=== PATIENT | female | born 1955 | race Caucasian/White ===

== ENCOUNTER 2016-11-29 12:29 | Observation (INO) ==
[2016-11-29 13:22] VITALS: BMI 26.2
[2016-11-29 14:12] LABS: BASOPHILS # (AUTO) 0.1 K/uL (0-0.2); BASOPHILS % (AUTO) 0.7 % (0.0-3.0); EOSINOPHILS % (AUTO) 0.5 % (0.0-7.0); HEMATOCRIT 46.4 % (37.0-47.0); HEMOGLOBIN 16.4 g/dl (12.0-16.0); IMMATURE GRANULOCYTE % (AUTO) 0.4 % (0.0-5.0); LYMPHOCYTES # (AUTO) 1.4 K/uL (0.60-3.4); LYMPHOCYTES % (AUTO) 16.6 (10.0-50.0); MEAN CORPUSCULAR HEMOGLOBIN 37.1 pg (27.0-31.0); MEAN CORPUSCULAR HGB CONC 35.3 (31.8-35.4); MONOCYTES # (AUTO) 0.6 K/uL (0.4-2.0); MONOCYTES % (AUTO) 6.7 (0-10); NEUTROPHILS # (AUTO) 6.4 K/ul (2.0-6.9); NEUTROPHILS % (AUTO) 75.1; PLATELET COUNT 273 10^3/uL (140-440); RED BLOOD COUNT 4.42 10^6/ul (4.20-5.40); WHITE BLOOD COUNT 8.53 K/ul (4.6-10.2)
[2016-11-29 14:21] LABS: ANISOCYTOSIS NOT PRESENT (NOT PRESENT)
[2016-11-29] MEDS ORDERED: MYLANTA SUSP PO PRN (14:53)
[2016-11-29] MEDS ORDERED: LIDODERM PATCH 5% TP PRN (14:55)
[2016-11-29] MEDS ORDERED: TYLENOL PO PRN (14:55)
--- NOTE | 2016-11-29 14:57 | DI ---
EXAM: Chest two views HISTORY: Chest pain COMPARISON: CT chest 10/26/2016 TECHNIQUE: Two views of the chest were performed FINDINGS: The lungs are clear. There is no pleural effusion or pneumothorax. The heart is normal i n size. The mediastinal contour is normal, noting atherosclerosis. There are no acute abnormalities of the bones. Mild compression deformity in the lower spine appears grossly unchanged. Old right ri b fracture IMPRESSION: No acute cardiopulmonary process.
[2016-11-29 15:21] LABS: ALANINE AMINOTRANSFERASE 18 U/L (12-78); ALBUMIN 3.6 g/dL (3.4-5.0); ALBUMIN/GLOBULIN RATIO 0.97; ALKALINE PHOSPHATASE 141 U/L (53-141); ANION GAP 14.5; ASPARTATE AMINO TRANSFERASE 49 U/L (15-37); BILIRUBIN,TOTAL 1.06 mg/dL (0.00-1.20); BLOOD UREA NITROGEN 5 mg/dL (7-18); BUN/CREATININE RATIO 8.77; CARBON DIOXIDE 26 mmol/L (23-31); CHLORIDE 98 mmol/L (98-107); CREATINE KINASE 105 U/L; CREATININE 0.57 mg/dL (0.60-1.30); GLUCOSE 98 mg/dL (82-115); POTASSIUM 4.5 mmol/L (3.5-5.10); SODIUM 134 mmol/L (136-145); TOTAL PROTEIN 7.3 g/dL (5.8-8.1)
[2016-11-29] MEDS ORDERED: GI COCKTAIL PO PRN (16:46)
[2016-11-29] MEDS ORDERED: ZOFRAN 4 MG/2 ML IVP PRN (16:46)
[2016-11-29 17:40] LABS: BILIRUBIN,URINE Negative (NEGATIVE); KETONES,URINE Negative (NEGATIVE); LEUKOCYTE ESTERASE ,URINE Negative (NEGATIVE); NITRITE,URINE Negative (NEGATIVE); PROTEIN,URINE Negative (NEGATIVE); URINE, BLOOD Trace-lysed (NEGATIVE)
[2016-11-29 17:44] LABS: ADD URINE MICROSCOPIC YES
[2016-11-29] MEDS: NORCO 5-325 PO PRN (18:59)
[2016-11-30] MEDS: NORCO 5-325 PO PRN ×2 (04:00→10:12)
[2016-11-30 06:18] LABS: CHOL/HDL RATIO 3.8 (4.5-5.5)
[2016-11-30] MEDS ORDERED: PROTONIX PO SCH (06:30)
[2016-11-30] MEDS ORDERED: ATROPINE SULFATE PFS ONE (07:15)
[2016-11-30] MEDS ORDERED: DOBUTAMINE 250 ML IV ONE (07:15)
--- NOTE | 2016-11-30 13:14 | ECHO2D ---
Date of Exam: 11/30/16 [facility] Room [facility]: [id number] Reason for Echo: CHEST PAIN M-Mode Normal Adult Results LV Dimensions Normal Adult Results AoV Opening excursions >1.6 >1.6 LVEDD-base- 3.5-5.8 5.1 Ao root dimensions 2.0-3.7 3.4 LVESD-base- 3.1-4.6 L. Atrium dimensions 1.9-3.8 3.6 Post. Wall thickness 0.8-1.1 1.0 IV septum (thickness) 0.7-1.2 1.1 Post. Wall excursion 0.72-1.3 NORMAL Septal motion NORMAL Systolic motion R. Ventricular cavity 1.5-2.0 NORMAL LVEF 60% 52% Paradoxical septal wall motion NORMAL 2-D : 2-D M Mode Echocardiogram was performed using apical four chamber and left parasternal long and short axis views. Mitral, tricuspid and aortic valves appear to be normal. Contractility of the left ventricle seems to be normal, so is the cavity size. Left atrial cavity size and aortic root appear to be normal. There is no pericardial effusion. There is no thrombus noted in the left ventricular or left aortic cavity. No mitral valve prolapse noted. M-MODE: MV: NORMAL AV: NORMAL TV: NORMAL PV: CHAMBER SIZE: NORMAL WALL MOTION: NORMAL PERICARDIUM: NORMAL INTERPRETATION: 1. NORMAL 2 "D" "M" MODE ECHO MTDD
--- NOTE | 2016-11-30 13:30 | DOBSTECHO ---
Ordering Physician: COLT ROBERTS Date of Test: 11/30/16 Reason for Examination: CHEST PAIN Current Medications: NORCO, PANTOPRAZOLE, LIDODERM PATCH Height: 64" Weight: 153 LBS Target Heart Rate: 133/157 ST Segment Stage Time HR BPM BP mmhg Rhythm +/- Up Down Comments/Symptoms Control Sitting 72 142/80 SR X NONE Dobutamine 250mg/D5W 5cmg/KG/mn 10cmg/KG/mn 3" 81 SR X NONE 15cmg/KG/mn 2" 87 SR X NONE 20cmg/KG/mn 2" 104 152/72 SR X NONE 25cmg/KG/mn 2" 129 SR X NONE 30cmg/KG/mn :24 139 SR X NONE 35cmg/KG/mn 40cmg/KG/mn Time: 2" HR B/P Time: 8" HR B/P Time: 12" HR B/P Recovery 133 150/60 Recovery 92 132/60 Recovery 87 Total Time: 9:24 Maximum Heart Rate Reached: 139 Interpretation: 98% OXYGEN SATURATION ON ROOM AIR WITH DOBUTAMINE INFUSION 1. NO EVIDENCE OF ISCHEMIA BY ST-T WAVE CHANGES 2. CHEST PAIN OR DISCOMFORT 3. NORMAL LEFT VENTRICULAR CONTRACTILITY--RESTING AND POST DOBUTAMINE INFUSION MTDD
--- NOTE | 2016-11-30 13:33 | ECHOSTRESS ---
Date of Exam: 11/30/16 [facility] Reason for Echo: CHEST PAIN, DOBUTAMINE STRESS TEST--NO ISCHEMIA M-Mode Normal Adult Results LV Dimensions Normal Adult Results AoV Opening excursions >1.6 LVEDD-base- 3.5-5.8 Ao root dimensions 2.0-3.7 LVESD-base- 3.1-4.6 L. Atrium dimensions 1.9-3.8 Post. Wall thickness 0.8-1.1 IV septum (thickness) 0.7-1.2 Post. Wall excursion 0.72-1.3 Septal motion Systolic motion R. Ventricular cavity 1.5-2.0 LVEF 60% Paradoxical septal wall motion 2-D: NORMAL LEFT VENTRICULAR CONTRACTILITY--RESTING AND WITH DOBUTAMINE INFUSION M-MODE: MV: AV: TV: PV: CHAMBER SIZE: WALL MOTION: NORMAL LEFT VENTRICULAR CONTRACTILITY--RESTING AND WITH DOBUTAMINE INFUSION PERICARDIUM: INTERPRETATION: 1. NORMAL LEFT VENTRICULAR CONTRACTILITY--RESTING AND WITH DOBUTAMINE INFUSION MTDD
[2016-11-30 16:01] VITALS: TEMP 97.4
[2016-11-30 17:48] VITALS: BP 132/85
--- NOTE | 2016-12-01 12:46 | CONS ---
DATE OF CONSULTATION: 11/29/16 REASON FOR CONSULTATION: Chest pain HISTORY OF PRESENT ILLNESS: 60 year old white female was seen in doctors office with epigastric lower sternal chest pain, the center with steady ache with duration of 24 hours. The patient also had reflux type of symptoms. Ache or discomfort is nonexertional, no sweating and no shortness of breath with it. There are no symptoms of coronary insufficiency or CHF. REVIEW OF SYSTEMS: CONSTITUTIONAL: No night sweats. No fatigue, malaise, lethargy. No fever or chills. HEENT: Eyes: No visual changes. No eye pain. No eye discharge. ENT: No sinus drainage. No epistaxis. No sinus pain. No sore throat. No odynophagia. No ear pain. No congestion. RESPIRATORY: No cough, no congestion. No hemoptysis. No shortness of breath. CARDIOVASCULAR: No angina symptoms. No CHF symptoms. No atypical chest pain for CAD. No palpitations. No orthopnea. GASTROINTESTINAL: No abdominal pain. No nausea or vomiting. No diarrhea or constipation. No hematemesis. No hematochezia. GENITOURINARY: No urgency. No frequency. No dysuria. No hematuria. No obstructive symptoms. No discharge. No pain. No significant abnormal bleeding. MUSCULOSKELETAL: No musculoskeletal pain. No joint swelling. NEUROLOGICAL: No headache. No neck pain. No syncope. No seizures. No dizziness. PSYCHIATRIC: Not anxious. No depression. No suicidal thoughts. No homicidal thoughts. SKIN: No rash. No lesions. No wounds. ENDOCRINE: No unexplained weight loss. No weight gain. HEMATOLOGIC/LYMPHATIC: No anemia. No purpura. No petechiae. No prolonged or excessive bleeding. No palpable lymph nodes. MEDICATIONS: hydrocodone Lidocaine patch Pantoprazole PHYSICAL EXAMINATION: GENERAL: The patient is oriented to time, place and person. VITAL SIGNS: Temperature 98.6, pulse 70, respiratory rate 15, blood pressure 130 /70 HEENT: Head normocephalic, atraumatic. Eyes: Extraocular muscles are intact. Pupils are equal, round and reactive to light and accommodation. Ears: No lesions. Nose appeared normal. Throat: No exudate or erythema. NECK: Supple. No JVD, no carotid bruit. No lymphadenopathy or thyromegaly. LUNGS: Clear to auscultation. Percussion note normal. Chest symmetrical. HEART: S1, S2, no S3. No murmurs. No cyanosis or clubbing. No ascites. Pulses: Dorsalis pedis and posterior tibial pulses +1 to +2 both sides. ABDOMEN: Soft. Nontender. Bowel sounds active. No CVA tenderness. No mass felt. EXTREMITIES: No edema. Full range of motion of all extremities, equal. NEUROLOGIC: No focal deficit. Cranial nerves II through XII are grossly intact. No headache, no double vision or headache. SKIN: Not dry. Intact. Turgor - normal. LYMPHATIC: No palpable lymph nodes/no lymphedema. MUSCULOSKELETAL: Normal joints with no swelling. Muscle tone is normal. LABS: EKG sinus rhythm with no acute changes. The patient's A1c was 4.8, total cholesterol 153, triglycerides 126, Non HDL is 113 so the patient's lipid profile is acceptable. ASSESSMENT: 1. Chest pain lower sternal likely could be reflux RECOMMENDATIONS: 1. Echo and stress echo 2. Lipid profile 3. T4 TSH 4. Telemetry 5. Cardiac markers 6. So far no evidence of acute OH, Ischemia. EKG normal. Enzymes are negative. 7. Discussed with the patient Coronary insufficiency symptoms. The patient was seen and examined with Nurse Practitioner. Thanks for referral. Will follow. JONAS
--- NOTE | 2016-12-01 12:47 | CONS ---
The patient was seen on Consultation on 11/29/16: Level 5 Followup 11/30/16: Intermediate MTDD
--- NOTE | 2016-12-14 14:03 | CONS ---
DATE OF CONSULTATION: 11/29/16 DATE OF SERVICE: 11/29/16 HISTORY OF PRESENT ILLNESS: This is a 61-year-old female who was a direct admit from Dr. Bardales's office. She had elevated blood pressure of 196/100 in the office and was complaining of epigastric chest tightness and pain. After talking with her today, she states that she is not actually having chest pain, that this is more in the upper stomach, epigastric region. She is not experiencing any shortness of breath. The patient did recently have a nickel removed that she had accidentally swallowed and had revealed that she had an ulcer. She takes Protonix daily. She is a two pack per day smoker. PAST MEDICAL HISTORY: Includes L2 compression fracture Ulcer GERD Chronic back pain for which she takes Defiance Two pack per day long-term smoker PAST SURGICAL HISTORY: Cataract removal Status post hysterectomy Benign cyst in the pelvic region removed by Dr. Young Right wrist surgery Recent nickel removal last month by Dr. Jones via EGD REVIEW OF SYSTEMS: CONSTITUTIONAL: No night sweats. No fatigue, malaise, lethargy. No fever or chills. HEENT: Eyes: No visual changes. No eye pain. No eye discharge. ENT: No sinus drainage. No epistaxis. No sinus pain. No sore throat. No odynophagia. No ear pain. No congestion. RESPIRATORY: No cough, no congestion. No hemoptysis. No shortness of breath. CARDIOVASCULAR: No angina symptoms. No CHF symptoms. No atypical chest pain for CAD. No tightness. No shortness of breath. No palpitations. No orthopnea. GASTROINTESTINAL: Epigastric pain. No nausea or vomiting. No diarrhea or constipation. No hematemesis. No hematochezia. GENITOURINARY: No urgency. No frequency. No dysuria. No hematuria. No obstructive symptoms. No discharge. No pain. No significant abnormal bleeding. MUSCULOSKELETAL: No musculoskeletal pain. No joint swelling. NEUROLOGICAL: She is alert and oriented. No headache. No neck pain. No syncope. No seizures. No dizziness. PSYCHIATRIC: Not anxious. No depression. No suicidal thoughts. No homicidal thoughts. SKIN: No rash. No lesions. No wounds. ENDOCRINE: No unexplained weight loss. No weight gain. HEMATOLOGIC/LYMPHATIC: No anemia. No purpura. No petechiae. No prolonged or excessive bleeding. No palpable lymph nodes. FAMILY HISTORY: Mother and father positive for dementia, lung cancer. SOCIAL HISTORY: The patient is an every day smoker, two packs per day for the past 30 years or so. She denies any alcohol or ilicit drug use. MEDICATIONS: Lidocaine patch Protonix 40 mg daily Defiance 5/325 one to two q.6hr p.r.n. for chronic back pain ALLERGIES: NKDA PHYSICAL EXAMINATION: V/S: BP 148/90. There is some difference in systolic of about 20 between each arm. Temperature 98.4, heart rate 94, respirations 18, pulse ox 95% on room air. Weight 153 lbs. HEENT: Head normocephalic, atraumatic. Eyes: Extraocular muscles are intact. Pupils are equal, round and reactive to light and accommodation. Ears: No lesions. Nose appeared normal. Throat: No exudate or erythema. NECK: Supple. No JVD, no carotid bruit. No lymphadenopathy or thyromegaly. LUNGS: Diminished breath sounds bilaterally with mild expiratory wheeze consistent with COPD due to a long history of smoking. Percussion note normal. Chest symmetrical. HEART: S1, S2. Regular rate and rhythm. No S3. No murmurs, clicks or rubs. ABDOMEN: Soft. Mild tenderness epigastric region. Bowel sounds active. No CVA tenderness. No mass felt. EXTREMITIES: No edema. No calf tenderness. NEUROLOGIC: No focal deficit. Cranial nerves II through XII are grossly intact. No headache, no double vision or headache. SKIN: Not dry. Intact. Turgor - normal. LYMPHATIC: No palpable lymph nodes/no lymphedema. MUSCULOSKELETAL: Normal joints with no swelling. Muscle tone is normal. LAB VALUES: CK and troponin are within normal limits. Telemetry shows normal sinus rhythm. Sodium 134, BUN 5, creatinine 0.57, AST 49, ALT 18. ASSESSMENT: 1. ATYPICAL CHEST PAIN 2. GERD 3. POLYCYTHEMIA SECONDARY TO CHRONIC SMOKER 4. CHRONIC LUNG DISEASE 5. TWO PACK PER DAY SMOKER 6. OBESITY RECOMMENDATIONS: 1. TSH, T4, lipids and A1C 2. Will do echo, Dobutamine stress echo in the morning 3. Continue routine telemetry 4. Continue with cardiac markers as per protocol. 5. Information provided regarding smoking cessation MTDD
--- NOTE | 2017-02-24 11:34 | SSS ---
CHIEF COMPLAINT: Epigastric discomfort and chest tightness. HISTORY OF PRESENT ILLNESS: The patient was seen at the office on the day of admission and was complaining of some epigastric distress as well as chest tightness. Blood pressure was also moderately elevated. Because of the above the patient was advised admission for workup and possible discharge if all the work up was negative pertaining to the cardiovascular system. The patient was agreeable. PAST HISTORY: Recent L2 compression fracture Right upper lobe pneumonitis on admission 10/22/16 History of peptic ulcer disease GERD Chronic back problems that was operated. 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 Young Foreign body in the stomach extracted recently by Dr. Bass Tendon surgery in the forearm PERSONAL/FAMILY HISTORY/SOCIAL HISTORY: The patient is and retired from [employer]. She smokes two packs of cigarettes a day and had been for some time. She had been advised to stop but the patient persisted. She does not drink any alcoholic beverages. PHYSICAL EXAMINATION: GENERAL/APPEARANCE/VITALS: 61 year old female admitted to the hospital because of chest tightness in the lower anterior chest plus epigastric pain. Temperature 98.4, pulse 94, blood pressure 136/80 left and right 168/96. This blood pressure is lower than it was at the office, respiratory rate 18, oxygen saturation 95 at room air. The patient is 153 pounds and BMI 26.3. HEAD: Unremarkable FACE: Symmetrical and equal with no facial weakness and no significant tenderness in the frontal maxillary sinus area to palpation under pressure. MOUTH: Unremarkably THROAT: No inflammation, no tumors and no exudates NECK: No masses, no tenderness and no bruit. CHEST: Essentially symmetrical and equal with good expansion LUNGS: Breath sounds are somewhat diminished in both sides with no rales or wheezing. HEART: Audible and regular with good tones and no murmurs. ABDOMEN: Flat, soft with some tenderness in the epigastric area. No masses palpable, Bowel sounds are active and no bruit. EXTERNAL GENITALES: No examined PELVIC AND RECTAL: Not performed. LOWER EXTREMITIES: Symmetrical and equal with no significant edema. Pedal pulses are present. UPPER EXTREMITIES: Symmetrical and equal. ALLERGIES: Levaquin REVIEW OF SYSTEMS: CONSTITUTIONAL: The patient had no fever and chills. No significant fatigue. No diaphoresis ROPE CUTTER: Negative VISUAL: Denies any blurred vision, double vision or transient loss of vision. RESPIRATORY: The patient has no significant in spite of the fact that she still smoking. No history of hemoptysis. No shortness of breath CARDIOVASCULAR: The patient does have chest tightness in the lower anterior chest. Denies any nausea or diaphoresis accompanying the tightness. GI: The patient does have some epigastric distress, pain and no nausea or vomiting or diarrhea. This patient is taking Protonix. : Negative. MUSCULOSKELETAL: Pain in the lumbar area, upper from the recent compression fracture, L2. PSYCHIATRIC: Affect is normal. INTEGUMENT: No rash or pleuritis ENDOCRINE: Negative HEMATOLOGY: No history of prolonged bleeding or easy bruising. MEDICATIONS: Raymond 5-325mg one to two tablets Q 6 hour PRN Tylenol 325mg two tablets Q 6 hours PRN for laser pain Protonix 40mg tablet daily Lidoderm 5% patch to the back one Q 12 hours up to 24. BRIEF HOSPITAL COURSE: The patient was seen by Dr. Bliss on consultation, cardiology. The workup during this admission showed a CBC which is essentially the same as previous; hgb 16.4 and hct 46.4. The MVH and MCH is still elevated. I could not account for the drop in the hgb and hct in her last admission to the hospital, a month ago. Plt count is normal. The AST is still elevated but minimal, 49 from normal 37. Troponin normal and normal CK. The lipids were normal, TSH normal as well as Free T4. The patient urinalysis on admission was unremarkably. Echocardiogram showed normal left ventricular contractility resting with Dobutamine infusion. The Dobutamine showed no evidence of ischemia by ST-T wave changes. No chest pain or discomfort during the testing. The left ventricular ejection fraction is 52%. The valves were normal. 2DM -Mode was judged as normal. The results were discussed with the patient and the patient was advised that the tests were negative and that she would be discharged today to resume her previous medications. She is advised strongly to stop smoking. This probably aggravates the gastritis in spite of the PPI medication. PROGRESS NOTES: See written notes. DIAGNOSES: 1. Lower anterior chest tightness, rule out Angina or involving DE 2. Epigastric pain, probably secondary to gastritis versus peptic ulcer disease. This patient had previous history of the peptic ulcer problem 3. Chronic tobacco use and abuse 4. Acute L2 compression fracture 5. Foreign body, stomach extracted 6. Abdominal aortic aneurysm, 2.5cm infrarenal PROGNOSIS: Guarded. MTDD
== END 2016-11-30 18:15 | disposition home or self-care (01) ==
LOC: MEDSURG A 12:29
PROVIDERS: ADMIT General Practice; ATTEND General Practice
DX: R07.89 Other chest pain (principal); R10.13 Epigastric pain; I71.4 Abdominal aortic aneurysm, without rupture; I10 Essential (primary) hypertension; K21.9 Gastro-esophageal reflux disease without esophagitis; D75.1 Secondary polycythemia; E66.9 Obesity, unspecified; M48.56XD Collapsed vertebra, not elsewhere classified, lumbar region, subsequent encounter for fracture with routine healing; F17.200 Nicotine dependence, unspecified, uncomplicated; Z79.891 Long term (current) use of opiate analgesic; Z79.899 Other long term (current) drug therapy
CPT/HCPCS: 36415; 80053; 80061; 81001; 82550; 83036; 84439; 84443; 84484; 85008; 85025; 93005; 93010; 99225; 99245

== ENCOUNTER 2017-02-25 10:16 | Emergency (ER) ==
[2017-02-25 10:21] VITALS: BP 167/82; TEMP 98.2; BMI 25.7
[2017-02-25] MEDS ORDERED: MORPHINE 2 MG/ML SYRINGE IM STA (10:54)
[2017-02-25] MEDS ORDERED: ZOFRAN 4 MG/2 ML IM STA (10:55)
[2017-02-25] MEDS ORDERED: VALIUM SYRINGE IM STA (10:57)
[2017-02-25] MEDS ORDERED: DECADRON 4 MG/ML SDV IM STA (10:58)
--- NOTE | 2017-02-25 11:01 | ED.PDOC ---
General ED Provider: Dr. OLIVERIO BALDWIN Chief Complaint: Back Pain Stated Complaint: back pain Time Seen by Physician: 10:16 Mode of Arrival: Walk-In Information Source: Patient Exam Limitations: No limitations [facility] Documentation Reviewed and Agree: Yes Reviewed sepsis parameters & appropriate labs ordered?: Yes System Inflammatory Response Syndrome: Not Applicable Sepsis Protocol: For patient's 13 years and over: Temp is 96.8 and below OR 101 and greater Pulse >90 BPM Resp >20/minute Acutely Altered Mental Status Are patient's symptoms suggestive of a new infection, such as: -Pneumonia -Skin, Soft Tissue -Endocarditis -UTI -Bone, Joint Infection -Implantable Device -Acute Abdominal Infection -Wound Infection -Meningitis -Blood Stream Catheter Infection -Unknown Musculoskeletal Complaint Exam - Back Pain Complaint/Exam Mechanism of Injury: Reports: No known trauma Onset/Duration: 1 day Symptoms Are: Still present Timing: Intermittent Episodes Lasting: Minutes Initial Severity: Mild Current Severity: Mild Location: Reports: Discrete Character: Reports: Aching, Throbbing, Spasmodic, Stiffness Aggravating: Reports: Movements, Lifting, Bending, Walking Alleviating: Reports: Rest Associated Signs and Symptoms: Denies: Swelling, Redness, Bruising, Fever, Weakness, Numbness, Tingling, Abdominal pain, Flank pain, Bladder incontinence, Bowel incontinence, Weight loss, Pain with weight bearing Cauda Equina Risk Factors: Reports: None Epidural Abcess Risk Factors: Reports: None Related Surgical History: Reports: None Focal Tenderness: No Paraspinal Muscle Tenderness: No Paraspinal Muscle Spasm: No Scoliosis: No Lordosis: No Kyphosis: No SLR Test: Right Negative, Left Negative Hip Motion Testing Pain: Right Negative, Left Negative Focal Weakness: Present: None Focal Sensory Loss: Present: None Gait: Present: Normal Differential Diagnoses: Strain, Sprain Review of Systems - Review Of Systems Constitutional: Reports: No symptoms Eyes: Reports: No symptoms Ears, Nose, Mouth, Throat: Reports: No symptoms Respiratory: Reports: No symptoms Cardiac: Reports: No symptoms GI: Reports: No symptoms : Reports: No symptoms Musculoskeletal: Reports: Back pain Skin: Reports: No symptoms Neurological: Reports: No symptoms Endocrine: Reports: No symptoms Hematologic/Lymphatic: Reports: No symptoms All Other Systems: Reviewed and Negative Past Medical History - Past Medical History Previously Healthy: No Endocrine: Reports: Unknown Cardiovascular: Reports: Unknown Respiratory: Reports: Unknown Hematological: Reports: Unknown Gastrointestinal: Reports: Unknown Genitourinary: Reports: Unknown Neuro/Psych: Reports: Unknown Musculoskeletal: Reports: Unknown Cancer: Reports: Unknown Last Menstrual Period: NONE - Surgical History General Surgical History: Reports: Unknown - Family History Family History: Reports: Unknown - Social History Smoking Status: Current every day smoker Hx Substance Use: No Alcohol Screening: Occasionally Physical Exam - Physical Exam Appearance: Well-appearing, No pain distress, Well-nourished Eyes: CHELLE, EOMI, Conjunctiva clear ENT: Ears normal, Nose normal, Oropharynx normal Respiratory: Airway patent, Breath sounds clear, Breath sounds equal, Respirations nonlabored Cardiovascular: RRR, Pulses normal, No rub, No murmur GI/: Soft, Nontender, No masses, Bowel sounds normal, No Organomegaly Musculoskeletal: Normal strength, ROM intact, No edema, No calf tenderness Skin: Warm, Dry, Normal color Neurological: Sensation intact, Motor intact, Reflexes intact, Cranial nerves intact, Alert, Oriented Psychiatric: Affect appropriate, Mood appropriate Critical Care Note - Critical Care Note Total Time (mins): 0 Course - Course Orders, Labs, Meds: Orders Category Date Time Status Dexamethasone 4 mg/ml Inj [Decadron 4 mg/ml Sdv] MEDS 02/25/17 10:58 Stat 2 mg IM ONCE STA Diazepam Syringe [Valium Syringe] MEDS 02/25/17 10:57 Stat 2 mg IM ONCE STA Morphine Sulfate [Morphine 2 mg/ml Syringe] MEDS 02/25/17 10:54 Discontinued 4 mg IM ONCE STA Ondansetron HCl/Pf [Zofran 4 mg/2 ml] MEDS 02/25/17 10:55 Discontinued 4 mg IM ONCE STA Medications Generic Name Dose Route Start Last Admin Trade Name Freq PRN Reason Stop Dose Admin Dexamethasone Sodium Phosphate 2 mg 02/25/17 10:58 Decadron 4 Mg/Ml Sdv IM 02/25/17 10:59 ONCE STA Discontinued Medications Generic Name Dose Route Start Last Admin Trade Name Freq PRN Reason Stop Dose Admin Diazepam 2 mg 02/25/17 10:57 Valium Syringe IM 02/25/17 10:58 ONCE STA Morphine Sulfate 4 mg 02/25/17 10:54 Morphine 2 Mg/Ml Syringe IM 02/25/17 10:55 ONCE STA Ondansetron HCl 4 mg 02/25/17 10:55 Zofran 4 Mg/2 Ml IM 02/25/17 10:56 ONCE STA Vital Signs: Temp Pulse Resp BP Pulse Ox 02/25/17 10:16 98.2 F 95 H 20 167/82 H 95 Departure - Departure Time of Disposition: 11:01 Disposition: HOME SELF-CARE Discharge Problem: Backache Low back pain Qualifiers: Chronicity: unspecified Sciatica presence: without sciatica Instructions: Acute Low Back Pain (ED) Condition: Good Pt referred to PMD for follow-up: Yes Additional Instructions: Please call your Family Physician as soon as possible to schedule a follow-up appointment. Allergies/Adverse Reactions: Allergies levofloxacin [From Levaquin] Allergy (Mild, Verified 02/25/17 10:21) Rash Home Medications: Ambulatory Orders Acetaminophen [Tylenol] 650 mg PO Q6H PRN 11/29/16 Pantoprazole Sodium 40 mg PO DAILY 11/29/16 Disposition Discussed With: Patient
== END 2017-02-25 11:30 | disposition home or self-care (01) ==
LOC: ED 10:16
DX: M54.40 Lumbago with sciatica, unspecified side (principal); F17.210 Nicotine dependence, cigarettes, uncomplicated
CPT/HCPCS: 96372; 99283

== ENCOUNTER 2017-02-27 12:27 | Inpatient (IN) ==
[2017-02-27] MEDS ORDERED: DILAUDID 2 MG/ML SYRINGE IM STA (12:52)
[2017-02-27] MEDS ORDERED: PHENERGAN 25 MG/ML VIAL IM STA (12:52)
--- NOTE | 2017-02-27 14:06 | CT ---
EXAM: CT of the abdomen pelvis without contrast History: Flank pain. Comparison: CT abdomen pelvis 03/20/2013 Technique: Multiplanar CT images through the abdomen pelvis were obtained without the administration of IV contrast Findings: Lung bases are free of consolidation. Degenerative changes of the lumbar spine. Subacute a ppearing compression fractures involving superior endplate of L2 and T11. Cholelithiasis. No peripancreatic inflammation. No focal liver or splenic lesions. Long right lobe of the liver could indicate hepatomegaly or a Ramirez's variant. Stable benign bilateral adrenal ky nomas. 4 mm left renal calculus. No hydronephrosis. No ureteral calculi. No bladder wall thickenin g. Uterus is not seen. The sigmoid colonic diverticulosis. There is inflammation and fluid seen ad jacent to the sigmoid colon. There is tethering of the sigmoid colon and question small focal perfor ation versus air within the diverticula. No drainable fluid collections. The wall thickening of the sigmoid colon is probably reactive. Impression: 1. Sigmoid diverticulitis with question small localized perforation but no drainable abscess. The wal l thickening of the sigmoid colon is probably reactive. 2. Cholelithiasis. 3. Nonobstructing left nephrolithiasis. 4. Subacute compression fractures of L2 and T11.
--- NOTE | 2017-02-27 14:06 | CT ---
EXAM: CT THORAX HISTORY: Cough. TECHNIQUE: CT thorax without intravenous contrast. Multiplanar images presented. Coronal and sagit jaycee re-formations. COMPARISON: 10/26/2016 FINDINGS: Normal heart size. Minimal atherosclerotic disease. Lungs are mildly hyperinflated. Early paraseptal emphysema and scarring in the apices. No consolida patrica pneumonia, vascular congestion or pleural fluid. No pneumothorax. Bones reveal subtle superior endplate deformity at what is thought to represent T11 which does not ob viously appear acute and there is no significant loss of vertebral body height. There is a healing r ib fracture of a lower left rib. No definite acute bony finding. IMPRESSION: 1. No acute infiltrate or pneumonia. 2. Bones reveal subtle superior endplate deformity at what is thought to represent T11 which does no t obviously appear acute and there is no significant loss of vertebral body height. There is a heali ng rib fracture of a lower left rib. No definite acute bony finding.
--- NOTE | 2017-02-27 14:14 | CT ---
EXAM: CT LUMBAR SPINE HISTORY: Back pain TECHNIQUE: CT lumbar spine without contrast. 3-mm axial sections. Coronal and sagittal reformation s. COMPARISON: 10/22/2016 FINDINGS: Compared to 10/22/2016. Bones appear demineralized. There is diffuse degenerative disc and facet disease. The L2 acute comp ression fracture seen previously has evolved with mild loss of height and currently no acute appearan ce. There is reversal of lordosis at this level. Scoliosis is noted. Sacroiliac joints are intact. The degenerative changes lead to multilevel central and neural foraminal stenosis most apparent at L 3/L4 and L4/L5 both levels with moderate central canal stenosis and bilateral neural foraminal narrow ing. Stable bilateral adrenal adenomas. Calcifications within the kidneys probably represent a comb ination of renal calculi and vascular calcifications. There is diverticulosis of the sigmoid colon w ith mild adjacent stranding around some of the diverticula. Atherosclerotic disease is noted. IMPRESSION: 1. No acute spinal fracture. Degenerative changes and scoliosis of the spine. 2. Probable mild sigmoid diverticulitis incidentally noted. No abscess or bowel obstruction.
--- NOTE | 2017-02-27 14:18 | CT ---
EXAM: CT thoracic spine. HISTORY: Back pain. TECHNIQUE: CT thoracic spine without contrast. Multiplanar images provided. FINDINGS: Comparison is to CT chest dated 10/26/2016. Bones appear demineralized. At T11, there is mild superior endplate deformity. This was seen previo usly and does not appear noticeably worsened. This is probably chronic although superimposed acute c omponent would be difficult to completely exclude. There is no retropulsion. The remainder of the v ertebral bodies of the thoracic spine are grossly unremarkable. There is no central canal stenosis. See also same day CT thorax and lumbar spine reports. IMPRESSION: At T11, there is mild superior endplate deformity. This was seen previously and does not appear noticeably worsened. This is probably chronic although superimposed acute component would be difficult to completely exclude. There is no retropulsion. Bones appear demineralized.
[2017-02-27] MEDS ORDERED: SODIUM CHLORIDE 1,000 ML IV STA (14:50)
--- NOTE | 2017-02-27 16:07 | CT ---
EXAM: CTA of the chest. History: Chest pain and back pain. Comparison: CT thoracic spine 02/27/2017, chest CT 02/27/2017, CT abdomen pelvis 02/27/2017 Technique: Multiplanar CT images through the thorax were obtained following administration of IV con trast. MIP images and 3-D reconstructions were also acquired Findings: Heart size is upper limits of normal. Coronary calcifications. Great vessels are unremar kable. No pericardial effusion. No pathologically enlarged thoracic lymph nodes. No pulmonary arter ial filling defects. No consolidated pneumonia. Scattered areas of subsegmental atelectasis again noted. No pleural flui d and no pneumothorax. No suspicious lung nodules or lung masses. For details in the upper abdomen, please see dedicated CT abdomen pelvis done on the same day. The v isualized osseous structures unchanged. Impression: No pulmonary embolism and no evidence for pneumonia.
--- NOTE | 2017-02-27 16:19 | CT ---
EXAM: CT abdomen pelvis with contrast HISTORY: Back pain most pronounced on the right with prior hysterectomy COMPARISON: CT abdomen pelvis same day and prior 03/20/2013 TECHNIQUE: Serial axial images of the abdomen pelvis were performed after IV contrast was administer ed. These were obtained from the lung bases through the inferior pelvis. FINDINGS: The lung bases are clear. The liver is unremarkable with no focal hepatic lesion. The gallbladder demonstrates a single layeri ng calcified stone. The kidneys are unremarkable with nonobstructing stable left renal stones. The left adrenal nodule measures 2.2 cm, with Hounsfield units on noncontrast study same day consistent w ith an adenoma. Probable right benign adenoma is present. The spleen is normal. Pancreas is unremar kable. The stomach is normal. Small bowel in the abdomen and pelvis is unremarkable. The colon demonstrates diverticulosis and inf lammatory stranding involving the sigmoid colon with questionable fistula of the proximal to distal s igmoid colon seen on axial image 69. No definitive perforation is identified. There is inflammatory phlegmon changes adjacent to the colon in the left pelvis. No focal drainable abscess is identified . There is no free air. The osseous structures are unchanged. IMPRESSION: 1. Sigmoid diverticulitis with no focal abscess or perforation. 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 The there is in flammatory phlegmon adjacent to the sigmoid colon in the pelvis with no definitive abscess or free ai r. The 2. No additional abnormality or change is identified in comparison to prior study.
--- NOTE | 2017-02-27 16:28 | ED.PDOC ---
General ED Provider: Dr. ANGELA DELANEY-ER Chief Complaint: Respiratory Complaint Stated Complaint: i have had a cough, and back pain Time Seen by Physician: 12:30 Mode of Arrival: Walk-In Information Source: Patient Exam Limitations: No limitations Primary Care [facility] Nursing and Triage Documentation Reviewed and Agree: Yes Reviewed sepsis parameters & appropriate labs ordered?: Yes System Inflammatory Response Syndrome: Not Applicable Sepsis Protocol: For patient's 13 years and over: Temp is 96.8 and below OR 101 and greater Pulse >90 BPM Resp >20/minute Acutely Altered Mental Status Are patient's symptoms suggestive of a new infection, such as: -Pneumonia -Skin, Soft Tissue -Endocarditis -UTI -Bone, Joint Infection -Implantable Device -Acute Abdominal Infection -Wound Infection -Meningitis -Blood Stream Catheter Infection -Unknown GI Complaint Exam - Abdominal Pain Complaint/Exam Onset: Gradual Duration: several days Symptoms Are: Still present Timing: Constant Initial Severity: Mild Current Severity: Mild Location of Pain: Diffuse Radiates To: Reports: Back, Flank Character: Reports: Dull, Aching, Cramping Aggravating: Reports: Movement Alleviating: Reports: None Associated Signs and Symptoms: Reports: Cough, Back pain, Nausea. Denies: Diaphoresis, Fever, Chest pain, Dizziness, Constipation, Blood in stool, Dysuria , Urinary frequency, Decreased urine output, Decreased appetite, Vaginal bleeding, Vaginal discharge, Vomiting, Diarrhea, Sore throat, Decreased activity Abdominal Findings: Present: None Quality Indicator For Non-Traumatic Chest Pain/Syncope: EKG Performed Review of Systems - Review Of Systems Constitutional: Reports: Weakness, Loss of appetite Eyes: Reports: No symptoms Ears, Nose, Mouth, Throat: Reports: No symptoms Respiratory: Reports: Cough Cardiac: Reports: No symptoms GI: Reports: Abdominal pain : Reports: No symptoms Musculoskeletal: Reports: Back pain Skin: Reports: No symptoms Neurological: Reports: No symptoms Endocrine: Reports: No symptoms Hematologic/Lymphatic: Reports: No symptoms All Other Systems: Reviewed and Negative Past Medical History - Past Medical History Previously Healthy: No Endocrine: Reports: Unknown Cardiovascular: Reports: Unknown Respiratory: Reports: Unknown Hematological: Reports: Unknown Gastrointestinal: Reports: Unknown Genitourinary: Reports: Unknown Neuro/Psych: Reports: Unknown Musculoskeletal: Reports: Unknown Cancer: Reports: Unknown Last Menstrual Period: unknown - Surgical History General Surgical History: Reports: Unknown - Family History Family History: Reports: Unknown - Social History Smoking Status: Current every day smoker, Heavy tobacco smoker Hx Substance Use: No Alcohol Screening: None Physical Exam - Physical Exam Appearance: Well-appearing Pain Distress: Moderate Eyes: CHELLE ENT: Ears normal, Nose normal, Oropharynx normal Neck: Supple Respiratory: Airway patent, Breath sounds clear, Breath sounds equal, Respirations nonlabored Cardiovascular: RRR, Pulses normal, No rub, No murmur GI/: Soft Musculoskeletal: Normal strength, ROM intact, No edema, No calf tenderness Skin: Warm, Dry, Normal color Neurological: Sensation intact, Motor intact, Reflexes intact, Cranial nerves intact, Alert, Oriented Psychiatric: Affect appropriate, Mood appropriate Interpretation - Radiology Interpretation Radiology Interpretation By: Radiologist Radiology Results: Negative Exam Interpreted: CT Scan Physician Notification - Case Discussed Physician Notified: dr davis Time of Notification: 16:29 Critical Care Note - Critical Care Note Total Time (mins): 0 Course - Course Hematology/Chemistry: 03/01/17 04:50 03/01/17 04:50 Orders, Labs, Meds: Lab Review 02/27/17 02/27/17 02/27/17 13:00 13:10 13:10 WBC 9.76 RBC 4.86 Hgb 17.0 H Hct 50.0 H MCV 102.9 H MCH 35.0 H MCHC 34.0 RDW Coeff of Maxi 15.5 H Plt Count 281 Immature Gran % (Auto) 1.1 Neut % (Auto) 72.3 Lymph % (Auto) 16.0 Mcmullen % (Auto) 8.9 Eos % (Auto) 0.6 Baso % (Auto) 1.1 Immature Gran # (Auto) 0.1 Neut # 7.1 H Lymph # 1.6 Mcmullen # 0.9 Eos # 0.1 Baso # 0.1 ESR 5 D-Dimer (Manual) Sodium 133 L Potassium 4.1 Chloride 94 L Carbon Dioxide 29 Anion Gap 14.1 BUN 5 L Creatinine 0.70 Estimated GFR (MDRD) 85.00 BUN/Creatinine Ratio 7.14 Glucose 94 Calcium 9.7 Total Bilirubin 0.8 AST 34 ALT 21 Alkaline Phosphatase 115 Total Creatine Kinase Troponin I Total Protein 8.5 H Albumin 4.0 Globulin 4.5 Albumin/Globulin Ratio 0.89 Amylase 89 Lipase 63 Urine Color Urine Clarity Urine pH Ur Specific [place] Urine Protein Urine Glucose (UA) Urine Ketones Urine Blood Urine Nitrite Urine Bilirubin Urine Urobilinogen Ur Leukocyte Esterase Urine Microscopic WBC Ur Squamous Epith Cells Urine Bacteria Influenza A (Rapid) Influenza B (Rapid) 02/27/17 02/27/17 02/27/17 13:10 13:10 13:10 WBC RBC Hgb Hct MCV MCH MCHC RDW Coeff of Maxi Plt Count Immature Gran % (Auto) Neut % (Auto) Lymph % (Auto) Mcmullen % (Auto) Eos % (Auto) Baso % (Auto) Immature Gran # (Auto) Neut # Lymph # Mcmullen # Eos # Baso # ESR D-Dimer (Manual) 441.10 Sodium Potassium Chloride Carbon Dioxide Anion Gap BUN Creatinine Estimated GFR (MDRD) BUN/Creatinine Ratio Glucose Calcium Total Bilirubin AST ALT Alkaline Phosphatase Total Creatine Kinase 87 Troponin I 0.0110 Total Protein Albumin Globulin Albumin/Globulin Ratio Amylase Lipase Urine Color Urine Clarity Urine pH Ur Specific [place] Urine Protein Urine Glucose (UA) Urine Ketones Urine Blood Urine Nitrite Urine Bilirubin Urine Urobilinogen Ur Leukocyte Esterase Urine Microscopic WBC Ur Squamous Epith Cells Urine Bacteria Influenza A (Rapid) Influenza B (Rapid) 02/27/17 02/27/17 13:30 13:44 WBC RBC Hgb Hct MCV MCH MCHC RDW Coeff of Maxi Plt Count Immature Gran % (Auto) Neut % (Auto) Lymph % (Auto) Mcmullen % (Auto) Eos % (Auto) Baso % (Auto) Immature Gran # (Auto) Neut # Lymph # Mcmullen # Eos # Baso # ESR D-Dimer (Manual) Sodium Potassium Chloride Carbon Dioxide Anion Gap BUN Creatinine Estimated GFR (MDRD) BUN/Creatinine Ratio Glucose Calcium Total Bilirubin AST ALT Alkaline Phosphatase Total Creatine Kinase Troponin I Total Protein Albumin Globulin Albumin/Globulin Ratio Amylase Lipase Urine Color Yellow Urine Clarity Slightly Urine pH 6.5 Ur Specific [place] 1.015 Urine Protein Negative Urine Glucose (UA) Negative Urine Ketones Negative Urine Blood Negative Urine Nitrite Negative Urine Bilirubin Negative Urine Urobilinogen 0.2 Ur Leukocyte Esterase 1+ Urine Microscopic WBC 5-10 Ur Squamous Epith Cells Tntc Urine Bacteria 1+ Influenza A (Rapid) Negative by naat Influenza B (Rapid) Negative by naat Orders Category Date Time Status ADMIT PATIENT INPATIENT .TO [facility] (MONITORED BED) ADMISSION 02/27/17 16: 32 Completed EKG-(ED ONLY) Stat CARDIO 02/27/17 12:54 Completed OXYGEN Routine CARDIO 02/27/17 16:33 Active ACTIVITY .BR with BRP CARE 02/27/17 16:32 Completed INTAKE & OUTPUT Q8HR CARE 02/27/17 16:32 Completed NPO REMINDER: IMAGING ONCE CARE 02/27/17 14:51 Completed NPO REMINDER: IMAGING ONCE CARE 02/27/17 14:51 Completed TELEMETRY MONITORING TELE CARE 02/27/17 16:32 Active VITAL SIGNS Q4HR CARE 02/27/17 16:32 Completed ED IV/MEDIPORT/POWERPORT .ONCE EMERGENCY 02/27/17 14:50 Completed AMYLASE Stat LAB 02/27/17 13:10 Completed BLOOD CULTURE (ED ONLY) Stat LAB 02/27/17 13:00 Results CBC W/ AUTO DIFF DAILY@0600 LAB 02/28/17 05:57 Completed CBC W/ AUTO DIFF DAILY@0600 LAB 03/01/17 04:50 Completed CBC W/ AUTO DIFF Stat LAB 02/27/17 13:10 Completed CK [CREATINE KINASE] Stat LAB 02/27/17 13:10 Completed COMPREHENSIVE METABOLIC PANEL DAILY@0600 LAB 02/28/17 05:57 Completed COMPREHENSIVE METABOLIC PANEL DAILY@0600 LAB 03/01/17 04:50 Completed COMPREHENSIVE METABOLIC PANEL Stat LAB 02/27/17 13:10 Completed D-DIMER Stat LAB 02/27/17 13:10 Completed LIPASE Stat LAB 02/27/17 13:10 Completed MOLECULAR GROUP A STREP Stat LAB 02/27/17 13:43 Completed RAPID FLU A/B Stat LAB 02/27/17 13:44 Completed STREP SCREEN Stat LAB 02/27/17 13:43 Completed TROPONIN I Stat LAB 02/27/17 13:10 Completed URINALYSIS C & S IF INDICATED Stat LAB 02/27/17 13:30 Completed URINE CULTURE Routine LAB 02/27/17 13:30 Results 0.9 % Sodium Chloride [Saline Flush] MEDS 02/27/17 14:50 Active 1 syr IVF PRN PRN Enoxaparin Sodium [Lovenox] MEDS 02/28/17 09:00 Active 40 mg SUBCUT DAILY Hydromorphone HCl/Pf [Dilaudid 2 mg/ml Syringe] MEDS 02/27/17 12:52 Discontinued 2 mg IM ONCE STA Promethazine HCl [Phenergan 25 mg/ml Vial] MEDS 02/27/17 12:52 Discontinued 25 mg IM ONCE STA RESUSCITATION STATUS Routine OTHERS 02/27/17 16:[address] ABDOMEN/PELVIS W CONTRAST Stat RADS 02/27/17 14:[address] ABDOMEN/PELVIS WO CONTRAST Stat RADS 02/27/17 12:[address] CHEST PE PROTOCOL Stat RADS 02/27/17 14:[address] CHEST W/O CONTRAST Stat RADS 02/27/17 12:[address] LUMBAR SPINE W/O CONTRAST Stat RADS 02/27/17 12:[address] THORACIC SPINE W/O CONTRAST Stat RADS 02/27/17 12:51 Completed Medications Generic Name Dose Route Start Last Admin Trade Name Freq PRN Reason Stop Dose Admin Enoxaparin Sodium 40 mg 02/28/17 09:00 02/28/17 08:22 Lovenox SUBCUT 40 mg DAILY GENTRY Administration Hydromorphone HCl 1 mg 02/27/17 16:35 03/01/17 04:27 Dilaudid 1 Mg/Ml Syringe IVP 1 mg Q3HR PRN Administration MODERATE PAIN Metronidazole 500 mg/ Sodium 100 mls @ 100 mls/hr 02/27/17 21:00 03/01/17 04: 27 Chloride IV 100 mls/hr Q8HR GENTRY Administration Piperacillin Sod/Tazobactam 50 mls @ 50 mls/hr 02/27/17 17:00 03/01/17 06:03 Sod 3.375 gm/ Sodium Chloride IV 50 mls/hr Q6HR GENTRY Administration Potassium Chloride/Dextrose/Sod Cl 1,000 mls @ 125 mls/hr 02/27/17 17:51 04:27 D5%-Ns-Kcl 20 Meq/L Iv Kamini IV Not Given .Q8H GENTRY Ondansetron HCl 4 mg 02/27/17 16:37 Zofran 4 Mg/2 Ml IVP Q4HR PRN Nausea / Vomiting Sodium Chloride 1 syr 02/27/17 14:50 Saline Flush IVF PRN PRN To flush IV Zolpidem Tartrate 5 mg 02/28/17 23:03 Ambien PO BEDTIME PRN Insomnia Discontinued Medications Generic Name Dose Route Start Last Admin Trade Name Freq PRN Reason Stop Dose Admin Hydromorphone HCl 2 mg 02/27/17 12:52 02/27/17 13:55 Dilaudid 2 Mg/Ml Syringe IM 02/27/17 12:53 2 mg ONCE STA Administration Promethazine HCl 25 mg 02/27/17 12:52 02/27/17 13:55 Phenergan 25 Mg/Ml Vial IM 02/27/17 12:53 25 mg ONCE STA Administration i spoke to the patient concerning her ct scan findings--we tried to convince her to be transferred to another facility but she refuses--she understands risk of injury and even but she refuses--dr eastman aware Vital Signs: Temp Pulse Resp BP Pulse Ox 02/27/17 12:27 98.0 F 96 H 20 155/112 H 93 L Departure - Departure Time of Disposition: 16:29 Disposition: ADMITTED INPATIENT Discharge Problem: Diverticulitis Condition: Good Pt referred to PMD for follow-up: Yes Allergies/Adverse Reactions: Allergies levofloxacin [From Levaquin] Allergy (Mild, Verified 02/25/17 10:21) Rash Home Medications: Ambulatory Orders Acetaminophen [Tylenol] 650 mg PO Q6H PRN 11/29/16 Pantoprazole Sodium 40 mg PO DAILY 11/29/16 Hydrocodone/Acetaminophen [[place] 10-325 Tablet] 1 each PO Q8HR #14 tablet Disposition Discussed With: Patient
[2017-02-27] MEDS ORDERED: ZOFRAN 4 MG/2 ML IVP PRN (16:37)
[2017-02-27] MEDS ORDERED: D5%-NS-KCL 20 MEQ/L IV SOL 1,000 ML IV SCH (17:00)
[2017-02-27 18:48] VITALS: BMI 26.3
[2017-02-27] MEDS: DILAUDID 1 MG/ML SYRINGE IVP PRN ×2 (19:58→23:14)
[2017-02-27] MEDS: ZOSYN 3.375 GM 3.375 GM in SODIUM CHLORIDE 50 ML IV SCH (20:09)
[2017-02-27] MEDS: FLAGYL 500 MG/100 ML 500 MG in PREMIX 100 ML NS 1 BAG IV SCH (21:29)
[2017-02-27] MEDS: D5%-NS-KCL 20 MEQ/L IV SOL 1,000 ML IV SCH (22:13)
[2017-02-28] MEDS: ZOSYN 3.375 GM 3.375 GM in SODIUM CHLORIDE 50 ML IV SCH ×4 (00:13→18:36)
[2017-02-28] MEDS: DILAUDID 1 MG/ML SYRINGE IVP PRN ×6 (02:35→22:06)
[2017-02-28] MEDS: FLAGYL 500 MG/100 ML 500 MG in PREMIX 100 ML NS 1 BAG IV SCH ×3 (05:35→20:52)
[2017-02-28] MEDS: LOVENOX SUBCUT SCH (08:22)
[2017-02-28] MEDS: D5%-NS-KCL 20 MEQ/L IV SOL 1,000 ML IV SCH ×2 (11:02→11:09)
--- NOTE | 2017-02-28 15:42 | HP ---
CHIEF COMPLAINT: Pain right lateral chest. SOURCE OF HISTORY: The patient, reliability good. HISTORY OF PRESENT ILLNESS: The patient claimed to be doing well with the fracture of L2. The pain has subsided remarkably that she was feeling good. She woke up last Monday with pain in the right lateral chest wall lower below her breast level. The pain seemed to radiate to the anterior chest. This was not accompanied by any shortness of breath of diaphoresis and the pain was constant and severe rated at 10 on the scale of 0 to 10. She presented to the emergency room and claimed to have been quickly examined by the ER physician and told that she would have injections and was discharged. She applied that the ER physician was rude and abrupt. The patient back 02/27/17 because of the persistent pain. She was examined by Dr. Sahu and in the course of the examination a CAT scan of the chest without contrast of the abdomen was done and the chest was unremarkably. The abdomen showed some diverticular disease and diverticulitis with questionable abscess. The doctor mentioned that there was no drainable abscess. The history that I got from Dr. Sahu that his patient had mid thoracic pain. I indicated to him that we probably need to rule out any vascular problems such as dissection of the aorta if she had the mid thoracic posterior. She underwent CT scan of the chest as well as the abdomen with contrast. The patient had no pulmonary emboli and no vascular dissection. There was a mention of some abnormality of the T11 but the doctor mentioned that it was seen previously. 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 This probably results from a ruptured diverticulum into distal sigmoid. This patient would need a referral to a general surgeon. This may require a resection of this area. The patient however does not have any abdominal pain and no tenderness at all. This is more or less an incidental finding. This patient was then admitted because of the question of abscess collection or fluid collection in the pelvis with a fistula between the proximal and distal sigmoid plus the pain in the right lateral chest. PAST PERSONAL HISTORY: Recent L2 compression fracture Right upper lobe pneumonitis, resolved History of peptic ulcer disease Foreign body in the stomach, hubert that had been there for some time History of GERD History of chronic back problems that was operated Chronic tobacco use, 2 packs per day Laser surgery to both eyes Total abdominal hysterectomy Tumor excised in the genital area, Dr. Young Surgery in the forearm The patient was admitted for epigastric discomfort and chest tightness. She did undergo stress testing and echocardiogram which were unremarkably or normal. FAMILY HISTORY: Mother had Alzheimer's disease Father had prostatic carcinoma and from hernia repair History of breast carcinoma in the family SOCIAL HISTORY: The patient is and resides with her . 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 She smokes 2 packs of cigarettes per day and has been advised to stop some time ago and was advised several times. MEDICATIONS: Protonix 40mg daily prescribed by Dr. Bass from [place], [place] who did the endoscopy and removal of foreign body. Hydrocodone 10-325mg three times a day prescribed from the emergency room. She was given an injection of Morphine at the emergency room and [facility] and discharged. There was no x-rays or labs done. She was also given Decadron 4mg intramuscularly and Diazepam 2mg IM. ALLERGIES: Levofloxacin REVIEW OF SYSTEMS: CONSTITUTIONAL: The patient denies any fever or chills. She does have weakness because of the pain that she is not able to rest very well. The [place] 10-325 did not reduce the pain. In the pain in the right lateral chest wall however is not aggravated by taking a deep breath. CONFIGURATION ANALYST: Negative VISUAL: Denies any blurred vision, double vision or transient loss of vision. AUDITORY: Hearing is adequate and denies any tinnitus, pain or drainage. RESPIRATORY: The patient has pain in the right lateral chest wall but not aggravated by deep breathing. She does not have any excessive cough except from the chronic tobacco use. CARDIOVASCULAR: Denies any anterior chest pain or chest tightness. She does have pain in the right lateral chest wall about the anterior axillary line. This area is markedly tender to touch. GASTROINTESTINAL: The patient has no nausea or anorexia. How appetite however has decreased during this episode. She did have a history of peptic ulcer disease and was treated with Protonix by the GI doctor who removed the foreign body in the stomach, hubert. She also denied any abdominal pain or diarrhea or tenderness in the abdomen. GENITOURINARY: No Dysuria ENDOCRINE: Negative. INTEGUMENT: No rash or pleuritis. HEMATOLOGIC: Negative. The patient however in the last admission, 10/20, did have a drop in the hgb and hct which was drastic and I could not explain from hydration. There was no obvious external source of the drop in the hgb from 16 to 9. PSYCHIATRIC: Affect is normal. PHYSICAL EXAMINATION: GENERAL: We have a 61 year old female admitted to the hospital because of pain in the right lateral chest wall since 02/25/17. She was seen at the emergency room and an extensive workup was done consisting of a CT scan of the abdomen and pelvis plus chest without contrast and followed by CAT scan of the chest and abdomen and pelvis with contrast. CBC showed normal WBC, hgb and hct is in the upper limits of normal. Total protein was elevated 8.5. VITAL SIGNS: Temperature 98.4, pulse 71, blood pressure 133/78, respiratory rate 16, oxygen saturation 93% at room air. HEAD: Unremarkable FACE: Symmetrical and equal with no facial weakness and no significant tenderness in the frontal maxillary sinus areas to palpation under pressure. EYES: Pupils equal/reactive to light. About 3mm in size. Conjunctivae not pale. Sclerae not icteric. THROAT: No inflammation, tumors or exudate. NECK: No masses. No bruit. No tenderness. No rigidity. CHEST: Symmetrical and equal. She does have marked tenderness in the right lateral chest wall more so at the anterior axillary line below the breast area level. It is tender to pressure against the chest wall but the pain and tenderness is also present with compression of the Adipost tissue between two fingers. It is not warm to touch and it is not red. There are no skin eruptions. The area does not seem to be indurated. The patient does not have a midthoracic pain posterior. LUNGS: Breath sounds are diminished in both sides with no rales. HEART: Audible and regular with good tones. No murmurs. ABDOMEN: Protuberant with no remarkable tenderness, no guarding and no masses palpable. Bowel sounds are active. EXTERNAL GENITALIA: No palpable mass by manual palpation. RECTAL: Anal sphincter is competent. The rectal canal is free tumor masses and stool is brown in color. LOWER EXTREMITIES: No significant edema. Anterior tibials are difficult to finds. The posterior tibials are present. UPPER EXTREMITIES: Symmetrical and equal ASSESSMENT: 1. Right lateral chest wall pain probably secondary to funiculitis 2. 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 3. Chronic tobacco use and about persistent 4. History of acute L2 compression fracture 5. Compression at T11, previously. Probably need bone scan to see if that is also an acute processes. 6. History of peptic ulcer disease treated by a GI doctor, Dr. Bass 7. History of foreign body removed recently, hubert 8. Elevated total protein 9. Elevated Hgb and Hct, etiology undetermined 10.History of rapid drop of hgb and hct recent undetermined MTDD
[2017-03-01] MEDS: ZOSYN 3.375 GM 3.375 GM in SODIUM CHLORIDE 50 ML IV SCH ×4 (00:27→18:43)
[2017-03-01] MEDS: D5%-NS-KCL 20 MEQ/L IV SOL 1,000 ML IV SCH ×3 (00:28→13:13)
[2017-03-01] MEDS: DILAUDID 1 MG/ML SYRINGE IVP PRN ×6 (01:19→19:49)
[2017-03-01] MEDS: FLAGYL 500 MG/100 ML 500 MG in PREMIX 100 ML NS 1 BAG IV SCH ×3 (04:27→21:05)
[2017-03-01] MEDS: LOVENOX SUBCUT SCH (08:27)
--- NOTE | 2017-03-01 15:39 | US ---
EXAM: Ultrasound chest wall/upper back. HISTORY: Pain right lateral chest wall. FINDINGS: Alberts-scale ultrasound was performed in the regions of interest pointed out by the patient a nd labeled by the technologist as a right lateral back, area of pain. These imaged regions revealed no sonographic abnormality. No fluid collections or masses were identified. IMPRESSION: No sonographic abnormality identified in the regions of interest.
[2017-03-01] MEDS ORDERED: DILAUDID 1 MG/ML SYRINGE IVP ONE (20:38)
[2017-03-02] MEDS: DILAUDID 1 MG/ML SYRINGE IVP PRN ×6 (00:29→21:09)
[2017-03-02] MEDS: ZOSYN 3.375 GM 3.375 GM in SODIUM CHLORIDE 50 ML IV SCH ×4 (00:34→17:08)
[2017-03-02] MEDS: D5%-NS-KCL 20 MEQ/L IV SOL 1,000 ML IV SCH ×3 (01:48→13:21)
[2017-03-02] MEDS: FLAGYL 500 MG/100 ML 500 MG in PREMIX 100 ML NS 1 BAG IV SCH ×3 (04:06→21:09)
[2017-03-02] MEDS: LOVENOX SUBCUT SCH (10:45)
[2017-03-02] MEDS: AMBIEN PO PRN (21:07)
[2017-03-03] MEDS: ZOSYN 3.375 GM 3.375 GM in SODIUM CHLORIDE 50 ML IV SCH ×5 (00:47→23:29)
[2017-03-03] MEDS: DILAUDID 1 MG/ML SYRINGE IVP PRN ×7 (00:47→22:17)
[2017-03-03] MEDS: FLAGYL 500 MG/100 ML 500 MG in PREMIX 100 ML NS 1 BAG IV SCH ×3 (04:00→20:24)
[2017-03-03] MEDS: LOVENOX SUBCUT SCH (08:15)
--- NOTE | 2017-03-03 09:54 | CT ---
EXAM: CT ABDOMEN AND PELVIS HISTORY: Sigmoid diverticulitis, follow-up TECHNIQUE: CT abdomen and pelvis without intravenous contrast. Images were reconstructed using 5 mm section thickness. Reformations were prepared. COMPARISON: 02/27/2017 FINDINGS: Redemonstration of sigmoid diverticulosis with adjacent stranding consistent with diverticulitis. Th ere is a small amount of extraluminal gas at this level and a few areas of conglomerate opacity in th e paracolic space without well-defined drainable fluid collection. As mentioned previously, it would be difficult to completely exclude a single fistulous tract between loops of the regional sigmoid co renetta. In general the paracolic opacities and the general inflammatory process of the pelvis is not no ticeably improved or definitely worsened. Bowel gas pattern remains nonobstructive. Redemonstration of mobile cecum situated deep to the umbilicus. Cholelithiasis is again noted. The liver and spleen are stable. No pancreatic inflammation. Adrenal nodules are again seen with fatty attenuation suggesting adenoma and largest located on the left at 2.3 cm. No hydronephrosis. Bilate ral nephrolithiasis. Moderate vascular calcifications. At least moderate degenerative disc and face t disease of the spine with focal scoliosis. IMPRESSION: 1. No noticeable worsening or improvement in sigmoid diverticulitis. Scant paracolic pneumatosis an d fat opacity without drainable abscess identified. There may be a small sinus between the regional loops of the sigmoid. 2. Cholelithiasis. 3. Stable adrenal adenomas. 4. Bilateral nephrolithiasis. No hydronephrosis. 5. Moderate vascular calcifications.
[2017-03-03] MEDS: AMBIEN PO PRN (20:23)
[2017-03-04] MEDS: DILAUDID 1 MG/ML SYRINGE IVP PRN ×6 (01:31→22:49)
[2017-03-04] MEDS: FLAGYL 500 MG/100 ML 500 MG in PREMIX 100 ML NS 1 BAG IV SCH ×3 (04:09→20:21)
[2017-03-04] MEDS: ZOSYN 3.375 GM 3.375 GM in SODIUM CHLORIDE 50 ML IV SCH ×3 (05:19→17:14)
[2017-03-04] MEDS: LOVENOX SUBCUT SCH (09:38)
[2017-03-04] MEDS: PROTONIX PO SCH (17:14)
[2017-03-04] MEDS: AMBIEN PO PRN (20:21)
[2017-03-05] MEDS: ZOSYN 3.375 GM 3.375 GM in SODIUM CHLORIDE 50 ML IV SCH ×4 (00:17→17:17)
[2017-03-05] MEDS: DILAUDID 1 MG/ML SYRINGE IVP PRN ×7 (01:56→23:42)
[2017-03-05] MEDS: FLAGYL 500 MG/100 ML 500 MG in PREMIX 100 ML NS 1 BAG IV SCH ×3 (04:29→20:42)
[2017-03-05] MEDS: PROTONIX PO SCH (05:38)
[2017-03-05] MEDS: LOVENOX SUBCUT SCH (08:52)
[2017-03-05] MEDS: AMBIEN PO PRN (20:41)
[2017-03-06] MEDS: ZOSYN 3.375 GM 3.375 GM in SODIUM CHLORIDE 50 ML IV SCH ×5 (01:35→23:55)
[2017-03-06] MEDS: DILAUDID 1 MG/ML SYRINGE IVP PRN ×7 (02:54→23:55)
[2017-03-06] MEDS: FLAGYL 500 MG/100 ML 500 MG in PREMIX 100 ML NS 1 BAG IV SCH ×2 (04:44→14:44)
[2017-03-06] MEDS: PROTONIX PO SCH (05:52)
[2017-03-06] MEDS: LOVENOX SUBCUT SCH (08:40)
[2017-03-06] MEDS: AMBIEN PO PRN (21:59)
[2017-03-07] MEDS: DILAUDID 1 MG/ML SYRINGE IVP PRN ×7 (03:22→23:28)
[2017-03-07] MEDS: ZOSYN 3.375 GM 3.375 GM in SODIUM CHLORIDE 50 ML IV SCH ×4 (05:35→18:32)
[2017-03-07] MEDS: PROTONIX PO SCH (05:36)
[2017-03-07] MEDS: LOVENOX SUBCUT SCH (08:35)
[2017-03-07] MEDS ORDERED: ATIVAN PO STA (14:05)
--- NOTE | 2017-03-07 17:02 | MRI ---
EXAM: MRI lumbar spine without IV contrast. DATE: 07 March 2017. HISTORY: Lumbar back pain, fever. TECHNIQUE: Sagittal and axial T1W and T2W sequences of the lumbar spine along with sagittal IR and c oronal T2W sequences were obtained using 1.2 Tatiana magnet. No IV contrast. COMPARISON: MRI T-spine [address] L-spine 27 February 2017. FINDINGS: There are five [id number] lumbar vertebra. Mild leftward curvature of the lumbar spi ne is present, with the apex of curvature at L3-4. The 3 mm left lateral subluxation of L3 relative to L2 and 3.5 mm left lateral subluxation of L4 relative to L5 are observed. No other subluxation, o sseous malignancy, or jumped facet is apparent. Chronic, mild anterior wedge compression fracture of the L2 vertebral body is noted. Minor superior endplate indentation, adjacent T1W dark signal and a djacent IR hyperintensity and T11 suggest c/w compression fracture. Chronic Schmorl's nodes are iden tified at L1, L3, and L5. Bone marrow signal is overall normal. Small/moderate osteophytes are seen at multiple lumbar vertebra. Moderate L2-3, moderate right sided L3-4, and moderate/marked L4-5 dis c space narrowing is detected. No sacral fracture or stress reaction is apparent. There is no acute sacroiliitis. Conus medullaris terminates T12-L1. Visible spinal cord is normal. No retroperitoneal lymphadenopathy or paraspinal masses evident. Atherosclerotic plaques are present within the aortic wall. Abdominal aorta is 2.1 cm diameter at the renal artery level. Aorta dilate s to 2.5 cm at the L4 level extending to the bifurcation. Psoas muscles are normal. There is modera te bilateral posterior paraspinal muscle atrophy inferiorly. Visible portions of the liver, spleen, and kidneys reveal no definitive malignancy. Right adrenal gland is not visualized. Left adrenal gl and T2W/T1W intermediate signal, 2.5 x 2.7 cm lesion corresponds with low density (HU = 0) lesion on February 2017 CT scan. Visible CBD does not appear to be enlarged. Segmental analysis: T12-L1: Normal. L1-2: Minor posterior cortical buckling at the superior endplate of L2 and small posterior disc bulg e do not cause central stenosis or foraminal stenosis. L2-3: Small concentric disc bulge causes triangulation of the canal, minor right foraminal stenosis, and mild left foraminal stenoses. L3-4: Moderate concentric disc bulge, mild facet arthropathy, mild ligamentum flavum hypertrophy and abundant dorsal epidural fat cause mild central canal stenosis, moderate right foraminal stenosis, a nd mild left foraminal stenosis. Right L3 nerve root may contact disc bulge near the lateral margin of the foramen. L4-5: Moderate concentric disc bulge, broad right posterolateral spondylotic ridge at the L4 inferio r endplate, mild facet arthropathy, and abundant dorsal epidural fat cause moderate central canal veronica nosis, moderate right foraminal stenosis, and mild left foraminal stenosis. Right L4 nerve root cont acts disc bulge/osteophyte near the lateral margin of the foramen. L5-S1: Small posterior to left foraminal disc bulge and mild left facet arthropathy cause moderate l eft foraminal stenosis. Left L5 nerve root contacts disc bulge near the foramen. No central canal s tenosis. IMPRESSIONS: 1. Lumbar spine mild levoscoliosis, moderate spondylosis, mild facet arthropathy, and multilevel DDD . No evidence of diskitis/osteomyelitis or epidural abscess. 2. Subacute/early chronic compression fracture of T11. 3. Chronic, mild compression fracture of L2. 4. Chronic Schmorl's nodes at L1, L3, and L5. 5. Multilevel central canal stenoses (L2-3: Minor. L3-4: Mild. L4-5: Moderate). 6. Multilevel foraminal stenoses as described. Right L3, right L4, and left L5 nerve roots contact disc bulges near the foramen, and may be sources for pain/radiculopathy. 7. Infrarenal aortic ectasia (2.5 cm diameter). 8. Marked abdominal aortic atherosclerosis. 9. Left adrenal lesion (2.58-0.7 cm) - c/w benign adenoma.
--- NOTE | 2017-03-07 17:10 | MRI ---
EXAM: Right thoracic spine without IV contrast. DATE: 07 March 2017. HISTORY: Back pain and fever. TECHNIQUE: Sagittal and axial T2W and T1W sequences of the thoracic spine along with sagittal IR and coronal T2W sequence were obtained using 1.2 Tatiana magnet. No IV contrast. COMPARISON: MRI L-spine [address] T-spine 27 February 2017. FINDINGS: Visible portion of the cervical spine is seen on sagittal images demonstrates broad rail specialist ior disc/osteophyte complex at C5-6 causing moderate central canal stenosis. No cervical cord compre ssion, syrinx, or myelomalacia is evident. No lower neck mass or lymphadenopathy is seen. There are 12 thoracic vertebra with paired ribs. Mild rightward curvature the mid thoracic spine and slight leftward curvature lower thoracic spine is evident. There is no thoracic kyphosis. Mild T11 vertebral body height loss is observed, with T1W dark, IR mildly bright signal near the T11 superior endplate. Remaining thoracic vertebra are normal in height and signal. Intervertebral discs are no rmal in height. No fluid signal intensity is identified within the intervertebral discs. Chronic Sc hmorl's node is seen at L1. Mild, chronic compression fracture of L2 is also noted. Bone marrow sig nal is overall normal. Conus medullaris terminates at T12-L1. No thoracic cord edema, syrinx, myelo malacia, or neoplasm is identified. No epidural abscess or other fluid collection is identified. Visible thyroid gland, trachea, and thoracic esophagus are normal. No thoracic aortic aneurysm or di ssection is seen. No mediastinal lymphadenopathy, hilar lymphadenopathy, pneumonia, lung mass, or agnieszka int effusion is evident. No acute rib fracture, rib malignancy, chest wall malignancy, or paraspinal mass is apparent. Heart size is normal. There is no pericardial effusion. Visible portions of the liver, gallbladder, pancreas, spleen, and kidneys are normal. T2W/T1W intermediate signal, 1.4 x 1. 3 cm lesion in the right adrenal gland corresponds with a low-density (HU = -15) lesion on recent CT scan. A 2.5 x 10.7 cm lesion in the lateral limb left adrenal glands and 2.2 x 11 mm lesion in the m edial limb left adrenal gland both correspond with low density on recent CT scan (HU = 0 lateral limb lesion, HU = -14 medial limb lesion). Segmental analysis: C7-T1: Normal. T1-2: Tiny posterior disc bulge does not cause cord compression, central stenosis or foraminal steno sis. T2-3: Normal. T3-4: Normal. T4-5: Normal. T5-6: Normal. T6-7: Normal. T7-8: Normal. T8-9: Normal. T9-10: Normal, except for minor right and mild left facet arthropathy. T10-11: Minor posterior disc bulge and mild bilateral facet arthropathy cause mild/moderate bilatera l foraminal stenoses. No central canal stenosis. T11-12: Normal. IMPRESSIONS: 1. Thoracic spine mild S-shaped scoliosis, mild facet arthropathy, and minor DDD. 2. Mild/moderate bilateral foraminal stenoses at T10-11. 3. No thoracic spine central canal stenosis. 4. No diskitis/osteomyelitis or epidural abscess. 5. Subacute/early chronic mild compression fracture of T11. 6. Bilateral adrenal lesions consistent with adenomas.
[2017-03-07] MEDS: AMBIEN PO PRN (22:04)
[2017-03-08] MEDS: ZOSYN 3.375 GM 3.375 GM in SODIUM CHLORIDE 50 ML IV SCH ×3 (00:13→12:54)
[2017-03-08] MEDS: DILAUDID 1 MG/ML SYRINGE IVP PRN ×3 (02:30→10:12)
[2017-03-08] MEDS: PROTONIX PO SCH (05:36)
[2017-03-08] MEDS: LOVENOX SUBCUT SCH (09:18)
[2017-03-08 10:06] VITALS: TEMP 98.3
--- NOTE | 2017-03-08 10:20 | PN ---
DATE OF VISIT: 03/02/17 SUBJECTIVE: The patient has just received the Dilaudid and she complained of not feeling good. The patient however noted that the pain is much less. I palpated the area that she had been very tender in the right lateral chest wall along the anterior axillary line. There is some tenderness but it is much less than before. An ultrasound was done in this area and was unremarkable. ABDOMEN: She denies any abdominal pain. The abdomen is protuberant with no remarkable tenderness of the lower abdomen. Bowel sounds are active. LUNGS: Essentially clear. She hasn't smoked since she came into the hospital. She used to smoke two packs of cigarettes per day. OBJECTIVE: I had ordered a CAT scan of the abdomen and pelvis without contrast to see if there any improvement. I also had advised the patient that I would refer her to a general surgeon in [place] and asked if she has any choice and she told me that she does not have any. The patient's SED rate was normal but the CRP was markedly elevated. PLAN: This patient will be referred to a general surgeon tomorrow, Monday. JONAS
[2017-03-08] MEDS ORDERED: ATIVAN PO PRN (12:03)
[2017-03-08] MEDS ORDERED: ATIVAN ONE (12:12)
--- NOTE | 2017-03-08 13:05 | PN ---
DATE OF VISIT: 03/03/17 SUBJECTIVE: The patient today is alert and responsive. Still complaining of pain in the lateral chest, still with some tenderness but not as much as admission. There are no skin eruptions that are visible in the right lateral chest. LUNGS: Clear to auscultation HEART: Audible and regular and not tachycardiac VITAL SIGNS: Temperature 97.3, pulse 76, blood pressure 131/78, respiratory rate 18, oxygen saturation 95% at room air. This had not gone out to smoke. I advised her not to smoke. She used to smoke two pack of cigarettes a day. LABS: Normal WBC 7,040, hgb and hct about the same as the previous two days it is lower than admission. Her MCV and MCH is still high. Chemistry is unremarkable except for a sugar that is 215. I am not sure about that results since her sugar before was always slightly above 100 or below 100. In fact the highest before that was 104. This patient's SED rate was normal and the C reactive protein was elevated at 29.7. ABDOMEN: No particular left lower quadrant. Bowel sounds are active. Protuberant and soft. EXTREMITIES: No tenderness in the legs to palpation. MTDD
--- NOTE | 2017-03-08 13:12 | PN ---
DATE OF VISIT: 03/04/17 SUBJECTIVE: The patient's pain is less according to her. She is receiving Dilaudid about every 3 hours. She had been trying to space it apart. She denies any abdominal pain. The patient had a bowel movement and felt better. She has been eating her snacks. VITAL SIGNS: Temperature 98.5, pulse 82, blood pressure 124/75, respiratory rate 14 and oxygen saturation 94 at room air. She denies any sore throat and coughs occasionally. LUNGS: Still no rales or wheezing HEART: Normal sinus rhythm ABDOMEN: Protuberant, nontender. Bowel sounds are active. EXTREMITIES: Calf muscles revealed no tenderness to palpation. CONDITION: Stable MTDD
--- NOTE | 2017-03-08 13:19 | DS ---
CHIEF COMPLAINT: Chest pain, right lateral wall at the anterior axillary line below the breast. HISTORY OF PRESENT ILLNESS: The emergency room history by the nurse mentioned that the patient had pain at the thoracic spine area. She presented to the emergency room 02/25, because the pain began that day and was given a steroid injection plus Morphine and Zofran. She rated the pain as 10/10 that day. Sanders that was prescribed from the emergency room three times a day did not reduce the intensity of the pain prompting the return visit on 02/27/17. The ER M.D. stated that chief complaint as back pain and cough. The patient, in the emergency room, had the following studies done prior to admission. CT scan of the chest without contrast, CT scan of the thoracic spine , CT scan of the lumbar spine, CT scan of the abdomen and pelvis. The thoracic spine and lumbar showed the compression fracture at T11 and L2. CT scan of the abdomen and pelvis showed sigmoid diverticulitis with small localized perforation but no drainable abscess. Wall thickening of the sigmoid colon probably reactive plus cholelithiasis and nonobstructing left nephrolithiasis. Subacute compression fracture of L2 and T11. Contrasted studies of the chest to rule out dissecting aneurysm because of the mid back pain, according to the ER M.D. A contrasted study also of the abdomen and pelvis showed no dissecting aneurysm and the abdomen and pelvis showed sigmoid diverticulitis with no focal abscess or perforation. There is a fistula tract between the proximal sigmoid colon distal consistent with fistula. There is an inflammatory phlegmon adjacent to the sigmoid colon in the pelvis with no definitive abscess or free air. The patient elected to stay here and did not want to be transferred so the patient was admitted. HOSPITAL COURSE: In the course of my examination, I asked the patient to the location of the pain and she pointed to me on the right lateral chest wall along the anterior axillary line. This was markedly tender to touch directly and also compression of the fat between the two fingers. The patient did not have any mid thoracic back pain at that time. She did have the pain that she had from the compression fracture of L2. There were no skin lesions in the course of time that she was in the hospital. The patient was given Flagyl 500 mg intravenously every 8 hours and Zosyn 3.375 gm every 6 hours intravenously. The patient was kept NPO initially and given liquids and then progressed to a soft diet since she did not have any abdominal pain and there was no tenderness in the abdomen. The pelvic and rectal examination was unremarkable. The pain in the right lateral chest has subsided slowly. The tenderness is less including the compression of the fat tissue in between the two fingers. The patient's sed rate during this admission was normal but the CRP was markedly elevated. The patient remained afebrile until March 06, 2017 when she spiked a temperature of 100.3 to 100.5. Flagyl was discontinued at this point. The temperature has returned to normal and had remained normal. The patient had not been smoking since admission. She use to smoke two packs of cigarettes a day. Because of the rise in temperature with the back pain and MRI of the thoracic and lumbar spine was ordered to rule out any inflammatory processes in the disk or epidural space. The patient had some episode of claustrophobia and the patient came out and was then premedicated with Lorazepam 1 mg. The MRI was completed. The MRI was negative for any epidural abscess or inflammatory changes in the disk. The patient was advised of this and the patient had been advised previously that she would be referred to a general surgeon. She wanted to be at [facility]. She did not have any preference as to who the general surgeon would be. The patient's laboratory showed essentially normal WBC except on the second day of hospitalization WBC yosef to 10,390 barely above the upper normal limits. This patient had persistent elevation of this MCV and MCH as well as RDW. Her chemistries were unremarkable. The estimated GFR 90 on 03/06/2017. Total protein and albumin slightly lower than normal. Urinalysis showed WBC of 30 to 50 but the squamous epithileum is also markedly elevated 20 to 30. Sampling of the urine is questionable. This patient does not have any symptoms referable to the genitourinary system. She denies any burning. PHYSICAL EXAMINATION: The patient, at time of discharge, was alert and responsive. She was a bit distressed on account of the insurance premium has doubled the beginning of this year. Vital signs at 10 a.m. showed temperature 98.3, pulse 96, blood pressure 134/77 , respiratory rate 20, oxygen saturation 94 on room air and previous to that was 96. Lungs clear to auscultation on both sides. Heart is normal sinus rhythm. Abdomen shows no tenderness. The patient also has no tenderness in the calf muscles. The patient is receiving Zosyn 3.325 until the time of discharge from this facility. FINAL DIAGNOSES: 1. PAIN, RIGHT LATERAL CHEST WALL, PROBABLY PANNICULITIS, ETIOLOGY UNDETERMINED , MAY BE RELATED TO THE SIGMOID DIVERTICULITIS. 2. COMPRESSION FRACTURE OF L2 AND T11, SUBACUTE. 3. 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 4. CHRONIC TOBACCO USE AND ABUSE, STOPPED NOW 10 DAYS. 5. CHOLELITHIASIS, ASYMPTOMATIC. 6. HISTORY OF PEPTIC ULCER DISEASE TREATED WITH PROTONIX BY GI. 7. HISTORY OF FOREIGN BODY IN THE STOMACH, NICKEL, EXTRACTED BY GI DOCTOR, DR. PRINCE. 8. ELEVATED MCV AND MCH AND RDW, ETIOLOGY UNDETERMINED. 9. ELEVATED HEMOGLOBIN AND HEMATOCRIT, UPPER NORMAL AND SLIGHTLY BEYOND, CAUSE UNDETERMINED. I had discussed the case with the patient to inform her that I had discussed her case with Dr. Negron and that she had accepted her into her services and she will be transferred to her services at [facility]. The patient was agreeable. JONAS
--- NOTE | 2017-03-08 13:22 | PN ---
DATE OF VISIT: 03/05/17 SUBJECTIVE: The patient today is alert and general appearance about the same. She had her legs elevated and had been elevating her legs. She had been snoring when I walked into the room. VITALS: Temperature 98.8 prior to that was 99.1. Pulse 77, blood pressure 117/71, respiratory rate 17, oxygen saturation 91% at room air. This patient had been encouraged to walk in the [address] way several times a day as well as taking deep breaths three in a row and exhaling it very slowly. I had demonstrated it to her on how to do it. I also told her that I would be talking to a doctor and she prefers to go to [facility] I told her I would try to do that. Most likely early Monday. NECK: No masses and no bruit HEART: normal sinus rhythm LUNG: Clear ABDOMEN: Protuberant and soft. Bowel sounds are active. The patient had been able to have a bowel movement. JONAS
--- NOTE | 2017-03-08 13:42 | PN ---
DATE OF VISIT: 03/06/17 SUBJECTIVE: The patient today is alert and was concerned about his temperature rising to 100.1 and 100.3. She denies any abdominal pain. She did complain of pain in the upper lumbar area. The patient in the right lateral chest wall is less. Her WBC was 7,130, hgb and hct the same as the last several days. MCV and MCH still elevated. Blood sugar now is 86 similar to the previous ones except the one on 03/03/17 where is was recorded at 215. I am not certain as to whether that is the same blood that had been tested. I told her that I would be transferring her tomorrow to another facility to see a general surgeon. She asked yesterday why she could not just go there for the surgery. I told her that that is not possible. This doctor has to evaluate her and see what would be the most appropriate treatment that he would recommend. It would be up to her to ask questions. VITALS: Temperature 99.1, pulse 68, blood pressure 125/76, respiratory rate 20 and oxygen saturation 96 at room air. The temperature prior to that in the afternoon did rise to a 100.3 as well as 100.5 and back down to 99.1. The patient had not drank any hot liquids according to her. I told her that the temperature would be affect on a number of things. One is drinking a hot liquid or a cold liquid within a half hour of taking the temperature. I am not certain as to the source. The patient denied any sore throat. NECK: There is no adenitis in both necks. No bruit. CHEST: Symmetrical and equal LUNGS: Remain clear to auscultation in both sides. HEART: Audible and regular with good tones ABDOMEN: Protuberant some what tympanitic with no tenderness in the lower abdomen especially the left lower quadrant. Bowel sounds are active. No muscular guarding. LOWER EXTREMITIES: No tenderness in the calf muscles The patient does not have any antipruritic medication. Again I will try to transfer her to a general surgeon tomorrow. 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 Collection of fluid around the area nature undetermined. Radiology does not believe that the collection is an abscess. The tenderness in the right lateral chest which was exquisitely tenderness on admission is much less today. The patient claimed to be ticklish. I said I just wanted to know about the tenderness and still the patient indeed has some tenderness squishing the fat in between my fingers. JONAS
--- NOTE | 2017-03-08 13:50 | PN ---
DATE OF VISIT: 03/07/17 SUBJECTIVE: The patient was scheduled for an MRI of the thoracic and lumbar spine because of the pain in the back that is persistent. The pain is mostly about the midback area. This patient had a compression fracture of L2 previous and then T11. The patient did spike a temperature the day before prompting the scheduling for the MRI to rule out any inflammation including abscess in the spine. The patient had some Claustrophobia while she was in the MRI machine and she was then given 1mg of Lorazepam PO and was able to tolerate. There were no readings towards the end of the day. I felt that I needed to rule out any inflammation in the spine prior to referral to general surgeon. The patient's condition has more or less been stabilized and remained stable. She does have a fistula which probably needed correction. There is a collection of fluid outside of the fistula area but does not seem to be a abscess or a drainable area. This patient will be referred to a general surgeon if and when the MRI were negative for any inflammation or inflammatory changes. VITAL SIGNS: Temperature 98.1, pulse 71, blood pressure 122/74, respiratory rate 20, oxygen saturation 95 at room air. The patient had been afebrile throughout the day today. [facility]
[2017-03-08 14:19] VITALS: BP 113/61
== END 2017-03-08 16:40 | disposition short-term general hospital (02) | DRG 313 ==
LOC: ED 12:27 → MEDSURG A 16:33
PROVIDERS: ADMIT General Practice; ATTEND General Practice
DX: R07.89 Other chest pain (principal); K57.32 Diverticulitis of large intestine without perforation or abscess without bleeding; K63.2 Fistula of intestine; S22.080A Wedge compression fracture of T11-T12 vertebra, initial encounter for closed fracture; S32.020A Wedge compression fracture of second lumbar vertebra, initial encounter for closed fracture; M79.3 Panniculitis, unspecified; R79.82 Elevated C-reactive protein (CRP); R50.9 Fever, unspecified; K80.20 Calculus of gallbladder without cholecystitis without obstruction; R71.8 Other abnormality of red blood cells; R05 Cough; F17.210 Nicotine dependence, cigarettes, uncomplicated; Z87.19 Personal history of other diseases of the digestive system; Z79.891 Long term (current) use of opiate analgesic; Z79.899 Other long term (current) drug therapy
CPT/HCPCS: 36415; 80053; 81001; 82150; 82550; 82607; 82652; 83690; 83735; 84484; 85025; 85379; 85651; 86140; 86320; 87040; 87086; 87502; 87651; 87880; 93005; 93010; 96360; 96361; 96372; 99284

== ENCOUNTER 2017-03-12 15:37 | Emergency (ER) ==
[2017-03-12 15:42] VITALS: BP 130/70; TEMP 98.2; BMI 26.4
[2017-03-12] MEDS ORDERED: ZOFRAN 4 MG/2 ML IVP STA (15:55)
[2017-03-12] MEDS ORDERED: PROTONIX IV IVP STA (15:56)
[2017-03-12] MEDS ORDERED: SODIUM CHLORIDE 1,000 ML IV STA (15:57)
[2017-03-12] MEDS ORDERED: ASPIRIN CHEWABLE PO STA (16:00)
[2017-03-12] MEDS ORDERED: NITROSTAT SL STA (16:00)
[2017-03-12] MEDS ORDERED: MORPHINE 4 MG/ML VIAL IVP STA (16:01)
--- NOTE | 2017-03-12 16:10 | ED.PDOC ---
General ED Provider: Dr. CLAUDINE VILLEGAS Chief Complaint: Chest Pain Stated Complaint: Was seen at [facility] for Diverticulitis and discharged yesterday. Comes to the ER with Mid sternal chest pain with radiation to the Left with associated Nausea or vomiting. Started while sleeping and did break out in a sweat. Time Seen by Physician: 15:55 Mode of Arrival: Walk-In Information Source: Patient Exam Limitations: No limitations [facility] Nursing and Triage Documentation Reviewed and Agree: Yes Reviewed sepsis parameters & appropriate labs ordered?: No System Inflammatory Response Syndrome: Not Applicable Sepsis Protocol: For patient's 13 years and over: Temp is 96.8 and below OR 101 and greater Pulse >90 BPM Resp >20/minute Acutely Altered Mental Status Are patient's symptoms suggestive of a new infection, such as: -Pneumonia -Skin, Soft Tissue -Endocarditis -UTI -Bone, Joint Infection -Implantable Device -Acute Abdominal Infection -Wound Infection -Meningitis -Blood Stream Catheter Infection -Unknown System Inflammatory Response Syndrome: Not Applicable Cardiovascular Complaint Exam - Chest Pain Complaint/Exam Onset: Sudden Duration: 3 hour ago Symptoms Are: Still present Timing: Constant Initial Severity: Severe Current Severity: Moderate Location: Reports: Midsternal Pain Radiates: Reports: Left shoulder Character: Reports: Dull, Pressure Aggravating: Reports: None Associated Signs and Symptoms: Reports: Diaphoresis, Nausea, Vomiting, Short of air AMI/ACS Risk Factors: Reports: Myocardial Infarction TAD Risk Factors: Reports: Smoking Prior Care for this Complaint: No Differential Diagnoses: Acute AK Quality Indicators For Acute AK or Cardiac Chest Pain: ASA if indicated Quality Indicator For Non-Traumatic Chest Pain/Syncope: EKG Performed Review of Systems - Review Of Systems Constitutional: Reports: Loss of appetite Eyes: Reports: No symptoms Ears, Nose, Mouth, Throat: Reports: No symptoms Respiratory: Reports: Short of air Cardiac: Reports: Chest pain GI: Reports: Nausea, Vomiting : Reports: No symptoms Musculoskeletal: Reports: No symptoms Skin: Reports: Other (Diaphoresis ) Neurological: Reports: Anxiety Endocrine: Reports: No symptoms Hematologic/Lymphatic: Reports: No symptoms All Other Systems: Reviewed and Negative Past Medical History - Past Medical History Previously Healthy: No Endocrine: Reports: Unknown Cardiovascular: Reports: Unknown Respiratory: Reports: Unknown Hematological: Reports: Unknown Gastrointestinal: Reports: Unknown Genitourinary: Reports: Unknown Neuro/Psych: Reports: Unknown Musculoskeletal: Reports: Unknown Cancer: Reports: Unknown Last Menstrual Period: n/a - Surgical History General Surgical History: Reports: Unknown - Family History Family History: Reports: Unknown - Social History Smoking Status: Current every day smoker, Heavy tobacco smoker Hx Substance Use: No Alcohol Screening: None Physical Exam - Physical Exam Appearance: Ill-appearing Ill-appearing: Moderate Pain Distress: Moderate Eyes: CHELLE, EOMI Neck: Supple Respiratory: Airway patent, Breath sounds clear, Breath sounds equal, Respirations nonlabored Cardiovascular: RRR, Pulses normal, No rub, No murmur Skin: Warm, Dry Neurological: Alert, Oriented Psychiatric: Anxious Interpretation - Radiology Interpretation Radiology Interpretation By: ED Physician Radiology Results: Negative Exam Interpreted: CT Scan - EKG Interpretation Time of EKG #1: 15:53 Rate: Normal [place]: NL ST Segment: Other (AVL, v3-v5 elevation) Interpretation: Anterior wall AK Re-Evaluation - Re-Evaluation Time of Re-Evaluation: 16:12 Status: Improved Pain Level: 0 from 7 after one nitro. Physician Notification - Case Discussed Physician Notified: Dr. Watts Time of Notification: 16:05 (accepted to go to [facility] ) Critical Care Note - Critical Care Note Total Time (mins): 35 Course - Course Orders, Labs, Meds: Orders Category Date Time Status EKG-(ED ONLY) Stat CARDIO 03/12/17 15:57 Ordered ED EQUIPMENT SERVICES ASSOCIATE APPLIED .ONCE EMERGENCY 03/12/17 15:57 Ordered ED IV/MEDIPORT/POWERPORT .ONCE EMERGENCY 03/12/17 15:57 Ordered B-TYPE NATRIURETIC PEPTIDE Stat LAB 03/12/17 15:57 Ordered CBC W/ AUTO DIFF Stat LAB 03/12/17 15:57 Ordered COMPREHENSIVE METABOLIC PANEL Stat LAB 03/12/17 15:57 Ordered CREATINE KINASE Stat LAB 03/12/17 15:57 Ordered TROPONIN I Stat LAB 03/12/17 15:57 Ordered 0.9 % Sodium Chloride [Saline Flush] MEDS 03/12/17 15:57 Ordered 1 syr IVF PRN PRN Aspirin [Aspirin Chewable] MEDS 03/12/17 16:00 Stat 324 mg PO ONCE STA Morphine Sulfate [Morphine 4 mg/ml Vial] MEDS 03/12/17 16:01 Stat 4 mg IVP ONCE STA Nitroglycerin [Nitrostat] MEDS 03/12/17 16:00 Stat 0.4 mg SL ONCE STA Ondansetron HCl/Pf [Zofran 4 mg/2 ml] MEDS 03/12/17 15:55 Stat 4 mg IVP ONCE STA Pantoprazole Sodium [Protonix IV] MEDS 03/12/17 15:56 Stat 40 mg IVP ONCE STA SODIUM CHLORIDE 0.9% @ 125 MLS/HR(1,000ml) MEDS 03/12/17 15:57 Ordered Sodium Chloride 0.9% [Sodium Chloride] 1,000 ml IV 125 mls/hr CHEST, 1V AP ONLY Stat RADS 03/12/17 15:57 Ordered Medications Generic Name Dose Route Start Last Admin Trade Name Freq PRN Reason Stop Dose Admin Sodium Chloride 1,000 mls @ 125 mls/hr 03/12/17 15:57 Sodium Chloride IV 03/12/17 23:56 .Q8H STA Sodium Chloride 1 syr 03/12/17 15:57 Saline Flush IVF PRN PRN To flush IV Discontinued Medications Generic Name Dose Route Start Last Admin Trade Name Freq PRN Reason Stop Dose Admin Aspirin 324 mg 03/12/17 16:00 Aspirin Chewable PO 03/12/17 16:01 ONCE STA Morphine Sulfate 4 mg 03/12/17 16:01 Morphine 4 Mg/Ml Vial IVP 03/12/17 16:02 ONCE STA Nitroglycerin 0.4 mg 03/12/17 16:00 Nitrostat SL 03/12/17 16:01 ONCE STA Ondansetron HCl 4 mg 03/12/17 15:55 Zofran 4 Mg/2 Ml IVP 03/12/17 15:56 ONCE STA Pantoprazole Sodium 40 mg 03/12/17 15:56 Protonix Iv IVP 03/12/17 15:57 ONCE STA Vital Signs: Temp Pulse Resp BP Pulse Ox 03/12/17 15:38 98.2 F 77 20 130/70 99 KILO Risk Score KILO Risk Score: Risk Score Odds of by 30D 0 0.1 (0.1-0.2) 1 0.3 (0.2-0.3) 2 0.4 (0.3-0.5) 3 0.7 (0.6-0.9) 4 1.2 (1.0-1.5) 5 2.2 (1.9-2.6) 6 3.0 (2.5-3.6) 7 4.8 (3.8-6.1) Departure - Departure Time of Disposition: 16:18 Disposition: TSF SHORT-TRM HOSP Discharge Problem: Acute AK, anterior wall, initial episode of care Condition: Stable Pt referred to PMD for follow-up: No (Transfered to [facility] ) Allergies/Adverse Reactions: Allergies levofloxacin [From Levaquin] Allergy (Mild, Verified 02/25/17 10:21) Rash Home Medications: Ambulatory Orders Acetaminophen [Tylenol] 650 mg PO Q6H PRN 11/29/16 Pantoprazole Sodium 40 mg PO DAILY 11/29/16 Hydrocodone/Acetaminophen [Hydrocodon-Acetaminophen 5-325] 1 each PO Q4H PRN 09/20 Sulfamethoxazole/Trimethoprim [Bactrim Ds 800/160 mg] 1 tab PO Q12HR 03/12/17 Pt. Stabilized Within Hospital's Capabilities/Transferred To: [facility] Transfer Form Completed: Yes Disposition Discussed With: Patient, Family
--- NOTE | 2017-03-12 18:49 | DI ---
EXAM: Chest one view HISTORY: Chest pain COMPARISON: 11/29/2016 TECHNIQUE: Single view of the chest was performed FINDINGS: The lungs are clear. There is no pleural effusion or pneumothorax. The heart is normal i n size. The mediastinal contour is normal, noting atherosclerosis. There are no acute abnormalities of the bones. IMPRESSION: No acute cardiopulmonary process.
== END 2017-03-12 16:20 | disposition short-term general hospital (02) ==
LOC: ED 15:37
DX: I21.09 ST elevation (STEMI) myocardial infarction involving other coronary artery of anterior wall (principal); R06.02 Shortness of breath; F17.210 Nicotine dependence, cigarettes, uncomplicated; E11.9 Type 2 diabetes mellitus without complications
CPT/HCPCS: 36415; 80053; 82550; 82553; 83880; 84484; 85025; 93005; 93010; 96374; 96375; 99285

== ENCOUNTER 2017-04-14 11:31 | Outpatient (CLI) ==
--- NOTE | 2017-04-14 11:54 | DI ---
Exam: Two x-rays of the chest. Comparison: 03/12/2017. Reason for exam: Chest pain. FINDINGS: No pneumothorax, pleural effusion, or focal consolidation. The cardiac silhouette is not enlarged. The imaged osseous structures appear grossly unremarkable without acute fracture. Chronic- appearing compression deformities are seen in the lower thoracic/upper lumbar spine. Impression: 1. No acute cardiopulmonary process. 2. Chronic-appearing compression deformities in the lower thoracic/upper lumbar spine. If clinical concern exists, further evaluation may be performed.
--- NOTE | 2017-04-14 11:56 | DI ---
EXAM: Four views of the right ribs HISTORY: Right-sided chest pain. COMPARISON: Chest x-ray same day and multiple priors including CT chest 02/27/2017 FINDINGS: The right ribs redemonstrate an old healed right eighth rib fracture. No acute displaced f racture is identified. There is no lytic or blastic lesion. The soft tissues are unremarkable. IMPRESSION: 1. No acute abnormality or displaced rib fracture. 2. Old healed right rib fracture.
== END 2017-04-14 11:32 | disposition home or self-care (01) ==
LOC: RAD 11:31
PROVIDERS: ATTEND General Practice
DX: R07.89 Other chest pain (principal)

== ENCOUNTER 2017-05-22 16:08 | Outpatient (CLI) | END 2017-05-22 16:09 | disposition home or self-care (01) | LOC: FCC-LAB 16:08 | PROVIDERS: ATTEND General Practice | DX: E78.5 Hyperlipidemia, unspecified (principal); K57.32 Diverticulitis of large intestine without perforation or abscess without bleeding; S32.020D Wedge compression fracture of second lumbar vertebra, subsequent encounter for fracture with routine healing; D64.9 Anemia, unspecified; I73.9 Peripheral vascular disease, unspecified; Z72.0 Tobacco use; Z79.899 Other long term (current) drug therapy | CPT/HCPCS: 36415; 80053; 80061; 81001; 85025; 87086 ==

== ENCOUNTER 2017-06-04 16:56 | Inpatient (IN) ==
--- NOTE | 2017-06-04 17:42 | ED.PDOC ---
General ED Provider: Dr. ANGELA DELANEY-ER Chief Complaint: Abdominal Pain Stated Complaint: im hurting--this is like my diverticulitis Time Seen by Physician: 16:55 Mode of Arrival: Walk-In Information Source: Patient Exam Limitations: No limitations Primary Care Provider: COLT MANN[facility] Nursing and Triage Documentation Reviewed and Agree: Yes Reviewed sepsis parameters & appropriate labs ordered?: Yes System Inflammatory Response Syndrome: Not Applicable Sepsis Protocol: For patient's 13 years and over: Temp is 96.8 and below OR 101 and greater Pulse >90 BPM Resp >20/minute Acutely Altered Mental Status Are patient's symptoms suggestive of a new infection, such as: -Pneumonia -Skin, Soft Tissue -Endocarditis -UTI -Bone, Joint Infection -Implantable Device -Acute Abdominal Infection -Wound Infection -Meningitis -Blood Stream Catheter Infection -Unknown GI Complaint Exam - Abdominal Pain Complaint/Exam Onset: Gradual Duration: several hours Symptoms Are: Still present Timing: Intermittent Initial Severity: Mild Current Severity: Moderate Location of Pain: Discrete Character: Reports: Dull Alleviating: Reports: None Associated Signs and Symptoms: Reports: Decreased appetite, Nausea, Diarrhea. Denies: Diaphoresis, Fever, Cough, Chest pain, Dizziness, Back pain, Constipation, Blood in stool, Dysuria, Urinary frequency, Decreased urine output , Vaginal bleeding, Vaginal discharge Related History: Reports: Similar episode Differential Diagnoses: Bowel Obstruction, Constipation, Pancreatitis, UTI Review of Systems - Review Of Systems Constitutional: Reports: No symptoms Eyes: Reports: No symptoms Ears, Nose, Mouth, Throat: Reports: No symptoms Respiratory: Reports: No symptoms Cardiac: Reports: No symptoms GI: Reports: Abdominal pain, Diarrhea, Nausea : Reports: No symptoms Musculoskeletal: Reports: No symptoms Skin: Reports: No symptoms Neurological: Reports: No symptoms Endocrine: Reports: No symptoms Hematologic/Lymphatic: Reports: No symptoms All Other Systems: Reviewed and Negative Past Medical History - Past Medical History Previously Healthy: No Endocrine: Reports: Unknown Cardiovascular: Reports: Unknown Respiratory: Reports: Unknown Hematological: Reports: Unknown Gastrointestinal: Reports: Unknown Genitourinary: Reports: Unknown Neuro/Psych: Reports: Unknown Musculoskeletal: Reports: Unknown Cancer: Reports: Unknown Last Menstrual Period: unknown - Surgical History General Surgical History: Reports: Unknown - Family History Family History: Reports: Unknown - Social History Smoking Status: Current every day smoker, Heavy tobacco smoker Hx Substance Use: No Alcohol Screening: None Physical Exam - Physical Exam Appearance: Well-appearing, No pain distress, Well-nourished Eyes: CHELLE, EOMI, Conjunctiva clear ENT: Ears normal, Nose normal, Oropharynx normal Neck: Supple Respiratory: Airway patent Cardiovascular: RRR, Pulses normal, No rub, No murmur GI/: Soft, Nontender, No masses, Bowel sounds normal, No Organomegaly Musculoskeletal: Normal strength Skin: Warm, Dry, Normal color Neurological: Sensation intact, Motor intact, Reflexes intact, Cranial nerves intact, Alert, Oriented Psychiatric: Affect appropriate, Mood appropriate Interpretation - Radiology Interpretation Radiology Interpretation By: Radiologist Radiology Results: Positive Exam Interpreted: CT Scan - EKG Interpretation Time of EKG #1: 17:58 Rate: Normal Rhythm: Sinus Ectopy: None Wendell: NL ST Segment: Normal Physician Notification - Case Discussed Physician Notified: dr eastman--made him aware of ct findings--fistula Time of Notification: 17:58 Critical Care Note - Critical Care Note Total Time (mins): 0 Course - Course Hematology/Chemistry: 06/04/17 17:15 06/04/17 17:15 Orders, Labs, Meds: Lab Review 06/04/17 06/04/17 17:15 17:15 WBC 11.96 H RBC 3.79 L Hgb 13.4 Hct 36.6 L MCV 96.6 MCH 35.4 H MCHC 36.6 H RDW Coeff of Maxi 14.8 Plt Count 263 Immature Gran % (Auto) 0.9 Neut % (Auto) 84.2 Lymph % (Auto) 8.8 L [place] % (Auto) 5.4 Eos % (Auto) 0.3 Baso % (Auto) 0.4 Immature Gran # (Auto) 0.1 Neut # (Auto) 10.1 H Lymph # (Auto) 1.1 [place] # (Auto) 0.7 Eos # (Auto) 0.0 Baso # (Auto) 0.1 ESR Pending Sodium 123 L Potassium 5.0 Chloride 85 L Carbon Dioxide 21 L Anion Gap 22.0 BUN 7 Creatinine 0.72 Estimated GFR (MDRD) 82.00 BUN/Creatinine Ratio 9.72 Glucose 69 L Calcium 9.7 Total Bilirubin 1.0 AST 48 H ALT 26 Alkaline Phosphatase 101 Total Creatine Kinase 70 Troponin I 0.0280 Total Protein 7.9 Albumin 4.2 Globulin 3.7 Albumin/Globulin Ratio 1.14 Amylase 71 Lipase 73 Orders Category Date Time Status EKG-(ED ONLY) Stat CARDIO 06/04/17 17:05 Completed AMYLASE Stat LAB 06/04/17 17:15 Completed CBC W/ AUTO DIFF Stat LAB 06/04/17 17:15 Results COMPREHENSIVE METABOLIC PANEL Stat LAB 06/04/17 17:15 Completed CREATINE KINASE Stat LAB 06/04/17 17:15 Completed ESR Stat LAB 06/04/17 17:15 Results LIPASE Stat LAB 06/04/17 17:15 Completed TROPONIN I Stat LAB 06/04/17 17:15 Completed URINALYSIS C & S IF INDICATED Stat LAB 06/04/17 17:[address] ABDOMEN/PELVIS WO CONTRAST Stat RADS 06/04/17 17:06 Completed Vital Signs: Temp Pulse Resp BP Pulse Ox 06/04/17 16:58 97.6 F 80 20 141/82 H 96 Departure - Departure Time of Disposition: 17:59 Disposition: ADMITTED INPATIENT Discharge Problem: Diverticulitis Instructions: Diverticulitis (ED) Condition: Good Pt referred to PMD for follow-up: Yes IPMP verified?: No Allergies/Adverse Reactions: Allergies levofloxacin [From Levaquin] Allergy (Mild, Verified 06/04/17 17:10) Rash sulfamethoxazole Adverse Reaction (Intermediate, Verified 06/04/17 17:10) Rash Home Medications: Ambulatory Orders Acetaminophen [Tylenol] 650 mg PO Q6H PRN 11/29/16 Aspirin [Aspir 81] 81 mg PO DAILY 03/29/17 Atorvastatin Calcium 80 mg PO DAILY 03/29/17 Lisinopril 2.5 mg PO DAILY 03/29/17 Metoprolol Tartrate 25 mg PO BID 03/29/17 Nitroglycerin 0.4 mg SL PRN 03/29/17 Ticagrelor [Brilinta] 90 mg PO BID 03/29/17 Transfer Form Completed: No Disposition Discussed With: Patient, Family
--- NOTE | 2017-06-04 17:53 | CT ---
EXAM: CT abdomen pelvis without intravenous contrast 06/04/2017. Sagittal and coronal reformatted i mages obtained HISTORY: Abdominal pain. Diverticulitis COMPARISON: 03/03/2017 FINDINGS: The liver gallbladder show no acute abnormality. Multiple gallstones. The adrenal glands show no acute abnormality. Bilateral adrenal adenoma appears stable. Nonobstruct earline nephrolithiasis. The kidneys show no acute abnormality. The spleen pancreas show no acute proce ss. No bowel obstruction. The previously described sigmoid diverticulitis persists. There appears to be a fistulous communicat ion from the sigmoid colon posteriorly to a region of presacral inflammation. There is extensive inf lammatory change with multiple foci of free air. The area of fistulous communication can be seen at the posterior aspect the sigmoid colon on axial series image 99. This tract extends posteriorly from coronal series image 59 through 64. No drainable abscess at this time. Multilevel chronic degenerative disc disease. There has been severe interval worsening of degenerati ve disc disease at T10-T11. There has been partial collapse of the T10 and T11 of vertebral bodies. Diskitis is not excluded. MRI is recommended for further evaluation. IMPRESSION: 1. Acute diverticulitis of the sigmoid colon. This area of diverticulitis has been described on gabrielle or studies. There appears to be fistulous communication between the sigmoid colon and a region of in flammatory change in the presacral space. The fistula appears to be visualized on the current study. Reference images above. Surgical consultation is recommended. 2. Severe worsening of degenerative disc disease at T10-T11. Partial collapse of T10 and T11. Disk itis not excluded. MRI of the thoracic spine with contrast is recommended for further evaluation. Additional details as above.
[2017-06-04] MEDS ORDERED: ZOSYN 3.375 GM 3.375 GM in SODIUM CHLORIDE 50 ML IV STA (18:00)
[2017-06-04] MEDS ORDERED: MORPHINE 2 MG/ML SYRINGE IVP STA (18:00)
[2017-06-04] MEDS ORDERED: SODIUM CHLORIDE 1,000 ML IV STA (18:00)
[2017-06-04] MEDS ORDERED: ZOFRAN 4 MG/2 ML IVP STA (18:01)
[2017-06-04] MEDS ORDERED: ZOFRAN 4 MG/2 ML IVP PRN (18:04)
[2017-06-04] MEDS ORDERED: NITROSTAT SL PRN (18:30)
[2017-06-04 19:42] VITALS: BMI 23.8
[2017-06-04] MEDS ORDERED: FLAGYL 500 MG/100 ML 100 ML IV ONE (21:25)
[2017-06-04] MEDS: BRILINTA PO SCH (21:29)
[2017-06-04] MEDS: LOPRESSOR PO SCH (21:29)
[2017-06-04] MEDS: FLAGYL 500 MG/100 ML 500 MG in PREMIX 100 ML NS 1 BAG IV SCH (21:30)
[2017-06-04] MEDS: PROTONIX IV IVP SCH (21:30)
[2017-06-04] MEDS: MORPHINE 2 MG/ML SYRINGE IVP PRN (23:11)
[2017-06-04] MEDS: ZOSYN 3.375 GM 3.375 GM in SODIUM CHLORIDE 50 ML IV SCH (23:13)
[2017-06-04] MEDS: DEXTROSE 5%-NS IV SOLUTION 1,000 ML IV SCH (23:27)
[2017-06-05] MEDS: MORPHINE 2 MG/ML SYRINGE IVP PRN ×5 (03:19→23:02)
[2017-06-05] MEDS ORDERED: FLAGYL 500 MG/100 ML 100 ML IV ONE (04:52)
[2017-06-05] MEDS: FLAGYL 500 MG/100 ML 500 MG in PREMIX 100 ML NS 1 BAG IV SCH ×3 (05:03→21:03)
[2017-06-05] MEDS: ZOSYN 3.375 GM 3.375 GM in SODIUM CHLORIDE 50 ML IV SCH ×4 (05:53→23:07)
[2017-06-05] MEDS: ASPIRIN EC PO SCH (08:31)
[2017-06-05] MEDS: LOPRESSOR PO SCH ×2 (08:32→20:57)
[2017-06-05] MEDS: ZESTRIL PO SCH (08:32)
[2017-06-05] MEDS: BRILINTA PO SCH ×2 (08:33→20:57)
[2017-06-05] MEDS: PROTONIX IV IVP SCH (08:35)
[2017-06-05] MEDS ORDERED: LOVENOX SUBCUT SCH (09:00)
[2017-06-05] MEDS ORDERED: NON-FORMULARY MEDICATION (Lisinopril [Lisinopril] 2.5 MG) PO SCH (09:00)
[2017-06-05] MEDS ORDERED: NON-FORMULARY MEDICATION (Atorvastatin Calcium [Atorvastatin Calcium] 80 MG) PO SCH (09:00)
[2017-06-05] MEDS: DEXTROSE 5%-NS IV SOLUTION 1,000 ML IV SCH (15:51)
[2017-06-05] MEDS: LIPITOR PO SCH (20:57)
[2017-06-06] MEDS: MORPHINE 2 MG/ML SYRINGE IVP PRN ×5 (03:20→22:18)
[2017-06-06] MEDS: FLAGYL 500 MG/100 ML 500 MG in PREMIX 100 ML NS 1 BAG IV SCH ×3 (04:41→22:06)
[2017-06-06] MEDS: DEXTROSE 5%-NS IV SOLUTION 1,000 ML IV SCH ×2 (04:42→09:00)
[2017-06-06] MEDS: ZOSYN 3.375 GM 3.375 GM in SODIUM CHLORIDE 50 ML IV SCH ×4 (06:02→23:47)
[2017-06-06] MEDS: LOPRESSOR PO SCH ×2 (08:04→22:06)
[2017-06-06] MEDS: ZESTRIL PO SCH (08:04)
[2017-06-06] MEDS: ASPIRIN EC PO SCH (08:04)
[2017-06-06] MEDS: BRILINTA PO SCH ×2 (08:05→22:06)
[2017-06-06] MEDS: PROTONIX IV IVP SCH (08:05)
--- NOTE | 2017-06-06 11:05 | HP ---
CHIEF COMPLAINT: Epigastric pain. SOURCE OF HISTORY: Patient. HISTORY OF PRESENT ILLNESS: The patient claimed that she began experiencing epigastric pain some two to three days ago. She did take B complex vitamins and she felt like it did not go down to her stomach. She subscribes her pain to that episode. The patient also had vomiting and diarrhea the day before presentation to the emergency room and subsequent admission. The pain has increased in intensity rated at 10 with a scale of 0-10. The pain at presentation has decreased to about 5. The patient's work-up in the emergency room consisted of CBC showing slightly elevated WBC 11,960, slightly lowered RBC at 3.79. Hemoglobin 13.4, hematocrit 36.6, MCV 96.6, MCH 35.4. Platelet count normal. Electrolytes with low sodium and chlorides 123 and 85 respectively. Normal potassium at 5.0 and iron gap 22, elevated. Sugar 69, AST 48, Troponin 0.0280, lipase and amylase normal. Procalcitonin less than 0.05. Urine 1+ protein and 1+ ketones. Microscopic RBC's 0-2, normal range. WBC 0-2 normal range. Squamous epithelial cells 20-30. CT scan of the abdomen and pelvis without contrast showed acute diverticulitis of the sigmoid colon. Fistulous communication is also noted. Severe worsening. Disc disease at T10-T11. Recommended MRI of the thoracic spine with contrast. The patient has cholelithiasis. The ER MD felt that she needed admission and the patient was then admitted after discussion with me. PAST PERSONAL HISTORY: The patient had a similar episode of acute diverticulitis with fistulous track and was transferred from this facility and admitted to [facility] under the services of Dr. Helena Negron. She was admitted 03/08/2017 and discharged 03/10/2017. It mentioned on discharge summary that she will follow up in two weeks, but it contradicted further documentations down the line showing follow up appointments at no future appointments made. Also mentioned test results pending at the time of discharge. It mentioned a CT of the abdomen and pelvis with contrast. She also had an acute myocardial infarction 03/12/2017. Compression fracture by history, right upper lobe pneumonitis by history resolved. History of peptic ulcer disease, history of foreign body in the stomach extracted recently, nickel. History of GERD. History of chronic back problems. History of chronic tobacco use, heavy, two packs a day. The patient is still smoking and claimed to be using less. History of laser surgery to both eyes. 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 This patient before had epigastric discomfort and chest tightness. Echo was negative for any ischemia. FAMILY HISTORY: Mother had Alzheimer's. Father had prostatic carcinoma and as a consequence from a hernia repair. History of breast carcinoma in the family. SOCIAL HISTORY: The patient is and resides with her . She had retired from [employer] from the [employer] department. She still smokes cigarettes, probably a pack a day now. It used to be two packs or more. She had been advised previously and recently that she should stop smoking, more so since she had a myocardial infarction, but the patient has not stopped smoking. HOME MEDICATIONS: Tylenol 650 mg every 6 hours prn for pain Nitroglycerin 0.4 mg SL prn Brilinta 90 mg twice a day Lipitor 80 mg daily Lisinopril 2.5 mg tablet daily Metoprolol Tartrate 25 mg twice a day Hydrocodone/APAP 5/325 mg one tablet twice a day as needed ALLERGIES: Levofloxacin and sulfamethoxazole. REVIEW OF SYSTEMS: CONSTITUTIONAL: The patient denies any fever or chills, but is fatigued from the epigastric pain, as well as the diarrhea and vomiting. 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 No history of syncope or seizure.d VISUAL: Vision is adequate. Denies double vision, blurred vision or transient loss of vision. AUDITORY: Hearing is adequate. Denies any tinnitus, pain or drainage. RESPIRATORY: Denies any significant cough and no shortness of breath. CARDIOVASCULAR: The patient denies any chest pain or chest tightness. GASTROINTESTINAL: The patient is complaining of epigastric pain, which was quite severe, but much better now. She was given Protonix in the emergency room. She also had vomiting and diarrhea and sensation of pills hanging at the bottom part of the sternum. The epigastric pain is described as severe. The pain had no radiation to the shoulder or left upper or right upper extremity. GENITOURINARY: Denies any burning on urination. MUSCULOSKELETAL: The patient has chronic back pain. History of compression fracture of L2. ENDOCRINE: Negative. INTEGUMENT: Denies any rash or pruritus. HEMATOLOGIC: No history of prolonged bleeding. Denies any external bleeding noted. PSYCHIATRIC: Affect is normal. PHYSICAL EXAMINATION: GENERAL: We have a 62 year old female admitted to the hospital via the emergency room because of epigastric pain rated as high as 10 on a scale of 0-10. She has sigmoid fistula and abscess. VITAL SIGNS: ON admission to the floor showed a temperature of 98.2, pulse 77, blood pressure 137/76, respiratory rate 16, oxygen saturation 99 at room air. She is 5'4", weighing 139 pounds, BMI 23.9. HEAD: Unremarkable. Scalp with no active dermatitis. FACE: Symmetrical and equal with no facial weakness. No remarkable tenderness to palpation in the frontal or maxillary sinus areas. EYES: Pupils equal/reactive to light about 3 mm in size. Conjunctivae not pale. Sclerae not icteric. MOUTH: Unremarkable. THROAT: No inflammation, tumors or exudate. NECK: No masses. No bruit. No tenderness. No rigidity. CHEST: Essentially symmetrical and equal with good expansion. LUNGS: Breath sounds are heard in both sides, diminished, but no rales or wheezing. HEART: Audible and regular with good tones. No murmurs. ABDOMEN: Slightly protuberant, soft with no significant tenderness now in the epigastric area and no masses palpable. Bowel sounds are active. Palpation of the lower abdomen showed no remarkable tenderness and no muscular guarding. PELVIC: No palpable masses in the adnexa. RECTAL: Anal sphincter is competent. It feels like there is a firmness on the anterior rectal wall. No rectoanal canal tumor or masses and no blood. LOWER EXTREMITIES: Essentially symmetrical and equal. Exterior tibials are palpable. The anterior tibials are difficult to find. UPPER EXTREMITIES: Symmetrical and equal. ASSESSMENT: 1. EPIGASTRIC PAIN, PROBABLY SECONDARY TO PEPTIC ULCER DISEASE 2. 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 ABSCESS IN THE PELVIC AREA, PROBABLY RELATED TO THE FISTULA 5. CORONARY ARTERY DISEASE, RECENT MYOCARDIAL INFARCTION 03/12/2017, CATHETERIZED WITH 2 STENTS 6. HISTORY OF CHRONIC TOBACCO USE AND ABUSE, PERSISTENT PROGNOSIS: Guarded. This patient was referred previously to a general surgeon and was under her care from March 08 to March 10, 2017. The patient had a CT scan of the abdomen and pelvis with contrast and we do not have that report that was done a [facility], probably March 09, 2017. JONAS
--- NOTE | 2017-06-06 11:43 | PN ---
DATE OF VISIT: 06/05/17 SUBJECTIVE: The patient is alert, oriented times four and not dyspneic or tachypneic. I did see about 4:30 this afternoon and her vital signs at 2:00pm showed a temperature of 97.5, pulse 59, blood pressure 111/70 and respiratory 16 with oxygen saturation 97% at room air. The daughter was present in the room. The epigastric pain has more or less resolved now and she is getting Protonix intervenously. She is hungry and she will be given coffee, tea and jello. I had reviewed the CAT scan of the abdomen and pelvis with the radiologist today and compared it from the previous. He told me that the abscess in the pelvis is bigger than before. This abscess has not ruptured. Fistula is still presented. Tried to obtain the CAT scan of the abdomen and pelvis with contrast done at [facility]. LUNGS: Diminished breath sounds but no rales or wheezing HEART: Audible and regular with good tones. ABDOMEN: Protuberant, soft with no remarkably tenderness in the epigastric area or in the abdomen. RECTAL EXAMINATION: Reveals some firm area at the touch of the examining finger anteriorly and superiorly. The sacrum is palpated posteriorly. CBC today now shows a normal WBC 7,200, hgb is down 11.7 from 13.4, hct down to 34.2 from 36.6 on admission and RBC down to 3.43 from 3.79. The sodium and chloride is slightly higher now from 128 from 123, 93 from 85. The Potassium is down to 3.8. 20mcg of Potassium will be added to the IV. The AST is now normal 36 from 48. Troponin remained normal and today is 0.0360. The rest of the Chemistry is normal. I did advise the patient that I will talk to Dr. Negron again tomorrow and see what she has to tell me. I felt that this patient probably should have further workup to document with fistula as well as the abscess. The patient may require surgery. She did have an acute myocardial infarction on 03/12/17. Patient's condition is stable. [facility]
[2017-06-06] MEDS: LIPITOR PO SCH (22:06)
[2017-06-06] MEDS: VITAMIN D PO SCH (23:32)
[2017-06-07] MEDS: DEXTROSE 5%-NS IV SOLUTION 1,000 ML IV SCH (01:01)
[2017-06-07] MEDS: MORPHINE 2 MG/ML SYRINGE IVP PRN ×2 (04:09→09:58)
[2017-06-07] MEDS: FLAGYL 500 MG/100 ML 500 MG in PREMIX 100 ML NS 1 BAG IV SCH ×2 (05:10→13:28)
[2017-06-07] MEDS: ZOSYN 3.375 GM 3.375 GM in SODIUM CHLORIDE 50 ML IV SCH ×2 (06:16→12:19)
[2017-06-07] MEDS: ZESTRIL PO SCH (08:39)
[2017-06-07] MEDS: VITAMIN D PO SCH (08:39)
[2017-06-07] MEDS: BRILINTA PO SCH (08:39)
[2017-06-07] MEDS: LOPRESSOR PO SCH (08:39)
[2017-06-07] MEDS: ASPIRIN EC PO SCH (08:39)
--- NOTE | 2017-06-07 09:02 | PN ---
DATE OF VISIT: 06/06/17 SUBJECTIVE: The patient is alert and no significant abdominal distress. She had a little bit of nausea after eating. She denies any abdominal pain. LUNGS: Breaths sounds are diminished with no rales HEART: Audible and regular ABDOMEN: Slightly protuberant, soft with no tenderness in the lower abdomen at all on deep palpation. No remarkably tenderness in the epigastric area. I do believe that the epigastric pain that this patient may have had may have been due to peptic ulcer disease or even Helicobacter gastritis that has more or less had resolved. I could not confirm the Helicobacter gastritis once we do not have a breath test machine in this hospital. We will need an endoscopy plus biopsy of the gastric mucosa for testing. I did inform the patient that I had obtained a CAT scan of the abdomen and pelvic done at [facility] when I transferred her to the services to Dr. Negron. That CAT scan of the abdomen and pelvis did not indicate any fistula tract. Radiologist before this CAT scan at [facility] had already indicated that there is a fistula tract in the sigmoid colon. I did obtain the CD from [facility] and I would present that tomorrow to the Radiologist at [place]. We will see if the reading would be different. I did tell the patient of this and that I would let her know what the findings of the readings by the radiologist at this facility. At any rate I do believe that she needed to have a surgeon and she also needed to have probably a GI consult possibly for a colonoscopy to confirm that presents of the fistula tract. She probably should have a pelvic ultrasound to see if there is any abscess in the pelvic or a collection of tissue that is inflamed. The area of the pelvic previously was smaller and it is now bigger according to the radiologist when I reviewed that with him yesterday. JONAS
[2017-06-07] MEDS: PROTONIX IV IVP SCH (09:50)
[2017-06-07] MEDS ORDERED: VITAMIN B-12 IM SCH (12:30)
[2017-06-07 15:01] VITALS: BP 128/75; TEMP 97.5
--- NOTE | 2017-06-07 15:11 | DS ---
PATIENT IDENTIFICATION: 62 year old female was admitted to the hospital by the emergency room. The patient did complain of epigastric pain some 2-3 days prior to presentation to [place] [facility]. The patient described the beginning with the pain to swallowing B complex vitamin that seemed to get stuck at the distal end of the esophagus. The patient had an episode of diarrhea plus vomiting the day before presentation to the emergency room. The patient denied any generalized abdominal pain. While in the emergency room that patient had a CAT scan of the abdomen and pelvis ordered by Dr. Sahu. The patient was noted to have what appeared to be an abscess in the pelvis with fistula between probably sigmoid to sigmoid. The radiologist had mentioned that this had worsened since the last CT scan 02/27/17. The patient at that time had a CAT scan of the abdomen and pelvis one with and without. Another CT scan was done on 03/03/17 with the same findings. The area in the pelvis had not improved. This patient was then referred to Dr. Negron and was admitted at [facility] on 03/08/17 and had a CAT scan of the abdomen and pelvis with contrast. She was discharged 03/10. The patient's examination is alert with no respiratory distress. This patient is a chronic smoker and a recent myocardial infarction March 12, 2017 and was admitted at [facility]. The patient had continued to smoke in spite of the advise to stop the habit. HOSPITAL COURSE: The patient on admission was alert and the lungs were clear to auscultation but markedly diminished breath sounds. Heart was audible and regular with good tones. The abdomen is somewhat protuberant with no tenderness in the lower abdomen. There is some tenderness in the epigastric area with no muscular guarding or voluntary guarding. Rectal examination revealed some firm area on the anterior rectal wall. No rectal canula tumor masses and no blood in the rectum. The patient while in the hospital was given Flagyl 500mg intervenously every 8 hours from the emergency room and Zosyn 2.375 gram every 8hours. She was also given Pantoprazole intervenously daily. The patient epigastric pain has resolved. She still has pain in the back since she had compression fractures as well as some thoracic spine degenerative disease. The patient has diarrhea yesterday and did not feel very well today but that seemed to have resolved. The patient is alert and in no distress. LUNGS: clear to auscultation in both sides with better air exchange without smoking HEART: normal sinus rhythm VITAL SIGNS: Temperature 98.5, pulse 61, blood pressure 125/63, respiratory rate 14, oxygen saturation 98 at room air. CBC normal WBC 7,060, hgb 10.6, hct 30.4. Electrolyte slight lower but acceptable. Total protein and albumin slightly below normal. Renal panel normal. Homocysteine level 31.3 and vitamin D 25, Hydroxy is 9. This patient is initiated on Vitamin D 50,000 international units and Vitamin B 12 injection 1, 000mcg daily. FINAL DIAGNOSIS: 1. Epigastric pain, probably peptic ulcer disease maybe Helicobacter gastritis, improved to resolved 2. Fistula probably sigmoid to sigmoid with abscess in the pelvis 3. Myocardial infarction recent, 03/12/17 admitted at [facility] 4. Mild Anemia 5. B complex deficiency 6. Chronic tobacco use and abuse persistent PLAN: 1. I had discussed with case with Dr. Helena Negron and accepted the patient into her services and this patient will be transferred to [facility]. All the scans including the reports to accompany the patient as well as the history and physicals and also the final summary. PROGNOSIS: Guarded MTDD
--- NOTE | 2017-06-07 15:41 | PN ---
DATE OF VISIT: 06/07/17 SUBJECTIVE: The patient did not feel very well today and had some nausea but that had resolved. The patient at the time of my examination is alert and oriented, responsive and not in any acute distress. She did develop some diarrhea. Diarrhea maybe due to the antibiotic and we may have to reduce the antibiotic. She is receiving Flagyl as well as Tazobactam. The patient is allergic to Levofloxacin as well as Bactrim. ABDOMEN: Protuberant with active bowel sounds but no remarkably tenderness including lower abdominal area, suprapubic in particular. I did bring the CT from [place] to review with Dr. Mendez. 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 I did tell him that this was done with contrast after her hospitalization in late February 2017. He again refuses to review because he is confident about the findings and it is more pronounced now then it was in February2016. I did talk to the patient with regards to a referral and I asked her if she is still willing to go back to Dr. Negron and she was and I told her that I will try to talk to Dr. Negron today and inform her of the findings. I proceeded to call Dr. Negron's office but she was in surgery and the assistant secretary asked me to leave my phone number which I did. I told Ms. Hill that I would let her know as soon as I know of the decision. The epigastric pain that she had on admission now has more or less resolved. This is most likely due to gastritis or peptic ulcer disease maybe Helicobacter pylori but unable to test whether this is an active problem. JONAS
== END 2017-06-07 16:02 | disposition short-term general hospital (02) | DRG 392 ==
LOC: ED 16:56 → MEDSURG A 18:00
PROVIDERS: ADMIT General Practice; ATTEND General Practice
DX: R10.13 Epigastric pain (principal); K27.9 Peptic ulcer, site unspecified, unspecified as acute or chronic, without hemorrhage or perforation; K29.60 Other gastritis without bleeding; K57.32 Diverticulitis of large intestine without perforation or abscess without bleeding; K63.2 Fistula of intestine; M54.5 Low back pain; G89.29 Other chronic pain; N74 Female pelvic inflammatory disorders in diseases classified elsewhere; D64.9 Anemia, unspecified; E53.9 Vitamin B deficiency, unspecified; F17.210 Nicotine dependence, cigarettes, uncomplicated; I25.2 Old myocardial infarction; Z79.899 Other long term (current) drug therapy
CPT/HCPCS: 36415; 80053; 81001; 82150; 82306; 82550; 82607; 83090; 83690; 84145; 84484; 85007; 85025; 85651; 93005; 93010; 96365; 96375; 99284

== ENCOUNTER 2017-06-17 06:08 | Emergency (ER) ==
[2017-06-17 06:20] VITALS: BP 133/73; TEMP 98.1; BMI 24.2
[2017-06-17] MEDS ORDERED: ZOFRAN 4 MG/2 ML IVP STA (06:40)
[2017-06-17] MEDS ORDERED: DILAUDID 1 MG/ML SYRINGE IVP STA (06:40)
--- NOTE | 2017-06-17 06:43 | ED.PDOC ---
General <CLAUDINE PANDYA - Last Filed: 06/17/17 08:40> Stated Complaint: im hurting--im sure its my gb Time Seen by Physician: 06:15 Mode of Arrival: Wheelchair Information Source: Patient Exam Limitations: No limitations Nursing and Triage Documentation Reviewed and Agree: Yes Reviewed sepsis parameters & appropriate labs ordered?: Yes System Inflammatory Response Syndrome: Not Applicable <ELAINA-ERANGELA - Last Filed: 06/26/17 05:56> ED Provider: Dr. ANGELA DELANEYEVAN Chief Complaint: Abdominal Pain [facility] Sepsis Protocol: For patient's 13 years and over: Temp is 96.8 and below OR 101 and greater Pulse >90 BPM Resp >20/minute Acutely Altered Mental Status Are patient's symptoms suggestive of a new infection, such as: -Pneumonia -Skin, Soft Tissue -Endocarditis -UTI -Bone, Joint Infection -Implantable Device -Acute Abdominal Infection -Wound Infection -Meningitis -Blood Stream Catheter Infection -Unknown GI Complaint Exam - Abdominal Pain Complaint/Exam Onset: Gradual Duration: several hours Symptoms Are: Still present Timing: Constant Initial Severity: Mild Current Severity: Moderate Location of Pain: Epigastric Character: Reports: Dull, Aching, Throbbing, Cramping Alleviating: Reports: None Associated Signs and Symptoms: Reports: Nausea Differential Diagnoses: Pancreatitis Quality Indicator For Non-Traumatic Chest Pain/Syncope: EKG Performed <ELAINAPhilipANGELA GORDON - Last Filed: 06/26/17 05:56> Review of Systems - Review Of Systems Constitutional: Reports: Loss of appetite GI: Reports: Vomiting (Yesterday not tonight. ) <CLAUDINE PANDYA - Last Filed: 06/17/17 08:40> - Review Of Systems Constitutional: Reports: No symptoms Eyes: Reports: No symptoms Ears, Nose, Mouth, Throat: Reports: No symptoms Respiratory: Reports: No symptoms Cardiac: Reports: No symptoms GI: Reports: Abdominal pain, Nausea : Reports: No symptoms Musculoskeletal: Reports: No symptoms Skin: Reports: No symptoms Neurological: Reports: No symptoms Endocrine: Reports: No symptoms Hematologic/Lymphatic: Reports: No symptoms All Other Systems: Reviewed and Negative <ELAINAJEFFREYANGELA - Last Filed: 06/26/17 05:56> Past Medical History - Past Medical History Endocrine: Reports: None. Denies: Unknown Cardiovascular: Reports: HI (with stents 4 months ago ). Denies: Unknown Respiratory: Reports: None. Denies: Unknown Hematological: Reports: None. Denies: Unknown Gastrointestinal: Reports: Diverticulitis, Gallstones. Denies: Unknown Genitourinary: Reports: None Neuro/Psych: Reports: None. Denies: Unknown Musculoskeletal: Reports: Back Pain. Denies: Unknown Cancer: Reports: None. Denies: Unknown - Surgical History General Surgical History: Reports: Hysterectomy, Stent Placement (2 placed in mar 2017), Other (laser eye surgery, tendonitis surgery on arm, 2 tumor surgeries on genital area, ulcer). Denies: Unknown (laser eye surgery, hysterectomy, tendonitis surgery on arm, 2 tumor surgeries on genital area, ulcer) - Social History Lives: With family <CLAUDINE PANDYA - Last Filed: 06/17/17 08:40> - Past Medical History Previously Healthy: No Endocrine: Reports: Unknown Cardiovascular: Reports: Unknown Respiratory: Reports: Unknown Hematological: Reports: Unknown Gastrointestinal: Reports: Unknown Genitourinary: Reports: Unknown Neuro/Psych: Reports: Unknown Musculoskeletal: Reports: Unknown Cancer: Reports: Unknown Last Menstrual Period: na - Surgical History General Surgical History: Reports: Unknown - Family History Family History: Reports: Unknown - Social History Smoking Status: Current every day smoker, Heavy tobacco smoker Hx Substance Use: No Alcohol Screening: None - Immunizations Tetanus Shot up to Date: No (unknown) <ANGELA KERNS - Last Filed: 06/26/17 05:56> Physical Exam - Physical Exam Appearance: Well-appearing, No pain distress, Well-nourished Pain Distress: Moderate Eyes: CHELLE ENT: Ears normal, Nose normal, Oropharynx normal Respiratory: Airway patent, Breath sounds clear, Breath sounds equal, Respirations nonlabored Cardiovascular: RRR, Pulses normal, No rub, No murmur GI/: Soft, No masses, Bowel sounds normal, No Organomegaly, Tender Musculoskeletal: Normal strength, ROM intact, No edema, No calf tenderness Skin: Warm, Dry, Normal color Neurological: Sensation intact, Motor intact, Reflexes intact, Cranial nerves intact, Alert, Oriented Psychiatric: Affect appropriate, Mood appropriate <ANGELA KERNS - Last Filed: 06/26/17 05:56> Physician Notification - Case Discussed Physician Notified: Bajuyo Time of Notification: 08:20 (Transfer to [facility]. ) Consult With: Dr Craig who has accepted pateint for transfer <CLAUDINE PANDYA - Last Filed: 06/17/17 08:40> - Case Discussed Physician Notified: dr pandya Time of Notification: 07:00 <ANGELA KERNS - Last Filed: 06/26/17 05:56> Critical Care Note - Critical Care Note Total Time (mins): 0 <CLAUDINE PANDYA - Last Filed: 06/17/17 08:40> Course - Course Hematology/Chemistry: 06/17/17 06:35 06/17/17 06:35 <CLAUDINE PANDYA - Last Filed: 06/17/17 08:40> - Course Hematology/Chemistry: 06/17/17 06:35 06/17/17 06:35 <ANGELA KERNS - Last Filed: 06/26/17 05:56> - Course Orders, Labs, Meds: Lab Review 06/17/17 06/17/17 06/17/17 06:35 06:35 07:42 WBC 11.04 H RBC 3.46 L Hgb 12.3 Hct 35.1 L MCV 101.4 H MCH 35.5 H MCHC 35.0 RDW Coeff of Maxi 15.6 H Plt Count 365 Immature Gran % (Auto) 1.2 Neut % (Auto) 74.9 Lymph % (Auto) 14.9 Crosby % (Auto) 6.9 Eos % (Auto) 1.0 Baso % (Auto) 1.1 Immature Gran # (Auto) 0.1 Neut # (Auto) 8.3 H Lymph # (Auto) 1.7 Crosby # (Auto) 0.8 Eos # (Auto) 0.1 Baso # (Auto) 0.1 Sodium 130 L Potassium 4.2 Chloride 95 L Carbon Dioxide 26 Anion Gap 13.2 BUN 5 L Creatinine 0.50 L Estimated GFR (MDRD) 124.00 BUN/Creatinine Ratio 10.00 Glucose 100 Calcium 8.5 Total Bilirubin 0.3 AST 21 ALT 15 Alkaline Phosphatase 103 Total Creatine Kinase 44 Troponin I 0.0330 Total Protein 6.7 Albumin 3.8 Globulin 2.9 Albumin/Globulin Ratio 1.31 Amylase 136 H Lipase 109 H Urine Color Yellow Urine Clarity Clear Urine pH 7.0 Ur Specific [place] 1.015 Urine Protein Negative Urine Glucose (UA) Negative Urine Ketones Negative Urine Blood Trace-intact Urine Nitrite Negative Urine Bilirubin Negative Urine Urobilinogen 0.2 Ur Leukocyte Esterase Negative Urine Microscopic RBC 2-5 Urine Microscopic WBC 0-2 Ur Squamous Epith Cells 2-5 Amorphous Sediment Trace Urine Bacteria Trace Urine Mucus Trace Orders Category Date Time Status EKG-(ED ONLY) Stat CARDIO 06/17/17 06:24 Completed IV [ED IV/MEDIPORT/POWERPORT] .ONCE EMERGENCY 06/17/17 06:24 Active AMYLASE Stat LAB 06/17/17 06:35 Completed CBC W/ AUTO DIFF Stat LAB 06/17/17 06:35 Completed COMPREHENSIVE METABOLIC PANEL Stat LAB 06/17/17 06:35 Completed CREATINE KINASE Stat LAB 06/17/17 06:35 Completed LIPASE Stat LAB 06/17/17 06:35 Completed TROPONIN I Stat LAB 06/17/17 06:35 Completed URINALYSIS C & S IF INDICATED Stat LAB 06/17/17 07:42 Completed 0.9 % Sodium Chloride [Saline Flush] MEDS 06/17/17 06:24 Discontinued 1 syr IVF PRN PRN Hydromorphone HCl [Dilaudid 1 mg/ml Syringe] MEDS 06/17/17 06:40 Discontinued 1 mg IVP ONCE STA Ondansetron HCl/Pf [Zofran 4 mg/2 ml] MEDS 06/17/17 06:40 Discontinued 4 mg IVP ONCE STA CT ABDOMEN/PELVIS WO CONTRAST Stat RADS 06/17/17 06:40 Completed Medications Discontinued Medications Generic Name Dose Route Start Last Admin Trade Name Freq PRN Reason Stop Dose Admin Hydromorphone HCl 1 mg 06/17/17 06:40 06/17/17 06:45 Dilaudid 1 Mg/Ml Syringe IVP 06/17/17 06:41 1 mg ONCE STA Administration Ondansetron HCl 4 mg 06/17/17 06:40 06/17/17 06:43 Zofran 4 Mg/2 Ml IVP 06/17/17 06:41 4 mg ONCE STA Administration Sodium Chloride 1 syr 06/17/17 06:24 06/17/17 06:50 Saline Flush IVF 1 syr PRN PRN Administration To flush IV Vital Signs: Temp Pulse Resp BP Pulse Ox 06/17/17 06:12 98.1 F 84 20 133/73 100 Departure - Departure Time of Disposition: :34 <BAKARICLAUDINE - Last Filed: 06/17/17 08:40> - Departure Pt referred to PMD for follow-up: Yes IPMP verified?: No <ANGELA KERNS - Last Filed: 06/26/17 05:56> - Departure Disposition: [facility]M [facility] Discharge Problem: Abdominal pain, Diverticulitis, Cholecystitis Condition: Stable Allergies/Adverse Reactions: Allergies levofloxacin [From Levaquin] Allergy (Mild, Verified 06/17/17 06:24) Rash sulfamethoxazole Adverse Reaction (Intermediate, Verified 06/17/17 06:24) Rash Home Medications: Ambulatory Orders Aspirin [Aspir 81] 81 mg PO DAILY 03/29/17 Atorvastatin Calcium 80 mg PO DAILY 03/29/17 Lisinopril 2.5 mg PO DAILY 03/29/17 Metoprolol Tartrate 25 mg PO BID 03/29/17 Nitroglycerin 0.4 mg SL PRN 03/29/17 Ticagrelor [Brilinta] 90 mg PO BID 03/29/17
--- NOTE | 2017-06-17 07:22 | CT ---
Exam: CT scan of the abdomen pelvis without contrast. Date: 06/17/2017. Comparison: 06/04/2017. HISTORY: Abdominal pain. TECHNIQUE: Helical scan of the abdomen pelvis was performed without contrast. FINDINGS: The lung bases are clear. Multilevel degenerative changes are again seen including severe degenerative change including remodeling of the intervertebral disc space at T10-11 and diffusely th roughout the lumbar spine. The bony pelvis is within normal limits. The spleen and liver have a uniform attenuation. Gallstones are present. The stomach, pancreas and right adrenal gland are normal. There is a 2.4 x 1.0 cm left adrenal nodule that measures -8 Hounsfi eld units. The kidneys have a normal morphology. No calculi or hydronephrosis is seen. No retroper itoneal adenopathy is present. Aorta has peripheral calcification and does not exceed 3 cm. The sma ll bowel is normal. There are colonic diverticula with redemonstration of increased attenuation in t he presacral fat. There is no free fluid. Hysterectomy has been performed. The rectum and inguinal regions are normal. Impression: Compared with 06/04/2017. There is redemonstration of increased attenuation in the pres acral space with diverticulosis of the sigmoid colon, suggestive of persistent diverticulitis. There is redemonstration of possible fistulous communication between the sigmoid colon and inflammatory ch jonathan in the presacral space. 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 Gallstones. ASVD. There is redemonstration of severe degenerative changes at T10-11 and the possibility of diskitis is not excluded as previously suggested. MRI of the thoracic spine may be of value for further evaluati on. Lipid rich left adrenal adenoma. Hysterectomy.
== END 2017-06-17 08:55 | disposition short-term general hospital (02) ==
LOC: ED 06:08
DX: K57.92 Diverticulitis of intestine, part unspecified, without perforation or abscess without bleeding (principal); K81.9 Cholecystitis, unspecified; I25.2 Old myocardial infarction; Z95.5 Presence of coronary angioplasty implant and graft; F17.210 Nicotine dependence, cigarettes, uncomplicated; R11.2 Nausea with vomiting, unspecified
CPT/HCPCS: 36415; 80053; 81001; 82150; 82550; 83690; 84484; 85025; 93005; 93010; 96374; 96375; 99285

== ENCOUNTER 2017-07-03 16:39 | Outpatient (CLI) | END 2017-07-03 16:40 | disposition home or self-care (01) | LOC: FCC-LAB 16:39 | PROVIDERS: ATTEND General Practice | DX: R10.13 Epigastric pain (principal) | CPT/HCPCS: 36415; 80076; 82150; 83690 ==

== ENCOUNTER 2017-07-07 08:25 | Outpatient (CLI) ==
--- NOTE | 2017-07-07 09:16 | US ---
Exam: Alberts-scale and color ultrasonographic evaluation of the abdomen. Limited abdominal ultrasound Reason for exam: Epigastric pain. Comparison: CT abdomen pelvis performed 06/17/2017. FINDINGS: The liver measures approximately 10.16 cm in length with a heterogeneous appearing echotex ture. There is normal antegrade portal venous flow without ductal dilatation or perihepatic free flu id. The gallbladder wall measures 0.32 cm which is mildly thickened. There are stones and polyps/cholest christophe seen within the gallbladder lumen. The common bile duct measures 0.32 cm The partially imaged pancreas appears grossly unremarkable although evaluation is limited by overlyin g bowel gas. The right kidney measures 9.67 x 4.08 x 4.44 cm with a normal appearing echotexture, no hydronephrosi s, and no nephrolithiasis. Impression: 1. Mildly prominent gallbladder wall with cholelithiasis. Imaging findings can be seen with cholecyst itis but may also be seen with chronic etiologies. If clinical concern exists for gallbladder pathol ogy, a HIDA scan may be performed for further characterization. 2. Heterogeneous appearing hepatic echotexture.
== END 2017-07-07 08:26 | disposition home or self-care (01) ==
LOC: RAD 08:25
PROVIDERS: ATTEND General Practice
DX: R10.13 Epigastric pain (principal)

== ENCOUNTER 2017-07-14 07:36 | Outpatient (CLI) ==
--- NOTE | 2017-07-14 10:33 | NM ---
EXAM: Hepatobiliary imaging HISTORY: Epigastric pain COMPARISON: Abdominal ultrasound on 07/07/2017 showed mildly prominent gallbladder wall with cholelit hiasis. TECHNIQUE: Patient was injected 5.3 mCi of technetium 99m Choletec intravenously. Multiple anterior scintigraphic images of the right upper quadrant region of the abdomen were obtained up to 1 hour int erval. Patient was infused 1.2 mcg of cholecystokinin intravenously and gallbladder ejection fractio n was calculated. FINDINGS: There is normal visualization of liver, gallbladder, bile duct and small bowel loops. Jeff trae reflux is noted. Gallbladder ejection fraction is 89%. IMPRESSION: 1. There is no evidence of acute or chronic cholecystitis. 2. Mild gastric reflux is seen
== END 2017-07-14 07:37 | disposition home or self-care (01) ==
LOC: RAD 07:36
PROVIDERS: ATTEND General Practice
DX: K80.20 Calculus of gallbladder without cholecystitis without obstruction (principal); R10.13 Epigastric pain

== ENCOUNTER 2017-08-14 06:25 | Observation (INO) ==
[2017-08-14] MEDS ORDERED: SODIUM CHLORIDE 1,000 ML IV STA (06:43)
[2017-08-14] MEDS ORDERED: DILAUDID 0.5 MG/0.5 ML SYRINGE IVP STA (06:44)
[2017-08-14] MEDS ORDERED: ZOFRAN 4 MG/2 ML IVP STA (06:44)
--- NOTE | 2017-08-14 06:48 | ED.PDOC ---
General Stated Complaint: earline been hurting for 3 days Time Seen by Physician: 06:40 Mode of Arrival: Walk-In Information Source: Patient Exam Limitations: No limitations Nursing and Triage Documentation Reviewed and Agree: Yes Reviewed sepsis parameters & appropriate labs ordered?: Yes System Inflammatory Response Syndrome: Not Applicable <ANGELA KERNS - Last Filed: 08/14/17 06:46> <NICOLASAOLIVERIO - Last Filed: 08/14/17 08:20> ED Provider: Dr. OLIVERIO JACOBO Chief Complaint: Abdominal Pain Primary Care Provider: [facility] Sepsis Protocol: For patient's 13 years and over: Temp is 96.8 and below OR 101 and greater Pulse >90 BPM Resp >20/minute Acutely Altered Mental Status Are patient's symptoms suggestive of a new infection, such as: -Pneumonia -Skin, Soft Tissue -Endocarditis -UTI -Bone, Joint Infection -Implantable Device -Acute Abdominal Infection -Wound Infection -Meningitis -Blood Stream Catheter Infection -Unknown GI Complaint Exam - Abdominal Pain Complaint/Exam Onset: Gradual Duration: 3 days Symptoms Are: Still present Timing: Constant Initial Severity: Mild Current Severity: Moderate Location of Pain: Epigastric Radiates To: Reports: Back Character: Reports: Dull, Aching, Cramping Aggravating: Reports: None Alleviating: Reports: Vomiting Associated Signs and Symptoms: Reports: Nausea. Denies: Diaphoresis, Fever, Cough, Chest pain, Dizziness, Back pain, Constipation, Blood in stool, Dysuria, Urinary frequency Surgical Obstruction Risk Factors: Reports: None Patient Rh Status: Unknown Differential Diagnoses: Bowel Obstruction, Constipation Quality Indicator For Non-Traumatic Chest Pain/Syncope: EKG Performed <ANGELA KERNS - Last Filed: 08/14/17 06:46> - Abdominal Pain Complaint/Exam Onset: Gradual Symptoms Are: Still present Timing: Constant Initial Severity: Mild Current Severity: Moderate Location of Pain: Epigastric Radiates To: Reports: Back Character: Reports: Dull, Aching, Cramping Surgical Obstruction Risk Factors: Reports: None Related Surgical History: Reports: None Differential Diagnoses: Appendicitis, Diverticulitis Quality Indicators for AMI: EKG in 10min. Quality Indicators for Cardiac Chest Pain: EKG in 10min. <OLIVERIO JACOBO - Last Filed: 08/14/17 08:20> Review of Systems - Review Of Systems Constitutional: Reports: No symptoms Eyes: Reports: No symptoms Ears, Nose, Mouth, Throat: Reports: No symptoms Respiratory: Reports: No symptoms Cardiac: Reports: No symptoms GI: Reports: Abdominal pain, Nausea : Reports: No symptoms Musculoskeletal: Reports: No symptoms Skin: Reports: No symptoms Neurological: Reports: No symptoms Endocrine: Reports: No symptoms Hematologic/Lymphatic: Reports: No symptoms All Other Systems: Reviewed and Negative <ANGELA KERNS Last Filed: 08/14/17 06:46> - Review Of Systems Constitutional: Reports: No symptoms Eyes: Reports: No symptoms Ears, Nose, Mouth, Throat: Reports: No symptoms Respiratory: Reports: No symptoms Cardiac: Reports: No symptoms GI: Reports: Abdominal pain : Reports: No symptoms Musculoskeletal: Reports: No symptoms Skin: Reports: No symptoms Neurological: Reports: No symptoms Endocrine: Reports: No symptoms Hematologic/Lymphatic: Reports: No symptoms All Other Systems: Reviewed and Negative <NICOLASAOLIVERIO Philip Filed: 08/14/17 08:20> Past Medical History - Past Medical History Previously Healthy: No Endocrine: Reports: Unknown Cardiovascular: Reports: Unknown Respiratory: Reports: Unknown Hematological: Reports: Unknown Gastrointestinal: Reports: Unknown Genitourinary: Reports: Unknown Neuro/Psych: Reports: Unknown Musculoskeletal: Reports: Unknown Cancer: Reports: Unknown Last Menstrual Period: hysterectomy - Surgical History General Surgical History: Reports: Unknown - Family History Family History: Reports: Unknown - Social History Smoking Status: Current every day smoker Hx Substance Use: No Alcohol Screening: Occasionally - Immunizations Tetanus Shot up to Date: No <ANGELA KERNS Last Filed: 08/14/17 06:46> - Past Medical History Previously Healthy: Yes Endocrine: Reports: None Cardiovascular: Reports: None Respiratory: Reports: None Hematological: Reports: None Gastrointestinal: Reports: None Genitourinary: Reports: None Neuro/Psych: Reports: None Musculoskeletal: Reports: None Cancer: Reports: None - Surgical History General Surgical History: Reports: None - Family History Family History: Reports: None <NICOLASAOLIVERIO Philip Filed: 08/14/17 08:20> Physical Exam - Physical Exam Appearance: Well-appearing, No pain distress, Well-nourished Eyes: CHELLE ENT: Ears normal, Nose normal, Oropharynx normal Neck: Supple Respiratory: Airway patent, Breath sounds clear, Breath sounds equal, Respirations nonlabored Cardiovascular: RRR, Pulses normal, No rub, No murmur GI/: Soft, No masses, Tender Musculoskeletal: Normal strength Skin: Warm, Dry, Normal color Neurological: Sensation intact, Motor intact, Reflexes intact, Cranial nerves intact, Alert, Oriented Psychiatric: Affect appropriate, Mood appropriate <ANGELA KERNS - Last Filed: 08/14/17 06:46> - Physical Exam Appearance: Well-appearing, No pain distress, Well-nourished Eyes: CHELLE, EOMI, Conjunctiva clear ENT: Ears normal, Nose normal, Oropharynx normal Respiratory: Airway patent, Breath sounds clear, Breath sounds equal, Respirations nonlabored Cardiovascular: RRR, Pulses normal, No rub, No murmur GI/: Soft, Nontender, No masses, Bowel sounds normal, No Organomegaly Musculoskeletal: Normal strength, ROM intact, No edema, No calf tenderness Skin: Warm, Dry, Normal color Neurological: Sensation intact, Motor intact, Reflexes intact, Cranial nerves intact, Alert, Oriented Psychiatric: Affect appropriate, Mood appropriate <OLIVERIO JACOBO - Last Filed: 08/14/17 08:20> Physician Notification - Case Discussed Physician Notified: dr [email or web address] Time of Notification: 07:00 <ANGELA KERNS - Last Filed: 08/14/17 06:46> Critical Care Note - Critical Care Note Total Time (mins): 0 <OLIVERIO JACOBO Last Filed: 08/14/17 08:20> Course - Course Hematology/Chemistry: 08/14/17 06:52 08/14/17 06:52 <OLIVERIO JACOBO Last Filed: 08/14/17 08:20> - Course Orders, Labs, Meds: Lab Review 08/14/17 08/14/17 08/14/17 06:52 06:52 07:44 WBC 10.24 H RBC 3.96 L Hgb 14.1 Hct 39.9 MCV 100.8 H MCH 35.6 H MCHC 35.3 RDW Coeff of Maxi 14.6 Plt Count 266 Immature Gran % (Auto) 0.5 Neut % (Auto) 68.1 Lymph % (Auto) 21.7 [place] % (Auto) 6.4 Eos % (Auto) 2.1 Baso % (Auto) 1.2 Immature Gran # (Auto) 0.1 Neut # (Auto) 7.0 H Lymph # (Auto) 2.2 [place] # (Auto) 0.7 Eos # (Auto) 0.2 Baso # (Auto) 0.1 Sodium 133 L Potassium 3.5 Chloride 97 L Carbon Dioxide 22 L Anion Gap 17.5 BUN 5 L Creatinine 0.67 Estimated GFR (MDRD) 89.00 BUN/Creatinine Ratio 7.46 Glucose 85 Calcium 9.1 Total Bilirubin 0.7 AST 24 ALT 11 L Alkaline Phosphatase 82 Total Creatine Kinase 56 Troponin I 0.0110 Total Protein 7.1 Albumin 3.5 Globulin 3.6 Albumin/Globulin Ratio 0.97 Amylase 69 Lipase 59 Urine Color Yellow Urine Clarity Clear Urine pH 6.0 Ur Specific [place] <=1.005 Urine Protein Negative Urine Glucose (UA) Negative Urine Ketones Negative Urine Blood Negative Urine Nitrite Negative Urine Bilirubin Negative Urine Urobilinogen 0.2 Ur Leukocyte Esterase Negative Orders Category Date Time Status EKG-(ED ONLY) Stat CARDIO 08/14/17 06:40 Completed IV [ED IV/MEDIPORT/POWERPORT] .ONCE EMERGENCY 08/14/17 06:43 Active AMYLASE Stat LAB 08/14/17 06:52 Completed CBC W/ AUTO DIFF Stat LAB 08/14/17 06:52 Completed COMPREHENSIVE METABOLIC PANEL Stat LAB 08/14/17 06:52 Completed CREATINE KINASE Stat LAB 08/14/17 06:52 Completed LIPASE Stat LAB 08/14/17 06:52 Completed TROPONIN I Stat LAB 08/14/17 06:52 Completed UA [URINALYSIS C & S IF INDICATED] Stat LAB 08/14/17 07:44 Completed 0.9 % Sodium Chloride [Saline Flush] MEDS 08/14/17 06:43 Active 1 syr IVF PRN PRN Hydromorphone HCl [Dilaudid] MEDS 08/14/17 06:44 Discontinued 1 mg IVP ONCE STA Ondansetron HCl/Pf [Zofran 4 mg/2 ml] MEDS 08/14/17 06:44 Discontinued 4 mg IVP ONCE STA Sodium Chloride 0.9% [Sodium Chloride] 1,000 ml MEDS 08/14/17 06:[address] ABDOMEN/PELVIS WO CONTRAST Stat RADS 08/14/17 06:44 Completed Medications Generic Name Dose Route Start Last Admin Trade Name Freq PRN Reason Stop Dose Admin Sodium Chloride 1 syr 08/14/17 06:43 Saline Flush IVF PRN PRN To flush IV Discontinued Medications Generic Name Dose Route Start Last Admin Trade Name Anu PRN Reason Stop Dose Admin Hydromorphone HCl 1 mg 08/14/17 06:44 08/14/17 06:57 Dilaudid IVP 08/14/17 06:45 1 mg ONCE STA Administration Sodium Chloride 1,000 mls @ 1,000 mls/hr 08/14/17 06:43 08/14/17 06:58 Sodium Chloride IV 08/14/17 07:42 1,000 mls/hr BOLUS STA Administration Ondansetron HCl 4 mg 08/14/17 06:44 08/14/17 06:58 Zofran 4 Mg/2 Ml IVP 08/14/17 06:45 4 mg ONCE STA Administration Vital Signs: Temp Pulse Resp BP Pulse Ox 08/14/17 06:26 98.6 F 93 H 22 127/80 95 Departure <ANGELA KERNS - Last Filed: 08/14/17 06:46> - Departure Time of Disposition: 08:19 Pt referred to PMD for follow-up: Yes IPMP verified?: No Disposition Discussed With: Patient <NICOLASAOLIVERIO - Last Filed: 08/14/17 08:20> - Departure Disposition: PLACED OBSERVATION Discharge Problem: Abdominal pain, Diverticulitis, Compression fracture of L2 lumbar vertebra Instructions: Abdominal Pain (ED) Condition: Good Additional Instructions: Please call your Family Physician as soon as possible to schedule a follow-up appointment. Allergies/Adverse Reactions: Allergies levofloxacin [From Levaquin] Allergy (Mild, Verified 08/14/17 06:36) Rash sulfamethoxazole Adverse Reaction (Intermediate, Verified 08/14/17 06:36) Rash Home Medications: Ambulatory Orders Aspirin [Aspir 81] 81 mg PO DAILY 03/29/17 Atorvastatin Calcium 80 mg PO BEDTIME 03/29/17 Lisinopril 2.5 mg PO DAILY 03/29/17 Metoprolol Tartrate 25 mg PO BID 03/29/17 Nitroglycerin 0.4 mg SL PRN 03/29/17 Ticagrelor [Brilinta] 90 mg PO BID 03/29/17 Atorvastatin Calcium 80 mg PO BEDTIME 08/14/17
--- NOTE | 2017-08-14 07:58 | CT ---
EXAM: CT abdomen pelvis without contrast HISTORY: Abdominal pain COMPARISON: 06/17/2017 TECHNIQUE: CT abdomen pelvis performed without intravenous contrast. Coronal and sagittal reformatt ed images obtained. FINDINGS: Lung bases clear. No free air. No acute abnormalities of the bones. Degenerative change in the spine. Mild compression deformities T10, T11, L2, with similar loss of height. Extensive de generative change and scoliosis T10-T11. Heart normal in size. Evaluation for organ parenchyma limi patrica without contrast. Long right lobe of the liver could indicate hepatomegaly or a Ramirez's variant . There are gallstones. Pancreas unremarkable. Spleen unremarkable. Redemonstration of bilateral ad renal adenomas. Left nephrolithiasis. Additional bilateral vascular calcifications suggested in both kidneys. No hydronephrosis. Aorta normal in caliber. Ectasia infrarenal abdominal aorta measures u p to 2.5 cm. No lymphadenopathy. Bladder unremarkable. Small fat-containing periumbilical hernia. Stomach appears normal. No dilated loops small bowel. Appendix not visualized. Colonic diverticul osis.. Redemonstration of inflammatory stranding surrounding the sigmoid colon and in the presacral region. 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 Small fat-containing periumbilical hernia. Status post hysterectomy. IMPRESSION: 1. 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 Findings grossly similar to prior examination. Surgic al consultation would again be recommended. 2. Redemonstration of severe degenerative changes T10-T11 with associated compression deformities, g rossly similar. Changes at this level most likely degenerative, though the possibility of diskitis o steomyelitis not excluded as previously suggested. MRI thoracic spine with contrast can be performed for further evaluation. Additional compression deformity L2, unchanged 3. Cholelithiasis. 4. Extensive atherosclerosis. Ectasia infrarenal abdominal aorta measuring 2.5 cm. 5. Bilateral adrenal adenomas. 6. Left nephrolithiasis. 7. Long right lobe of the liver could indicate hepatomegaly or a Ramirez's variant.
[2017-08-14] MEDS ORDERED: SODIUM CHLORIDE 1,000 ML IV SCH (08:30)
[2017-08-14] MEDS ORDERED: NITROSTAT SL PRN (08:30)
[2017-08-14] MEDS ORDERED: NON-FORMULARY MEDICATION (Lisinopril [Lisinopril] 2.5 MG) PO SCH (09:00)
[2017-08-14 10:28] VITALS: BMI 20.7
[2017-08-14] MEDS: ASPIRIN EC PO SCH (11:20)
[2017-08-14] MEDS: BRILINTA PO SCH ×2 (11:21→20:23)
[2017-08-14] MEDS: LOPRESSOR PO SCH ×2 (11:21→20:23)
[2017-08-14] MEDS: ZESTRIL PO SCH (11:22)
[2017-08-14] MEDS: PROTONIX PO SCH (11:22)
[2017-08-14] MEDS ORDERED: POTASSIUM CHLORIDE 20 MEQ VIAL-ADDITIVE ONLY IV ONE (17:36)
[2017-08-14] MEDS: [UNRECOGNIZED DRUG - MIXTURE] IV SCH (17:46)
[2017-08-14] MEDS: DILAUDID 2 MG/ML SYRINGE IVP PRN (17:50)
[2017-08-14] MEDS: LIPITOR PO SCH (20:23)
[2017-08-14] MEDS ORDERED: NON-FORMULARY MEDICATION (Atorvastatin Calcium [Atorvastatin Calcium] 80 MG) PO SCH (21:00)
[2017-08-15] MEDS: DILAUDID 2 MG/ML SYRINGE IVP PRN ×3 (01:01→21:19)
[2017-08-15] MEDS ORDERED: POTASSIUM CHLORIDE 20 MEQ VIAL-ADDITIVE ONLY IV ONE (04:10)
[2017-08-15] MEDS: [UNRECOGNIZED DRUG - MIXTURE] IV SCH (04:13)
[2017-08-15] MEDS: PROTONIX PO SCH (05:32)
[2017-08-15] MEDS: ASPIRIN EC PO SCH (08:34)
[2017-08-15] MEDS: ZESTRIL PO SCH (08:34)
[2017-08-15] MEDS: BRILINTA PO SCH ×2 (08:34→21:19)
[2017-08-15] MEDS: LOPRESSOR PO SCH ×2 (08:34→21:19)
[2017-08-15] MEDS: [UNRECOGNIZED DRUG - MIXTURE] IV SCH (16:42)
[2017-08-15] MEDS: LIPITOR PO SCH (21:19)
[2017-08-15] MEDS: PROTONIX IV IVP SCH (21:20)
[2017-08-16] MEDS ORDERED: POTASSIUM CHLORIDE 20 MEQ VIAL-ADDITIVE ONLY IV ONE (03:46)
[2017-08-16] MEDS: [UNRECOGNIZED DRUG - MIXTURE] IV SCH ×3 (03:57→18:03)
[2017-08-16] MEDS: DILAUDID 2 MG/ML SYRINGE IVP PRN ×3 (03:58→17:04)
[2017-08-16] MEDS: ASPIRIN EC PO SCH (08:47)
[2017-08-16] MEDS: ZESTRIL PO SCH (08:48)
[2017-08-16] MEDS: PROTONIX IV IVP SCH (08:48)
[2017-08-16] MEDS: BRILINTA PO SCH (08:48)
[2017-08-16] MEDS: LOPRESSOR PO SCH (08:48)
[2017-08-16 17:42] VITALS: BP 141/81; TEMP 97.9
--- NOTE | 2017-08-24 14:16 | PN ---
DATE OF VISIT: 08/16/17 AT 12:50 P.M. Ms. Hill told me that she had slight pain in the epigastric area this morning, but that has resolved. Her medication Pantoprazole was increased to twice a day IV, instead of oral once a day. The pain now has resolved. She denies any chest pain or chest oppression. I had a long discussion again with her smoking. I felt that it would be very beneficial for her to stop smoking since she had a recent myocardial infarction some four months ago and also a diagnosed ulcer. Ulcers sometimes are difficult to heal with smoking. She had a foreign body in her stomach that was retrieved by a qa intern, Dr. Bass. She may need to see him again. VITAL SIGNS: At 9:29 a.m.this morning showed a temperature of 97.7, pulse 50 blood pressure 147/86, respiratory rate wrong entry with numbers of 230, oxygen saturation 97. The nurses station will be notified of this entry, which is not correct. The patient doesn't seem to listen to discussion with regards to smoking. She told me she doesn't want a lecture about smoking. I did inform her that stopping smoking is probable a good part of the treatment of her problems. I do believe that she can stop smoking if she decides that it is harmful to her health. She already has problems, which could be benefited by stopping smoking. We will obtain another Troponin, as well as serum amylase and lipase and EKG. I looked into the medication Brilinta with Pantoprazole and there is seemingly no interactions between the two medications. Brilinta instead of a metabolite. Again, I advised the patient that it would be good if she could stop smoking. MARYD
--- NOTE | 2017-08-25 08:47 | HP ---
DATE OF SERVICE: 08/14/17 CHIEF COMPLAINT: Epigastric pain. SOURCE OF HISTORY: Patient, reliability moderately good. HISTORY OF PRESENT ILLNESS: The patient claimed that she had eaten beans, as well as cornbread for supper that evening. She experienced epigastric pain about 10:30 in the evening and continued through the night and she presented to the emergency room because of the continued pain, plus nausea and vomiting. The pain was severe and she was then admitted to the hospital. The problem began Monday evening, three days prior to presentation to the emergency room. The patient while in the emergency room receiving Dilaudid 1 mg IV and Zofran 4 mg IV. She also was given a bolus of normal saline. She did undergo a CT scan of the abdomen and pelvis without contrast showing the findings in the pelvis showing diverticulitis with probable fistulous communication. Also cholelithiasis, otherwise the gallbladder is unremarkable. The patient was admitted 06/04/17 because of epigastric pain. CT scan also was done during that admission or prior to that admission and the findings are essentially the same. This patient had been referred to a general surgeon because of the chronic diverticular disease with fistulous tract between the colon and sigmoid , as well as cholelithiasis. The surgeon, however, was hesitant about doing any procedure because of the recent myocardial infarction, less than 6 months ago. This patient already had several CT scans of the abdomen on account of the abdominal pain, even if it is epigastric in nature. PAST PERSONAL HISTORY: The patient had a compression fracture of the spine, as well as severe disc disease with T10 to T11. She had a history of peptic ulcer disease, as well as foreign body in the stomach, nickel that was extracted. She had chronic back problems, lumbar, listed as pain. 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 Young. FAMILY HISTORY: Mother had Alzheimer's disease, father had prostatic carcinoma and as a consequence from hernia repair. History of breast carcinoma in the family. SOCIAL HISTORY: The patient is and resides with her . She had retired from [employer] from the [employer] department. She still smokes cigarettes and in spite of repeated advice to stop. She smokes about a pack of cigarettes a day. She used to smoke more, sometimes two packs or more a day. MEDICATIONS: Prior to this admission Aspirin 81 mg daily Brilinta 90 mg twice a day Nitroglycerin 0.4 mg SL prn, may repeat in 5 minutes and after using 3 with persistent pain that she should go to the emergency room via ambulance. Lipitor 80 mg daily Lisinopril 2.5 mg daily Metoprolol 25 mg twice a day Hydrocodone/APAP 5/325 mg one tablet twice a day prn Pantoprazole 40 mg daily Vitamin D3 50,000 units weekly for 12 weeks and the patient will be placed on a monthly 50,000 units. ALLERGIES: Levaquin and Sulfa. REVIEW OF SYSTEMS: CONSTITUTIONAL: The patient has no fever or chills, but has fatigue because of the pain, nausea and vomiting. BLUE SPLIT TRIMMER: No headaches, no syncopal episodes, no seizure disorders. VISUAL: Denies any double vision, blurred vision or loss of vision. AUDITORY: Hearing is adequate. No pain and no drainage in both ears. RESPIRATORY: The patient has cough, nonproductive and no shortness of breath with usual exertion. CARDIOVASCULAR: Denies any chest pain. There is no chest oppression. GASTROINTESTINAL: The patient has an epigastric pain described as severe for the last two to three days. The patient also had some nausea and vomiting, plus diarrhea. GENITOURINARY: The patient denies any pain on urination. ENDOCRINE: Negative. INTEGUMENT: No rash or pruritus. HEMATOLOGIC: No history of prolonged bleeding. PSYCHIATRIC: Affect is normal. PHYSICAL EXAMINATION: GENERAL: The patient is alert and oriented times four, not dyspneic, nor tachypneic at the time of my examination in the room. The pain is less since the emergency room visit. VITAL SIGNS: Temperature 98.6, pulse rate 93, blood pressure 127/80, respiratory rate 22, oxygen saturation 95 at room air. She is 5'4", 131 pounds and 3.2 ounces. HEAD: Unremarkable. Scalp with no active dermatitis. FACE: Symmetrical and equal with no facial weakness and redness or cyanosis. No tenderness in the frontal or maxillary sinus areas to palpation under pressure. EYES: Pupils equal/reactive to light about 3 mm in size and round. Conjunctivae not pale. Sclerae not icteric. MOUTH: Unremarkable. THROAT: No inflammation, tumors or exudate. EARS: Unremarkable. NECK: No masses. No bruit. No tenderness. No rigidity. CHEST: Essentially symmetrical and equal with good expansion and no remarkable tenderness. LUNGS: Breath sounds are heard in both sides, diminished, but no rales or wheezing. HEART: Audible and regular with good tones. No murmurs. ABDOMEN: Flat with marked tenderness in the epigastric area. No palpable masses. Bowel sounds are active. EXTERNAL GENITALIA: Not examined. PELVIC AND RECTAL: Not done. It was done on her last admission, about two months ago. LOWER EXTREMITIES: Essentially symmetrical and equal. Anterior tibials are absent or difficult to find. Posterior tibials are present. UPPER EXTREMITIES: Symmetrical and equal. ASSESSMENT: 1. EPIGASTRIC PAIN, PROBABLY PENETRATING ULCER DISEASE 2. 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 CORONARY ARTERY DISEASE, STATUS POST MYOCARDIAL INFARCTION WITH TWO STENTS 4. CHRONIC TOBACCO USE AND ABUSE, PERSISTENT 5. CHOLELITHIASIS WITHOUT ANY ACUTE CHOLECYSTITIS PLAN: 1. Increase the Pantoprazole to twice a day intravenously. 2. Monitor the abdominal pain as to intensity, as well as the physical findings on examination. JONAS
--- NOTE | 2017-09-08 14:13 | DS ---
DATE OF SERVICE: 08/16/17 PATIENT IDENTIFICATION: 62 year old female admitted to the hospital by the emergency room because of epigastric pain, severe within the last three days. The patient was given Dilaudid 1mg intervenously in the emergency room as well Zofran to control the vomiting and also had diarrhea. HOSPITAL COURSE: The patient at the time of my examination on the floor was feeling better. Still has a marked tenderness in the epigastric area to palpation. There are no masses palpable, no muscular guarding, bowel sounds were active. The patient's CBC x3 showed slightly elevated WBC on admission probably secondary to vomiting. Subsequent CBC showed normal WBC on 08/15 and 08/16. Hgb and Hct were higher on admission and drop by about 2% points. The patient still has a markedly elevated MCV and MCH. This maybe due to the lack of B12 absorption. secondary to PPI. Her CMP showed no significant abnormalities and GFR ranged from 89 to 103. The Troponin was normal as well as the total CK. Amylase and Lipase were normal. Urine analysis is normal. The patient remained afebrile throughout her hospital. Pulse was mostly in the mid 50's throughout the hospital stay it was higher on admission at 93. Blood pressure has remained normal with some fluctuations. The oxygen saturation ranged from 96-99 at room air. The patient's medications were continued but the Pantoprazole oral was discontinued and the patient was given intervenous Pantoprazole every 12 hours. She was also given Dextrose 5% Lactated Ringers plus 20meq of Potassium. The patient did eat her snack. She did have 75% on 08/14/17 and refused to eat on and had 75% on 08/16. The patient at the time of discharge was alert, ambulatory with movement of all extremities. She was steady on ambulation. Vital signs on discharge 05:41pm showed a temperature of 97.9, pulse 59, blood pressure 141/81, respiratory rate 18 and oxygen saturation 97% at room air. Her color was good and no signs of any external bleeding. The lungs were clear to auscultation although diminished. Heart is normal sinus rhythm. The abdomen has minimal tenderness in the epigastric area. Lower extremities has no edema and no tenderness in the calf muscles. This patient is then discharged and had been advised consistently and repeatedly while in the hospital to stop smoking because of the coronary artery disease that she just had suffered in March of 2017 and the peptic ulcer disease which is sometimes difficult to heal with continued tobacco use. The patient however by estimation is intent on continuing to smoke. Prognosis: Guarded. This patient needs to have an endoscopy and will again refer to Dr. Bass who did the removal of the foreign body. This will be discussed when she comes back to office for followup. FINAL DIAGNOSIS: 1. Peptic ulcer disease PLAN: 1. She is to resume all her previous medications. 2. She will see me in one week at the office and before if there is any concern. 3. Resume all activities gradually. 4. Take Pantoprazole 40mg before breakfast and before supper until seen at the office. 5. The patient was advised to return to the emergency room if there is any exacerbation. JONAS
== END 2017-08-16 20:00 | disposition home or self-care (01) ==
LOC: ED 06:25 → INTOOBSV 08:23 → MEDSURG B 08:23 → OBSVTOIN 08:23
PROVIDERS: ADMIT General Practice; ATTEND General Practice
DX: K27.9 Peptic ulcer, site unspecified, unspecified as acute or chronic, without hemorrhage or perforation (principal); R10.13 Epigastric pain; K57.92 Diverticulitis of intestine, part unspecified, without perforation or abscess without bleeding; Z72.0 Tobacco use; R11.2 Nausea with vomiting, unspecified; I25.10 Atherosclerotic heart disease of native coronary artery without angina pectoris; I25.2 Old myocardial infarction
CPT/HCPCS: 36415; 80053; 81001; 82150; 82550; 83690; 84484; 85025; 93005; 93010; 96360; 96361; 96365; 96366; 96374; 96375; 96376; 97802; 99217; 99220; 99224; 99283

== ENCOUNTER 2017-08-22 06:49 | Emergency (ER) ==
[2017-08-22 07:03] VITALS: BP 97/61; TEMP 97.9; BMI 22.3
[2017-08-22] MEDS ORDERED: SODIUM CHLORIDE 1,000 ML IV STA (07:27)
[2017-08-22] MEDS ORDERED: ZOFRAN 4 MG/2 ML IVP STA (07:27)
[2017-08-22] MEDS ORDERED: PEPCID IVP STA (07:30)
--- NOTE | 2017-08-22 07:31 | ED.PDOC ---
General ED Provider: Dr. ANGELA JIMÉNEZ Chief Complaint: Abdominal Pain Stated Complaint: Nausea, vomiting and abdominal pain. Time Seen by Physician: 15:00 Mode of Arrival: Walk-In Information Source: Patient Exam Limitations: No limitations Primary Care Provider: COLT MARTINEZNely Seen Within Last 72 Hours for Same Complaint By: In-Patient Facility Nursing and Triage Documentation Reviewed and Agree: Yes Reviewed sepsis parameters & appropriate labs ordered?: Yes System Inflammatory Response Syndrome: Not Applicable Sepsis Protocol: For patient's 13 years and over: Temp is 96.8 and below OR 101 and greater Pulse >90 BPM Resp >20/minute Acutely Altered Mental Status Are patient's symptoms suggestive of a new infection, such as: -Pneumonia -Skin, Soft Tissue -Endocarditis -UTI -Bone, Joint Infection -Implantable Device -Acute Abdominal Infection -Wound Infection -Meningitis -Blood Stream Catheter Infection -Unknown GI Complaint Exam - Abdominal Pain Complaint/Exam Onset: Sudden Duration: 4 hours Symptoms Are: Still present Timing: Intermittent Initial Severity: Severe Current Severity: Moderate Location of Pain: Epigastric Character: Reports: Dull, Aching, Burning Aggravating: Reports: None Alleviating: Reports: Vomiting Associated Signs and Symptoms: Reports: Nausea, Vomiting. Denies: Diaphoresis, Fever, Cough, Chest pain, Dizziness, Back pain, Constipation, Blood in stool, Dysuria, Urinary frequency, Decreased urine output, Decreased appetite, Vaginal bleeding, Vaginal discharge, Diarrhea, Sore throat, Decreased activity Related History: Reports: Similar episode AAA Risk Factors: Reports: None Cardiac Risk Factors: Reports: None Ectopic Risk Factors: Reports: None Ovarian Torsion Risk Factors: Reports: None Surgical Obstruction Risk Factors: Reports: None Related Surgical History: Reports: None Abdominal Findings: Present: None Differential Diagnoses: Diverticulitis, Gastroenteritis Review of Systems - Review Of Systems Constitutional: Reports: No symptoms Eyes: Reports: No symptoms Ears, Nose, Mouth, Throat: Reports: No symptoms Respiratory: Reports: No symptoms Cardiac: Reports: No symptoms GI: Reports: No symptoms, Abdominal pain, Nausea, Vomiting : Reports: No symptoms Musculoskeletal: Reports: No symptoms Skin: Reports: No symptoms Neurological: Reports: No symptoms Endocrine: Reports: No symptoms Hematologic/Lymphatic: Reports: No symptoms All Other Systems: Reviewed and Negative Past Medical History - Past Medical History Previously Healthy: Yes Endocrine: Reports: Unknown Cardiovascular: Reports: Unknown Respiratory: Reports: Unknown Hematological: Reports: Unknown Gastrointestinal: Reports: Diverticulitis, Unknown, Other (gall stones,hiatal hernia) Genitourinary: Reports: Unknown Neuro/Psych: Reports: Unknown Musculoskeletal: Reports: Unknown Cancer: Reports: Unknown Last Menstrual Period: hyst at 27 y/o - Surgical History General Surgical History: Reports: Unknown - Family History Family History: Reports: Unknown - Social History Smoking Status: Current every day smoker, Heavy tobacco smoker Hx Substance Use: No Alcohol Screening: Occasionally - Immunizations Tetanus Shot up to Date: No (unknown) Physical Exam - Physical Exam Appearance: Well-appearing, Thin Ill-appearing: Mild Pain Distress: None Eyes: CHELLE, EOMI, Conjunctiva clear ENT: Ears normal, Nose normal, Oropharynx normal Neck: Supple Respiratory: Airway patent, Breath sounds clear, Breath sounds equal, Respirations nonlabored Cardiovascular: RRR, Pulses normal, No rub, No murmur GI/: Tender, Bowel sounds hypoactive Musculoskeletal: Normal strength, ROM intact, No edema, No calf tenderness Skin: Warm, Dry, Normal color Neurological: Sensation intact, Motor intact, Reflexes intact, Cranial nerves intact, Alert, Oriented Psychiatric: Affect appropriate, Mood appropriate Re-Evaluation - Re-Evaluation Time of Re-Evaluation: 11:30 Status: Improved Vital Signs Stable: Yes Appearance: NAD Lungs: Clear Skin: Warm and Dry Neuro: Alert and Oriented X3 CV: RRR Additional Comments: Spoke with Dr Bardales/aware of CT findings;prior surg consult; no treatment Critical Care Note - Critical Care Note Total Time (mins): 0 Course - Course Hematology/Chemistry: 08/22/17 07:55 08/22/17 07:55 Orders, Labs, Meds: Lab Review 08/22/17 08/22/17 08/22/17 07:55 07:55 07:55 WBC 9.46 RBC 4.06 L Hgb 14.1 Hct 41.1 MCV 101.2 H MCH 34.7 H MCHC 34.3 RDW Coeff of Maxi 14.5 Plt Count 315 Immature Gran % (Auto) 0.6 Neut % (Auto) 59.7 Lymph % (Auto) 26.1 [place] % (Auto) 9.3 Eos % (Auto) 2.9 Baso % (Auto) 1.4 Immature Gran # (Auto) 0.1 Neut # (Auto) 5.7 Lymph # (Auto) 2.5 [place] # (Auto) 0.9 Eos # (Auto) 0.3 Baso # (Auto) 0.1 ESR 5 Sodium 136 Potassium 3.7 Chloride 100 Carbon Dioxide 27 Anion Gap 12.7 BUN 4 L Creatinine 0.73 Estimated GFR (MDRD) 80.00 BUN/Creatinine Ratio 5.47 Glucose 79 L Calcium 9.1 Total Bilirubin 0.4 AST 30 ALT 15 Alkaline Phosphatase 88 Total Protein 6.9 Albumin 3.3 L Globulin 3.6 Albumin/Globulin Ratio 0.92 Amylase 87 Lipase 76 Vitamin B12 Folate Urine Color Urine Clarity Urine pH Ur Specific [place] Urine Protein Urine Glucose (UA) Urine Ketones Urine Blood Urine Nitrite Urine Bilirubin Urine Urobilinogen Ur Leukocyte Esterase 08/22/17 08/22/17 08/22/17 07:55 07:55 07:55 WBC RBC Hgb Hct MCV MCH MCHC RDW Coeff of Maxi Plt Count Immature Gran % (Auto) Neut % (Auto) Lymph % (Auto) [place] % (Auto) Eos % (Auto) Baso % (Auto) Immature Gran # (Auto) Neut # (Auto) Lymph # (Auto) [place] # (Auto) Eos # (Auto) Baso # (Auto) ESR Sodium Potassium Chloride Carbon Dioxide Anion Gap BUN Creatinine Estimated GFR (MDRD) BUN/Creatinine Ratio Glucose Calcium Total Bilirubin AST ALT Alkaline Phosphatase Total Protein Albumin Globulin Albumin/Globulin Ratio Amylase Lipase Vitamin B12 499 Folate 2.8 L Urine Color Yellow Urine Clarity Clear Urine pH 7.0 Ur Specific [place] 1.010 Urine Protein Negative Urine Glucose (UA) Negative Urine Ketones Negative Urine Blood Negative Urine Nitrite Negative Urine Bilirubin Negative Urine Urobilinogen 0.2 Ur Leukocyte Esterase Negative Orders Category Date Time Status NPO REMINDER: IMAGING ONCE CARE 08/22/17 08:39 Completed IV [ED IV/MEDIPORT/POWERPORT] .ONCE EMERGENCY 08/22/17 07:27 Active AMYLASE Stat LAB 08/22/17 07:55 Completed CBC W/ AUTO DIFF Stat LAB 08/22/17 07:55 Completed CMP [COMPREHENSIVE METABOLIC PANEL] Stat LAB 08/22/17 07:55 Completed ESR Stat LAB 08/22/17 07:55 Completed FOLATE Stat LAB 08/22/17 07:55 Completed LIPASE Stat LAB 08/22/17 07:55 Completed UA [URINALYSIS C & S IF INDICATED] Stat LAB 08/22/17 07:55 Completed URINE DRUG SCREEN (RAPID FOR ED) [DRUG SCREEN, URINE, LAB 08/22/17 10:56 Ordered RAPID] Stat VITAMIN B12 Stat LAB 08/22/17 07:55 Completed 0.9 % Sodium Chloride [Saline Flush] MEDS 08/22/17 07:27 Active 1 syr IVF PRN PRN Famotidine Inj [Pepcid] MEDS 08/22/17 07:30 Discontinued 20 mg IVP ONCE STA Ondansetron HCl/Pf [Zofran 4 mg/2 ml] MEDS 08/22/17 07:27 Discontinued 4 mg IVP ONCE STA Sodium Chloride 0.9% [Sodium Chloride] 1,000 ml MEDS 08/22/17 07:[address] ABDOMEN/PELVIS W/WO CONTRAS Stat RADS 08/22/17 08:37 Completed Medications Generic Name Dose Route Start Last Admin Trade Name Freq PRN Reason Stop Dose Admin Sodium Chloride 1 syr 08/22/17 07:27 Saline Flush IVF PRN PRN To flush IV Discontinued Medications Generic Name Dose Route Start Last Admin Trade Name Freq PRN Reason Stop Dose Admin Famotidine 20 mg 08/22/17 07:30 08/22/17 08:12 Pepcid IVP 08/22/17 07:31 20 mg ONCE STA Administration Sodium Chloride 1,000 mls @ 500 mls/hr 08/22/17 07:27 08/22/17 08:05 Sodium Chloride IV 08/22/17 09:26 500 mls/hr BOLUS STA Administration Ondansetron HCl 4 mg 08/22/17 07:27 08/22/17 08:09 Zofran 4 Mg/2 Ml IVP 08/22/17 07:28 4 mg ONCE STA Administration Vital Signs: Temp Pulse Resp BP Pulse Ox 08/22/17 06:52 97.9 F 82 20 97/61 97 Departure - Departure Time of Disposition: 11:35 Disposition: HOME SELF-CARE Discharge Problem: GERD (gastroesophageal reflux disease), Sigmoid diverticulosis, Diverticulitis , Fistula Instructions: Gastroesophageal Reflux Disease (ED), Diverticulitis Diet (ED), Diverticulosis (ED) Condition: Good Pt referred to PMD for follow-up: Yes (Dr Bardales this week ) IPMP verified?: No Additional Instructions: Remain on existing therapy Increase Protonix to twice daily Diet as recommended/ See Dr Bardales this week Allergies/Adverse Reactions: Allergies levofloxacin [From Levaquin] Allergy (Mild, Verified 08/22/17 07:01) Rash sulfamethoxazole Adverse Reaction (Intermediate, Verified 08/22/17 07:01) Rash Home Medications: Ambulatory Orders Aspirin [Aspir 81] 81 mg PO DAILY 03/29/17 Atorvastatin Calcium 80 mg PO BEDTIME 03/29/17 Lisinopril 2.5 mg PO DAILY 03/29/17 Metoprolol Tartrate 25 mg PO BID 03/29/17 Nitroglycerin 0.4 mg SL PRN 03/29/17 Ticagrelor [Brilinta] 90 mg PO BID 03/29/17 Atorvastatin Calcium 80 mg PO BEDTIME 08/14/17 Pantoprazole Sodium [Protonix] 40 mg PO BIDAC #30 tab-cap 08/16/17 Disposition Discussed With: Patient
--- NOTE | 2017-08-22 10:46 | CT ---
EXAM: CT Abdomen with and without contrast. CT Pelvis with and without contrast. HISTORY: Epigastric pain, nausea and vomiting. Colonic fistula. COMPARISON: 08/14/2017, 06/17/2017. TECHNIQUE: Multiple axial images of the abdomen and pelvis were obtained prior to and following intr avenous administration of 75 mL of Omnipaque 350. Images were reformatted in the sagittal and jackson l plane. FINDINGS: Please note that evaluation of the abdominal and pelvic structures is limited due to lack of intravenous contrast. The lung bases are clear. Degenerative changes present in the spine. Compression deformities of L2, T11 and T10 noted. Calcified stones in the gallbladder. Right lobe of the liver is elongated. Otherwise, the liver earline er, pancreas, and spleen are unremarkable. A 2.4 cm left adrenal nodule, and 1.3 cm right adrenal no dule both measure fluid density on noncontrast imaging. Renal calcifications with or without nonobst ructing calculi noted. There is no hydronephrosis. Moderate rectosigmoid wall thickening noted with redemonstration of tubular soft tissue density with internal air extending between the rectum in the sigmoid at this level, similar to prior examination. This occurs in the setting of diverticulosis. Findings similar to the previous examination. There is no evidence for bowel obstruction. No connie free air or free fluid or lymphadenopathy identified . Urinary bladder is not well distended. Uterus is absent. Atherosclerotic calcifications noted wi th fusiform dilatation of the infrarenal abdominal aorta to a 2.5 cm diameter. Small fat-containing umbilical hernia is present. IMPRESSION: 1. Grossly stable findings of sigmoid diverticulitis with suspected fistulous communication between the adjacent rectum and sigmoid to examination. 2. No new intra-abdominal findings.
== END 2017-08-22 11:54 | disposition home or self-care (01) ==
LOC: ED 06:49
DX: K21.9 Gastro-esophageal reflux disease without esophagitis (principal); K57.32 Diverticulitis of large intestine without perforation or abscess without bleeding; F17.210 Nicotine dependence, cigarettes, uncomplicated
CPT/HCPCS: 36415; 80053; 80306; 81001; 82150; 82607; 82746; 83690; 85025; 85651; 96361; 96374; 96375; 99283

== ENCOUNTER 2017-08-31 14:18 | Emergency (ER) ==
[2017-08-31 14:24] VITALS: BP 151/92; TEMP 98.2; BMI 21.9
[2017-08-31] MEDS ORDERED: PHENERGAN 25 MG/ML VIAL IM STA (16:35)
--- NOTE | 2017-08-31 16:37 | ED.PDOC ---
General ED Provider: Dr. ANGELA JIMÉNEZ Chief Complaint: Abdominal Pain Stated Complaint: Upper adomial pain; Developed last evening with associated nausea and vomiting. Out of [place]. Came here for evaluation. Hx GERD, Sigmoid diverticular disease. Denies lower abdominal discomfort. Time Seen by Physician: 14:45 Mode of Arrival: Walk-In Information Source: Patient Exam Limitations: No limitations Primary Care Provider: [facility] Nursing and Triage Documentation Reviewed and Agree: Yes Does patient meet sepsis criteria?: No System Inflammatory Response Syndrome: Not Applicable Sepsis Protocol: For patient's 13 years and over: Temp is 96.8 and below OR 101 and greater Pulse >90 BPM Resp >20/minute Acutely Altered Mental Status Are patient's symptoms suggestive of a new infection, such as: -Pneumonia -Skin, Soft Tissue -Endocarditis -UTI -Bone, Joint Infection -Implantable Device -Acute Abdominal Infection -Wound Infection -Meningitis -Blood Stream Catheter Infection -Unknown Review of Systems - Review Of Systems Constitutional: Reports: No symptoms Eyes: Reports: No symptoms Ears, Nose, Mouth, Throat: Reports: No symptoms Respiratory: Reports: No symptoms Cardiac: Reports: No symptoms GI: Reports: Abdominal pain, Vomiting : Reports: No symptoms Musculoskeletal: Reports: No symptoms Skin: Reports: No symptoms Neurological: Reports: No symptoms Endocrine: Reports: No symptoms Hematologic/Lymphatic: Reports: No symptoms All Other Systems: Reviewed and Negative Past Medical History - Past Medical History Previously Healthy: Yes Endocrine: Reports: Unknown Cardiovascular: Reports: Unknown Respiratory: Reports: Unknown Hematological: Reports: Unknown Gastrointestinal: Reports: Diverticulitis, Unknown, Other (gall stones,hiatal hernia) Genitourinary: Reports: Unknown Neuro/Psych: Reports: Unknown Musculoskeletal: Reports: Unknown Cancer: Reports: Unknown Last Menstrual Period: unknown - Surgical History General Surgical History: Reports: Unknown - Family History Family History: Reports: Unknown - Social History Smoking Status: Current every day smoker, Heavy tobacco smoker Hx Substance Use: No Alcohol Screening: Occasionally Physical Exam - Physical Exam Appearance: Well-appearing, No pain distress, Well-nourished, Thin Ill-appearing: Mild Pain Distress: Mild Eyes: CHELLE, EOMI, Conjunctiva clear ENT: Ears normal, Nose normal, Oropharynx normal Respiratory: Airway patent, Breath sounds clear, Breath sounds equal, Respirations nonlabored Cardiovascular: RRR, Pulses normal, No rub, No murmur GI/: Soft, No masses, Bowel sounds normal, No Organomegaly, Tender (mid epigastrium to light palpation ,no guarding or rebound) Musculoskeletal: Normal strength, ROM intact, No edema, No calf tenderness Skin: Warm, Dry, Normal color Neurological: Sensation intact, Motor intact, Reflexes intact, Cranial nerves intact, Alert, Oriented Psychiatric: Affect appropriate, Mood appropriate Critical Care Note - Critical Care Note Total Time (mins): 0 Course - Course Hematology/Chemistry: 08/31/17 16:47 08/31/17 16:47 Orders, Labs, Meds: Lab Review 08/31/17 08/31/17 08/31/17 16:47 16:47 17:15 WBC 9.39 RBC 4.12 L Hgb 14.5 Hct 41.2 MCV 100.0 H MCH 35.2 H MCHC 35.2 RDW Coeff of Maxi 14.8 Plt Count 291 Immature Gran % (Auto) 0.4 Neut % (Auto) 85.5 Lymph % (Auto) 10.0 [place] % (Auto) 3.6 Eos % (Auto) 0.0 Baso % (Auto) 0.5 Immature Gran # (Auto) 0.0 Neut # (Auto) 8.0 H Lymph # (Auto) 0.9 [place] # (Auto) 0.3 L Eos # (Auto) 0.0 Baso # (Auto) 0.1 Sodium 132 L Potassium 4.3 Chloride 98 Carbon Dioxide 25 Anion Gap 13.3 BUN 6 L Creatinine 0.65 Estimated GFR (MDRD) 92.00 BUN/Creatinine Ratio 9.23 Glucose 108 Calcium 9.5 Magnesium 1.9 Total Bilirubin 0.7 AST 54 H ALT 23 Alkaline Phosphatase 102 Total Protein 7.6 Albumin 3.8 Globulin 3.8 Albumin/Globulin Ratio 1.00 Lipase 63 Urine Color Urine Clarity Urine pH Ur Specific [place] Urine Protein Urine Glucose (UA) Urine Ketones Urine Blood Urine Nitrite Urine Bilirubin Urine Urobilinogen Ur Leukocyte Esterase Urine Microscopic RBC Ur Squamous Epith Cells Urine Opiates Screen Negative Ur Oxycodone Screen Negative Urine Methadone Screen Negative Ur Propoxyphene Screen Negative Ur Barbiturates Screen Negative U Tricyclic Antidepress Negative Ur Phencyclidine Scrn Negative Ur Amphetamine Screen Negative U Methamphetamines Scrn Negative U Benzodiazepines Scrn Negative Urine Cocaine Screen Negative U Cannabinoids Screen Negative Plasma/Serum Alcohol < 10.0 08/31/17 17:15 WBC RBC Hgb Hct MCV MCH MCHC RDW Coeff of Maxi Plt Count Immature Gran % (Auto) Neut % (Auto) Lymph % (Auto) [place] % (Auto) Eos % (Auto) Baso % (Auto) Immature Gran # (Auto) Neut # (Auto) Lymph # (Auto) [place] # (Auto) Eos # (Auto) Baso # (Auto) Sodium Potassium Chloride Carbon Dioxide Anion Gap BUN Creatinine Estimated GFR (MDRD) BUN/Creatinine Ratio Glucose Calcium Magnesium Total Bilirubin AST ALT Alkaline Phosphatase Total Protein Albumin Globulin Albumin/Globulin Ratio Lipase Urine Color Yellow Urine Clarity Clear Urine pH 7.0 Ur Specific [place] 1.020 Urine Protein Negative Urine Glucose (UA) Negative Urine Ketones Negative Urine Blood Trace-intact Urine Nitrite Negative Urine Bilirubin Negative Urine Urobilinogen 0.2 Ur Leukocyte Esterase Negative Urine Microscopic RBC 0-2 Ur Squamous Epith Cells Not present Urine Opiates Screen Ur Oxycodone Screen Urine Methadone Screen Ur Propoxyphene Screen Ur Barbiturates Screen U Tricyclic Antidepress Ur Phencyclidine Scrn Ur Amphetamine Screen U Methamphetamines Scrn U Benzodiazepines Scrn Urine Cocaine Screen U Cannabinoids Screen Plasma/Serum Alcohol Orders Category Date Time Status CBC W/ AUTO DIFF Stat LAB 08/31/17 16:47 Completed CMP [COMPREHENSIVE METABOLIC PANEL] Stat LAB 08/31/17 16:47 Completed ETOH LEVEL [BLOOD ALCOHOL] Stat LAB 08/31/17 16:47 Completed LIPASE Stat LAB 08/31/17 16:47 Completed MAGNESIUM Stat LAB 08/31/17 16:47 Completed UA [URINALYSIS C & S IF INDICATED] Stat LAB 08/31/17 17:15 Completed URINE DRUG SCREEN (RAPID FOR ED) [DRUG SCREEN, URINE, LAB 08/31/17 17:15 Completed RAPID] Stat Promethazine HCl [Phenergan 25 mg/ml Vial] MEDS 08/31/17 16:35 Discontinued 25 mg IM ONCE STA Medications Discontinued Medications Generic Name Dose Route Start Last Admin Trade Name Freq PRN Reason Stop Dose Admin Promethazine HCl 25 mg 08/31/17 16:35 08/31/17 16:56 Phenergan 25 Mg/Ml Vial IM 08/31/17 16:36 25 mg ONCE STA Administration Vital Signs: Temp Pulse Resp BP Pulse Ox 08/31/17 14:19 98.2 F 84 20 151/92 H 98 Departure - Departure Time of Disposition: 17:50 Disposition: HOME SELF-CARE Discharge Problem: Gastritis, GERD (gastroesophageal reflux disease) Instructions: Gastritis (ED), Gastroesophageal Reflux Disease (ED) Condition: Good Pt referred to PMD for follow-up: Yes (1 week) IPMP verified?: No Additional Instructions: Remain on diet as tolerated Take meds as directed See PCP in 1-2 weeks Prescriptions: Promethazine HCl [Phenergan Tab] 25 mg PO Q8H PRN #20 tablet PRN Reason: Nausea / Vomiting Allergies/Adverse Reactions: Allergies levofloxacin [From Levaquin] Allergy (Mild, Verified 08/22/17 07:01) Rash sulfamethoxazole Adverse Reaction (Intermediate, Verified 08/22/17 07:01) Rash Home Medications: Ambulatory Orders Aspirin [Aspir 81] 81 mg PO DAILY 03/29/17 Lisinopril 2.5 mg PO DAILY 03/29/17 Metoprolol Tartrate 25 mg PO BID 03/29/17 Nitroglycerin 0.4 mg SL PRN 03/29/17 Ticagrelor [Brilinta] 90 mg PO BID 03/29/17 Atorvastatin Calcium 80 mg PO BEDTIME 08/14/17 Promethazine HCl [Phenergan Tab] 25 mg PO Q8H PRN #20 tablet 08/31/17 Disposition Discussed With: Patient
== END 2017-08-31 18:08 | disposition home or self-care (01) ==
LOC: ED 14:18
DX: K29.70 Gastritis, unspecified, without bleeding (principal); K21.9 Gastro-esophageal reflux disease without esophagitis; F17.210 Nicotine dependence, cigarettes, uncomplicated
CPT/HCPCS: 36415; 80053; 80306; 80307; 81001; 83690; 83735; 85025; 96372; 99283

== ENCOUNTER 2017-10-29 02:52 | Emergency (ER) ==
[2017-10-29 03:01] VITALS: BP 151/90; TEMP 97.6; BMI 22.8
[2017-10-29] MEDS ORDERED: GI COCKTAIL PO STA (03:24)
[2017-10-29] MEDS ORDERED: DEMEROL 25 MG/ML VIAL IM STA ×2 (03:24→05:19)
[2017-10-29] MEDS ORDERED: ZOFRAN 4 MG/2 ML IM STA ×2 (03:24→04:28)
--- NOTE | 2017-10-29 03:27 | ED.PDOC ---
General ED Provider: Dr. MANDI KING Chief Complaint: Nausea/Vomiting Stated Complaint: Came for the abdominal pain, says she is having flare up of her stomach ulcer. no vomiting, only pain. Time Seen by Physician: 03:25 Mode of Arrival: Walk-In Information Source: Patient [facility] Documentation Reviewed and Agree: Yes Does patient meet sepsis criteria?: No If yes, has appropriate treatment been initiated?: No System Inflammatory Response Syndrome: Not Applicable Sepsis Protocol: For patient's 13 years and over: Temp is 96.8 and below OR 101 and greater Pulse >90 BPM Resp >20/minute Acutely Altered Mental Status Are patient's symptoms suggestive of a new infection, such as: -Pneumonia -Skin, Soft Tissue -Endocarditis -UTI -Bone, Joint Infection -Implantable Device -Acute Abdominal Infection -Wound Infection -Meningitis -Blood Stream Catheter Infection -Unknown GI Complaint Exam - Abdominal Pain Complaint/Exam Onset: Gradual Symptoms Are: Still present Timing: Constant Initial Severity: Moderate Current Severity: Moderate Location of Pain: Epigastric Radiates To: Reports: Back Character: Reports: Aching, Throbbing Aggravating: Reports: Food Alleviating: Reports: None Associated Signs and Symptoms: Denies: Diaphoresis, Fever, Cough, Chest pain, Dizziness, Back pain, Constipation, Blood in stool, Dysuria, Urinary frequency, Decreased urine output, Decreased appetite, Vaginal bleeding, Vaginal discharge , Nausea, Vomiting, Diarrhea, Sore throat, Decreased activity Related History: Reports: Similar episode AAA Risk Factors: Reports: None Cardiac Risk Factors: Reports: None Ectopic Risk Factors: Reports: None Ovarian Torsion Risk Factors: Reports: None Surgical Obstruction Risk Factors: Reports: None Related Surgical History: Reports: None Patient Rh Status: Unknown Abdominal Findings: Absent: Pulsatile mass, Abdominal distention, Unequal femoral pulses, Rebound tenderness, Peritoneal signs Differential Diagnoses: GB, PUD Review of Systems - Review Of Systems Constitutional: Reports: No symptoms Eyes: Reports: No symptoms Ears, Nose, Mouth, Throat: Reports: No symptoms Respiratory: Reports: No symptoms Cardiac: Reports: No symptoms GI: Reports: Abdominal pain : Reports: No symptoms Musculoskeletal: Reports: No symptoms Skin: Reports: No symptoms Neurological: Reports: No symptoms Endocrine: Reports: No symptoms Hematologic/Lymphatic: Reports: No symptoms All Other Systems: Reviewed and Negative Past Medical History - Past Medical History Previously Healthy: Yes Endocrine: Reports: Unknown Cardiovascular: Reports: Unknown Respiratory: Reports: Unknown Hematological: Reports: Unknown Gastrointestinal: Reports: Diverticulitis, Unknown, Other (gall stones,hiatal hernia) Genitourinary: Reports: Unknown Neuro/Psych: Reports: Unknown Musculoskeletal: Reports: Unknown Cancer: Reports: Unknown Last Menstrual Period: PT HAS HAD A HYSTERECTOMY - Surgical History General Surgical History: Reports: Hysterectomy, Other (cataract) - Family History Family History: Reports: Unknown - Social History Smoking Status: Current every day smoker, Heavy tobacco smoker Smoking Cessation Counseling Time: > 10 min Hx Substance Use: No Alcohol Screening: None - Immunizations Tetanus Shot up to Date: (UNKNOWN) Physical Exam - Physical Exam Appearance: Ill-appearing Pain Distress: Moderate Eyes: EOMI, Conjunctiva clear ENT: Ears normal, Nose normal, Oropharynx normal Respiratory: Airway patent, Breath sounds clear, Breath sounds equal, Respirations nonlabored Cardiovascular: RRR, Pulses normal, No rub, No murmur GI/: Soft, No masses, Bowel sounds normal, No Organomegaly, Tender ( epigastric area) Musculoskeletal: Normal strength, ROM intact, No edema, No calf tenderness Skin: Warm, Dry, Normal color Neurological: Sensation intact, Motor intact, Reflexes intact, Cranial nerves intact, Alert, Oriented Psychiatric: Affect appropriate, Mood appropriate Critical Care Note - Critical Care Note Total Time (mins): 30 Course - Course Orders, Labs, Meds: Orders Category Date Time Status AMYLASE Stat LAB 10/29/17 03:24 Ordered CBC W/ AUTO DIFF Stat LAB 10/29/17 03:24 Ordered COMPREHENSIVE METABOLIC PANEL Stat LAB 10/29/17 03:24 Ordered LIPASE Stat LAB 10/29/17 03:24 Ordered Mag-Al Plus//Lidocaine [Gi Cocktail] MEDS 10/29/17 03:24 Stat 30 ml PO ONCE STA Meperidine HCl/Pf [Demerol 25 mg/ml Vial] MEDS 10/29/17 03:24 Stat 25 mg IM ONCE STA Ondansetron HCl/Pf [Zofran 4 mg/2 ml] MEDS 10/29/17 03:24 Stat 4 mg IM ONCE STA CT ABDOMEN/PELVIS WO CONTRAST Stat RADS 10/29/17 03:24 Ordered Vital Signs: Temp Pulse Resp BP Pulse Ox 10/29/17 02:52 97.6 F 75 28 H 151/90 H 96 Departure - Departure Time of Disposition: 03:35 Disposition: HOME SELF-CARE Discharge Problem: Abdominal pain Instructions: Peptic Ulcer (ED) Condition: Stable Pt referred to PMD for follow-up: Yes IPMP verified?: No Additional Instructions: No spicy food, no fried food Needs EGD f/u with PMD Prescriptions: Ranitidine HCl [Zantac] 150 mg PO BIDAC #20 tablet Sucralfate Susp [Carafate] 1 gm PO ACHS #1 bottle Allergies/Adverse Reactions: Allergies levofloxacin [From Levaquin] Allergy (Mild, Verified 10/29/17 03:01) Rash sulfamethoxazole Adverse Reaction (Intermediate, Verified 10/29/17 03:01) Rash Home Medications: Ambulatory Orders Aspirin [Aspir 81] 81 mg PO DAILY 03/29/17 Lisinopril 2.5 mg PO DAILY 03/29/17 Metoprolol Tartrate 25 mg PO BID 03/29/17 Nitroglycerin 0.4 mg SL PRN PRN 03/29/17 Ticagrelor [Brilinta] 90 mg PO BID 03/29/17 Atorvastatin Calcium 80 mg PO BEDTIME 08/14/17 Hydrocodone/Acetaminophen [Hydrocodon-Acetaminophn 10-325] 1 each PO Q8H PRN Ranitidine HCl [Zantac] 150 mg PO BIDAC #20 tablet 10/29/17 Sucralfate Susp [Carafate] 1 gm PO ACHS #1 bottle 10/29/17 Disposition Discussed With: Patient
[2017-10-29] MEDS ORDERED: CARAFATE PO STA (03:33)
--- NOTE | 2017-10-29 04:16 | CT ---
Exam: CT of the abdomen and pelvis without contrast History: Epigastric pain Technique: [address] of the abdomen and pelvis without intravascular contrast FINDINGS: Atelectasis of the medial anterior right lung base. The lung bases are clear otherwise. N o significant liver abnormality. The pancreas and spleen are unremarkable. The stomach and hiatus are unremarkable.Cholelithiasis without pericholecystic inflammation. There is a 1.5 cm right adrenal a denoma. There is a 1.8 cm left adrenal adenoma. Nonobstructing 4 mm calculus in the left kidney vers us vascular calcification. Vascular calcifications noted bilaterally in the kidneys. There is no hy dronephrosis or hydroureter or inflammation. The appendix is not seen. Bowel loops demonstrate nahomi l caliber. No inflamatory change seen in the mesentery or retroperitoneum. Atherosclerotic calcificat ion of the aorta with maximum infrarenal dilation measuring 2.5 cm. Colonic diverticulosis of the sigmoid. Possible sigmoid colonic thickening from chronic diverticulit is. 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 There is a sin us tract extending into the presacral fat also seen on prior. No accumulating fluid is seen. Prior hysterectomy. Normal urinary bladder. Impression: 1. No bowel or urinary obstruction is seen. 2. Nonobstructing left sided nephrolithiasis versus vascular calcifications. 3. Stable bilateral adrenal nodules 4. 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 There is also a ab[employer] [place] sinus tract extending into the presacral fat. No abscess cavity is seen. Chronic coarse strandin g in the pelvic fat without interval change from multiple prior studies. 5. Cholelithiasis without CT evidence of cholecystitis.
[2017-10-29] MEDS ORDERED: PHENERGAN 25 MG/ML VIAL IM STA (05:19)
== END 2017-10-29 07:59 | disposition home or self-care (01) ==
LOC: ED 02:52
DX: R10.9 Unspecified abdominal pain (principal); K27.9 Peptic ulcer, site unspecified, unspecified as acute or chronic, without hemorrhage or perforation; R11.2 Nausea with vomiting, unspecified; F17.210 Nicotine dependence, cigarettes, uncomplicated
CPT/HCPCS: 36415; 80053; 82150; 83690; 85025; 96372; 99283

== ENCOUNTER 2017-11-21 16:01 | Outpatient (CLI) | END 2017-11-21 16:02 | disposition home or self-care (01) | LOC: FCC-LAB 16:01 | PROVIDERS: ATTEND General Practice | DX: I21.02 ST elevation (STEMI) myocardial infarction involving left anterior descending coronary artery (principal); D64.9 Anemia, unspecified; R10.13 Epigastric pain; K25.9 Gastric ulcer, unspecified as acute or chronic, without hemorrhage or perforation; J44.9 Chronic obstructive pulmonary disease, unspecified; Z79.899 Other long term (current) drug therapy | CPT/HCPCS: 36415; 80053; 80061; 81001; 85008; 85025 ==

== ENCOUNTER 2018-04-07 03:22 | Emergency (ER) | payer OTHER ==
[2018-04-07 03:32] VITALS: BP 119/70; TEMP 97.4; BMI 24.0
[2018-04-07] MEDS ORDERED: XOPENEX 1.25 MG NEB STA (03:57)
[2018-04-07] MEDS ORDERED: DUONEB NEB STA (03:57)
[2018-04-07] MEDS ORDERED: SOLU-MEDROL 125 MG IVP STA (03:57)
--- NOTE | 2018-04-07 04:34 | CT ---
EXAM: CT chest without intravenous contrast 04/07/2018. Sagittal and coronal reformatted images obt ained HISTORY: Dyspnea COMPARISON: 11/09/2017, 02/27/2017 FINDINGS: The heart size appears within normal limits. The aorta is normal in caliber. There is no pericardial effusion. Tiny hiatal hernia Atherosclerotic vascular disease. Coronary artery calcifications. There is no pulmonary consolidation. No pleural effusion. Atelectasis and/or scarring within the anterior aspect of the right upper lobe. This appears stable a s compared to the 2017 CT. Limited views of the upper abdomen show no acute abnormality. Stable benign left adrenal adenoma. Multiple bilateral rib fractures. Left anterolateral rib fractures appear chronic. Fracture adjacen t to the thoracic spine at the medial aspect of the right eleventh and twelfth ribs may be subacute o r chronic. Correlate for any recent history of trauma. Partial compression fracture at the inferior aspect of T10 and the superior aspect of T11. Partial c ompression fracture at T10 is new since the prior CT. Partial compression fracture T11 has worsened since the prior study. IMPRESSION: 1. Chronic findings as above. No acute cardiopulmonary process identified within the limitation of a noncontrast enhanced examination. 2. There are multiple fractures within bilateral ribs as well as the T10 and T11 vertebral bodies. These findings appear subacute and/or chronic. No acute appearing fracture. Additional details as a charanjit.
[2018-04-07] MEDS ORDERED: NORCO 7.5-325 PO STA (05:21)
--- NOTE | 2018-04-07 05:24 | ED.PDOC ---
General ED Provider: Dr. ANGELA DELANEY-ER Chief Complaint: Non-specific Complaint Stated Complaint: my copd is acting up---im sob and wheezing--my lower back hurts to move Time Seen by Physician: 03:30 Mode of Arrival: Walk-In Information Source: Patient Exam Limitations: No limitations [facility] Documentation Reviewed and Agree: Yes Does patient meet sepsis criteria?: No System Inflammatory Response Syndrome: Not Applicable Sepsis Protocol: For patient's 13 years and over: Temp is 96.8 and below OR 101 and greater Pulse >90 BPM Resp >20/minute Acutely Altered Mental Status Are patient's symptoms suggestive of a new infection, such as: -Pneumonia -Skin, Soft Tissue -Endocarditis -UTI -Bone, Joint Infection -Implantable Device -Acute Abdominal Infection -Wound Infection -Meningitis -Blood Stream Catheter Infection -Unknown Respiratory Complaint Exam - Respiratory Complaint/Exam Onset/Duration: less than 24hrs Symptoms Are: Still present Timing: Intermittent Initial Severity: Mild Current Severity: Moderate Location: Chest Character: Reports: Non-productive cough Alleviating: Reports: Bronchodilators Associated Signs and Symptoms: Reports: Rapid breathing, Dyspnea, Wheezing History of Healthcare-Acquired Pneumonia: No Home Oxygen Use: No Recent Stress Test: No Recent Echo/LV Function: No Current Antibiotic Use: No Current Asthma Medication Use: No Respiratory Distress: Mild Inadequate Respiratory Effort: No Dysphagia Present: No Stridor Present: No JVD Present: No Accessory Muscle Use: No Retractions: Not Present Diminished Breath Sounds: Yes Prolonged Respiration: Expiratory phase Sinus Tenderness: None Grunting Respirations: No Kussmaul Respirations: No Differential Diagnoses: COPD Exacerbation Review of Systems - Review Of Systems Constitutional: Reports: No symptoms Eyes: Reports: No symptoms Ears, Nose, Mouth, Throat: Reports: No symptoms Respiratory: Reports: Cough, Short of air, Wheezing Cardiac: Reports: No symptoms GI: Reports: No symptoms : Reports: No symptoms Musculoskeletal: Reports: Back pain Skin: Reports: No symptoms Neurological: Reports: No symptoms Endocrine: Reports: No symptoms Hematologic/Lymphatic: Reports: No symptoms All Other Systems: Reviewed and Negative Past Medical History - Past Medical History Previously Healthy: Yes Endocrine: Reports: Unknown Cardiovascular: Reports: Unknown Respiratory: Reports: Unknown Hematological: Reports: Unknown Gastrointestinal: Reports: Diverticulitis, Unknown, Other (gall stones,hiatal hernia) Genitourinary: Reports: Unknown Neuro/Psych: Reports: Unknown Musculoskeletal: Reports: Unknown Cancer: Reports: Unknown Last Menstrual Period: PT HAS HAD A HYSTERECTOMY - Surgical History General Surgical History: Reports: Hysterectomy, Other (cataract) - Family History Family History: Reports: Unknown - Social History Smoking Status: Current every day smoker, Heavy tobacco smoker Hx Substance Use: No Alcohol Screening: None - Immunizations Tetanus Shot up to Date: (UNKNOWN) Physical Exam - Physical Exam Appearance: Well-appearing, No pain distress, Well-nourished Eyes: CHELLE ENT: Ears normal, Nose normal, Oropharynx normal Neck: Supple Respiratory: Wheezes Cardiovascular: RRR GI/: Soft Musculoskeletal: Normal strength, ROM intact, No edema, No calf tenderness Skin: Warm, Dry, Normal color Neurological: Sensation intact, Motor intact, Reflexes intact, Cranial nerves intact, Alert, Oriented Psychiatric: Affect appropriate, Mood appropriate Interpretation - Radiology Interpretation Radiology Interpretation By: Radiologist Radiology Results: Positive Exam Interpreted: CT Scan - EKG Interpretation Time of EKG #1: 05:24 Rate: Normal Rhythm: Sinus Ectopy: None [place]: NL ST Segment: Normal Interpretation: nsr Re-Evaluation - Re-Evaluation Time of Re-Evaluation: 05:25 Status: Improved Vital Signs Stable: Yes Pain Level: 3(lower back pain) Appearance: NAD Lungs: Clear Skin: Warm and Dry Neuro: Alert and Oriented X3 CV: RRR Additional Comments: resp status much better--walking in the ed Critical Care Note - Critical Care Note Total Time (mins): 30 Course - Course Hematology/Chemistry: 04/07/18 04:30 04/07/18 04:30 Orders, Labs, Meds: Lab Review 04/07/18 04/07/18 04/07/18 03:54 04:00 04:30 WBC 17.95 H RBC 3.30 L Hgb 11.7 L Hct 35.3 L MCV 107.0 H MCH 35.5 H MCHC 33.1 RDW Coeff of Maxi 13.6 Plt Count 427 Immature Gran % (Auto) 0.7 Neut % (Auto) 77.2 Lymph % (Auto) 11.4 [place] % (Auto) 8.8 Eos % (Auto) 1.5 Baso % (Auto) 0.4 Immature Gran # (Auto) 0.1 Neut # (Auto) 13.9 H Lymph # (Auto) 2.1 [place] # (Auto) 1.6 Eos # (Auto) 0.3 Baso # (Auto) 0.1 Puncture Site Lbrach O2 Saturation 97.0 ABG pH 7.417 ABG pCO2 32.7 L ABG pO2 89.0 ABG HCO3 21.1 L ABG Total CO2 22 ABG Base Excess -3 L Jacob Test + FiO2 % 21.0 Sodium Potassium Chloride Carbon Dioxide Anion Gap BUN Creatinine Estimated GFR (MDRD) BUN/Creatinine Ratio Glucose Calcium Total Bilirubin AST ALT Alkaline Phosphatase NT-Pro-B Natriuret Pep Total Protein Albumin Globulin Albumin/Globulin Ratio Influ A Molecular Assay Negative by naat Influ B Molecular Assay Negative by naat 04/07/18 04/07/18 04:30 04:30 WBC RBC Hgb Hct MCV MCH MCHC RDW Coeff of Maxi Plt Count Immature Gran % (Auto) Neut % (Auto) Lymph % (Auto) [place] % (Auto) Eos % (Auto) Baso % (Auto) Immature Gran # (Auto) Neut # (Auto) Lymph # (Auto) [place] # (Auto) Eos # (Auto) Baso # (Auto) Puncture Site O2 Saturation ABG pH ABG pCO2 ABG pO2 ABG HCO3 ABG Total CO2 ABG Base Excess Jacob Test FiO2 % Sodium 139.2 Potassium 3.10 L Chloride 100.7 Carbon Dioxide 26.9 Anion Gap 14.70 BUN 8.0 Creatinine 0.54 L Estimated GFR (MDRD) 114.00 BUN/Creatinine Ratio 14.81 Glucose 88.6 Calcium 8.71 Total Bilirubin 0.38 AST 24.4 ALT 11.0 Alkaline Phosphatase 156.9 H NT-Pro-B Natriuret Pep 1160.000 H Total Protein 6.88 Albumin 3.56 Globulin 3.32 Albumin/Globulin Ratio 1.07 Influ A Molecular Assay Influ B Molecular Assay Orders Category Date Time Status ABG DRAW REQUEST Stat CARDIO 04/07/18 03:55 Completed EKG-(ED ONLY) Stat CARDIO 04/07/18 03:54 Completed NEBULIZER TREATMENT Stat CARDIO 04/07/18 03:57 Ordered ED MATERNAL FETAL PHYSICIAN APPLIED .ONCE EMERGENCY 04/07/18 03:55 Active IV [ED IV/MEDIPORT/POWERPORT] .ONCE EMERGENCY 04/07/18 03:56 Active ABG Stat LAB 04/07/18 03:54 Completed CBC W/ AUTO DIFF Stat LAB 04/07/18 04:30 Completed COMPREHENSIVE METABOLIC PANEL Stat LAB 04/07/18 04:30 Completed FLU A/B MOLECULAR Stat LAB 04/07/18 04:00 Completed PRO-BNP [NT-PROBNP] Stat LAB 04/07/18 04:30 Completed 0.9 % Sodium Chloride [Saline Flush] MEDS 04/07/18 03:56 Ordered 1 syr IVF PRN PRN Hydrocodone Bit/Acetaminophen [Oracle 7.5-325] MEDS 04/07/18 05:21 Stat 1 tab PO ONCE STA Ipratropium/Albuterol Neb [Duoneb] MEDS 04/07/18 03:57 Discontinued 1 vial NEB ONCE STA Levalbuterol HCl [Xopenex 1.25 mg] MEDS 04/07/18 03:57 Discontinued 1 vial NEB ONCE STA Methylprednisolone Sod Succ/Pf [Solu-Medrol 125 mg] MEDS 04/07/18 03:57 Discontinued [address] CHEST W/O CONTRAST Stat RADS 04/07/18 03:56 Completed Medications Generic Name Dose Route Start Last Admin Trade Name Freq PRN Reason Stop Dose Admin Hydrocodone Bitart/Acetaminophen 1 tab 04/07/18 05:21 Oracle 7.5-325 PO 04/07/18 05:22 ONCE STA Sodium Chloride 1 syr 04/07/18 03:56 04/07/18 04:21 Saline Flush IVF 1 syr PRN PRN Administration To flush IV Discontinued Medications Generic Name Dose Route Start Last Admin Trade Name Freq PRN Reason Stop Dose Admin Albuterol/Ipratropium 1 vial 04/07/18 03:57 04/07/18 04:45 Duoneb NEB 04/07/18 03:58 1 vial ONCE STA Administration Levalbuterol HCl 1 vial 04/07/18 03:57 04/07/18 05:05 Xopenex 1.25 Mg NEB 04/07/18 03:58 1 vial ONCE STA Administration Methylprednisolone Sodium Succinate 125 mg 04/07/18 03:57 04/07/18 04:20 Solu-Medrol 125 Mg IVP 04/07/18 03:58 125 mg ONCE STA Administration Vital Signs: Temp Pulse Resp BP Pulse Ox 04/07/18 03:23 97.4 F L 105 H 32 H 119/70 97 Departure - Departure Time of Disposition: 05:26 Disposition: STILL A PATIENT Discharge Problem: COPD exacerbation, Compression fracture of body of thoracic vertebra Instructions: COPD (Chronic Obstructive Pulmonary Disease) (ED) Condition: Good Pt referred to PMD for follow-up: Yes IPMP verified?: No Additional Instructions: spiriva q daily...medrol dose pack----norco 5mg q 6hrs prn pain #12---stop smoking---f/u with dr eastman about comp fx Allergies/Adverse Reactions: Allergies levofloxacin [From Levaquin] Allergy (Mild, Verified 04/07/18 03:32) Rash sulfamethoxazole Adverse Reaction (Intermediate, Verified 04/07/18 03:32) Rash Home Medications: Ambulatory Orders Aspirin [Aspir 81] 81 mg PO DAILY 03/29/17 Metoprolol Tartrate 25 mg PO BID 03/29/17 Nitroglycerin 0.4 mg SL PRN PRN 03/29/17 Ticagrelor [Brilinta] 90 mg PO BID 03/29/17 Disposition Discussed With: Patient
[2018-04-07] MEDS ORDERED: K-DUR PO STA (06:07)
== END 2018-04-07 06:24 | disposition home or self-care (01) ==
LOC: ED 03:22
DX: J44.1 Chronic obstructive pulmonary disease with (acute) exacerbation (principal); S22.070A Wedge compression fracture of T9-T10 vertebra, initial encounter for closed fracture; S22.080A Wedge compression fracture of T11-T12 vertebra, initial encounter for closed fracture; M54.5 Low back pain; R06.02 Shortness of breath; R06.2 Wheezing; R05 Cough; F17.210 Nicotine dependence, cigarettes, uncomplicated
CPT/HCPCS: 36415; 80053; 82550; 82803; 83880; 84484; 85025; 87502; 93005; 93010; 94640; 96374; 99283

== ENCOUNTER 2018-05-02 06:50 | Emergency (ER) ==
[2018-05-02 06:54] VITALS: BP 140/80; TEMP 98.4; BMI 22.8
[2018-05-02] MEDS: ZOFRAN 4 MG/2 ML IVP STA ×2 (07:57→09:52)
[2018-05-02] MEDS: SODIUM CHLORIDE 1,000 ML IV STA (07:57)
--- NOTE | 2018-05-02 08:15 | CT ---
Exam: CT chest without intravenous contrast. Comparison: 04/07/2018. Reason for exam: Cough. FINDINGS: Image interpretation is limited by the lack of intravenous contrast administration. No pneumothorax, pleural effusion, or focal consolidation. The aorta is normal in course and caliber . The aorta measures 2.9 cm at the level of the arch. Atherosclerotic disease is seen within the aorta. Similar appearing hypodense left adrenal gland likely adenoma. Healing left-sided rib fractures. Si milar appearing compression deformity in the T11 vertebral body. Impression: 1. No acute imaging findings are seen within the thorax. 2. Left adrenal adenoma not significantly changed from previous exam. 3. Healing left-sided rib fractures and old compression deformity in the T11 vertebral body
--- NOTE | 2018-05-02 08:27 | CT ---
Exam: CT abdomen pelvis without intravenous contrast. Comparison: CT abdomen pelvis performed 10/29/2017. Reason for exam: Pain. FINDINGS: No pleural effusion, or focal consolidation in the partially imaged lung bases. The prominent appearing liver, spleen, and pancreas appear grossly unremarkable. Hypodensities are seen in the left and right adrenal glands measuring up to 1.8 cm on the left and 1. 1 cm in the right. Vascular calcifications are seen in both kidneys. No hydronephrosis or ureterolithiasis. There are small stones in the dependent portion of the gallbladder without wall thickening. No intra-abdominal free air or pelvic free fluid. There is extensive diverticular disease seen throughout the rectosigmoid. Inflammatory changes are seen within the pelvis with pelvic free fluid and colonic wall thickening. The bladder is not well evaluated secondary to non distension. Degenerative findings are seen throughout the lumbosacral spine. Impression: 1. Diffuse inflammatory changes and wall thickening in the region of the rectosigmoid and rectum wit h pelvic free fluid and loss of the perirectal fat planes. Imaging findings can be seen with infecti on, diverticulitis, and neoplasia. Further evaluation is recommended. 2. Bilateral adrenal adenomas. 3. Cholelithiasis without evidence of cholecystitis. 4. Hepatomegaly
--- NOTE | 2018-05-02 09:01 | ED.PDOC ---
General ED Provider: Dr. OLIVERIO BALDWIN Chief Complaint: Abdominal Pain Stated Complaint: RUQ, EPIGASTRIC ABDOMINAL PAIN X 20 HOURS , PAIN IS CONSTANT CRAMPING IN NATURE WITH 3 EPISODED OF EMESIS . LAST MEAN WAS 20 HOURS AGO LAST B.M. THIS MORNING . Time Seen by Physician: 07:00 Mode of Arrival: Walk-In Information Source: Patient Exam Limitations: No limitations [facility] Nursing and Triage Documentation Reviewed and Agree: Yes Does patient meet sepsis criteria?: No (BUT HAS HIGH WBC ) If yes, has appropriate treatment been initiated?: No System Inflammatory Response Syndrome: Not Applicable Sepsis Protocol: For patient's 13 years and over: Temp is 96.8 and below OR 101 and greater Pulse >90 BPM Resp >20/minute Acutely Altered Mental Status Are patient's symptoms suggestive of a new infection, such as: -Pneumonia -Skin, Soft Tissue -Endocarditis -UTI -Bone, Joint Infection -Implantable Device -Acute Abdominal Infection -Wound Infection -Meningitis -Blood Stream Catheter Infection -Unknown GI Complaint Exam - Abdominal Pain Complaint/Exam Onset: Gradual Duration: 20 HRS Symptoms Are: Still present Timing: Constant Initial Severity: Moderate Current Severity: Moderate Location of Pain: RUQ, Epigastric Radiates To: Denies: Chest, Back, Flank, LLQ, RLQ, Inguinal Character: Reports: Cramping Aggravating: Reports: None Alleviating: Reports: None Associated Signs and Symptoms: Reports: Cough, Decreased appetite, Nausea, Vomiting. Denies: Diaphoresis, Fever, Chest pain, Dizziness, Back pain, Constipation, Blood in stool, Dysuria, Urinary frequency, Decreased urine output , Vaginal bleeding, Vaginal discharge, Diarrhea, Sore throat, Decreased activity Related History: Reports: Similar episode (PT STATED 3 YEARS SHE SWOLLED A NICKEL WITH HER PILLS WHICH DID REMAIN X 1 YEAR B4 IT WAS REMOVED WAS THE ONSET OF HER ABDOMINAL PAIN ISSUE AND SHE HAS EVER SINCE HAS HAD PAIN THE REGION HAD DEVELOPED AN ULCER PER PT'S OWN REPORT.) AAA Risk Factors: Reports: None Cardiac Risk Factors: Denies: DM, Hypertension, Elevated lipids, CAD (HAS PAD DENIED OTHER CARDIAC RISK FACTORS ) Ectopic Risk Factors: Reports: None Ovarian Torsion Risk Factors: Reports: None Surgical Obstruction Risk Factors: Reports: Colicky abdominal pain Related Surgical History: Reports: FRANK Patient Rh Status: Unknown Abdominal Findings: Present: Other (GAURDING OVER RUQ/ EPIGASTRIC REGION) Differential Diagnoses: Bowel Obstruction, Diverticulitis, Pancreatitis, GB, PUD Quality Indicators for AMI: EKG in 10min. Quality Indicators for Cardiac Chest Pain: EKG in 10min. Quality Indicator For Non-Traumatic Chest Pain/Syncope: EKG Performed Review of Systems - Review Of Systems Constitutional: Reports: No symptoms Eyes: Reports: No symptoms Ears, Nose, Mouth, Throat: Reports: No symptoms Respiratory: Reports: No symptoms Cardiac: Reports: No symptoms GI: Reports: Abdominal pain, Nausea, Poor appetite, Vomiting : Reports: No symptoms Musculoskeletal: Reports: No symptoms Skin: Reports: No symptoms Neurological: Reports: No symptoms Endocrine: Reports: No symptoms Hematologic/Lymphatic: Reports: No symptoms All Other Systems: Reviewed and Negative Past Medical History - Past Medical History Previously Healthy: Yes Endocrine: Reports: Unknown Cardiovascular: Reports: Unknown Respiratory: Reports: Unknown Hematological: Reports: Unknown Gastrointestinal: Reports: Diverticulitis, Unknown, Other (gall stones,hiatal hernia) Genitourinary: Reports: Unknown Neuro/Psych: Reports: Unknown Musculoskeletal: Reports: Unknown Cancer: Reports: Unknown Last Menstrual Period: none - Surgical History General Surgical History: Reports: Hysterectomy, Other (cataract) - Family History Family History: Reports: Unknown - Social History Smoking Status: Current every day smoker, Heavy tobacco smoker Hx Substance Use: No Alcohol Screening: Occasionally - Immunizations Tetanus Shot up to Date: Yes Physical Exam - Physical Exam Appearance: Ill-appearing Ill-appearing: Moderate Pain Distress: Moderate (RUQ/ EPIGASTRIC REGION) Eyes: CHELLE, EOMI, Conjunctiva clear ENT: Ears normal, Nose normal, Oropharynx normal Respiratory: Airway patent, Breath sounds clear, Breath sounds equal, Respirations nonlabored Cardiovascular: RRR, Pulses normal, No rub, No murmur GI/: Soft, Nontender, No masses, Bowel sounds normal, No Organomegaly Musculoskeletal: Normal strength, ROM intact, No edema, No calf tenderness Skin: Warm, Dry, Normal color Neurological: Sensation intact, Motor intact, Reflexes intact, Cranial nerves intact, Alert, Oriented Psychiatric: Affect appropriate, Mood appropriate Interpretation - Radiology Interpretation Radiology Interpretation By: Radiologist Radiology Results: Positive (DIFFUSE INFLAMMATORY CHANGES AND WALL THICKENING IN THE REGION OF THE RECTOSIGMOID , FREE PELVIC FLUID , LOSS OF PERIRECTAL FAT PLANES . CHOLETHIASIS W/O EVIDENCE OF CHOLECYSTITIS) - Furnace Erector Rate: Normal Rhythm: Sinus Ectopy: None - EKG Interpretation Rate: Normal Rhythm: Sinus Ectopy: PVCs (UNIFOCAL) Banks: NL ST Segment: Normal Re-Evaluation - Re-Evaluation Time of Re-Evaluation: 09:16 Status: Unchanged Vital Signs Stable: Yes Pain Level: 5 Appearance: NAD Lungs: Clear Skin: Warm and Dry Neuro: Alert and Oriented X3 CV: RRR Physician Notification - Case Discussed Physician Notified: ELIEZER Time of Notification: 09:17 Admit To: Inpatient Critical Care Note - Critical Care Note Total Time (mins): 0 Course - Course Hematology/Chemistry: 05/02/18 07:20 05/02/18 07:20 Orders, Labs, Meds: Lab Review 05/02/18 05/02/18 05/02/18 07:20 07:20 07:20 WBC 18.76 H RBC 3.29 L Hgb 11.2 L Hct 33.0 L MCV 100.3 H MCH 34.0 H MCHC 33.9 RDW Coeff of Maxi 13.7 Plt Count 586 H Immature Gran % (Auto) 0.6 Neut % (Auto) 84.5 Lymph % (Auto) 7.7 L [place] % (Auto) 6.7 Eos % (Auto) 0.3 Baso % (Auto) 0.2 Immature Gran # (Auto) 0.1 Neut # (Auto) 15.9 H Lymph # (Auto) 1.5 [place] # (Auto) 1.3 Eos # (Auto) 0.1 Baso # (Auto) 0.0 Sodium 133.6 L Potassium 3.48 L Chloride 94.0 L Carbon Dioxide 30.6 H Anion Gap 12.48 BUN 5.2 L Creatinine 0.44 L Estimated GFR (MDRD) 144.00 BUN/Creatinine Ratio 11.81 Glucose 80.4 Calcium 8.76 Total Bilirubin 0.57 AST 29.8 ALT 19.3 Alkaline Phosphatase 196.3 H Total Protein 7.37 Albumin 3.67 Globulin 3.70 Albumin/Globulin Ratio 0.99 Amylase 63.9 Lipase 52.3 Urine Color Urine Clarity Urine pH Ur Specific [place] Urine Protein Urine Glucose (UA) Urine Ketones Urine Blood Urine Nitrite Urine Bilirubin Urine Urobilinogen Ur Leukocyte Esterase Urine Microscopic RBC Ur Squamous Epith Cells Urine Mucus Plasma/Serum Alcohol Influ A Molecular Assay Influ B Molecular Assay 05/02/18 05/02/18 05/02/18 07:20 07:35 08:35 WBC RBC Hgb Hct MCV MCH MCHC RDW Coeff of Maxi Plt Count Immature Gran % (Auto) Neut % (Auto) Lymph % (Auto) [place] % (Auto) Eos % (Auto) Baso % (Auto) Immature Gran # (Auto) Neut # (Auto) Lymph # (Auto) [place] # (Auto) Eos # (Auto) Baso # (Auto) Sodium Potassium Chloride Carbon Dioxide Anion Gap BUN Creatinine Estimated GFR (MDRD) BUN/Creatinine Ratio Glucose Calcium Total Bilirubin AST ALT Alkaline Phosphatase Total Protein Albumin Globulin Albumin/Globulin Ratio Amylase Lipase Urine Color Yellow Urine Clarity Clear Urine pH 6.5 Ur Specific [place] 1.025 Urine Protein 1+ Urine Glucose (UA) Negative Urine Ketones 1+ Urine Blood Trace-intact Urine Nitrite Negative Urine Bilirubin 1+ Urine Urobilinogen 1.0 Ur Leukocyte Esterase Negative Urine Microscopic RBC 5-10 Ur Squamous Epith Cells 10-20 Urine Mucus 3+ Plasma/Serum Alcohol 37.0 Influ A Molecular Assay Negative by naat Influ B Molecular Assay Negative by naat Orders Category Date Time Status EKG-(ED ONLY) Stat CARDIO 05/02/18 07:14 Completed NPO REMINDER: IMAGING ONCE CARE 05/02/18 08:57 Ordered ED IV/MEDIPORT/POWERPORT .ONCE EMERGENCY 05/02/18 07:14 Active AMYLASE Stat LAB 05/02/18 07:40 Ordered BLOOD CULTURE Stat LAB 05/02/18 08:48 Ordered CBC W/ AUTO DIFF Stat LAB 05/02/18 07:20 Completed COMPREHENSIVE METABOLIC PANEL Stat LAB 05/02/18 07:20 Received ETOH LEVEL [BLOOD ALCOHOL] Stat LAB 05/02/18 07:41 Ordered FLU A/B MOLECULAR Stat LAB 05/02/18 07:31 Ordered LACTIC ACID Stat LAB 05/02/18 08:48 Ordered LIPASE Stat LAB 05/02/18 07:40 Ordered PROCALCITONIN Stat LAB 05/02/18 08:48 Ordered UA [URINALYSIS C & S IF INDICATED] Stat LAB 05/02/18 07:39 Uncollected 0.9 % Sodium Chloride [Saline Flush] MEDS 05/02/18 07:14 Active 1 syr IVF PRN PRN Ondansetron HCl/Pf [Zofran 4 mg/2 ml] MEDS 05/02/18 07:43 Stat 4 mg IVP ONCE STA Piperacillin Sodium/Tazobactam [Zosyn 4.5 gm] 4.5 gm MEDS 05/02/18 08:49 Ordered 0.9 % Sodium Chloride [Sodium Chloride] 100 ml IV ONCE SODIUM CHLORIDE 0.9% @ 125 MLS/HR(1,000ml) MEDS 05/02/18 07:42 Ordered Sodium Chloride 0.9% [Sodium Chloride] 1,000 ml IV 125 mls/hr CT ABDOMEN/PELVIS WO CONTRAST Stat RADS 05/02/18 07:[address] CHEST W/O CONTRAST Stat RADS 05/02/18 07:38 Ordered ULTRASOUND ABDOMEN, RT. UPPER QUAD [U/S ABDOMEN RT RADS 05/02/18 08:57 Ordered UPPER QUAD] Stat Medications Generic Name Dose Route Start Last Admin Trade Name Freq PRN Reason Stop Dose Admin Sodium Chloride 1,000 mls @ 125 mls/hr 05/02/18 07:42 05/02/18 07:57 Sodium Chloride IV 05/02/18 15:41 125 mls/hr .Q8H STA Administration Piperacillin Sod/Tazobactam 100 mls @ 100 mls/hr 05/02/18 08:49 Sod 4.5 gm/ Sodium Chloride IV 05/02/18 09:48 ONCE STA Sodium Chloride 1 syr 05/02/18 07:14 05/02/18 07:56 Saline Flush IVF 1 syr PRN PRN Administration To flush IV Discontinued Medications Generic Name Dose Route Start Last Admin Trade Name Freq PRN Reason Stop Dose Admin Ondansetron HCl 4 mg 05/02/18 07:43 05/02/18 07:57 Zofran 4 Mg/2 Ml IVP 05/02/18 07:44 4 mg ONCE STA Administration Vital Signs: Temp Pulse Resp BP Pulse Ox 05/02/18 06:50 98.4 F 105 H 18 140/80 96 Departure - Departure Time of Disposition: 09:17 Disposition: TSF SHORT-TRM HOSP Discharge Problem: Abdominal pain Qualifiers: Abdominal location: unspecified location Qualified Code(s): R10.9 - Unspecified abdominal pain Instructions: Abdominal Pain (ED) Condition: Good Pt referred to PMD for follow-up: Yes IPMP verified?: No Allergies/Adverse Reactions: Allergies levofloxacin [From Levaquin] Allergy (Mild, Verified 05/02/18 06:54) Rash sulfamethoxazole Adverse Reaction (Intermediate, Verified 05/02/18 06:54) Rash Home Medications: Ambulatory Orders Aspirin [Aspir 81] 81 mg PO DAILY 03/29/17 Nitroglycerin 0.4 mg SL PRN PRN 03/29/17 Disposition Discussed With: Patient
[2018-05-02] MEDS: ZOSYN 4.5 GM 4.5 GM in SODIUM CHLORIDE 100 ML IV STA (09:19)
--- NOTE | 2018-05-02 09:44 | US ---
EXAM: Right upper quadrant abdominal ultrasound. History: Right upper quadrant abdominal pain. Comparison: CT abdomen pelvis 05/02/2018 Technique: Multiple sonographic images through the abdomen were obtained. Color duplex Doppler was used to interrogate vascular flow. Findings: The liver is not enlarged. No focal liver lesions. There is antegrade flow within the main portal v ein. Pancreas is unremarkable. Limited visualization of the right kidney demonstrates no evidence f or hydronephrosis. Cholelithiasis and gallbladder sludge. Gallbladder wall is upper limits of nahomi l in thickness. Common bile duct measures 0.6 cm in caliber. Impression: Cholelithiasis, gallbladder sludge and upper limits of normal gallbladder wall thickness . Findings are indeterminate for acute cholecystitis. Consider correlation with HIDA scan
== END 2018-05-02 10:10 | disposition short-term general hospital (02) ==
LOC: ED 06:50
DX: R10.11 Right upper quadrant pain (principal); R10.13 Epigastric pain; R11.2 Nausea with vomiting, unspecified; F17.210 Nicotine dependence, cigarettes, uncomplicated
CPT/HCPCS: 36415; 80053; 80307; 81001; 82150; 83605; 83690; 84145; 85025; 85610; 85730; 87040; 87502; 93005; 93010; 96361; 96365; 96375; 96376; 99285

== ENCOUNTER 2018-09-21 22:01 | Emergency (ER) ==
[2018-09-21 22:09] VITALS: BP 114/68; TEMP 99.2; BMI 22.4
[2018-09-21] MEDS ORDERED: SODIUM CHLORIDE 1,000 ML IV STA (22:28)
[2018-09-21] MEDS ORDERED: PHENERGAN 25 MG/ML VIAL 25 MG in SODIUM CHLORIDE 50 ML IV STA (22:29)
[2018-09-21] MEDS ORDERED: PEPCID IVP STA (22:29)
[2018-09-21] MEDS ORDERED: PHENERGAN 25 MG/ML VIAL ONE (22:42)
[2018-09-21] MEDS ORDERED: DILAUDID 1 MG/ML SYRINGE ONE (22:57)
[2018-09-21] MEDS: DILAUDID 1 MG/ML SYRINGE IVP PRN (22:58)
[2018-09-22] MEDS ORDERED: ZOFRAN 4 MG/2 ML IVP STA (00:44)
[2018-09-22] MEDS ORDERED: DILAUDID 1 MG/ML SYRINGE ONE (00:47)
[2018-09-22] MEDS: DILAUDID 1 MG/ML SYRINGE IVP PRN (00:54)
--- NOTE | 2018-09-22 03:01 | CT ---
EXAM: CT scan abdomen pelvis with and without intravenous contrast and oral, contrast HISTORY: Again pain with nausea vomiting COMPARISON: CT scan abdomen pelvis 09/18/2018 FINDINGS: Contiguous axial image obtained of the abdomen pelvis both before after uneventful adminis tration of intravenous contrast and oral contrast utilizing 3-mm collimation. Sagittal and coronal r econstructions were imaged and reviewed.. The visualized lung bases are clear. There has been prior cholecystectomy.. There is thickening in the region of the gastric antrum. Antral gastritis is not e xcluded. The liver, pancreas and spleen have normal enhanced CT appearance. There are stable bilate ral adrenal adenomas. The kidneys excrete contrast normal fashion bilaterally. Atherosclerotic spears ges are seen involving the aorta without aneurysm. There are several prominent small bowel loops in the left abdomen. Chronic compression deformities are seen involving T11 and L2. IMPRESSION: Thickening involving the gastric antrum which may be related to gastritis versus underdistension. Prominent small bowel loops of left abdomen which may related to gastroenteritis versus ileus. Postoperative changes rectosigmoid colon. Stable bilateral entry embolus. Prior cough cystectomy hysterectomy
--- NOTE | 2018-09-22 03:18 | ED.PDOC ---
General ED Provider: Dr. ANGELA DELANEY-ER Chief Complaint: Nausea/Vomiting Stated Complaint: im nauseated and im hurting Time Seen by Physician: 22:10 Mode of Arrival: Walk-In Information Source: Patient Exam Limitations: No limitations [facility] Nursing and Triage Documentation Reviewed and Agree: Yes Does patient meet sepsis criteria?: No System Inflammatory Response Syndrome: Not Applicable Sepsis Protocol: For patient's 13 years and over: Temp is 96.8 and below OR 101 and greater Pulse >90 BPM Resp >20/minute Acutely Altered Mental Status Are patient's symptoms suggestive of a new infection, such as: -Pneumonia -Skin, Soft Tissue -Endocarditis -UTI -Bone, Joint Infection -Implantable Device -Acute Abdominal Infection -Wound Infection -Meningitis -Blood Stream Catheter Infection -Unknown GI Complaint Exam - Abdominal Pain Complaint/Exam Onset: Gradual Duration: 24 hgr Symptoms Are: Still present Timing: Constant Initial Severity: Mild Current Severity: Moderate Location of Pain: Discrete Radiates To: Reports: Back, Flank Character: Reports: Dull, Aching Alleviating: Reports: None Associated Signs and Symptoms: Reports: Decreased appetite, Nausea, Vomiting. Denies: Diaphoresis, Fever, Cough, Chest pain, Dizziness, Back pain, Constipation, Blood in stool, Dysuria, Urinary frequency, Decreased urine output , Vaginal bleeding, Vaginal discharge, Diarrhea, Sore throat, Decreased activity Patient Rh Status: Unknown Abdominal Findings: Present: None Differential Diagnoses: Constipation, Pancreatitis Quality Indicator For Non-Traumatic Chest Pain/Syncope: EKG Performed Review of Systems - Review Of Systems Constitutional: Reports: No symptoms Eyes: Reports: No symptoms Ears, Nose, Mouth, Throat: Reports: No symptoms Respiratory: Reports: No symptoms Cardiac: Reports: No symptoms GI: Reports: Abdominal pain, Nausea, Vomiting : Reports: No symptoms Musculoskeletal: Reports: No symptoms Skin: Reports: No symptoms Neurological: Reports: No symptoms Endocrine: Reports: No symptoms Hematologic/Lymphatic: Reports: No symptoms All Other Systems: Reviewed and Negative Past Medical History - Past Medical History Previously Healthy: Yes Endocrine: Reports: Unknown Cardiovascular: Reports: Unknown Respiratory: Reports: Unknown Hematological: Reports: Unknown Gastrointestinal: Reports: Diverticulitis, Unknown, Other (gall stones,hiatal hernia) Genitourinary: Reports: Unknown Neuro/Psych: Reports: Unknown Musculoskeletal: Reports: Unknown Cancer: Reports: Unknown Last Menstrual Period: PT HAS HAD A HYSTERECTOMY - Surgical History General Surgical History: Reports: Hysterectomy, Other (cataract) - Family History Family History: Reports: Unknown - Social History Smoking Status: Current every day smoker, Heavy tobacco smoker Hx Substance Use: No Alcohol Screening: Occasionally - Immunizations Tetanus Shot up to Date: No Physical Exam - Physical Exam Appearance: Well-appearing, No pain distress, Well-nourished Eyes: CHELLE, EOMI, Conjunctiva clear ENT: Ears normal, Nose normal, Oropharynx normal Neck: Supple Respiratory: Airway patent, Breath sounds clear, Breath sounds equal, Respirations nonlabored Cardiovascular: RRR, Pulses normal, No rub, No murmur GI/: Soft, Nontender, No masses, Bowel sounds normal, No Organomegaly Musculoskeletal: Normal strength Skin: Warm Neurological: Sensation intact Psychiatric: Affect appropriate, Mood appropriate Interpretation - Radiology Interpretation Radiology Interpretation By: Radiologist Radiology Results: Negative Exam Interpreted: CT Scan - EKG Interpretation Time of EKG #1: 03:18 Rate: Normal Rhythm: Sinus Ectopy: None [place]: NL ST Segment: Normal Interpretation: nsr Critical Care Note - Critical Care Note Total Time (mins): 0 Course - Course Hematology/Chemistry: 09/21/18 22:42 09/21/18 22:42 Orders, Labs, Meds: Lab Review 09/21/18 09/21/18 09/21/18 22:28 22:42 22:42 WBC 15.32 H RBC 4.53 Hgb 12.8 Hct 39.7 MCV 87.6 MCH 28.3 MCHC 32.2 RDW Coeff of Maxi 18.6 H Plt Count 403 Immature Gran % (Auto) 0.5 Neut % (Auto) 76.3 Lymph % (Auto) 14.6 [place] % (Auto) 6.0 Eos % (Auto) 1.9 Baso % (Auto) 0.7 Immature Gran # (Auto) 0.1 Neut # (Auto) 11.7 H Lymph # (Auto) 2.2 [place] # (Auto) 0.9 Eos # (Auto) 0.3 Baso # (Auto) 0.1 ESR 6 Sodium 134.3 L Potassium 3.62 Chloride 94.1 L Carbon Dioxide 25.8 Anion Gap 18.02 BUN 11.0 Creatinine 0.68 Estimated GFR (MDRD) 87.00 BUN/Creatinine Ratio 16.17 Glucose 90.0 Calcium 9.24 Total Bilirubin 0.51 AST 24.5 ALT 12.7 Alkaline Phosphatase 86.3 Total Creatine Kinase Troponin I Total Protein 8.44 H Albumin 5.00 Globulin 3.44 Albumin/Globulin Ratio 1.45 Amylase 173.4 H Lipase 354.4 H Urine Color Urine Clarity Urine pH Ur Specific [place] Urine Protein Urine Glucose (UA) Urine Ketones Urine Blood Urine Nitrite Urine Bilirubin Urine Urobilinogen Ur Leukocyte Esterase 09/21/18 09/21/18 22:42 23:00 WBC RBC Hgb Hct MCV MCH MCHC RDW Coeff of Maxi Plt Count Immature Gran % (Auto) Neut % (Auto) Lymph % (Auto) [place] % (Auto) Eos % (Auto) Baso % (Auto) Immature Gran # (Auto) Neut # (Auto) Lymph # (Auto) [place] # (Auto) Eos # (Auto) Baso # (Auto) ESR Sodium Potassium Chloride Carbon Dioxide Anion Gap BUN Creatinine Estimated GFR (MDRD) BUN/Creatinine Ratio Glucose Calcium Total Bilirubin AST ALT Alkaline Phosphatase Total Creatine Kinase 42.4 Troponin I 0.012 Total Protein Albumin Globulin Albumin/Globulin Ratio Amylase Lipase Urine Color Yellow Urine Clarity Clear Urine pH 6.0 Ur Specific [place] <=1.005 Urine Protein Negative Urine Glucose (UA) Negative Urine Ketones Negative Urine Blood Negative Urine Nitrite Negative Urine Bilirubin Negative Urine Urobilinogen 0.2 Ur Leukocyte Esterase Negative Orders Category Date Time Status EKG-(ED ONLY) Stat CARDIO 09/21/18 22:28 Completed NPO REMINDER: IMAGING ONCE CARE 09/21/18 22:30 Completed ED IV/MEDIPORT/POWERPORT .ONCE EMERGENCY 09/21/18 22:28 Active AMYLASE Stat LAB 09/21/18 22:42 Completed CBC W/ AUTO DIFF Stat LAB 09/21/18 22:42 Completed COMPREHENSIVE METABOLIC PANEL Stat LAB 09/21/18 22:42 Completed CREATINE KINASE Stat LAB 09/21/18 22:42 Completed ESR Stat LAB 09/21/18 22:28 Completed LIPASE Stat LAB 09/21/18 22:42 Completed TROPONIN I Stat LAB 09/21/18 22:42 Completed URINALYSIS C & S IF INDICATED Stat LAB 09/21/18 23:00 Completed 0.9 % Sodium Chloride [Saline Flush] MEDS 09/21/18 22:27 Active 1 syr IVF PRN PRN Famotidine Inj [Pepcid] MEDS 09/21/18 22:29 Discontinued 40 mg IVP ONCE STA Hydromorphone HCl [Dilaudid 1 mg/ml Syringe] MEDS 09/21/18 22:28 Ordered 1 mg IVP Q2HR PRN Ondansetron HCl/Pf [Zofran 4 mg/2 ml] MEDS 09/22/18 00:44 Discontinued 4 mg IVP ONCE STA Promethazine HCl [Phenergan 25 mg/ml Vial] MEDS 09/21/18 22:42 Discontinued 25 mg .ROUTE .STK-MED ONE Promethazine HCl [Phenergan 25 mg/ml Vial] 25 mg MEDS 09/21/18 22:29 Discontinued 0.9 % Sodium Chloride [Sodium Chloride] 50 ml IV ONCE Sodium Chloride 0.9% [Sodium Chloride] 1,000 ml MEDS 09/21/18 22:[address] ABDOMEN/PELVIS W/WO CONTRAS Stat RADS 09/21/18 22:30 Completed Medications Generic Name Dose Route Start Last Admin Trade Name Freq PRN Reason Stop Dose Admin Hydromorphone HCl 1 mg 09/21/18 22:28 09/22/18 00:54 Dilaudid 1 Mg/Ml Syringe IVP 1 mg Q2HR PRN Administration Abdominal Pain Sodium Chloride 1 syr 09/21/18 22:27 09/21/18 23:00 Saline Flush IVF 1 syr PRN PRN Administration To flush IV Discontinued Medications Generic Name Dose Route Start Last Admin Trade Name Freq PRN Reason Stop Dose Admin Famotidine 40 mg 09/21/18 22:29 09/21/18 22:47 Pepcid IVP 09/21/18 22:30 40 mg ONCE STA Administration Promethazine HCl 25 mg/ Sodium 51 mls @ 75 mls/hr 09/21/18 22:29 09/21/18 22: 53 Chloride IV 09/21/18 23:09 75 mls/hr ONCE STA Administration Sodium Chloride 1,000 mls @ 250 mls/hr 09/21/18 22:28 09/21/18 22:44 Sodium Chloride IV 09/22/18 02:27 250 mls/hr BOLUS STA Administration Ondansetron HCl 4 mg 09/22/18 00:44 09/22/18 00:53 Zofran 4 Mg/2 Ml IVP 09/22/18 00:45 4 mg ONCE STA Administration Vital Signs: Temp Pulse Resp BP Pulse Ox 09/21/18 22:02 99.2 F 98 H 20 114/68 97 Departure - Departure Time of Disposition: 03:18 Disposition: HOME SELF-CARE Discharge Problem: Abdominal pain Qualifiers: Abdominal location: generalized Qualified Code(s): R10.84 - Generalized abdominal pain Gastritis Qualifiers: Gastritis type: unspecified gastritis Chronicity: acute Gastritis bleeding: without bleeding Qualified Code(s): K29.00 - Acute gastritis without bleeding Instructions: Chronic Abdominal Pain (ED) Condition: Good Pt referred to PMD for follow-up: Yes IPMP verified?: No Additional Instructions: talk to pcp aBout seeing gastroenterlogist Allergies/Adverse Reactions: Allergies levofloxacin [From Levaquin] Allergy (Mild, Verified 09/21/18 22:09) Rash sulfamethoxazole Adverse Reaction (Intermediate, Verified 09/21/18 22:09) Rash Home Medications: Ambulatory Orders Aspirin [Aspir 81] 81 mg PO DAILY 03/29/17 Nitroglycerin 0.4 mg SL PRN PRN 03/29/17 Amitriptyline/Chlordiazepoxide [Chlordiazepo-Amitriptyl 5-12.5] 1 cap PO Q6H PRN 09/21/18 Sucralfate 1 tab PO TID 09/21/18 Disposition Discussed With: Patient, Family
== END 2018-09-22 06:10 | disposition home or self-care (01) ==
LOC: ED 22:01
DX: K29.00 Acute gastritis without bleeding (principal); R10.84 Generalized abdominal pain; F17.210 Nicotine dependence, cigarettes, uncomplicated
CPT/HCPCS: 36415; 80053; 81001; 82150; 82550; 83690; 84484; 85025; 85651; 93005; 93010; 96361; 96365; 96375; 96376; 99283

== ENCOUNTER 2018-10-09 06:41 | Inpatient (IN) ==
[2018-10-09] MEDS ORDERED: SODIUM CHLORIDE 500 ML IV STA (07:19)
[2018-10-09] MEDS ORDERED: MORPHINE 2 MG/ML SYRINGE IVP STA ×2 (07:29→08:53)
[2018-10-09] MEDS ORDERED: ZOFRAN 4 MG/2 ML IVP STA (07:29)
--- NOTE | 2018-10-09 09:27 | CT ---
EXAM: CTA abdomen and pelvis HISTORY: Chronic pain, concern for vasculitis. TECHNIQUE: CTA abdomen and pelvis with and without intravenous contrast. Multiplanar images were pr ovided. 3-D reconstruction images were acquired on an independent workstation and submitted. FINDINGS: Comparison is to 09/22/2018. There is diffuse atheromatous disease. There is mild stenosis at the origin of the celiac trunk. Mi ld indicates less than 50% vessel diameter. No hemodynamically significant stenosis is suggested at the origin of the superior mesenteric artery. The major branches of these arteries appear grossly pa tent. There is fusiform dilatation of the infrarenal aorta although sub aneurysmal caliber measuring up to about 2.4 cm. Significant atheromatous disease of the iliac arteries with multilevel stenosis of the common iliac arteries, greater on the left approaching upper limit mild at some levels. Ther e is upper limit mild stenosis at the common femoral artery levels bilaterally. The upper superficia l and deep femoral arteries are patent. Elongated right hepatic lobe. Spleen is grossly unremarkable for arterial phase imaging. Gallbladde r and pancreas appear normal. Probable tiny adenoma in the right adrenal gland measuring 13 mm. The re are two nodules of the left adrenal gland largest at 2.4 cm. These nodules have relatively low at tenuation and probably represent adenomas and are stable since the comparison study and an older CT e xam of the chest dated 02/27/2017. Kidneys have normal enhancement. Stomach is within normal limits . Apparent postop changes of the distal colon. There is diverticulosis of the distal colon. Nonobs tructive bowel gas pattern. No uterus is seen and the urinary bladder is unremarkable. No abdominal wall hernia. Bones reveal relatively severe degenerative disc and facet disease of the spine. Lung bases are free of infiltrate. There is no pneumoperitoneum identified. IMPRESSION: 1. Significant atherosclerotic disease with areas of upper limit mild stenosis (mild indicates less than 50% vessel diameter). Levels most affected included the proximal common iliac arteries and the common femoral arteries. 2. Fusiform dilatation of the infrarenal aorta although sub aneurysmal at 2.4 cm. 3. No distinct evidence of vasculitis. 4. Stable adrenal nodules likely representing adenomas. 5. Postop changes of the distal colon with regional diverticulosis. 6. Significant degenerative changes of the spine.
--- NOTE | 2018-10-09 09:37 | ED.PDOC ---
General ED Provider: Dr. OLIVERIO BALDWIN Chief Complaint: Abdominal Pain Stated Complaint: epigastric abdominal pain chronic in nature most recent flare this AM. denied chest pain no black or bloody stools Time Seen by Physician: 07:00 Mode of Arrival: Walk-In Information Source: Patient Exam Limitations: No limitations Primary Care Provider: [facility] Nursing and Triage Documentation Reviewed and Agree: Yes Does patient meet sepsis criteria?: No System Inflammatory Response Syndrome: Not Applicable Sepsis Protocol: For patient's 13 years and over: Temp is 96.8 and below OR 101 and greater Pulse >90 BPM Resp >20/minute Acutely Altered Mental Status Are patient's symptoms suggestive of a new infection, such as: -Pneumonia -Skin, Soft Tissue -Endocarditis -UTI -Bone, Joint Infection -Implantable Device -Acute Abdominal Infection -Wound Infection -Meningitis -Blood Stream Catheter Infection -Unknown GI Complaint Exam - Abdominal Pain Complaint/Exam Onset: Gradual Duration: just P.T.A Symptoms Are: Still present Timing: Intermittent Initial Severity: Moderate Current Severity: Moderate Location of Pain: Epigastric Radiates To: Denies: Chest, Back, Flank, LLQ, RLQ, Inguinal Character: Reports: Cramping Aggravating: Reports: None Alleviating: Reports: None Associated Signs and Symptoms: Denies: Diaphoresis, Fever, Cough, Chest pain, Dizziness, Back pain, Constipation, Blood in stool, Dysuria, Urinary frequency, Decreased urine output, Decreased appetite, Vaginal bleeding, Vaginal discharge , Nausea, Vomiting, Diarrhea, Sore throat, Decreased activity Related History: Reports: Similar episode AAA Risk Factors: Reports: Atherosclerosis Cardiac Risk Factors: Reports: None Ovarian Torsion Risk Factors: Reports: None Surgical Obstruction Risk Factors: Reports: None Related Surgical History: Reports: None Patient Rh Status: Unknown Abdominal Findings: Present: Other (TENDER TO PALPATION EPIGASTRIC) Differential Diagnoses: Bowel Obstruction, Gastroenteritis, Pancreatitis Quality Indicators for AMI: EKG in 10min. Quality Indicators for Cardiac Chest Pain: EKG in 10min. Review of Systems - Review Of Systems Constitutional: Reports: No symptoms Eyes: Reports: No symptoms Ears, Nose, Mouth, Throat: Reports: No symptoms Respiratory: Reports: No symptoms Cardiac: Reports: No symptoms GI: Reports: Abdominal pain (epigastric episodic ) : Reports: No symptoms Musculoskeletal: Reports: No symptoms Skin: Reports: No symptoms Neurological: Reports: No symptoms Endocrine: Reports: No symptoms Hematologic/Lymphatic: Reports: No symptoms All Other Systems: Reviewed and Negative Past Medical History - Past Medical History Previously Healthy: Yes Endocrine: Reports: Unknown Cardiovascular: Reports: Unknown Respiratory: Reports: Unknown Hematological: Reports: Unknown Gastrointestinal: Reports: Diverticulitis, Unknown, Other (gall stones,hiatal hernia) Genitourinary: Reports: Unknown Neuro/Psych: Reports: Unknown Musculoskeletal: Reports: Unknown Cancer: Reports: Unknown Last Menstrual Period: PT HAS HAD A HYSTERECTOMY - Surgical History General Surgical History: Reports: Hysterectomy, Other (cataract) - Family History Family History: Reports: Unknown - Social History Smoking Status: Current every day smoker, Heavy tobacco smoker Hx Substance Use: No Alcohol Screening: Occasionally - Immunizations Tetanus Shot up to Date: No Physical Exam - Physical Exam Appearance: Ill-appearing Ill-appearing: Mild Pain Distress: Moderate Eyes: CHELLE, EOMI, Conjunctiva clear ENT: Ears normal, Nose normal, Oropharynx normal Respiratory: Airway patent, Breath sounds clear, Breath sounds equal, Respirations nonlabored Cardiovascular: RRR, Pulses normal, No rub, No murmur GI/: Tender (epigastric negative rebound) Musculoskeletal: Normal strength, ROM intact, No edema, No calf tenderness Skin: Warm, Dry, Normal color Neurological: Sensation intact, Motor intact, Reflexes intact, Cranial nerves intact, Alert, Oriented Psychiatric: Affect appropriate, Mood appropriate Interpretation - Radiology Interpretation Radiology Interpretation By: Radiologist Radiology Results: No acute changes (ultra sound negative for common bile duct enlargment) - [employer] Rate: Normal Rhythm: Sinus Ectopy: None - EKG Interpretation Rate: Normal Rhythm: Sinus Ectopy: None [place]: NL ST Segment: Normal (2 ekg were negative for any acute problems) Rate: Normal Rhythm: Sinus Ectopy: None [place]: NL Re-Evaluation - Re-Evaluation Time of Re-Evaluation: 09:00 Status: Improved Vital Signs Stable: Yes Pain Level: occasional break through pain since arrival Appearance: NAD Skin: Warm and Dry - Re-Evaluation Time of Re-Evaluation: 10:15 Status: Improved Vital Signs Stable: Yes Pain Level: 0 Appearance: NAD Skin: Warm and Dry Neuro: Alert and Oriented X3 CV: RRR Physician Notification - Case Discussed Physician Notified: pmd Time of Notification: 10:14 (admitt) Admit/Transition Orders Entered by ED Provider: Yes Admit To: Inpatient Critical Care Note - Critical Care Note Total Time (mins): 0 Course - Course Hematology/Chemistry: 10/09/18 07:20 10/09/18 07:20 Orders, Labs, Meds: Lab Review 10/09/18 10/09/18 10/09/18 07:00 07:20 07:20 WBC 6.10 RBC 4.27 Hgb 11.8 L Hct 36.7 L MCV 85.9 MCH 27.6 MCHC 32.2 RDW Coeff of Maxi 19.6 H Plt Count 311 Immature Gran % (Auto) 0.5 Neut % (Auto) 51.6 Lymph % (Auto) 35.7 [place] % (Auto) 6.6 Eos % (Auto) 3.8 Baso % (Auto) 1.8 Immature Gran # (Auto) 0.0 Neut # (Auto) 3.2 Lymph # (Auto) 2.2 [place] # (Auto) 0.4 Eos # (Auto) 0.2 Baso # (Auto) 0.1 Sodium 134.6 Potassium 4.26 Chloride 95.8 L Carbon Dioxide 27.5 Anion Gap 15.56 BUN 5.8 L Creatinine 0.76 Estimated GFR (MDRD) 76.00 BUN/Creatinine Ratio 7.63 Glucose 87.8 Calcium 8.65 Iron TIBC % Saturation Ferritin Total Bilirubin 0.27 AST 24.1 ALT 11.9 Alkaline Phosphatase 92.6 Total Creatine Kinase 50.7 Troponin I < 0.012 Total Protein 7.26 Albumin 4.26 Globulin 3.00 Albumin/Globulin Ratio 1.42 Amylase 150.4 H Lipase 348.2 H 25-OH Vitamin D Total Urine Color Yellow Urine Clarity Clear Urine pH 7.0 Ur Specific [place] <=1.005 Urine Protein Negative Urine Glucose (UA) Negative Urine Ketones Negative Urine Blood Negative Urine Nitrite Negative Urine Bilirubin Negative Urine Urobilinogen 0.2 Ur Leukocyte Esterase Negative Plasma/Serum Alcohol 10/09/18 10/09/18 10/09/18 07:20 07:20 07:20 WBC RBC Hgb Hct MCV MCH MCHC RDW Coeff of Maxi Plt Count Immature Gran % (Auto) Neut % (Auto) Lymph % (Auto) [place] % (Auto) Eos % (Auto) Baso % (Auto) Immature Gran # (Auto) Neut # (Auto) Lymph # (Auto) [place] # (Auto) Eos # (Auto) Baso # (Auto) Sodium Potassium Chloride Carbon Dioxide Anion Gap BUN Creatinine Estimated GFR (MDRD) BUN/Creatinine Ratio Glucose Calcium Iron 136.6 TIBC 459 % Saturation 30 Ferritin 38.40 Total Bilirubin AST ALT Alkaline Phosphatase Total Creatine Kinase Troponin I Total Protein Albumin Globulin Albumin/Globulin Ratio Amylase Lipase 25-OH Vitamin D Total 34.1 Urine Color Urine Clarity Urine pH Ur Specific [place] Urine Protein Urine Glucose (UA) Urine Ketones Urine Blood Urine Nitrite Urine Bilirubin Urine Urobilinogen Ur Leukocyte Esterase Plasma/Serum Alcohol 163.2 H Orders Category Date Time Status EKG-(ED ONLY) Stat CARDIO 10/09/18 07:19 Completed EKG-(ED ONLY) Stat CARDIO 10/09/18 08:53 Completed NPO REMINDER: IMAGING ONCE CARE 10/09/18 07:22 Active NPO REMINDER: IMAGING ONCE CARE 10/09/18 09:43 Active ED IV/MEDIPORT/POWERPORT .ONCE EMERGENCY 10/09/18 07:19 Active AMYLASE Stat LAB 10/09/18 07:20 Completed CBC W/ AUTO DIFF Stat LAB 10/09/18 07:20 Completed CCP ANTIBODIES IGG/IGA Stat LAB 10/09/18 07:20 Received COMPREHENSIVE METABOLIC PANEL Stat LAB 10/09/18 07:20 Completed CREATINE KINASE Stat LAB 10/09/18 07:20 Completed ETOH LEVEL [BLOOD ALCOHOL] Stat LAB 10/09/18 07:20 Completed FERRITIN Routine LAB 10/09/18 07:20 Completed IMMUNOGLOBULIN A, QUANTITATIVE Stat LAB 10/09/18 07:20 Received IRON AND TIBC Urgent LAB 10/09/18 07:20 Completed LIPASE Stat LAB 10/09/18 07:20 Completed LUPUS ANTICOAGULANT PANEL Stat LAB 10/09/18 08:59 Received RHEUMATOID ARTHRITIS FACTOR Stat LAB 10/09/18 07:20 Received T-TRANSGLUTAMINASE (tTG) IGA Stat LAB 10/09/18 07:20 Received TROPONIN I Stat LAB 10/09/18 07:20 Completed URINALYSIS C & S IF INDICATED Stat LAB 10/09/18 07:00 Completed VITAMIN D25 Urgent LAB 10/09/18 07:20 Completed 0.9 % Sodium Chloride [Saline Flush] MEDS 10/09/18 07:18 Active 1 syr IVF PRN PRN Morphine Sulfate [Morphine 2 mg/ml Syringe] MEDS 10/09/18 07:29 Discontinued 2 mg IVP ONCE STA Morphine Sulfate [Morphine 2 mg/ml Syringe] MEDS 10/09/18 08:53 Discontinued 2 mg IVP ONCE STA Ondansetron HCl/Pf [Zofran 4 mg/2 ml] MEDS 10/09/18 07:29 Discontinued 4 mg IVP ONCE STA Sodium Chloride 0.9% [Sodium Chloride] 500 ml MEDS 10/09/18 07:19 Active IV 125 mls/hr CTA ANGIO ABD/PELVIS Stat RADS 10/09/18 07:19 Completed ULTRASOUND ABDOMEN, RT. UPPER QUAD [U/S ABDOMEN RT RADS 10/09/18 09:40 Ordered UPPER QUAD] Stat Medications Generic Name Dose Route Start Last Admin Trade Name Freq PRN Reason Stop Dose Admin Sodium Chloride 500 mls @ 125 mls/hr 10/09/18 07:19 10/09/18 07:37 Sodium Chloride IV 10/09/18 11:18 125 mls/hr .Q4H STA Administration Sodium Chloride 1 syr 10/09/18 07:18 10/09/18 09:03 Saline Flush IVF 1 syr PRN PRN Administration To flush IV Discontinued Medications Generic Name Dose Route Start Last Admin Trade Name Freq PRN Reason Stop Dose Admin Morphine Sulfate 2 mg 10/09/18 07:29 10/09/18 07:39 Morphine 2 Mg/Ml Syringe IVP 10/09/18 07:30 2 mg ONCE STA Administration Morphine Sulfate 2 mg 10/09/18 08:53 10/09/18 09:01 Morphine 2 Mg/Ml Syringe IVP 10/09/18 08:54 2 mg ONCE STA Administration Ondansetron HCl 4 mg 10/09/18 07:29 10/09/18 07:37 Zofran 4 Mg/2 Ml IVP 10/09/18 07:30 4 mg ONCE STA Administration Vital Signs: Temp Pulse Resp BP Pulse Ox 10/09/18 06:42 97.9 F 95 H 20 125/79 97 Departure - Departure Time of Disposition: 10:16 Disposition: ADMITTED INPATIENT Discharge Problem: Abdominal pain Instructions: Abdominal Pain (ED) Condition: Good Pt referred to PMD for follow-up: Yes IPMP verified?: No Additional Instructions: Please call your Family Physician as soon as possible to schedule a follow-up appointment. Allergies/Adverse Reactions: Allergies levofloxacin [From Levaquin] Allergy (Mild, Verified 10/09/18 07:01) Rash sulfamethoxazole Adverse Reaction (Intermediate, Verified 10/09/18 07:01) Rash Home Medications: Ambulatory Orders Aspirin [Aspir 81] 81 mg PO DAILY 03/29/17 Nitroglycerin 0.4 mg SL PRN PRN 03/29/17 Disposition Discussed With: Patient
[2018-10-09] MEDS ORDERED: NITROSTAT SL PRN (10:17)
[2018-10-09] MEDS ORDERED: ATIVAN IVP PRN (10:18)
--- NOTE | 2018-10-09 10:29 | US ---
EXAM: Right upper quadrant abdominal ultrasound. History: Right upper quadrant abdominal pain. Comparison: CT abdomen pelvis 10/09/2018 Technique: Multiple sonographic images through the abdomen were obtained. Color duplex Doppler was used to interrogate vascular flow. Findings: The visualized pancreas demonstrates no gross abnormality. Status post cholecystectomy. Common bile duct measures 0.5 cm in caliber. No focal liver lesions identified sonographically. The periportal echoes within the liver are maintained. There is antegrade flow within the main portal vein. Limit ed visualization of the right kidney demonstrates no abnormality. Impression: No acute sonographic findings. Status post cholecystectomy
[2018-10-09 11:46] VITALS: BMI 22.3
[2018-10-09] MEDS: FOLIC ACID 1 MG, INFUVITE ADULT 10 ML, THIAMINE 100 MG in SODIUM CHLORIDE 1,000 ML IV SCH ×2 (12:52→23:05)
[2018-10-09] MEDS ORDERED: PROTONIX IV IVP SCH (15:00)
[2018-10-09] MEDS ORDERED: DILAUDID 1 MG/ML SYRINGE IVP STA (21:51)
[2018-10-10] MEDS ORDERED: THIAMINE ONE ×2 (00:01→11:14)
[2018-10-10] MEDS ORDERED: FOLIC ACID ONE ×2 (00:02→11:16)
[2018-10-10] MEDS ORDERED: INFUVITE ADULT IV ONE ×3 (00:03→11:16)
[2018-10-10] MEDS: FOLIC ACID 1 MG, INFUVITE ADULT 10 ML, THIAMINE 100 MG in SODIUM CHLORIDE 1,000 ML IV SCH ×2 (00:17→11:26)
[2018-10-10] MEDS ORDERED: PROTONIX PO SCH (06:30)
[2018-10-10] MEDS ORDERED: ASPIRIN EC PO SCH (08:00)
--- NOTE | 2018-10-10 13:54 | PN ---
DATE OF SERVICE: 10/09/18 SUBJECTIVE: The patient presented to the emergency room about 6:42 this morning. The patient did complain of abdominal pain. She did drink alcohol and she used wine. The last wine intake was about 10:00. The blood alcohol level, BUN 6, was still up 103. This patient may have drank more wine. The serum amylase and lipase were elevated. I did tell her that she could not drink alcohol at all or else she would have another episode of the same. Repeated serum amylase and lipase plus the blood alcohol level. The patient's abdomen is soft with some tenderness in the epigastric area. Bowel sounds active. This patient was complaining of pain and the patient is given Dilaudid 1 mg intravenously. The patient wanted to go home tonight and I told her no that he can consider probably going home tomorrow after we have examined her. The patient was examined after 9 p.m. tonight. JONAS
[2018-10-10 15:01] VITALS: BP 118/75; TEMP 99
--- NOTE | 2018-10-18 14:53 | HP ---
DATE OF SERVICE: 10/09/18 CHIEF COMPLAINT: Epigastric abdominal pain. HISTORY OF PRESENT ILLNESS: Ms. Hill is a pleasant 63-year-old patient of Dr. Bardales who presented to the emergency department on 10/09/18 with complaints of epigastric abdominal pain. She reports this is chronic in nature and her most recent flare just prior to her ER visit. She denied any chest pain. She denied any black or bloody stools. She did report drinking wine approximately 10 p.m. prior to admission. Labs were drawn on admission. Her amylase was found to be 135.9 and her lipase found to be 454.9, both of which were elevated. She did have a recent cholecystectomy. She tells me that she has had problems with epigastric pain since her cholecystectomy. The right upper quadrant ultrasound was completed on admission. It showed no acute findings. A CT of the abdomen and pelvis was completed on admission. The results of the CT scan of the abdomen and pelvis showed significant atherosclerotic disease with areas of upper limit mild stenosis. Levels most affected including the proximal common iliac arteries and the common femoral arteries. Fusiform dilation of the infrarenal aorta although subaneurysmal at 2.4 cm no distinct evidence of vasculitis, stable adrenal nodules likely representing adenomas and postop changes of the distal colon with regional diverticulosis. An addendum was made to the CT scan of the abdomen and pelvis. It states that the gallbladder has been removed and the pancreas appears to be normal in appearance. Because of the patient's ongoing abdominal pain and need for medications to treat the abdominal pain, decision was made to admit the patient as observation patient. The patient was placed on NPO status, given IV Protonix and IV nausea medicines, started on IV fluids with folic acid and MVI, given IV pain control. Labs were ordered. PAST PERSONAL HISTORY: OR Cardiac stents Hypertension COPD History of pneumonia History of stomach ulcer and diverticulitis Gastroesophageal reflux disease Early osteoporosis PAST SURGICAL HISTORY: Cataract surgery Tonsillectomy Heart catheterizations Cholecystectomy Colon resection Bowel resection Hysterectomy for benign cyst Right wrist tendonitis surgery L1, L2 compression fracture History of endoscopy for foreign body removal FAMILY HISTORY: Includes diabetes mellitus and family history of prostate cancer. SOCIAL HISTORY: She smokes approximately one pack of cigarettes a day for the past 56 years. She does report social drinking and she tells me that she drinks a few glasses of wine per week. Denies any illicit drug use. MEDICATIONS: (CURRENT HOME) Aspirin 81 mg daily Nitroglycerin 0.4 mg as needed ALLERGIES: LEVOFLOXACIN AND SULFA MEDICINES REVIEW OF SYSTEMS: CONSTITUTIONAL: She denies fever, chills, nightsweats. She does report approximately a 30 lb weight loss, unsure how long this has been over. HEENT: No reports of headache, nasal drainage or sore throat. CARDIOVASCULAR: No reports of chest pain. Denies any irregular rhythm. Denies any orthopnea. Denies any peripheral edema. LUNGS: Does report a history of COPD. No reports of any cough or congestion. GI: Does complain of epigastric abdominal pain that is chronic in nature but has been worsening since the night prior to admission. Does complain of nausea. She did complain of vomiting bile on occasion. Denies any diarrhea. Denies any constipation or blood in the stool. Denies any tarry stools. : No reports of dysuria, hematuria, nocturia or urinary incontinence. MUSCULOSKELETAL: No reports of any muscle pain, joint redness or swelling. NEUROLOGIC: No reports of any dizziness, fatigue or neurological deficit. PSYCHIATRIC: No complaints of any anxiety, depression or mood changes. ENDOCRINE: No reports of any diabetes mellitus or thyroid disease. No reports of increased thirst, urination, heat or cold intolerance. INTEGUMENTARY: No reports of any unusual rash or lesions or skin changes. PHYSICAL EXAMINATION: GENERAL: She is alert, oriented. She does report that she is tired and weak. VITAL SIGNS: On admission: Temperature 97.9, pulse rate 95, blood pressure 125/ 79, respiratory rate 20, 02 sat 97% on room air. She is 5'4 and weighs 134 lbs recorded. HEENT: Head is normocephalic, atraumatic. NECK: Supple. No lymphadenopathy, no thromegaly, no carotid bruits. No neck tenderness. CARDIOVASCULAR: S1, S2 regular rate and rhythm. No peripheral edema appreciated. LUNGS: She did have some wheezing posteriorly. She was in no acute distress. Respirations stable. ABDOMEN: Soft. She does have some upper abdominal tenderness in the epigastric region. Bowel sounds are positive in all four quads. There was no guarding. NEUROLOGIC: Cranial nerves 2-12 are grossly intact. No neurological deficits. No lateral weakness. SKIN: Warm and dry. No overt rashes, lesions or wounds. LABS AND DIAGNOSTIC TESTING: Have been reviewed. On admission white count normal. Hemoglobin 11.8, hematocrit 36.7, platelet count 311. Chem panel on admission sodium 134.6, potassium 4.26, BUN 5.8, creatinine 0.76, GFR 76. LFTs were normal. Pancreatic enzymes elevated at 150.4 for amylase and lipase 348.2. CRP was less than 1. Iron 136.6. Ferritin 38.4. Urinalysis was negative. Diagnostic testing has already been discussed in the HPI. ASSESSMENT: 1. Acute alcoholic pancreatitis. 2. Nausea, vomiting and epigastric abdominal pain. 3. History of coronary artery disease with cardiac stents. 4. COPD. 5. History of recent cholecystectomy in July 2018. 6. History of stomach ulcers. PLAN: 1. Admit the patient inpatient as an observation. 2. Continue IV fluids. 3. Pain control. 4. IV Protonix. 5. Continue NPO status. 6. Lab monitoring. 7. Discussed the importance of ETOH cessation. Her serum alcohol level on admission was 163.2 which was above the normal limits and this has been discussed with the patient. 8. Further orders and recommendations per Dr. Bardales. TIME SPENT: GREATER THAN 65 MINUTES MTDD
--- NOTE | 2018-10-19 09:49 | DS ---
DATE OF SERVICE: 10/10/18 DISCHARGE DIAGNOSES: 1. Alcoholic pancreatitis. 2. Nausea, vomiting and epigastric abdominal pain. 3. History of coronary artery diease and cardiac stents. 4. History of COPD. 5. History of recent cholecystectomy in July of 2018. 6. Chronic tobacco use. 7. History of stomach ulcers and diverticulitis. 8. History of recent weight loss of approximately 30 lbs, unsure of how long this has been over, a period of what time. 9. History of colon resection reported in July 2018. BRIEF HISTORY OF PRESENT ILLNESS AND HOSPITAL COURSE: Ms. Hill is a pleasant 63-year-old patient of Dr. Bardales who presented to the Emergency Department with epigastric pain and she also reported episodes of vomiting of bile as well. She tells me that she has had issues with episodes of these since her gallbladder has taken out in July of 2018. She tells me that Dr. Negron has released her from her care. She tells me that she drinks approximately one to two glasses of wine per week and she does smoke approximately one pack of cigarettes per day. Her ETOH content on admission showed a plasma serum alcohol level of 163.2, normal is less than 10. Dr. Bardales suspects that this is possibly an alcoholic pancreatitis. Her amylase was 150.4 and her lipase was 348.2. After remaining NPO with IV fluids and Protonix IV and IV pain control her symptoms did improve over th course of a day. Her lipase did drop down to 248.2 and her amylase dropped down to 112.4. She was anxious to go home. Her abdomen was less tender. She has been instructed to stop drinking and also stop smoking. We did discuss about adding cholesterol medicine as she has had a history of [place] and coronary artery disease. She is going to discuss that with Dr. Michelle. On examination her lungs were diminished. Abdomen soft, notender, bowel sounds positive. Heart regular rate and rhythm. On discharge her vital signs were temperature 99, pulse 72, blood pressure 118/89, 02 sat 98% on room air. On telemetry she is running normal sinus rhythm with PVCs, 83 beats per minute. PERTINENT LABS AND DIAGNOSTIC TESTING HAS BEEN DISCUSSED: Her CT scan of the abdomen and pelvis was discussed and the history and physical and right upper quadrant ultrasound neither of which showed any kind of pancreatic abnormality. DISCHARGE MEDICATION: She has been instructed to not take any antiinflammatories. Prescription has been called to the pharmacy for Protonix or also called Pantoprazole 40 mg p.o. daily. She has been instructed to take this with the largest meal of the day. She is to call if any concerns or problems prior to her appointment. She has been scheduled to see Dr. Bardales next week on 10/18/18 at 10:30 a.m. No alcohol and no smoking. Further labs and diagnostic testing will be discussed at that appointment. DISCHARGE DIET: Recommend bland diet. DISCHARGE ACTIVITY LEVEL: Activity as tolerated. Recommend increased activity level. TIME SPENT: GREATER THAN 30 MINUTES MTDD
== END 2018-10-10 16:10 | disposition home or self-care (01) | DRG 440 ==
LOC: ED 06:41 → MEDSURG B 10:30
PROVIDERS: ADMIT General Practice; ATTEND General Practice
DX: K85.20 Alcohol induced acute pancreatitis without necrosis or infection (principal); R11.2 Nausea with vomiting, unspecified; R10.13 Epigastric pain; I25.10 Atherosclerotic heart disease of native coronary artery without angina pectoris; J44.9 Chronic obstructive pulmonary disease, unspecified; Z72.0 Tobacco use
CPT/HCPCS: 36415; 80053; 80307; 81001; 82150; 82306; 82550; 82728; 82784; 83516; 83540; 83550; 83690; 84484; 85025; 85597; 85598; 85610; 85613; 85651; 85670; 85730; 85732; 86140; 86146; 86147; 86200; 86430; 93005; 93010; 96361; 96374; 96375; 96376; 97802; 99284

== ENCOUNTER 2019-08-12 13:57 | Observation (INO) ==
[2019-08-12] MEDS ORDERED: PROTONIX PO STA (14:48)
[2019-08-12] MEDS ORDERED: ZOFRAN 4 MG/2 ML IVP STA ×2 (14:48→15:53)
--- NOTE | 2019-08-12 14:54 | ED.PDOC ---
General ED Provider: Dr. PANTERA PRUITT MD Chief Complaint: Nausea/Vomiting Stated Complaint: mild to mod off and on NV today and epigastric cramps, no injury, no fever, hx of recurrent epigastric pain Time Seen by Physician: 14:52 Mode of Arrival: Walk-In Information Source: Patient Primary Care Provider: COLT CRUZ MD Nursing and Triage Documentation Reviewed and Agree: Yes Does patient meet sepsis criteria?: No System Inflammatory Response Syndrome: Not Applicable Sepsis Protocol: For patient's 13 years and over: Temp is 96.8 and below OR 101 and greater Pulse >90 BPM Resp >20/minute Acutely Altered Mental Status Are patient's symptoms suggestive of a new infection, such as: -Pneumonia -Skin, Soft Tissue -Endocarditis -UTI -Bone, Joint Infection -Implantable Device -Acute Abdominal Infection -Wound Infection -Meningitis -Blood Stream Catheter Infection -Unknown GI Complaint Exam Abdominal Pain Complaint/Exam Onset: Gradual Duration: since 5am Symptoms Are: Still present Timing: Intermittent Initial Severity: Mild Current Severity: Mild Location of Pain: Epigastric Character: Reports Cramping Associated Signs and Symptoms: Denies Fever and Chest pain Related History: Reports Similar episode Review of Systems Review Of Systems Constitutional: Denies Fever Eyes: Denies Vision change Ears, Nose, Mouth, Throat: Denies Throat pain Respiratory: Denies Short of air Cardiac: Denies Chest pain GI: Reports Abdominal pain, Nausea and Vomiting : Denies Dysuria Musculoskeletal: Denies Back pain and Neck pain Neurological: Denies Cognitive dysfunction and Headache All Other Systems: Other [facility] Medical History Compression fracture of second lumbar vertebra Myocardial infarction (03/08/17) Pneumonia Family History Mother No problems noted. Grandfather/Grandmother Malignant neoplasm of lung Other Alzheimer disease GI (gastrointestinal bleed) Social History Smoking and tobacco status: Current every day smoker Substance use type: does not use History of recent travel: No Female Reproductive History Menstrual Hx Hysterectomy: Yes Hx Tubal Ligation: No Physical Exam Physical Exam Appearance: Reports Well-appearing Ill-appearing: None Pain Distress: None Eyes: Reports CHELLE, EOMI and Conjunctiva clear ENT: Reports Oropharynx normal Neck: Supple Respiratory: Reports Breath sounds clear and Breath sounds equal Cardiovascular: Reports RRR GI/: Reports Soft and Tender (no rebound) Musculoskeletal: Reports ROM intact and No edema Skin: Reports Warm and Dry Neurological: Reports Cranial nerves intact, Alert and Oriented Psychiatric: Reports Affect appropriate Interpretation Radiology Interpretation Radiology Interpretation By: Radiologist Radiology Results: No acute changes Exam Interpreted: CXR Radiology Interpretation By: Radiologist Radiology Results: No acute changes Exam Interpreted: CT Scan EKG Interpretation Time of EKG #1: 16:25 Rate: Normal Rhythm: Sinus Ectopy: None Interpretation: no stemi Re-Evaluation Re-Evaluation Time of Re-Evaluation: 16:25 Status: Improved Vital Signs Stable: Yes Appearance: NAD Neuro: Alert and Oriented X3 Additional Comments: pt continues vomiting, differential d/w pt as viral syndrome, gerd, observation admit for continued treatment, iv hydration, serial troponins not elevated, care to Dr Sahu at 19:00 Critical Care Note Critical Care Note Total Time (mins): 0 Course Course Hematology/Chemistry: 08/12/19 14:56 08/12/19 14:56 Orders, Labs, Meds: Lab Review 08/12/19 08/12/19 08/12/19 14:56 14:56 14:56 WBC 9.60 RBC 4.38 Hgb 11.8 L Hct 36.9 L MCV 84.2 MCH 26.9 L MCHC 32.0 RDW Coeff of Maxi 21.2 H Plt Count 336 Immature Gran % (Auto) 0.5 Neut % (Auto) 85.9 H Lymph % (Auto) 9.7 L Riley % (Auto) 2.7 Eos % (Auto) 0.2 Baso % (Auto) 1.0 Neut # (Auto) 8.2 H Lymph # (Auto) 0.9 Riley # (Auto) 0.3 L Eos # (Auto) 0.0 Baso # (Auto) 0.1 Immature Gran # (Auto) 0.1 PT 10.1 INR 1.03 Sodium 135.6 Potassium 3.74 Chloride 98.7 Carbon Dioxide 29.4 Anion Gap 11.24 BUN 8.0 Creatinine 0.61 Estimated GFR (MDRD) 98.00 BUN/Creatinine Ratio 13.11 Glucose 129.1 H Calcium 8.70 Total Bilirubin 0.26 AST 23.8 ALT 11.7 Alkaline Phosphatase 103.1 Troponin I < 0.012 Total Protein 6.74 Albumin 3.80 Globulin 2.94 Albumin/Globulin Ratio 1.29 Lipase 114.0 Plasma/Serum Alcohol < 10.0 08/12/19 17:15 WBC RBC Hgb Hct MCV MCH MCHC RDW Coeff of Maxi Plt Count Immature Gran % (Auto) Neut % (Auto) Lymph % (Auto) Riley % (Auto) Eos % (Auto) Baso % (Auto) Neut # (Auto) Lymph # (Auto) Riley # (Auto) Eos # (Auto) Baso # (Auto) Immature Gran # (Auto) PT INR Sodium Potassium Chloride Carbon Dioxide Anion Gap BUN Creatinine Estimated GFR (MDRD) BUN/Creatinine Ratio Glucose Calcium Total Bilirubin AST ALT Alkaline Phosphatase Troponin I < 0.012 Total Protein Albumin Globulin Albumin/Globulin Ratio Lipase Plasma/Serum Alcohol Orders Category Date Time Status ADMIT OBSERVATION [PLACE PATIENT OBSERVATION] .TO ADMISSION 08/12/19 17:05 Active MEDSURG (NON-MONITORED BED) EKG-(ED ONLY) Stat CARDIO 08/12/19 14:48 Completed BLOOD ALCOHOL Stat LAB 08/12/19 14:56 Completed CBC W/ AUTO DIFF Stat LAB 08/12/19 14:56 Completed COMPREHENSIVE METABOLIC PANEL Stat LAB 08/12/19 14:56 Completed LIPASE Stat LAB 08/12/19 14:56 Completed PT WITH INR Stat LAB 08/12/19 14:56 Completed TROPONIN I Stat LAB 08/12/19 14:56 Completed TROPONIN I Stat LAB 08/12/19 17:15 Completed Aspirin [Aspirin EC] MEDS 08/13/19 09:00 Active 81 mg PO DAILY Nitroglycerin [Nitrostat] MEDS 08/12/19 17:07 Active 0.4 mg SL PRN PRN Ondansetron HCl/Pf [Zofran 4 mg/2 ml] MEDS 08/12/19 14:48 Discontinued 4 mg IVP ONCE STA Ondansetron HCl/Pf [Zofran 4 mg/2 ml] MEDS 08/12/19 15:53 Discontinued 4 mg IVP ONCE STA Pantoprazole Sodium [Protonix] MEDS 08/12/19 14:48 Discontinued 40 mg PO ONCE STA Promethazine HCl [Phenergan 25 mg/ml Vial] MEDS 08/12/19 17:11 Discontinued 12.5 mg IM ONCE STA CHEST, 1V AP ONLY Stat RADS 08/12/19 14:[address] ABDOMEN/PELVIS WO CONTRAST Stat RADS 08/12/19 14:48 Completed Medications Generic Name Dose Route Start Last Admin Trade Name Freq PRN Reason Stop Dose Admin Acetaminophen 650 mg 08/12/19 17:50 Tylenol PO Q4H PRN Mild Pain Aspirin 81 mg 08/13/19 09:00 Aspirin Ec PO DAILY GENTRY Sodium Chloride 1,000 mls @ 75 mls/hr 08/12/19 18:00 Sodium Chloride IV .[id number] GENTRY Nitroglycerin 0.4 mg 08/12/19 17:07 Nitrostat SL PRN PRN Chest Pain Ondansetron HCl 4 mg 08/12/19 17:50 Zofran 4 Mg/2 Ml IVP Q6H PRN Nausea / Vomiting Discontinued Medications Generic Name Dose Route Start Last Admin Trade Name Freq PRN Reason Stop Dose Admin Ondansetron HCl 4 mg 08/12/19 14:48 08/12/19 15:15 Zofran 4 Mg/2 Ml IVP 08/12/19 14:49 4 mg ONCE STA Administration Ondansetron HCl 4 mg 08/12/19 15:53 08/12/19 16:01 Zofran 4 Mg/2 Ml IVP 08/12/19 15:54 4 mg ONCE STA Administration Pantoprazole Sodium 40 mg 08/12/19 14:48 08/12/19 15:16 Protonix PO 08/12/19 14:49 40 mg ONCE STA Administration Promethazine HCl 12.5 mg 08/12/19 17:11 08/12/19 17:26 Phenergan 25 Mg/Ml Vial IM 08/12/19 17:12 12.5 mg ONCE STA Administration Vital Signs: Temp Pulse Resp BP Pulse Ox 08/12/19 13:58 97.8 F 81 22 154/82 H 97 Discharge Plan Discharge Patient Disposition: PLACED OBSERVATION Discharge Problem: Abdominal pain, Vomiting Instructions: Abdominal Pain (ED) ED Provider: PANTERA PRUITT Condition: Good Discharge Date/Time: 08/12/19 18:06
[2019-08-12 15:01] LABS: BASOPHILS # (AUTO) 0.1 K/uL (0-0.2); EOSINOPHILS % (AUTO) 0.2 % (0.0-7.0); HEMATOCRIT 36.9 % (37.0-47.0); HEMOGLOBIN 11.8 g/dl (12.0-16.0); IMMATURE GRANULOCYTE # (AUTO) 0.1 (0.0-1.0); IMMATURE GRANULOCYTE % (AUTO) 0.5 % (0.0-5.0); LYMPHOCYTES # (AUTO) 0.9 K/uL (0.60-3.4); LYMPHOCYTES % (AUTO) 9.7 (10.0-50.0); MEAN CORPUSCULAR VOLUME 84.2 fl (81.0-99.0); MONOCYTES # (AUTO) 0.3 K/uL (0.4-2.0); MONOCYTES % (AUTO) 2.7 (0-10); NEUTROPHILS # (AUTO) 8.2 K/ul (2.0-6.9); NEUTROPHILS % (AUTO) 85.9 % (42.2-75.2); PLATELET COUNT 336 10^3/uL (140-440); RDW COEFFICIENT OF VARIATION 21.2 % (11.6-14.8); RED BLOOD COUNT 4.38 10^6/ul (4.20-5.40)
[2019-08-12 15:12] LABS: PROTHROMBIN TIME 10.1 SEC (9.3-11.0)
[2019-08-12 15:14] LABS: ALANINE AMINOTRANSFERASE 11.7 U/L (0-35); ALKALINE PHOSPHATASE 103.1 U/L (53-141); ASPARTATE AMINO TRANSFERASE 23.8 U/L (14-36); BILIRUBIN,TOTAL 0.26 mg/dL (0.2-1.3); CARBON DIOXIDE 29.4 mmol/L (22-30.0); CHLORIDE 98.7 mmol/L (98-107); CREATININE 0.61 mg/dL (0.60-1.30); GLUCOSE 129.1 mg/dL (74-106); SODIUM 135.6 mmol/L (134.5-145); TOTAL PROTEIN 6.74 g/dL (6.3-8.2)
[2019-08-12 15:15] LABS: BLOOD ALCOHOL < 10.0 mg/dL (0.0-50.0)
--- NOTE | 2019-08-12 15:47 | DI ---
EXAM: Chest one view HISTORY: Abdominal pain COMPARISON: 11/09/2017 TECHNIQUE: Single view of the chest was performed FINDINGS: The lungs are clear. There is no pleural effusion or pneumothorax. The heart is normal i n size. The mediastinal contour is normal. There are no acute abnormalities of the bones. Old right rib fracture. IMPRESSION: No acute cardiopulmonary process.
--- NOTE | 2019-08-12 16:01 | CT ---
EXAM: CT Abdomen without contrast. CT Pelvis without contrast. HISTORY: Generalized abdominal pain. COMPARISON: Ultrasound and CT 10/09/2018. TECHNIQUE: Multiple axial images of the abdomen and pelvis were obtained without intravenous contras t. Images were reformatted in the sagittal and coronal plane. FINDINGS: Please note that evaluation of the abdominal and pelvic structures is limited due to lack of intravenous contrast. Lung bases are clear. Degenerative changes in the spine. Stable old L2, T11 and T10 compression fractures. The liver is enlarged. Gallbladder is absent. The pancreas, spleen, and kidneys demonstrate no acut e abnormality. Benign bilateral adrenal adenomas again noted. Small hiatal hernia is present. There is no bowel obstruction. There is a large ventral hernia whic h mostly contains fat although there is protrusion of a portion transverse colon through the defect. No associated inflammation detected. Staple line seen in the rectosigmoid with stable presacral sca rring. Uterus is absent. Bladder is normal. Phleboliths present in the pelvis. Atherosclerotic calcifications noted. Fusiform dilatation of the distal infrarenal aorta to a maximum diameter 2.7 x 2.6 cm noted. IMPRESSION: 1. No acute abnormality in the abdomen or pelvis. 2. Large ventral hernia containing mostly fat as well as a portion transverse colon. 3. Stable postsurgical changes of the rectosigmoid with presacral scarring. 4. Hepatomegaly.
[2019-08-12] MEDS ORDERED: NITROSTAT SL PRN (17:07)
[2019-08-12] MEDS ORDERED: PHENERGAN 25 MG/ML VIAL IM STA (17:11)
[2019-08-12] MEDS ORDERED: ZOFRAN 4 MG/2 ML IVP PRN (17:50)
[2019-08-12] MEDS: SODIUM CHLORIDE 1,000 ML IV SCH (18:20)
[2019-08-12 18:39] VITALS: BMI 27.6
[2019-08-12] MEDS: TYLENOL PO PRN (19:21)
[2019-08-12] MEDS ORDERED: GI COCKTAIL PO STA (21:33)
[2019-08-13] MEDS ORDERED: DILAUDID 1 MG/ML SYRINGE IVP STA (01:00)
[2019-08-13] MEDS ORDERED: PROTONIX IV IVP STA (01:00)
[2019-08-13 01:25] LABS: CREATINE KINASE 77.4 U/L (30-135)
--- NOTE | 2019-08-13 02:01 | DI ---
EXAM: Abdomen one-view HISTORY: Epigastric pain FINDINGS: Normal bowel gas pattern. No pathologic calcifications. No large free intraperitoneal ga s. Cholecystectomy clips in place. No abundance of retained colonic stool. Degenerative change of the spine. IMPRESSION: Normal bowel gas pattern
[2019-08-13 05:30] LABS: BASOPHILS # (AUTO) 0.1 K/uL (0-0.2); BASOPHILS % (AUTO) 0.4 % (0.0-3.0); EOSINOPHILS % (AUTO) 0.1 % (0.0-7.0); HEMOGLOBIN 11.5 g/dl (12.0-16.0); IMMATURE GRANULOCYTE # (AUTO) 0.1 (0.0-1.0); IMMATURE GRANULOCYTE % (AUTO) 0.4 % (0.0-5.0); LYMPHOCYTES # (AUTO) 1.7 K/uL (0.60-3.4); LYMPHOCYTES % (AUTO) 12.4 (10.0-50.0); MEAN CORPUSCULAR HGB CONC 31.9 (31.8-35.4); MEAN CORPUSCULAR VOLUME 84.1 fl (81.0-99.0); MONOCYTES # (AUTO) 0.7 K/uL (0.4-2.0); MONOCYTES % (AUTO) 5.5 (0-10); NEUTROPHILS # (AUTO) 10.9 K/ul (2.0-6.9); NEUTROPHILS % (AUTO) 81.2 % (42.2-75.2); PLATELET COUNT 321 10^3/uL (140-440); RED BLOOD COUNT 4.28 10^6/ul (4.20-5.40); WHITE BLOOD COUNT 13.42 K/ul (4.6-10.2)
[2019-08-13 05:43] LABS: ALANINE AMINOTRANSFERASE 11.6 U/L (0-35); ALBUMIN 3.69 g/dL (3.5-5.0); ALKALINE PHOSPHATASE 88.7 U/L (53-141); ASPARTATE AMINO TRANSFERASE 24.5 U/L (14-36); BILIRUBIN,TOTAL 0.63 mg/dL (0.2-1.3); BLOOD UREA NITROGEN 9.9 mg/dL (7-17); CALCIUM 8.66 mg/dL (8.4-10.2); CARBON DIOXIDE 27.2 mmol/L (22-30.0); CHLORIDE 99.2 mmol/L (98-107); CREATININE 0.61 mg/dL (0.60-1.30); GLUCOSE 103.9 mg/dL (74-106); SODIUM 132.4 mmol/L (134.5-145); TOTAL PROTEIN 6.47 g/dL (6.3-8.2)
[2019-08-13] MEDS: SODIUM CHLORIDE 1,000 ML IV SCH (07:20)
[2019-08-13] MEDS ORDERED: NITROSTAT SL PRN (07:30)
[2019-08-13] MEDS: TYLENOL PO PRN (08:23)
--- NOTE | 2019-08-13 08:25 | PCM ---
Chief Complaint Chief Complaint: Nausea and vomiting with persistend mid epigastic pain, occuring most of the day on Monday. Denied chest pain and states this morning feeling much better. History of Present Illness History of Present Illness: Patient stated suden onset yesterday morning, multiple episodes and eventually came to ER for evaluaton and treatment. Diagnostic evaluation including imaging studies failed to determine surgical pathology. Given IV fluids, IV protonix and admitted for observation and treatment. This morning feels much better. Given regular diet after adission and after eatting douglass pie last evening developed upper abdominal and epigastric pain early this am. Additonal studies ordered and treated with IV opiate analgesic which brought about resloution of her symptoms. Currently up and about in her room and asymptomatic Review of Systems Constitutional: Denies fever, chills, weakness, sweats, fatigue, loss of appetite and other Eyes: Denies blurred vision, double-vision, discharge, itching, pain, redness, photophobia and other Ears: Denies pain, bleeding, drainage, ringing, hearing loss and other Nose: Denies bleeding, congestion, discharge and other Throat: Denies pain, swelling, voice change and other Mouth: Denies bleeding, pain, swelling and other Respiratory: Denies cough, shortness of air, wheeze, hemoptysis, pain with breathing and other Cardiovascular: Denies chest pain, left arm pain, diaphoresis, PND, orthopnea, edema, palpitations, syncope and other Gastrointestinal: Reports nausea and vomiting; Denies abdominal pain, diarrhea, melena, hematemesis, hematochezia, dysphagia, constipation and other Genitourinary: Denies dysuria, hematuria, frequency, incontinence, flank pain, vaginal discharge, abnormal bleeding, pelvic pain and other Neurological: Denies headache, dizziness, seizure, numbness, weakness, speech difficulty, problems with walking, tremor, fainting and other Musculoskeletal: Denies pain, swelling in joints and other Skin: Denies rash, pruritus, lacerations, wounds, bruising and other Immunology: Denies hives, itching, frequent infections, difficulty healing and other Hematology: Denies easy bruising, easy bleeding, swollen glands and other Endocrine: Denies weight changes, cold intolerance, heat intolerance, excessive thirst, excessive hunger, polyuria and other Psychiatric: Denies depression, anxiety, sleeplessness, hopelessness, suicidal, hallucinations and other Allergies Allergies Allergy/AdvReac Type Severity Reaction Status Date / Time levofloxacin [From Levaquin] Allergy Mild Rash Verified 08/12/19 14:42 sulfamethoxazole AdvReac Intermediate Rash Verified 08/12/19 14:42 PFSH Medical History Compression fracture of second lumbar vertebra Myocardial infarction (03/08/17) Pneumonia Surgical History Cataract extraction and insertion of intraocular lens History of partial surgical removal of colon History of surgery History of surgery on integumentary structure Status post hysterectomy Family History Mother No problems noted. Grandfather/Grandmother Malignant neoplasm of lung Other Alzheimer disease GI (gastrointestinal bleed) Social History Smoking and tobacco status: Current every day smoker Substance use type: does not use History of recent travel: No Medications Medications: Medications Generic Name Dose Route Start Last Admin Trade Name Freq PRN Reason Stop Dose Admin Acetaminophen 650 mg 08/12/19 17:50 08/12/19 19:21 Tylenol PO 650 mg Q4H PRN Administration Mild Pain Aspirin 81 mg 08/13/19 08:30 Aspirin Ec PO DAILYWM GENTRY Sodium Chloride 1,000 mls @ 75 mls/hr 08/12/19 18:00 08/13/19 07:20 Sodium Chloride IV 75 mls/hr .[id number] GENTRY Administration Nitroglycerin 0.4 mg 08/13/19 07:30 Nitrostat SL Q5MIN X 3 DOSES PRN Chest Pain Ondansetron HCl 4 mg 08/12/19 17:50 08/12/19 23:01 Zofran 4 Mg/2 Ml IVP 4 mg Q6H PRN Administration Nausea / Vomiting Body Composition Height: 5 ft 4 in Weight: 160 lb 11.472 oz Body Mass Index (BMI): 27.6 Vital Signs Temperature: 98.3 F Pulse Rate: 89 Respiratory Rate: 20 Blood Pressure: 119/70 O2 Sat by Pulse Oximetry: 93 Physical Examination Appearance: Reports Well-appearing, No pain distress, Well-nourished, Obese and Other; Denies Ill-appearing, Thin and Cachectic Ill-appearing: None Pain Distress: None Eyes: Reports CHELLE, EOMI, Conjunctiva clear, Right pupil size, Left pupil size and Other; Denies Conjunctiva inflammed and Conjunctiva pale ENT: Reports Ears normal, Nose normal and Oropharynx normal Neck: Supple (No palpable masses, to nodules, no bruits to ascultation ) Respiratory: Reports Airway patent, Breath sounds clear, Breath sounds equal and Respirations nonlabored; Denies Crackles, Rhonchi, Wheezes and Retractions Cardiovascular: Reports RRR, Pulses normal, No rub and No murmur; Denies Abnormal pulses and Murmur GI/: Reports Soft, Nontender, No masses, Bowel sounds normal and No Organomegaly; Denies Hepatomegaly Musculoskeletal: Reports Normal strength, ROM intact, No edema and No calf tenderness Skin: Reports Warm and Normal color Neurological: Reports Sensation intact, Motor intact, Reflexes intact, Cranial nerves intact, Alert and Oriented Psychiatric: Reports Affect appropriate, Mood appropriate and Anxious; Denies Depressed Lab/Tests/Diagnostic Imaging Lab/Tests/Diagnostic Imaging: Lab Review 08/12/19 08/12/19 08/12/19 14:56 14:56 14:56 WBC 9.60 RBC 4.38 Hgb 11.8 L Hct 36.9 L MCV 84.2 MCH 26.9 L MCHC 32.0 RDW Coeff of Maxi 21.2 H Plt Count 336 Immature Gran % (Auto) 0.5 Neut % (Auto) 85.9 H Lymph % (Auto) 9.7 L Kenton % (Auto) 2.7 Eos % (Auto) 0.2 Baso % (Auto) 1.0 Neut # (Auto) 8.2 H Lymph # (Auto) 0.9 Kenton # (Auto) 0.3 L Eos # (Auto) 0.0 Baso # (Auto) 0.1 Immature Gran # (Auto) 0.1 PT 10.1 INR 1.03 Sodium 135.6 Potassium 3.74 Chloride 98.7 Carbon Dioxide 29.4 Anion Gap 11.24 BUN 8.0 Creatinine 0.61 Estimated GFR (MDRD) 98.00 BUN/Creatinine Ratio 13.11 Glucose 129.1 H Calcium 8.70 Total Bilirubin 0.26 AST 23.8 ALT 11.7 Alkaline Phosphatase 103.1 Total Creatine Kinase Troponin I < 0.012 Total Protein 6.74 Albumin 3.80 Globulin 2.94 Albumin/Globulin Ratio 1.29 Lipase 114.0 Plasma/Serum Alcohol < 10.0 08/12/19 08/13/19 08/13/19 17:15 01:10 05:20 WBC 13.42 H RBC 4.28 Hgb 11.5 L Hct 36.0 L MCV 84.1 MCH 26.9 L MCHC 31.9 RDW Coeff of Maxi 21.0 H Plt Count 321 Immature Gran % (Auto) 0.4 Neut % (Auto) 81.2 H Lymph % (Auto) 12.4 Kenton % (Auto) 5.5 Eos % (Auto) 0.1 Baso % (Auto) 0.4 Neut # (Auto) 10.9 H Lymph # (Auto) 1.7 Kenton # (Auto) 0.7 Eos # (Auto) 0.0 Baso # (Auto) 0.1 Immature Gran # (Auto) 0.1 PT INR Sodium Potassium Chloride Carbon Dioxide Anion Gap BUN Creatinine Estimated GFR (MDRD) BUN/Creatinine Ratio Glucose Calcium Total Bilirubin AST ALT Alkaline Phosphatase Total Creatine Kinase 77.4 Troponin I < 0.012 0.024 Total Protein Albumin Globulin Albumin/Globulin Ratio Lipase Plasma/Serum Alcohol 08/13/19 05:20 WBC RBC Hgb Hct MCV MCH MCHC RDW Coeff of Maxi Plt Count Immature Gran % (Auto) Neut % (Auto) Lymph % (Auto) Kenton % (Auto) Eos % (Auto) Baso % (Auto) Neut # (Auto) Lymph # (Auto) Kenton # (Auto) Eos # (Auto) Baso # (Auto) Immature Gran # (Auto) PT INR Sodium 132.4 L Potassium 3.96 Chloride 99.2 Carbon Dioxide 27.2 Anion Gap 9.96 BUN 9.9 Creatinine 0.61 Estimated GFR (MDRD) 98.00 BUN/Creatinine Ratio 16.22 Glucose 103.9 Calcium 8.66 Total Bilirubin 0.63 AST 24.5 ALT 11.6 Alkaline Phosphatase 88.7 Total Creatine Kinase Troponin I Total Protein 6.47 Albumin 3.69 Globulin 2.78 Albumin/Globulin Ratio 1.32 Lipase Plasma/Serum Alcohol Orders Category Date Time Status ADMIT OBSERVATION [PLACE PATIENT OBSERVATION] .TO ADMISSION 08/12/19 17:05 Active MEDSURG (NON-MONITORED BED) EKG-(ED ONLY) Stat CARDIO 08/12/19 14:48 Completed EKG-(IP & OP ONLY) Stat CARDIO 08/13/19 00:59 Completed ACTIVITY .BR with BRP CARE 08/12/19 17:50 Active GIVE HS SNACK 2100 CARE 08/13/19 01:45 Active INTAKE & OUTPUT Q8HR CARE 08/12/19 17:50 Active Notify RT of Treatment ONCE CARE 08/13/19 00:59 Active Telemetry [TELEMETRY MONITORING] TELE CARE 08/12/19 19:06 Active VITAL SIGNS Q8HR CARE 08/12/19 17:50 Active CLEAR LIQUID DIET DIETARY 08/13/19 Breakfast Ordered HS SNACK DIETARY 08/13/19 Dinner Ordered BLOOD ALCOHOL Stat LAB 08/12/19 14:56 Completed CBC W/ AUTO DIFF DAILY@0600 LAB 08/13/19 05:20 Completed CBC W/ AUTO DIFF DAILY@0600 LAB 08/14/19 06:00 Ordered CBC W/ AUTO DIFF Stat LAB 08/12/19 14:56 Completed CK [CREATINE KINASE] Stat LAB 08/13/19 01:10 Completed COMPREHENSIVE METABOLIC PANEL DAILY@0600 LAB 08/13/19 05:20 Completed COMPREHENSIVE METABOLIC PANEL DAILY@0600 LAB 08/14/19 06:00 Ordered COMPREHENSIVE METABOLIC PANEL Stat LAB 08/12/19 14:56 Completed LIPASE Stat LAB 08/12/19 14:56 Completed PT WITH INR Stat LAB 08/12/19 14:56 Completed TROPONIN I Stat LAB 08/12/19 14:56 Completed TROPONIN I Stat LAB 08/12/19 17:15 Completed TROPONIN I Stat LAB 08/13/19 01:10 Completed Acetaminophen [Tylenol] MEDS 08/12/19 17:50 Active 650 mg PO Q4H PRN Aspirin [Aspirin EC] MEDS 08/13/19 08:30 Active 81 mg PO DAILYWM Hydromorphone HCl [Dilaudid 1 mg/ml Syringe] MEDS 08/13/19 01:00 Discontinued 1 mg IVP ONCE STA Mag-Al Plus//Lidocaine [Gi Cocktail] MEDS 08/12/19 21:33 Discontinued 30 ml PO ONCE STA Nitroglycerin [Nitrostat] MEDS 08/12/19 17:07 Discontinued 0.4 mg SL PRN PRN Nitroglycerin [Nitrostat] MEDS 08/13/19 07:30 Active 0.4 mg SL Q5MIN X 3 DOSES PRN Ondansetron HCl/Pf [Zofran 4 mg/2 ml] MEDS 08/12/19 14:48 Discontinued 4 mg IVP ONCE STA Ondansetron HCl/Pf [Zofran 4 mg/2 ml] MEDS 08/12/19 15:53 Discontinued 4 mg IVP ONCE STA Ondansetron HCl/Pf [Zofran 4 mg/2 ml] MEDS 08/12/19 17:50 Active 4 mg IVP Q6H PRN Pantoprazole Sodium [Protonix IV] MEDS 08/13/19 01:00 Discontinued 40 mg IVP ONCE STA Pantoprazole Sodium [Protonix] MEDS 08/12/19 14:48 Discontinued 40 mg PO ONCE STA Promethazine HCl [Phenergan 25 mg/ml Vial] MEDS 08/12/19 17:11 Discontinued 12.5 mg IM ONCE STA Sodium Chloride 0.9% [Sodium Chloride] 1,000 ml MEDS 08/12/19 18:00 Active IV 75 mls/hr RESUSCITATION STATUS Routine OTHERS 08/12/19 17:50 Ordered CHEST, 1V AP ONLY Stat RADS 08/12/19 14:[address] ABDOMEN/PELVIS WO CONTRAST Stat RADS 08/12/19 14:48 Completed KUB [ABDOMEN 1 VIEW] Stat RADS 08/13/19 00:59 Completed Medications Generic Name Dose Route Start Last Admin Trade Name Freq PRN Reason Stop Dose Admin Acetaminophen 650 mg 08/12/19 17:50 08/12/19 19:21 Tylenol PO 650 mg Q4H PRN Administration Mild Pain Aspirin 81 mg 08/13/19 08:30 Aspirin Ec PO DAILYWM GENTRY Sodium Chloride 1,000 mls @ 75 mls/hr 08/12/19 18:00 08/13/19 07:20 Sodium Chloride IV 75 mls/hr .[id number] GENTRY Administration Nitroglycerin 0.4 mg 08/13/19 07:30 Nitrostat SL Q5MIN X 3 DOSES PRN Chest Pain Ondansetron HCl 4 mg 08/12/19 17:50 08/12/19 23:01 Zofran 4 Mg/2 Ml IVP 4 mg Q6H PRN Administration Nausea / Vomiting Discontinued Medications Generic Name Dose Route Start Last Admin Trade Name Freq PRN Reason Stop Dose Admin Al Hydroxide/Mg Hydroxide 30 ml 08/12/19 21:33 08/12/19 21:53 Gi Cocktail PO 08/12/19 21:34 30 ml ONCE STA Administration Hydromorphone HCl 1 mg 08/13/19 01:00 08/13/19 01:38 Dilaudid 1 Mg/Ml Syringe IVP 08/13/19 01:01 1 mg ONCE STA Administration Nitroglycerin 0.4 mg 08/12/19 17:07 Nitrostat SL PRN PRN Chest Pain Ondansetron HCl 4 mg 08/12/19 14:48 08/12/19 15:15 Zofran 4 Mg/2 Ml IVP 08/12/19 14:49 4 mg ONCE STA Administration Ondansetron HCl 4 mg 08/12/19 15:53 08/12/19 16:01 Zofran 4 Mg/2 Ml IVP 08/12/19 15:54 4 mg ONCE STA Administration Pantoprazole Sodium 40 mg 08/12/19 14:48 08/12/19 15:16 Protonix PO 08/12/19 14:49 40 mg ONCE STA Administration Pantoprazole Sodium 40 mg 08/13/19 01:00 08/13/19 01:38 Protonix Iv IVP 08/13/19 01:01 40 mg ONCE STA Administration Promethazine HCl 12.5 mg 08/12/19 17:11 08/12/19 17:26 Phenergan 25 Mg/Ml Vial IM 08/12/19 17:12 12.5 mg ONCE STA Administration Assessment (1) Vomiting: Status: Acute Code(s): R11.10 - Vomiting, unspecified SNOMED Code(s): 124349389 (2) Abdominal pain: Status: Acute Code(s): R10.9 - Unspecified abdominal pain SNOMED Code(s): 79968439
[2019-08-13] MEDS ORDERED: ASPIRIN EC PO SCH (08:30)
[2019-08-13] MEDS ORDERED: PROTONIX PO SCH ×2 (08:30→17:00)
[2019-08-13 09:12] LABS: CHOLESTEROL 191.7 mg/dL (0-200); CREATINE KINASE 78.1 U/L (30-135); HDL CHOLESTEROL 46.3 mg/dL (35-80); LIPASE 140.7 U/L (23-300); TRIGLYCERIDES 140.9 mg/dL (0-150)
[2019-08-13 14:12] VITALS: BP 123/72; TEMP 98.1
--- NOTE | 2019-08-15 12:20 | ECHO2D ---
Date of Exam: 08/13/2019 Ordering Physician: DR. COLT MANN Room #: 117 Reason for Echo: HX DE M-Mode Normal Adult Results LV Dimensions Normal Adult Results AoV Opening excursions >1.6 1.6 LVEDD-base- 3.5-5.8 5.5 Ao root dimensions 2.0-3.7 3.3 LVESD-base- 3.1-4.6 L. Atrium dimensions 1.9-3.8 4.0 Post. Wall thickness 0.8-1.1 1.1 IV septum (thickness) 0.7-1.2 1.1 Post. Wall excursion 0.72-1.3 NORMAL Septal motion 0.5 Systolic motion R. Ventricular cavity 1.5-2.0 NORMAL LVEF 60% 52% Paradoxical septal wall motion NORMAL 2-D : 2-D M Mode Echocardiogram was performed using apical four chamber and left parasternal long and short axis views. Mitral, tricuspid and aortic valves appear to be normal. Contractility of the left ventricle seems to be normal, so is the cavity size. BORDERLINE LEFT ATRIAL CAVITY. Aortic root appears to be normal. There is no pericardial effusion. There is no thrombus noted in the left ventricle or left atrial cavity. No mitral valve prolapse noted. HYPOKINETIC SEPTUM M-MODE: MV: NORMAL AV: NORMAL TV: NORMAL PV: CHAMBER SIZE: BORDERLINE LEFT ATRIAL CAVITY WALL MOTION: HYPOKINETIC SEPTUM PERICARDIUM: NORMAL INTERPRETATION: 1. HYPOKINETIC SEPTUM WITH EJECTION FRACTION 52% 2. BORDERLINE LEFT ATRIAL CAVITY ENLARGEMENT 3. NORMAL VALVES MTDD
--- NOTE | 2019-08-20 12:40 | CONS ---
DATE OF CONSULTATION: 08/13/19 REASON FOR CONSULTATION: Evaluation of cardiovascular system HISTORY OF PRESENT ILLNESS: 64-year-old white female hospitalized yesterday with complaint of having nausea and vomiting. The patient has history of coronary artery disease with stent placement. She is being followed closely by Dr. Michelle every six months. Duration of symptoms 24 hours. The patient gives history of taking a lot of nonsteroidal antiinflammatory, Ibuprofen and Aleve for the past several days. She is also a smoker. REVIEW OF SYSTEMS: CONSTITUTIONAL: No night sweats. No fatigue, malaise, lethargy. No fever or chills. HEENT: Eyes: No visual changes. No eye pain. No eye discharge. ENT: No sinus drainage. No epistaxis. No sinus pain. No sore throat. No odynophagia. No ear pain. No congestion. RESPIRATORY: No cough, no congestion. No hemoptysis. No shortness of breath. CARDIOVASCULAR: No angina symptoms. No CHF symptoms. No atypical chest pain for CAD. No palpitations. No orthopnea. GASTROINTESTINAL: No abdominal pain. No nausea or vomiting. No diarrhea or constipation. No hematemesis. No hematochezia. GENITOURINARY: No urgency. No frequency. No dysuria. No hematuria. No obstructive symptoms. No discharge. No pain. No significant abnormal bleeding. MUSCULOSKELETAL: No musculoskeletal pain. No joint swelling. NEUROLOGICAL: No headache. No neck pain. No syncope. No seizures. No dizziness. PSYCHIATRIC: Not anxious. No depression. No suicidal thoughts. No homicidal thoughts. SKIN: No rash. No lesions. No wounds. ENDOCRINE: No unexplained weight loss. No weight gain. HEMATOLOGIC/LYMPHATIC: No anemia. No purpura. No petechiae. No prolonged or excessive bleeding. No palpable lymph nodes. MEDICATIONS: Aspirin 81 mg p.o. daily Nitroglycerin 0.4 mg sublingual p.r.n. ALLERGIES: LEVOFLOXACIN, SULFAMETHOXAZOLE PAST MEDICAL HISTORY: Hypertension Dyslipidemia Coronary artery disease with stent placement a couple of years ago PHYSICAL EXAMINATION: GENERAL: The patient is oriented to time, place and person. VITAL SIGNS: Temperature 98, pulse 80, respiratory rate 15, BP 120/80. HEENT: Head normocephalic, atraumatic. Eyes: Extraocular muscles are intact. Pupils are equal, round and reactive to light and accommodation. Ears: No lesions. Nose appeared normal. Throat: No exudate or erythema. NECK: Supple. No JVD, no carotid bruit. No lymphadenopathy or thyromegaly. LUNGS: Clear to auscultation. Percussion note normal. Chest symmetrical. HEART: S1, S2, no S3. No murmurs. No cyanosis or clubbing. No ascites. Pulses: Dorsalis pedis and posterior tibial pulses +1 to +2 bilaterally. ABDOMEN: Soft. Nontender. Bowel sounds active. No CVA tenderness. No mass felt. EXTREMITIES: No edema. Full range of motion of all extremities, equal. NEUROLOGIC: No focal deficit. Cranial nerves II through XII are grossly intact. No headache, no double vision or headache. SKIN: Not dry. Intact. Turgor - normal. LYMPHATIC: No palpable lymph nodes/no lymphedema. MUSCULOSKELETAL: Normal joints with no swelling. Muscle tone is normal. EKG sinus rhythm, poor R wave progression, no acute changes times three. Troponin elevated. CK-MB pending. Telemetry sinus rhythm, no arrhythmias of any significance. No ST wave change. ASSESSMENT: 1. EPIGASTRIC PAIN WITH NAUSEA, VOMITING. THE PATIENT HAS LOCALIZED TENDERNESS ON PHYSICAL EXAM. LIKELY CAUSE OF ABDOMINAL PAIN/EPIGASTRIC PAIN IS PEPTIC ULCER DISEASE WITH HISTORY OF TAKING NONSTEROIDAL ANTIINFLAMMATORIES, SMOKING. THE PATIENT HAS SIMILAR TYPE OF PAIN OFF AND ON PAST HOSPITALIZATION 11/29/16. AT THAT TIME SHE HAD EPIGASTRIC PAIN WITH HISTORY OF REFLUX. 2. CORONARY ARTERY DISEASE WITH STENT PLACEMENT. 3. DYSLIPIDEMIA. 4 HYPERTENSION. 5. SMOKING. 6. NONCOMPLIANCE OF LIFESTYLE. PLAN: 1. Continue on the medications. 2. Start Protonix 40 mg twice a day for a couple of days and then she can take one a day q.a.m. 3. Advise to discontinue nonsteroidal and antiinflammatory. 4. Advised to take all of her medications on a regular basis. 5. Echocardiogram was done which showed normal LV contractility with LV cavity, is borderline approximately 5.4 to 5.6 cm size. LA cavity is normal. Valves are normal. LV cavity is borderline enlarged. 6. Counseling for smoking done. 7. Counseling for all risk factors of coronary artery disease done. 8. Advised to have stress echo with Dobutamine - the patient declines for now. 9. The patient's primary care physician has retired and she desired to be followed by me and I have accepted her as a patient and her is to be seen on Monday. 10. The patient's cardiovascular status is stable for now. The patient discussed with Dr. Stevens. JONAS
--- NOTE | 2019-08-20 12:44 | PN ---
CODING FOR BILLING 08/13/19 LEVEL 5 CONSULTATION MTDD
--- NOTE | 2019-10-04 14:31 | DS ---
DATE OF SERVICE: 08/13/19 CONDITION AT TIME OF DISCHARGE: Stable, improving. ENTERING STATEMENT: This 64-year-old female patient admitted to the hospital for observation for intractable nausea and vomiting, burning epigastric pain with dry heaves noted. At the time of admission, she was not vomiting. She received IV fluids, NS at 75 cc's/hr. She improved appropriately and advanced to clear liquids. She continued to have burning pain in the epigastrium and was given Tylenol for discomfort. She had recurrent discomfort in the mid epigastrium and appropriate labs were obtained by Dr. Sahu. She was given Protonix 40 mg IV push as well as Dilaudid 1 mg and she had resolution of the discomfort. Diagnostic investigation included an echocardiogram per Dr. Bliss with results found on the hospital chart. Throughout the morning on the day after admission she was improved, had no recurrent nausea or vomiting and continued to receive IV fluids. She tolerated advancing her diet well including clear liquids as well as her lunch. She tolerated increasing activity as well as increasing her diet. She was up and active and felt like being discharged to home. She was discharged to home on the evening after admission to hospital. During the hospitalization, the patient was seen by Dr. Bliss for consult. The patient has a known history of coronary artery disease and stent placement. She previously has been followed by Dr. Michelle. The patient previously had recently taken a large number of nonsteroidal antiinflammatory drugs to help alleviate her muscle and joint pain. FINAL ASSESSMENT: 1. PEPTIC ULCER DISEASE SECONDARY TO NONSTEROIDAL ANTIINFLAMMATORY DRUG USE. 2. CHRONIC TOBACCO ABUSE. 3. DYSLIPIDEMIA. 4. CORONARY ARTERY DISEASE, PREVIOUS STENT PLACEMENT 5. HYPERTENSION 6. SMOKER 7. NONCOMPLIANT LIFESTYLE PLAN: 1. At time of discharge the patient will be continued on Protonix 40 mg twice a day after which she can reduce it to one day once her symptoms have improved. 2. She is to discontinue the use of nonsteroidal antiinflammatory drugs. 3. She is advised to take all of her other medications on a regular basis. 4. She was advised on the results of her echocardiogram which showed normal left ventricular activity with borderline cavity size, increase in left ventricle. 5. She was offered counseling for smoking use. 6. The patient was instructed to have a stress echo with Dobutamine done as an outpatient. 7. She was instructed to followup with her primary care physician for followup. If there is any problems before followup care she is to notify us. 8. She was discharged home in stable improving condition. 9. She is to followup with her regular physician in 10 days. JONAS
== END 2019-08-13 18:43 | disposition home or self-care (01) ==
LOC: MEDSURG B 13:57 → ED 13:57 → MEDSURG B 18:06
PROVIDERS: ADMIT Emergency Medicine Emergency Medical Services; ATTEND Emergency Medicine
DX: R11.2 Nausea with vomiting, unspecified; Z91.19 Patient's noncompliance with other medical treatment and regimen; Z95.5 Presence of coronary angioplasty implant and graft; R10.13 Epigastric pain; E78.5 Hyperlipidemia, unspecified; K27.9 Peptic ulcer, site unspecified, unspecified as acute or chronic, without hemorrhage or perforation; F17.210 Nicotine dependence, cigarettes, uncomplicated; I10 Essential (primary) hypertension; I25.10 Atherosclerotic heart disease of native coronary artery without angina pectoris; T39.395A Adverse effect of other nonsteroidal anti-inflammatory drugs [NSAID], initial encounter; I25.2 Old myocardial infarction

== ENCOUNTER 2022-05-30 15:11 | Inpatient (IN) ==
[2022-05-30] MEDS ORDERED: ZOFRAN 4 MG/2 ML IVP STA (15:25)
[2022-05-30] MEDS ORDERED: TORADOL IVP STA (15:25)
[2022-05-30] MEDS ORDERED: SODIUM CHLORIDE 1,000 ML IV STA (15:25)
--- NOTE | 2022-05-30 15:31 | ED.PDOC ---
General ED Provider: Dr. KATHI OREILLY MD Chief Complaint: Chest Wall Injury/Pain Stated Complaint: Patient presents with left lower chest and LUQ abdominal pain that had acute onset one day ago. The pain is constant, severe and does not radiate. She also complains of cough, nausea, emesis and chills. Time Seen by Provider: 05/30/22 15:28 Mode of Arrival: Walk-In Information Source: Patient Primary Care Provider: THU BOWEN MD Nursing and Triage Documentation Reviewed and Agree: Yes Does patient meet sepsis criteria?: No System Inflammatory Response Syndrome: Not Applicable Sepsis Protocol: For patient's 13 years and over: Temp is 96.8 and below OR 101 and greater Pulse >90 BPM Resp >20/minute Acutely Altered Mental Status Are patient's symptoms suggestive of a new infection, such as: -Pneumonia -Skin, Soft Tissue -Endocarditis -UTI -Bone, Joint Infection -Implantable Device -Acute Abdominal Infection -Wound Infection -Meningitis -Blood Stream Catheter Infection -Unknown Review of Systems Review Of Systems Constitutional: Reports Chills Eyes: Reports No symptoms Ears, Nose, Mouth, Throat: Reports No symptoms Respiratory: Reports Cough Cardiac: Reports Chest pain GI: Reports Abdominal pain, Nausea and Vomiting : Reports No symptoms Musculoskeletal: Reports No symptoms Skin: Reports No symptoms Neurological: Reports No symptoms Endocrine: Reports No symptoms Hematologic/Lymphatic: Reports No symptoms All Other Systems: Reviewed and Negative [facility] Medical History (Updated 05/30/22 @ 17:52 by KATHI OREILLY MD) Abdominal pain Compression fracture of second lumbar vertebra Myocardial infarction (03/08/17) Pneumonia Family History Mother No problems noted. Grandfather/Grandmother Lung cancer Other Alzheimer disease GI (gastrointestinal bleed) Social History Smoking and tobacco status: Current every day smoker Substance use type: does not use History of recent travel: No Surgical History Cataract extraction and insertion of intraocular lens History of partial surgical removal of colon History of surgery History of surgery on integumentary structure Status post hysterectomy Female Reproductive History Menstrual Hx Hysterectomy: Yes Hx Tubal Ligation: No Physical Exam Physical Exam Appearance: Reports Ill-appearing and Well-nourished Ill-appearing: Moderate Pain Distress: Moderate Eyes: Reports Not Examined ENT: Reports Nose normal, Oropharynx normal and Dry mucosa Neck: Supple Respiratory: Reports Airway patent, Breath sounds clear and Breath sounds equal Cardiovascular: Reports RRR, No rub and No murmur GI/: Reports Soft, No masses, Bowel sounds normal and Tender (Mild to moderate tenderness LUQ and left costal margin.) Musculoskeletal: Reports Normal strength and No edema Skin: Reports Warm, Dry and Normal color Neurological: Reports Alert and Oriented Psychiatric: Reports Affect appropriate and Mood appropriate Interpretation Radiology Interpretation Radiology Interpretation By: Radiologist Exam Interpreted: Portable CXR (no acute cardiopulmonary findings) and CT Scan (no acute intraabdominal findings) EKG Interpretation Time of EKG #1: 15:43 Rate: Normal Rhythm: Sinus Ectopy: None [place]: NL ST Segment: Normal Interpretation: normal sinus rhythm, probable old septal infarct Re-Evaluation Re-Evaluation Time of Re-Evaluation: 16:39 Status: Improved Vital Signs Stable: Yes Appearance: NAD Physician Notification Case Discussed Physician Notified: Dr Bowen Time of Notification: 17:52 Comments: Patient will be admitted for observation. She has refractory pain, nausea and vomiting. Critical Care Note Critical Care Note Total Critical Care Time (mins): 0 Course Course Hematology/Chemistry: 05/30/22 15:42 05/30/22 15:42 Orders, Labs, Meds: Lab Review 05/30/22 05/30/22 05/30/22 15:42 15:42 16:17 WBC 8.37 RBC 3.51 L Hgb 11.5 L Hct 34.2 L MCV 97.4 MCH 32.8 H MCHC 33.6 RDW Coeff of Maxi 13.2 Plt Count 280 Immature Gran % (Auto) 0.4 Neut % (Auto) 91.4 H Lymph % (Auto) 6.1 L Lucas % (Auto) 1.6 Eos % (Auto) 0.1 Baso % (Auto) 0.4 Neut # (Auto) 7.7 H Lymph # (Auto) 0.5 L Lucas # (Auto) 0.1 L Eos # (Auto) 0.0 Baso # (Auto) 0.0 Immature Gran # (Auto) 0.0 Sodium 129.2 L Potassium 4.49 Chloride 91.9 L Carbon Dioxide 28.2 Anion Gap 13.59 BUN 13.4 Creatinine 1.21 Estimated GFR (MDRD) 44.00 BUN/Creatinine Ratio 11.07 Glucose 113.5 H Calcium 9.10 Total Bilirubin 0.72 AST 26.6 ALT 11.8 Alkaline Phosphatase 84.0 Troponin I < 0.012 Total Protein 8.28 H Albumin 4.85 Globulin 3.43 Albumin/Globulin Ratio 1.41 Lipase 127.6 Urine Color Yellow Urine Clarity Clear Urine pH 8.5 Ur Specific [place] 1.020 Urine Protein 3+ H Urine Glucose (UA) Trace H Urine Ketones Trace H Urine Blood Trace-lysed Urine Nitrite Negative Urine Bilirubin Negative Urine Urobilinogen 0.2 Ur Leukocyte Esterase Negative Urine Microscopic RBC 0-2 Urine Microscopic WBC 0-2 Ur Squamous Epith Cells 2-5 Ur Renal Epithelial Cell 0-2 Urine Bacteria Trace Hyaline Casts 0-2 Influ A Molecular Assay Influ B Molecular Assay SARS CoV-2 RNA Rapid RENAE 05/30/22 05/30/22 16:50 16:52 WBC RBC Hgb Hct MCV MCH MCHC RDW Coeff of Maxi Plt Count Immature Gran % (Auto) Neut % (Auto) Lymph % (Auto) Lucas % (Auto) Eos % (Auto) Baso % (Auto) Neut # (Auto) Lymph # (Auto) Lucas # (Auto) Eos # (Auto) Baso # (Auto) Immature Gran # (Auto) Sodium Potassium Chloride Carbon Dioxide Anion Gap BUN Creatinine Estimated GFR (MDRD) BUN/Creatinine Ratio Glucose Calcium Total Bilirubin AST ALT Alkaline Phosphatase Troponin I Total Protein Albumin Globulin Albumin/Globulin Ratio Lipase Urine Color Urine Clarity Urine pH Ur Specific [place] Urine Protein Urine Glucose (UA) Urine Ketones Urine Blood Urine Nitrite Urine Bilirubin Urine Urobilinogen Ur Leukocyte Esterase Urine Microscopic RBC Urine Microscopic WBC Ur Squamous Epith Cells Ur Renal Epithelial Cell Urine Bacteria Hyaline Casts Influ A Molecular Assay Negative by naat Influ B Molecular Assay Negative by naat SARS CoV-2 RNA Rapid RENAE Negative Orders Category Date Time Status EKG-(ED ONLY) Stat CARDIO 05/30/22 15:25 Completed NPO REMINDER: IMAGING ONCE CARE 05/30/22 16:37 Active Saline Lock [ED IV/MEDIPORT/POWERPORT] .ONCE EMERGENCY 05/30/22 15:25 Active CBC W/ AUTO DIFF Stat LAB 05/30/22 15:42 Completed CMP [COMPREHENSIVE METABOLIC PANEL] Stat LAB 05/30/22 15:42 Completed COVID [SARS COV-2 RNA RAPID RENAE] Stat LAB 05/30/22 16:52 Completed FLU A & B MOLECULAR [FLU A/B MOLECULAR] Stat LAB 05/30/22 16:50 Completed LIPASE Stat LAB 05/30/22 15:42 Completed TROPONIN I Stat LAB 05/30/22 15:42 Completed URINALYSIS C & S IF INDICATED Stat LAB 05/30/22 16:17 Completed 0.9 % Sodium Chloride [Saline Flush] MEDS 05/30/22 15:25 Active 1 syr IVF PRN PRN Ketorolac Tromethamine [Toradol] MEDS 05/30/22 15:25 Discontinued 30 mg IVP ONCE STA Ondansetron HCl/Pf [Zofran 4 mg/2 ml] MEDS 05/30/22 15:25 Discontinued 8 mg IVP ONCE STA Sodium Chloride 0.9% [Sodium Chloride] 1,000 ml MEDS 05/30/22 15:25 Discontin ued IV BOLUS CT ABDOMEN/PELVIS W CONTRAST Stat RADS 05/30/22 16:37 Completed CXR [CHEST, 1V AP ONLY] Stat RADS 05/30/22 15:25 Completed Medications Generic Name Dose Route Start Last Admin Trade Name Freq PRN Reason Stop Dose Admin Sodium Chloride 1 syr 05/30/22 15:25 0.9% Sodium Chloride 10 Ml Disp.Syrin IVF PRN PRN To flush IV Discontinued Medications Generic Name Dose Route Start Last Admin Trade Name Freq PRN Reason Stop Dose Admin Sodium Chloride 1,000 mls @ 1,000 mls/hr 05/30/22 15:25 05/30/22 16:12 Sodium Chloride IV 05/30/22 16:24 1,000 mls/hr BOLUS STA Administration Ketorolac Tromethamine 30 mg 05/30/22 15:25 05/30/22 16:11 Ketorolac Tromethamine 30 Mg/Ml Vial IVP 05/30/22 15:26 30 mg ONCE STA Administration Ondansetron HCl 8 mg 05/30/22 15:25 05/30/22 16:12 Ondansetron Hcl/Pf 4 Mg/2 Ml Sdv IVP 05/30/22 15:26 8 mg ONCE STA Administration Vital Signs: Temp Pulse Resp BP Pulse Ox 05/30/22 15:25 81 18 155/112 H 99 05/30/22 15:13 97.1 F L 82 18 188/95 H 98 Discharge Plan Discharge Patient Disposition: PLACED OBSERVATION Discharge Problem: Abdominal pain, Nausea and vomiting Prescriptions: No Action aspirin [Aspir-81] 81 MG tablet,delayed release (DR/EC) 81 mg PO DAILY Label Comments: [facility] by [facility] nitroglycerin 0.4 MG tablet, sublingual 0.4 mg sublingual PRN PRN (Reason: Chest Pain) losartan 50 mg tablet See Rx Instructions .ROUTE .COMPLEX Qty: 90 1RF Dose Instruction: TAKE ONE TABLET DAILY Rx Instructions: TAKE ONE TABLET DAILY pantoprazole [Protonix] 40 mg Tablet,Delayed Release (Dr/Ec) 40 mg PO DAILY Qty: 30 0RF Did you review [place] CLERK GENERAL OFFICE for ALL controlled substances?: Not Applicable ED Provider: KATHI OREILLY Condition: Fair Physician Progress Note: []
[2022-05-30 15:47] LABS: BASOPHILS % (AUTO) 0.4 % (0.0-3.0); EOSINOPHILS % (AUTO) 0.1 % (0.0-7.0); HEMATOCRIT 34.2 % (37.0-47.0); HEMOGLOBIN 11.5 g/dl (12.0-16.0); IMMATURE GRANULOCYTE % (AUTO) 0.4 % (0.0-5.0); LYMPHOCYTES # (AUTO) 0.5 K/uL (0.60-3.4); LYMPHOCYTES % (AUTO) 6.1 (10.0-50.0); MEAN CORPUSCULAR HEMOGLOBIN 32.8 pg (27.0-31.0); MEAN CORPUSCULAR HGB CONC 33.6 (31.8-35.4); MEAN CORPUSCULAR VOLUME 97.4 fl (81.0-99.0); MONOCYTES # (AUTO) 0.1 K/uL (0.4-2.0); MONOCYTES % (AUTO) 1.6 (0-10); NEUTROPHILS # (AUTO) 7.7 K/ul (2.0-6.9); NEUTROPHILS % (AUTO) 91.4 % (42.2-75.2); PLATELET COUNT 280 10^3/uL (140-440); RDW COEFFICIENT OF VARIATION 13.2 % (11.6-14.8); RED BLOOD COUNT 3.51 10^6/ul (4.20-5.40); WHITE BLOOD COUNT 8.37 K/ul (4.6-10.2)
[2022-05-30 16:04] LABS: ALANINE AMINOTRANSFERASE 11.8 U/L (0-35); ALBUMIN 4.85 g/dL (3.5-5.0); ASPARTATE AMINO TRANSFERASE 26.6 U/L (14-36); BILIRUBIN,TOTAL 0.72 mg/dL (0.2-1.3); BLOOD UREA NITROGEN 13.4 mg/dL (7-17); CARBON DIOXIDE 28.2 mmol/L (22-30.0); CHLORIDE 91.9 mmol/L (98-107); CREATININE 1.21 mg/dL (0.60-1.30); GLUCOSE 113.5 mg/dL (74-106); LIPASE 127.6 U/L (23-300); POTASSIUM 4.49 mmol/L (3.5-5.1); SODIUM 129.2 mmol/L (134.5-145); TOTAL PROTEIN 8.28 g/dL (6.3-8.2)
--- NOTE | 2022-05-30 16:04 | DI ---
EXAM: FRONTAL VIEW OF THE CHEST. HISTORY: Chest pain and cough. COMPARISON: Chest radiograph 08/12/2019. FINDINGS: Atherosclerotic calcifications of the aorta. Coronary stent noted. Normal heart size. No acute consolidation. No visible pleural effusion or pneumothorax. Old right rib fractures redemonstrated. Bones appear demineralized. IMPRESSION: No acute process. Atherosclerosis.
[2022-05-30 16:30] LABS: TROPONIN I < 0.012 ng/ml (0.0000-0.120)
[2022-05-30 16:32] LABS: BILIRUBIN,URINE Negative (NEGATIVE); CLARITY,URINE Clear (CLEAR); COLOR,URINE Yellow (YELLOW); GLUCOSE, URINE (UA) Trace (NEGATIVE); KETONES,URINE Trace (NEGATIVE); LEUKOCYTE ESTERASE ,URINE Negative (NEGATIVE); NITRITE,URINE Negative (NEGATIVE); PH,URINE 8.5 (5-9); PROTEIN,URINE 3+ (NEGATIVE); URINE, BLOOD Trace-lysed (NEGATIVE); UROBILINOGEN,URINE 0.2 (0.2)
[2022-05-30 16:44] LABS: RENAL EPITHELIAL CELLS,URINE 0-2 (NOT PRESENT); URINE RBC, MICROSCOPIC 0-2 (0-2); URINE WBC, MICROSCOPIC 0-2 (0-2)
[2022-05-30 16:45] LABS: BACTERIA,URINE TRACE (NOT PRESENT); HYALINE CASTS, URINE 0-2 (NOT PRESENT)
[2022-05-30 17:03] LABS: MOLECULAR FLU A NEGATIVE BY NAAT (NEGATIVE); MOLECULAR FLU B NEGATIVE BY NAAT (NEGATIVE)
[2022-05-30 17:26] LABS: SARS COV-2 RNA RAPID NAAT NEGATIVE (NEGATIVE)
--- NOTE | 2022-05-30 17:38 | CT ---
EXAM: CT ABDOMEN AND PELVIS WITH CONTRAST HISTORY: Left upper quadrant pain, nausea, emesis. Abdominal and pelvic pain. TECHNIQUE: CT acquisition of the abdomen and pelvis from the lower thorax through the pelvis followin g IV contrast administration. 2-D coronal and sagittal reformatted images were obtained from the axi al source images. IV Contrast: Administered. Oral Contrast: None. CT Dose Reduction Techniques Performed: Yes. COMPARISON: Noncontrast CT scan of the abdomen and pelvis dated 08/12/2019. FINDINGS: Lower Thorax: Coronary artery calcification. Normal heart size. Normal lung bases. No pleural effu nilton or pericardial effusion. Liver: No mass. Diffuse decreased attenuation. Normal size. Biliary: The gallbladder is surgically absent with clips noted in the gallbladder bed. The bile duct s are normal. Pancreas: No mass or evidence of pancreatitis. No duct dilation. Spleen: No mass. No splenomegaly. Adrenals: Small benign bilateral adrenal adenomas, unchanged. Kidneys/Ureters: No renal mass. No calculus or hydronephrosis. GI Tract: No bowel dilation. No bowel wall thickening. Diverticulosis of the colon with no evidence of diverticulitis. Postsurgical changes of the rectosigmoid. Ventral hernia containing omental fat and transverse colon with no evidence of obstruction. The hernia is larger than seen previously tereso uring 3.8 x 14.6 cm in AP and transverse dimensions; prior was 3.7 x 10.6 cm. Peritoneal Cavity: No ascites. No free air. Retroperitoneum: No fluid collection. Lymph Nodes: No lymphadenopathy. Vasculature: There are aortic atherosclerotic calcifications. Mildly dilated infrarenal abdominal ao rta measuring 2.7 cm, unchanged. Celiac, superior mesenteric, and inferior mesenteric arteries are g rossly patent. Limited assessment of the portal and hepatic veins and IVC is unremarkable within cabrales itations of the phase of IV contrast. Pelvis: No free fluid. Bladder is normal. Bones/Soft Tissues: There are degenerative changes of the spine. There is lumbar scoliosis convex le ft. Old compression fractures of T11 and L2. The osseous structures are otherwise unremarkable with no acute fracture or lytic lesion. Visualized abdominal wall soft tissues are was unremarkable. IMPRESSION: 1. Coronary artery calcification. 2. Status post cholecystectomy. Fatty metamorphosis of the liver. 3. Benign bilateral adrenal adenomas, unchanged. 4. Diverticulosis of the colon with no evidence of diverticulitis. 5. Ventral hernia containing omental fat and transverse colon with no evidence of obstruction. Lynn ia is larger than seen on 08/12/2019. 6. Atherosclerosis. 7. Mildly dilated infrarenal abdominal aorta measuring 2.7 cm, unchanged. 8. Degenerative changes of the spine, scoliosis convex left, and old compression fractures of T11 an d L2. 9. Postsurgical changes of the rectosigmoid. 10. Otherwise unremarkable contrast enhanced CT scan of the abdomen and pelvis. All CT scans are performed using dose optimization techniques as appropriate to the performed exam an d include at least one of the following: Automated exposure control, adjustment of the mA and/or kV according t o size, and the use of iterative reconstruction technique.
--- NOTE | 2022-05-30 18:02 | PCM ---
Chief Complaint Chief Complaint: abdominal pain, nausea and vomiting History of Present Illness History of Present Illness: Patient presents with one day history of LUQ abd pain, nausea and vomiting. She also complains of cough and chills. Denies fever, malaise, dyspnea, wheezing, chest pain, hematemesis, hematochezia, melena, diarrhea or urinary tract symptoms. CXR and CT abd/pelvis with contrast were negative. Urinalysis, WBC, lipase, EKG, troponin were all negative. Her pain and nausea have persisted. Review of Systems Constitutional: Reports Chills Eyes: Reports No symptoms Ears: Reports No symptoms Nose: Reports No symptoms Throat: Reports No symptoms Respiratory: Reports Cough Cardiovascular: Reports No symptoms Gastrointestinal: Reports Nausea and Vomiting Genitourinary: Reports No symptoms Neurological: Reports No symptoms Musculoskeletal: Reports No symptoms Skin: Reports No symptoms Immunology: Reports No symptoms Hematology: Reports No symptoms Endocrine: Reports No symptoms Psychiatric: Reports No symptoms Habits: Reports Tobacco use and Alcohol use Allergies Allergies Allergy/AdvReac Type Severity Reaction Status Date / Time levofloxacin [From Levaquin] Allergy Mild Rash Verified 05/30/22 15:26 sulfamethoxazole AdvReac Intermediate Rash Verified 05/30/22 15:26 [facility] Medical History (Updated 05/30/22 @ 18:08 by KATHI OREILLY MD) Abdominal pain Compression fracture of second lumbar vertebra Myocardial infarction (03/08/17) Pneumonia Surgical History Cataract extraction and insertion of intraocular lens History of partial surgical removal of colon History of surgery History of surgery on integumentary structure Status post hysterectomy Family History Mother No problems noted. Grandfather/Grandmother Lung cancer Other Alzheimer disease GI (gastrointestinal bleed) Social History Smoking and tobacco status: Current every day smoker Substance use type: does not use History of recent travel: No Medications Medications: Medications Generic Name Dose Route Start Last Admin Trade Name Freq PRN Reason Stop Dose Admin Sodium Chloride 1 syr 05/30/22 15:25 0.9% Sodium Chloride 10 Ml Disp.Syrin IVF PRN PRN To flush IV Body Composition Height: 5 ft 4 in Weight: 80.014 kg Body Mass Index (BMI): 30.2 Vital Signs Temperature: 97.1 F Pulse Rate: 81 Respiratory Rate: 18 Blood Pressure: 155/112 O2 Sat by Pulse Oximetry: 99 Physical Examination Appearance: Reports Ill-appearing and Well-nourished Ill-appearing: Moderate Pain Distress: Moderate Eyes: Reports Not Examined ENT: Reports Nose normal, Oropharynx normal and Dry mucosa Neck: Supple Respiratory: Reports Airway patent, Breath sounds clear and Breath sounds equal Cardiovascular: Reports No rub, No murmur and Tachycardia GI/: Reports Soft, No masses, Bowel sounds normal, No Organomegaly and Tender (Moderate tenderness LUQ and left costal margin.) Musculoskeletal: Reports Normal strength, ROM intact and No edema Skin: Reports Warm, Dry and Normal color Neurological: Reports Alert and Oriented Psychiatric: Reports Affect appropriate and Mood appropriate Lab/Tests/Diagnostic Imaging Lab/Tests/Diagnostic Imaging: Lab Review 05/30/22 05/30/22 05/30/22 15:42 15:42 16:17 WBC 8.37 RBC 3.51 L Hgb 11.5 L Hct 34.2 L MCV 97.4 MCH 32.8 H MCHC 33.6 RDW Coeff of Maxi 13.2 Plt Count 280 Immature Gran % (Auto) 0.4 Neut % (Auto) 91.4 H Lymph % (Auto) 6.1 L [place] % (Auto) 1.6 Eos % (Auto) 0.1 Baso % (Auto) 0.4 Neut # (Auto) 7.7 H Lymph # (Auto) 0.5 L [place] # (Auto) 0.1 L Eos # (Auto) 0.0 Baso # (Auto) 0.0 Immature Gran # (Auto) 0.0 Sodium 129.2 L Potassium 4.49 Chloride 91.9 L Carbon Dioxide 28.2 Anion Gap 13.59 BUN 13.4 Creatinine 1.21 Estimated GFR (MDRD) 44.00 BUN/Creatinine Ratio 11.07 Glucose 113.5 H Calcium 9.10 Total Bilirubin 0.72 AST 26.6 ALT 11.8 Alkaline Phosphatase 84.0 Troponin I < 0.012 Total Protein 8.28 H Albumin 4.85 Globulin 3.43 Albumin/Globulin Ratio 1.41 Lipase 127.6 Urine Color Yellow Urine Clarity Clear Urine pH 8.5 Ur Specific [place] 1.020 Urine Protein 3+ H Urine Glucose (UA) Trace H Urine Ketones Trace H Urine Blood Trace-lysed Urine Nitrite Negative Urine Bilirubin Negative Urine Urobilinogen 0.2 Ur Leukocyte Esterase Negative Urine Microscopic RBC 0-2 Urine Microscopic WBC 0-2 Ur Squamous Epith Cells 2-5 Ur Renal Epithelial Cell 0-2 Urine Bacteria Trace Hyaline Casts 0-2 Influ A Molecular Assay Influ B Molecular Assay SARS CoV-2 RNA Rapid RENAE 05/30/22 05/30/22 16:50 16:52 WBC RBC Hgb Hct MCV MCH MCHC RDW Coeff of Maxi Plt Count Immature Gran % (Auto) Neut % (Auto) Lymph % (Auto) [place] % (Auto) Eos % (Auto) Baso % (Auto) Neut # (Auto) Lymph # (Auto) [place] # (Auto) Eos # (Auto) Baso # (Auto) Immature Gran # (Auto) Sodium Potassium Chloride Carbon Dioxide Anion Gap BUN Creatinine Estimated GFR (MDRD) BUN/Creatinine Ratio Glucose Calcium Total Bilirubin AST ALT Alkaline Phosphatase Troponin I Total Protein Albumin Globulin Albumin/Globulin Ratio Lipase Urine Color Urine Clarity Urine pH Ur Specific [place] Urine Protein Urine Glucose (UA) Urine Ketones Urine Blood Urine Nitrite Urine Bilirubin Urine Urobilinogen Ur Leukocyte Esterase Urine Microscopic RBC Urine Microscopic WBC Ur Squamous Epith Cells Ur Renal Epithelial Cell Urine Bacteria Hyaline Casts Influ A Molecular Assay Negative by naat Influ B Molecular Assay Negative by naat SARS CoV-2 RNA Rapid RENAE Negative Orders Category Date Time Status EKG-(ED ONLY) Stat CARDIO 05/30/22 15:25 Completed NPO REMINDER: IMAGING ONCE CARE 05/30/22 16:37 Active Saline Lock [ED IV/MEDIPORT/POWERPORT] .ONCE EMERGENCY 05/30/22 15:25 Active CBC W/ AUTO DIFF Stat LAB 05/30/22 15:42 Completed CMP [COMPREHENSIVE METABOLIC PANEL] Stat LAB 05/30/22 15:42 Completed COVID [SARS COV-2 RNA RAPID RENAE] Stat LAB 05/30/22 16:52 Completed FLU A & B MOLECULAR [FLU A/B MOLECULAR] Stat LAB 05/30/22 16:50 Completed LIPASE Stat LAB 05/30/22 15:42 Completed TROPONIN I Stat LAB 05/30/22 15:42 Completed URINALYSIS C & S IF INDICATED Stat LAB 05/30/22 16:17 Completed 0.9 % Sodium Chloride [Saline Flush] MEDS 05/30/22 15:25 Active 1 syr IVF PRN PRN Ketorolac Tromethamine [Toradol] MEDS 05/30/22 15:25 Discontinued 30 mg IVP ONCE STA Ondansetron HCl/Pf [Zofran 4 mg/2 ml] MEDS 05/30/22 15:25 Discontinued 8 mg IVP ONCE STA Sodium Chloride 0.9% [Sodium Chloride] 1,000 ml MEDS 05/30/22 15:[address] ABDOMEN/PELVIS W CONTRAST Stat RADS 05/30/22 16:37 Completed CXR [CHEST, 1V AP ONLY] Stat RADS 05/30/22 15:25 Completed Medications Generic Name Dose Route Start Last Admin Trade Name Freq PRN Reason Stop Dose Admin Sodium Chloride 1 syr 05/30/22 15:25 0.9% Sodium Chloride 10 Ml Disp.Syrin IVF PRN PRN To flush IV Discontinued Medications Generic Name Dose Route Start Last Admin Trade Name Freq PRN Reason Stop Dose Admin Sodium Chloride 1,000 mls @ 1,000 mls/hr 05/30/22 15:25 05/30/22 16:12 Sodium Chloride IV 05/30/22 16:24 1,000 mls/hr BOLUS STA Administration Ketorolac Tromethamine 30 mg 05/30/22 15:25 05/30/22 16:11 Ketorolac Tromethamine 30 Mg/Ml Vial IVP 05/30/22 15:26 30 mg ONCE STA Administration Ondansetron HCl 8 mg 05/30/22 15:25 05/30/22 16:12 Ondansetron Hcl/Pf 4 Mg/2 Ml Sdv IVP 05/30/22 15:26 8 mg ONCE STA Administration Assessment (1) LUQ abdominal pain: Status: Acute Code(s): R10.12 - Left upper quadrant pain SNOMED Code(s): 199610309 (2) Nausea and vomiting: Status: Acute Code(s): R11.2 - Nausea with vomiting, unspecified SNOMED Code(s): 23836131 Plan Plan: Patient will be admitted for pain control, IV fluids and antiemetics.
[2022-05-30] MEDS ORDERED: NITROSTAT SL PRN (18:09)
[2022-05-30] MEDS ORDERED: TYLENOL PO PRN (18:10)
[2022-05-30] MEDS: COZAAR PO SCH (19:22)
[2022-05-30] MEDS: CATAPRES PO PRN (19:22)
[2022-05-30] MEDS: SODIUM CHLORIDE 1,000 ML IV SCH (19:24)
[2022-05-30 20:49] VITALS: BMI 30.4
[2022-05-30] MEDS: NORCO 7.5-325 PO PRN (22:03)
[2022-05-31] MEDS: TORADOL IVP PRN ×2 (02:13→16:10)
[2022-05-31] MEDS: NORCO 7.5-325 PO PRN ×3 (05:16→20:07)
[2022-05-31] MEDS: SODIUM CHLORIDE 1,000 ML IV SCH ×3 (05:16→23:35)
[2022-05-31 05:24] LABS: BASOPHILS % (AUTO) 0.5 % (0.0-3.0); EOSINOPHILS % (AUTO) 0.2 % (0.0-7.0); HEMATOCRIT 30.2 % (37.0-47.0); HEMOGLOBIN 9.9 g/dl (12.0-16.0); IMMATURE GRANULOCYTE % (AUTO) 0.4 % (0.0-5.0); LYMPHOCYTES # (AUTO) 1.1 K/uL (0.60-3.4); LYMPHOCYTES % (AUTO) 13.8 (10.0-50.0); MEAN CORPUSCULAR HEMOGLOBIN 32.5 pg (27.0-31.0); MEAN CORPUSCULAR HGB CONC 32.8 (31.8-35.4); MONOCYTES # (AUTO) 0.7 K/uL (0.4-2.0); MONOCYTES % (AUTO) 8.3 (0-10); NEUTROPHILS # (AUTO) 6.2 K/ul (2.0-6.9); NEUTROPHILS % (AUTO) 76.8 % (42.2-75.2); PLATELET COUNT 251 10^3/uL (140-440); RDW COEFFICIENT OF VARIATION 13.5 % (11.6-14.8); RED BLOOD COUNT 3.05 10^6/ul (4.20-5.40); WHITE BLOOD COUNT 8.06 K/ul (4.6-10.2)
[2022-05-31 05:36] LABS: ALANINE AMINOTRANSFERASE 9.6 U/L (0-35); ALBUMIN 3.72 g/dL (3.5-5.0); ASPARTATE AMINO TRANSFERASE 22.9 U/L (14-36); BILIRUBIN,TOTAL 0.62 mg/dL (0.2-1.3); BLOOD UREA NITROGEN 17.5 mg/dL (7-17); CALCIUM 7.98 mg/dL (8.4-10.2); CARBON DIOXIDE 26.2 mmol/L (22-30.0); CHLORIDE 96.4 mmol/L (98-107); CREATININE 1.24 mg/dL (0.60-1.30); POTASSIUM 3.79 mmol/L (3.5-5.1); SODIUM 128.5 mmol/L (134.5-145); TOTAL PROTEIN 6.56 g/dL (6.3-8.2)
[2022-05-31] MEDS: COZAAR PO SCH (08:02)
[2022-05-31] MEDS: TRIGLIDE PO SCH (08:02)
[2022-05-31] MEDS: COREG PO SCH ×2 (08:02→16:46)
[2022-05-31] MEDS ORDERED: ASPIRIN EC PO SCH (09:00)
[2022-05-31] MEDS: PROTONIX IV IVP SCH (09:14)
--- NOTE | 2022-05-31 13:36 | PCM.PROG ---
Date Seen by Provider: 05/31/22 Time Seen by Provider: 13:35 Subjective: dx. abdominal pain differential includes gerd, constipation, viral syndrome, muscle strain Objective: Vitals: T=96.3 F, P=66, R=15, XN=791/98, SPO2=96 HEENT: []conjunctiva clear Neck: []supple Lungs: [] no respiratory distress CVS: []rrr Abdomen: []soft, no rebound Extremities: []loretta Neurological: []alert Skin: []pink Lab/Tests/Diagnostic Imaging: [] (1) LUQ abdominal pain: Status: Acute Code(s): R10.12 - Left upper quadrant pain SNOMED Code(s): 105106383 (2) Nausea and vomiting: Status: Acute Code(s): R11.2 - Nausea with vomiting, unspecified SNOMED Code(s): 92760688 Plan: discharge home in am
[2022-05-31] MEDS: MIRALAX PO PRN (14:18)
[2022-05-31] MEDS: CRESTOR PO SCH (20:07)
[2022-06-01] MEDS: TORADOL IVP PRN ×2 (01:13→14:28)
[2022-06-01 05:02] LABS: BASOPHILS # (AUTO) 0.1 K/uL (0-0.2); BASOPHILS % (AUTO) 0.7 % (0.0-3.0); EOSINOPHILS # (AUTO) 0.1 K/ul (0.0-0.7); EOSINOPHILS % (AUTO) 0.7 % (0.0-7.0); HEMATOCRIT 27.5 % (37.0-47.0); HEMOGLOBIN 8.8 g/dl (12.0-16.0); IMMATURE GRANULOCYTE % (AUTO) 0.3 % (0.0-5.0); LYMPHOCYTES # (AUTO) 1.3 K/uL (0.60-3.4); LYMPHOCYTES % (AUTO) 19.8 (10.0-50.0); MEAN CORPUSCULAR HEMOGLOBIN 32.6 pg (27.0-31.0); MEAN CORPUSCULAR VOLUME 101.9 fl (81.0-99.0); MONOCYTES # (AUTO) 0.5 K/uL (0.4-2.0); MONOCYTES % (AUTO) 7.5 (0-10); NEUTROPHILS # (AUTO) 4.8 K/ul (2.0-6.9); PLATELET COUNT 229 10^3/uL (140-440); RDW COEFFICIENT OF VARIATION 13.9 % (11.6-14.8); WHITE BLOOD COUNT 6.76 K/ul (4.6-10.2)
[2022-06-01 05:14] LABS: ALANINE AMINOTRANSFERASE 10.1 U/L (0-35); ALBUMIN 3.45 g/dL (3.5-5.0); ALKALINE PHOSPHATASE 53.3 U/L (53-141); ASPARTATE AMINO TRANSFERASE 20.1 U/L (14-36); BILIRUBIN,TOTAL 0.35 mg/dL (0.2-1.3); BLOOD UREA NITROGEN 13.9 mg/dL (7-17); CALCIUM 7.77 mg/dL (8.4-10.2); CARBON DIOXIDE 27.3 mmol/L (22-30.0); CHLORIDE 98.5 mmol/L (98-107); CREATININE 1.09 mg/dL (0.60-1.30); GLUCOSE 112.1 mg/dL (74-106); POTASSIUM 3.96 mmol/L (3.5-5.1); SODIUM 129.4 mmol/L (134.5-145); TOTAL PROTEIN 6.03 g/dL (6.3-8.2)
[2022-06-01] MEDS: MIRALAX PO PRN (05:17)
[2022-06-01] MEDS: NORCO 7.5-325 PO PRN ×2 (07:33→19:45)
[2022-06-01] MEDS: TRIGLIDE PO SCH (08:08)
[2022-06-01] MEDS: ASPIRIN EC PO SCH (08:08)
[2022-06-01] MEDS: COZAAR PO SCH (08:08)
[2022-06-01] MEDS: COREG PO SCH ×2 (08:09→16:53)
[2022-06-01] MEDS: PROTONIX IV IVP SCH (08:40)
[2022-06-01] MEDS: SODIUM CHLORIDE 1,000 ML IV SCH ×2 (10:07→21:12)
[2022-06-01] MEDS: ZOFRAN 4 MG/2 ML IVP PRN ×2 (12:12→23:16)
--- NOTE | 2022-06-01 12:31 | CT ---
EXAM: CT ABDOMEN WITHOUT CONTRAST. CT PELVIS WITHOUT CONTRAST. HISTORY: Abdominal pain, constipation. COMPARISON: 05/30/2022, 08/12/2019 and multiple older examinations. TECHNIQUE: Multiple axial images of the abdomen and pelvis were obtained without intravenous contras t. Images were reformatted in the sagittal and coronal plane. FINDINGS: Please note that evaluation of the abdominal and pelvic structures is limited due to lack of intravenous contrast. Small pleural effusions noted. There are degenerative changes in the spine. Old L2, T11 and T10 compression deformities. Gallbladder absent. Right hepatic lobe enlarged. Pancreas and spleen normal. Bilateral adrenal flu id density nodules are stable. Some faint residual renal cortical enhancement from the prior examina tion noted. Renal vascular calcifications present. There is no hydronephrosis. Mild bilateral kandi nephric stranding noted. Redemonstration of complex ventral hernia. The largest central component contains a portion transver se colon, example axial image 76, and the more inferior and right paramedian component contains small bowel, example axial image 103. Other areas contain fat, example axial images 114, 92 and 72. No e lindsey. No bowel obstruction. Question lower rectal wall thickening. Mild presacral stranding exampl e axial image 121. Appendix not seen. Mild diverticulosis. Uterus absent. Bladder normal. Phleboliths in the pelvis. Atherosclerotic calcifications present. Focal fusiform dilatation distal infrarenal aorta up to 2.9 cm transverse diameter by 2.8 cm AP IMPRESSION: 1. Faint residual renal cortical enhancement from the recent CT examination. Correlate for signs of contrast nephropathy. 2. Stable complex ventral hernias containing bowel. No obstruction. 3. Suspect lower rectal wall thickening, possibly chronic as there is some presacral scarring. 4. Mild diverticulosis. 5. Hepatomegaly. 6. Small pleural effusions. 7. Atherosclerosis. Fusiform infrarenal abdominal aortic aneurysm measuring 2.9 x 2.8 cm. 8. Stable bilateral adrenal adenoma. All CT scans are performed using dose optimization techniques as appropriate to the performed exam an d include at least one of the following: Automated exposure control, adjustment of the mA and/or kV according t o size, and the use of iterative reconstruction technique.
[2022-06-01] MEDS ORDERED: GLYCERIN SUPPOSITORY RC ONE (13:17)
[2022-06-01] MEDS: CRESTOR PO SCH (20:10)
[2022-06-02] MEDS: TORADOL IVP PRN ×2 (01:29→09:23)
[2022-06-02] MEDS: SODIUM CHLORIDE 1,000 ML IV SCH (05:38)
[2022-06-02] MEDS: TRIGLIDE PO SCH (07:59)
[2022-06-02] MEDS: NORCO 7.5-325 PO PRN ×2 (08:00→19:28)
[2022-06-02] MEDS: COZAAR PO SCH (08:00)
[2022-06-02] MEDS: COREG PO SCH ×2 (08:00→16:58)
[2022-06-02] MEDS: MIRALAX PO SCH (08:00)
[2022-06-02] MEDS: ASPIRIN EC PO SCH (08:00)
[2022-06-02 09:17] LABS: BASOPHILS # (AUTO) 0.1 K/uL (0-0.2); BASOPHILS % (AUTO) 0.9 % (0.0-3.0); EOSINOPHILS # (AUTO) 0.1 K/ul (0.0-0.7); EOSINOPHILS % (AUTO) 1.4 % (0.0-7.0); HEMATOCRIT 29.8 % (37.0-47.0); HEMOGLOBIN 9.5 g/dl (12.0-16.0); IMMATURE GRANULOCYTE % (AUTO) 0.3 % (0.0-5.0); LYMPHOCYTES # (AUTO) 1.1 K/uL (0.60-3.4); LYMPHOCYTES % (AUTO) 15.3 (10.0-50.0); MEAN CORPUSCULAR HEMOGLOBIN 32.8 pg (27.0-31.0); MEAN CORPUSCULAR HGB CONC 31.9 (31.8-35.4); MEAN CORPUSCULAR VOLUME 102.8 fl (81.0-99.0); MONOCYTES # (AUTO) 0.5 K/uL (0.4-2.0); MONOCYTES % (AUTO) 7.3 (0-10); NEUTROPHILS # (AUTO) 5.2 K/ul (2.0-6.9); NEUTROPHILS % (AUTO) 74.8 % (42.2-75.2); PLATELET COUNT 228 10^3/uL (140-440); RDW COEFFICIENT OF VARIATION 13.7 % (11.6-14.8)
[2022-06-02] MEDS: CLARITIN PO SCH (09:25)
[2022-06-02] MEDS: PROTONIX IV IVP SCH (09:26)
[2022-06-02 09:30] LABS: BLOOD UREA NITROGEN 6.1 mg/dL (7-17); CALCIUM 8.62 mg/dL (8.4-10.2); CARBON DIOXIDE 29.4 mmol/L (22-30.0); CHLORIDE 99.1 mmol/L (98-107); CREATININE 1.08 mg/dL (0.60-1.30); GLUCOSE 127.5 mg/dL (74-106); POTASSIUM 3.79 mmol/L (3.5-5.1); SODIUM 131.5 mmol/L (134.5-145)
--- NOTE | 2022-06-02 15:40 | PCM.PROG ---
Date Seen by Provider: 06/02/22 Time Seen by Provider: 15:38 Subjective: abdominal pain is gone Objective: Vitals: T=97.2 F, P=72, R=18, QI=454/87, SPO2=97 HEENT: []conjunctiva clear Neck: []supple Lungs: [] no respiratory distress CVS: [] Abdomen: [] Extremities: [] Neurological: []alert Skin: []pink Lab/Tests/Diagnostic Imaging: [] elevated ddimer (1) LUQ abdominal pain: Status: Acute Code(s): R10.12 - Left upper quadrant pain SNOMED Code(s): 643023168 (2) Nausea and vomiting: Status: Acute Code(s): R11.2 - Nausea with vomiting, unspecified SNOMED Code(s): 58679894 Plan: assess cta chest to exclude PE discharge home in am
--- NOTE | 2022-06-02 17:11 | CT ---
EXAM: CT ANGIOGRAPHY CHEST (PE PROTOCOL) HISTORY: Shortness of breath, tachypnea TECHNIQUE: CTA chest with intravenous contrast. PE protocol. Multiplanar images were provided with MIP images and 3-D reconstructions. COMPARISON: 05/02/2018 FINDINGS: Motion degrades image quality. There is no convincing evidence of pulmonary arterial thr omboembolism. Thoracic aorta has normal caliber and there is moderate atherosclerotic disease includ ing coronary artery calcifications. Heart size is enlarged. No pericardial effusion. There is a ti ny right pleural effusion. There is mild biapical scarring. There is no consolidated pneumonia. No vascular congestion or interstitial edema. No pneumothorax. No acute osseous abnormality. There a re bilateral adrenal nodules similar in appearance to that seen previously, largest on the left at 2. 6 cm. The attenuation is indeterminate on the current enhanced exam although they appeared to be fat ty on the prior unenhanced imaging suggesting adenomas. These can be correlated with adrenal protoco l CT or MRI if indicated. IMPRESSION: 1. Motion limited exam. There is no convincing evidence of pulmonary arterial thromboembolism. 2. Thoracic aorta has normal caliber and there is moderate atherosclerotic disease including coronar y artery calcifications. 3. Cardiomegaly. 4. There is a tiny right pleural effusion. Lungs are otherwise clear. 5. Stable bilateral adrenal nodules as described. - - - - - All CT scans are performed using dose optimization techniques as appropriate to the performed exam an d include at least one of the following: Automated exposure control, adjustment of the mA and/or kV according t o size, and the use of iterative reconstruction technique.
--- NOTE | 2022-06-02 17:36 | PCM.PROG ---
Date Seen by Provider: 06/01/22 Time Seen by Provider: 12:39 Subjective: No stool passed x 1 week. no acute abdominal pain or GI loss. no acute SOB or chest pain. Objective: Vitals: T=97.2 F, P=72, R=18, YD=662/87, SPO2=97 HEENT: []wnl Neck: []supple Lungs: []chest was clear CVS: []rrr Abdomen: []no acute abdominal abnormality. Extremities: []no acute abnormality. Neurological: []non-focal Skin: [] Lab/Tests/Diagnostic Imaging: [] (1) LUQ abdominal pain: Status: Acute Code(s): R10.12 - Left upper quadrant pain SNOMED Code(s): 424402422 (2) Nausea and vomiting: Status: Acute Code(s): R11.2 - Nausea with vomiting, unspecified SNOMED Code(s): 02498787 Assessment: Constipation Plan: Continue Tx regimen. 2. Rx for constipation.
[2022-06-02] MEDS ORDERED: DUONEB NEB PRN (17:52)
[2022-06-02] MEDS: SOLU-MEDROL 40 MG IVP SCH ×2 (18:19→23:00)
[2022-06-02] MEDS: CRESTOR PO SCH (20:29)
[2022-06-02] MEDS: CATAPRES PO PRN (21:30)
[2022-06-03] MEDS: NORCO 7.5-325 PO PRN ×3 (01:30→11:54)
[2022-06-03] MEDS: SOLU-MEDROL 40 MG IVP SCH ×2 (05:14→11:55)
[2022-06-03] MEDS: CATAPRES PO PRN (05:15)
[2022-06-03] MEDS: COZAAR PO SCH (09:21)
[2022-06-03] MEDS: TRIGLIDE PO SCH (09:21)
[2022-06-03] MEDS: CLARITIN PO SCH (09:21)
[2022-06-03] MEDS: PROTONIX IV IVP SCH (09:21)
[2022-06-03] MEDS: COREG PO SCH (09:22)
[2022-06-03] MEDS: MIRALAX PO SCH (09:23)
[2022-06-03] MEDS: ASPIRIN EC PO SCH (09:26)
[2022-06-03 13:48] VITALS: BP 147/84; TEMP 97.8
--- NOTE | 2022-06-03 14:13 | PCM.DC ---
Final Diagnosis: 1. Abdominal pain. 2. hYPERTension Physical Exam Appearance: Well-appearing, No pain distress and Obese Ill-appearing: None Pain Distress: None Eyes: CHELLE, EOMI and Conjunctiva clear ENT: Ears normal, Nose normal and Oropharynx normal Neck: Supple Respiratory: Airway patent, Breath sounds clear, Breath sounds equal and Respirations nonlabored Cardiovascular: RRR, Pulses normal, No rub and No murmur GI/: Soft, Nontender, No masses, Bowel sounds normal and No Organomegaly Musculoskeletal: Normal strength, ROM intact, No edema and No calf tenderness Skin: Warm, Dry and Normal color Neurological: Sensation intact, Motor intact, Reflexes intact, Cranial nerves intact, Alert and Oriented Psychiatric: Affect appropriate and Mood appropriate (1) LUQ abdominal pain: Status: Acute Code(s): R10.12 - Left upper quadrant pain SNOMED Code(s): 588490716 (2) Nausea and vomiting: Status: Acute Code(s): R11.2 - Nausea with vomiting, unspecified SNOMED Code(s): 73100794 Reason for Hospitalization: Pt had significant GI loss which resolved in the hospital. BP control was achieved, Prognosis/Condition at Discharge: Stable patient. Prognosis good. Medications at Discharge: Please see the Rx and home meds list. Lab/Diagnostics: Per PMD Education Provided to Patient and Family: See the discharge instructions. Follow-ups: PMD in 1-2 days. Discharge Disposition: Home Hospital Course: Pt symptoms and condition improved in the hospital. Plan: See the discharge instructions.
== END 2022-06-03 14:40 | disposition home or self-care (01) | DRG 392 ==
LOC: ED 15:11 → MEDSURG A 15:11
PROVIDERS: ADMIT Surgery; ATTEND Emergency Medicine
DX: K21.9 Gastro-esophageal reflux disease without esophagitis; Z20.822 Contact with and (suspected) exposure to COVID-19; I25.10 Atherosclerotic heart disease of native coronary artery without angina pectoris; K59.00 Constipation, unspecified; Z87.19 Personal history of other diseases of the digestive system; Z79.899 Other long term (current) drug therapy; R00.0 Tachycardia, unspecified; Z68.30 Body mass index [BMI] 30.0-30.9, adult; Z87.311 Personal history of (healed) other pathological fracture; I10 Essential (primary) hypertension; R11.2 Nausea with vomiting, unspecified; R10.12 Left upper quadrant pain; Z51.81 Encounter for therapeutic drug level monitoring; R07.9 Chest pain, unspecified; I25.2 Old myocardial infarction; E66.9 Obesity, unspecified; F17.210 Nicotine dependence, cigarettes, uncomplicated; R10.9 Unspecified abdominal pain

== ENCOUNTER 2024-02-29 09:39 | Inpatient (IN) ==
[2024-02-29] MEDS ORDERED: SOLU-MEDROL 125 MG IVP ONE (09:59)
--- NOTE | 2024-02-29 10:00 | ED.PDOC ---
General ED Provider: Dr. SOHAM ALFORD DO Chief Complaint: Shortness of Air Stated Complaint: 68 YOF with a past medical history of COPD, CAD, STEMI, hypertension, peripheral arterial disease, EtOH abuse, and ongoing tobacco dependency who presents emerged department today with chief complaint of worsening shortness of breath of the last 4 days. Patient admits to associated headache and sore throat. Denies fever, syncope, chest pain, palpitations, new cough, nausea/vomiting/diarrhea, abdominal pain, dysuria, flank pain, or new focal weakness or numbness. Time Seen by Provider: 02/29/24 10:00 Mode of Arrival: Walk-In Primary Care Provider: THU BOWEN MD Nursing and Triage Documentation Reviewed and Agree: Yes What is Opioid Naive?: *Opioid Naive implies the patient is not already taking opioids or not chronically receiving opioids on a daily basis. *PRN dosing is not "usually" associated with tolerance. *Patients are at higher risk of over-sedation and aspiration. What is Opioid Tolerant?: *Opioid Tolerance implies less than the expected response to an opioid. *Acquired tolerance is defined by the patient taking 60mg of oral morphine daily (or equianalgesic dose of another opioid) for 1 week or more. *Often associated with chronic pain. *May take more than usual dose to achieve desired pain control. Review of Systems Review Of Systems Constitutional: Reports No symptoms All Other Systems: Reviewed and Negative [facility] Medical History Acute pain of left shoulder (02/19/18) M25.512 - Pain in left shoulder (ICD-10) LUQ abdominal pain R10.12 - Left upper quadrant pain (ICD-10) Nausea and vomiting R11.2 - Nausea with vomiting, unspecified (ICD-10) Vomiting R11.10 - Vomiting, unspecified (ICD-10) Abdominal pain R10.9 - UNSPECIFIED ABDOMINAL PAIN (ICD-10) Diverticulitis K57.92 - DVTRCLI OF INTEST, PART UNSP, W/O PERF OR ABSCESS W/O BLEED (ICD- 10) Pneumonia J18.9 - PNEUMONIA, UNSPECIFIED ORGANISM (ICD-10) Foreign body in digestive tract T18.9XXA - FOREIGN BODY OF ALIMENTARY TRACT, PART UNSP, INIT ENCNTR (ICD-10) Foreign body in digestive tract T18.9XXA - Foreign body of alimentary tract, part unspecified, initial encounter (ICD-10) Stomach ulcer (03/29/17) K25.9 - Gastric ulcer, unspecified as acute or chronic, without hemorrhage or perforation (ICD-10) Epigastric pain (07/03/17) R10.13 - Epigastric pain (ICD-10) Pneumonia J18.9 - Pneumonia, unspecified organism (ICD-10) Compression fracture of second lumbar vertebra S32.020A - Wedge compression fracture of second lumbar vertebra, initial encounter for closed fracture (ICD-10) Myocardial infarction (03/08/17) [facility] to [facility] [place]. I21.9 - Acute myocardial infarction, unspecified (ICD-10) Family History Mother GI (gastrointestinal bleed) Grandfather/Grandmother Lung cancer FATHER No problems noted. Other Alzheimer disease Social History Smoking and tobacco status: Current every day smoker Tobacco: How many years used: 30 Alcohol intake: former Substance use type: does not use Household members: spouse and children Housing: house Marital status: M Lives independently: Yes Number of children: 2 service: No Current occupational status: retired History of recent travel: No Current gender identity: female Seatbelt use: always Water heater temperature set < 120 degrees: Yes Working smoke detector in home: Yes Fire extinguisher in home: No Carbon monoxide detector in home: No Surgical History History of cholecystectomy Z90.49 - Acquired absence of other specified parts of digestive tract (ICD- 10) History of partial surgical removal of colon Z90.49 - Acquired absence of other specified parts of digestive tract (ICD- 10) History of surgery Right wrist Z98.890 - Other specified postprocedural states (ICD-10) History of surgery on integumentary structure Benign cysts pelvic area, Dr. Young Z98.890 - Other specified postprocedural states (ICD-10) Status post hysterectomy Z90.710 - Acquired absence of both cervix and uterus (ICD-10) Cataract extraction and insertion of intraocular lens Female Reproductive History Menstrual Hx Hysterectomy: Yes Hx Tubal Ligation: No Physical Exam Physical Exam Appearance: Reports Ill-appearing (chronically ill appearing), No pain distress and Obese Ill-appearing: None Pain Distress: None Eyes: Reports CHELLE, EOMI and Conjunctiva clear ENT: Reports Ears normal, Nose normal and Oropharynx normal Neck: Supple Respiratory: Reports Airway patent, Breath sounds equal, Wheezes and Other (tachypneic) Cardiovascular: Reports RRR, Pulses normal, No rub and No murmur GI/: Reports Soft, Nontender and Other (no rigidity, guarding, or rebound) Musculoskeletal: Reports Normal strength, ROM intact, No edema and No calf tenderness Skin: Reports Warm, Dry and Normal color Neurological: Reports Sensation intact, Motor intact, Alert and Oriented Psychiatric: Reports Affect appropriate and Mood appropriate Course Course 02/29/24 10:07 02/29/24 10:07 Orders, Labs, Meds: Lab Review 02/29/24 02/29/24 02/29/24 10:04 10:07 10:10 WBC 10.22 H RBC 3.35 L Hgb 10.2 L Hct 33.5 L MCV 100.0 H MCH 30.4 MCHC 30.4 L RDW Coeff of Maxi 13.8 Plt Count 295 Immature Gran % (Auto) 0.5 Neut % (Auto) 84.2 H Lymph % (Auto) 5.1 L [place] % (Auto) 8.4 Eos % (Auto) 1.2 Baso % (Auto) 0.6 Neut # (Auto) 8.6 H Lymph # (Auto) 0.5 L [place] # (Auto) 0.9 Eos # (Auto) 0.1 Baso # (Auto) 0.1 Immature Gran # (Auto) 0.1 Puncture Site Rt rad Base Excess 8.2 H O2 Saturation 86.0 L ABG pH 7.37 ABG pCO2 58.0 H ABG pO2 53.0 L* ABG HCO3 33.5 H ABG Total CO2 35.3 H Jacob Test Pos Hemoglobin 1.6 H Oxyhemoglobin 85.9 L Carboxyhemoglobin 2.0 H Total Hemoglobin 10.9 L O2 Delivery Device Room air FiO2 % 21.0 Sodium 135.0 Potassium 4.70 Chloride 98.0 Carbon Dioxide 32.0 H Anion Gap 9.70 BUN 19.0 H Creatinine 1.00 Estimated GFR (MDRD) 55.00 BUN/Creatinine Ratio 19.00 Glucose 137.0 H Calcium 8.70 Total Bilirubin 0.40 AST 43.0 H ALT 23.0 Alkaline Phosphatase 74.0 POC Venous Troponin I 0.01 Troponin I Pending NT-Pro-B Natriuret Pep Pending Total Protein 6.80 Albumin 4.10 Globulin 2.70 Albumin/Globulin Ratio 1.51 Influ A Molecular Assay Positive by naat H Influ B Molecular Assay Negative by naat RSV Antigen Negative by naat SARS CoV-2 RNA Rapid RENAE Negative Orders Category Date Time Status ABG DRAW REQUEST Stat CARDIO 02/29/24 10:05 Completed EKG-(ED ONLY) Stat CARDIO 02/29/24 09:59 Completed O2 [ED APPLY O2] .ONCE EMERGENCY 02/29/24 10:20 Active ABG COOX Stat LAB 02/29/24 10:04 Completed CBC W/ AUTO DIFF Stat LAB 02/29/24 10:07 Completed CMP [COMPREHENSIVE METABOLIC PANEL] Stat LAB 02/29/24 10:07 Results COVID [SARS COV-2 RNA RAPID RENAE] Stat LAB 02/29/24 10:10 Completed FLU A & B MOLECULAR [FLU A/B MOLECULAR] Stat LAB 02/29/24 10:10 Completed NT-PROBNP(ED) Stat LAB 02/29/24 10:07 Results RSV Stat LAB 02/29/24 10:10 Completed TROPONIN I Stat LAB 02/29/24 10:07 Results Azithromycin Inj [Zithromax] 500 mg Meds 02/29/24 09:59 Discontinued 0.9 % Sodium Chloride [Sodium Chloride] 250 ml IV ONCE Ipratropium/Albuterol Neb [Duoneb] Meds 02/29/24 09:59 Discontinued 3 ml NEB ONCE ONE Magnesium Sulfate in Water [Magnesium Sulf 2 G/50 ml Meds 02/29/24 09:59 Active Bag] 2 gm in 50 ml IV ONCE Methylprednisolone Sod Succ/Pf [Solu-Medrol 125 mg] Meds 02/29/24 09:59 Discontinued 125 mg IVP ONCE ONE CHEST, 1V AP ONLY Stat RADS 02/29/24 09:59 Completed Medications Generic Name Dose Route Start Last Admin Trade Name Freq PRN Reason Stop Dose Admin MAGNESIUM SULFATE IN WATER 2 gm in 50 mls @ 25 mls/hr 02/29/24 09:59 Magnesium Sulf 2 G/50 Ml Bag IV 02/29/24 11:58 ONCE ONE Discontinued Medications Generic Name Dose Route Start Last Admin Trade Name Freq PRN Reason Stop Dose Admin Albuterol/Ipratropium 3 ml 02/29/24 09:59 02/29/24 10:15 Ipratropium/Albuterol Vial.Neb NEB 02/29/24 10:00 3 ml ONCE ONE Administration Azithromycin 500 mg/ Sodium 250 mls @ 250 mls/hr 02/29/24 09:59 Chloride IV 02/29/24 10:58 ONCE ONE Methylprednisolone Sodium Succinate 125 mg 02/29/24 09:59 Methylprednisolone Sod Succ/Pf 125 Mg/2 Ml Vial IVP 02/29/24 10:00 ONCE ONE Vital Signs: Temp Pulse Resp BP Pulse Ox 02/29/24 09:58 98.0 F 87 20 129/89 81 L Discharge Plan Discharge Patient Disposition: ADMITTED INPATIENT Discharge Problem: Influenza A, Acute respiratory failure with hypoxia and hypercapnia Prescriptions: No Action aspirin [Aspir-81] 81 MG tablet,delayed release (DR/EC) 81 mg PO DAILY [facility] 0.4 MG tablet, sublingual 0.4 mg sublingual PRN PRN (Reason: Chest Pain) rosuvastatin 20 mg tablet See Rx Instructions .ROUTE .COMPLEX Qty: 90 1RF Dose Instruction: TAKE ONE TABLET AT BEDTIME Rx Instructions: TAKE ONE TABLET AT BEDTIME fenofibrate 54 mg tablet See Rx Instructions .ROUTE .COMPLEX Qty: 90 1RF Dose Instruction: TAKE ONE TABLET DAILY Rx Instructions: TAKE ONE TABLET DAILY carvedilol 12.5 mg tablet 12.5 mg PO 2XD Qty: 60 2RF pantoprazole 40 mg tablet,delayed release (DR/EC) 40 mg PO DAILY Qty: 30 3RF losartan 50 mg tablet 50 mg PO DAILY Qty: 90 1RF tramadol 50 mg tablet 50 mg PO BID PRN (Reason: pain) Qty: 60 1RF tizanidine 4 mg tablet 4 mg PO BEDTIME PRN (Reason: for muscle spasm) Qty: 30 2RF Did you review [place] [employer] for ALL controlled substances?: Not Applicable ED Provider: SOHAM ALFORD Condition: Stable
[2024-02-29 10:11] LABS: ABG O2 HGB 85.9 % (95-100); ABG PH 7.37 (7.35-7.45); BEecf 8.2 (-2.0-3.0); HCO3 33.5 (21-28); MetHb 1.6 (0-1.5); TCO2 35.3 (19-24); tHb 10.9 g/dl (11.7-17.4)
[2024-02-29 10:12] LABS: BASOPHILS # (AUTO) 0.1 K/uL (0-0.2); BASOPHILS % (AUTO) 0.6 % (0.0-3.0); EOSINOPHILS # (AUTO) 0.1 K/ul (0.0-0.7); EOSINOPHILS % (AUTO) 1.2 % (0.0-7.0); HEMATOCRIT 33.5 % (37.0-47.0); HEMOGLOBIN 10.2 g/dl (12.0-16.0); IMMATURE GRANULOCYTE # (AUTO) 0.1 (0.0-1.0); IMMATURE GRANULOCYTE % (AUTO) 0.5 % (0.0-5.0); LYMPHOCYTES # (AUTO) 0.5 K/uL (0.60-3.4); LYMPHOCYTES % (AUTO) 5.1 (10.0-50.0); MEAN CORPUSCULAR HEMOGLOBIN 30.4 pg (27.0-31.0); MEAN CORPUSCULAR HGB CONC 30.4 (31.8-35.4); MONOCYTES # (AUTO) 0.9 K/uL (0.4-2.0); MONOCYTES % (AUTO) 8.4 (0-10); NEUTROPHILS # (AUTO) 8.6 K/ul (2.0-6.9); NEUTROPHILS % (AUTO) 84.2 % (42.2-75.2); PLATELET COUNT 295 10^3/uL (140-440); RDW COEFFICIENT OF VARIATION 13.8 % (11.6-14.8); RED BLOOD COUNT 3.35 10^6/ul (4.20-5.40); WHITE BLOOD COUNT 10.22 K/ul (4.6-10.2)
[2024-02-29] MEDS: DUONEB NEB ONE (10:15)
--- NOTE | 2024-02-29 10:24 | DI ---
EXAM: CHEST RADIOGRAPH TECHNIQUE: Single frontal chest radiograph. HISTORY: Shortness of breath COMPARISON: 05/30/2022 FINDINGS: No focal alveolar consolidation is identified Negative for connie pulmonary edema No significant free pleural fluid or pneumothorax is appreciated The mediastinal and hilar contours appear unremarkable IMPRESSION: No acute pulmonary infiltrate is identified.
[2024-02-29 10:25] LABS: TROPONIN I (ISTAT) 0.01 ng/ml (0.00-0.08)
[2024-02-29 10:32] LABS: MOLECULAR FLU A POSITIVE BY NAAT (NEGATIVE); MOLECULAR FLU B NEGATIVE BY NAAT (NEGATIVE); RSV MOLECULAR NEGATIVE BY NAAT (NEGATIVE); SARS COV-2 RNA RAPID NAAT NEGATIVE (NEGATIVE)
--- NOTE | 2024-02-29 11:49 | PCM ---
Date of Service Date Seen by Provider: 02/29/24 Time Seen by Provider: 14:00 Admit Day/Time Admission Date: 02/29/24 Admission Time: 11:19 Reason for Admission Chief Complaint: HEADACHE Hospital Provider Hospital Provider: Felicita Samuels PA-C, [facility] Primary Care Physician: THU BLISS MD History of Present Illness History of Present Illness: 68 YOF with a past medical history of COPD, CAD, STEMI, hypertension, peripheral arterial disease, EtOH abuse, and ongoing tobacco dependency who presents to ED today with chief complaint of worsening shortness of breath of the last 4 days. Patient admits to associated headache and sore throat. She is a smoker. In the ER she was noted to have oxygen saturation of 80%, improved with 2L. She had a PO2 of 53. She tested positive for influenza. She was given a breathing treatment, solumedrol, magnesium, azithromycin and tylenol. CXR negative. She will be admitted to [facility] for influenza and acute respiratory failure. Case Discussed With Case Discussed With: Patient's case was discussed with the ER Physicians, Dr. Leger. [facility] Medical History Acute pain of left shoulder (02/19/18) M25.512 - Pain in left shoulder (ICD-10) LUQ abdominal pain R10.12 - Left upper quadrant pain (ICD-10) Nausea and vomiting R11.2 - Nausea with vomiting, unspecified (ICD-10) Vomiting R11.10 - Vomiting, unspecified (ICD-10) Abdominal pain R10.9 - UNSPECIFIED ABDOMINAL PAIN (ICD-10) Diverticulitis K57.92 - DVTRCLI OF INTEST, PART UNSP, W/O PERF OR ABSCESS W/O BLEED (ICD- 10) Pneumonia J18.9 - PNEUMONIA, UNSPECIFIED ORGANISM (ICD-10) Foreign body in digestive tract T18.9XXA - FOREIGN BODY OF ALIMENTARY TRACT, PART UNSP, INIT ENCNTR (ICD-10) Foreign body in digestive tract T18.9XXA - Foreign body of alimentary tract, part unspecified, initial encounter (ICD-10) Stomach ulcer (03/29/17) K25.9 - Gastric ulcer, unspecified as acute or chronic, without hemorrhage or perforation (ICD-10) Epigastric pain (07/03/17) R10.13 - Epigastric pain (ICD-10) Pneumonia J18.9 - Pneumonia, unspecified organism (ICD-10) Compression fracture of second lumbar vertebra S32.020A - Wedge compression fracture of second lumbar vertebra, initial encounter for closed fracture (ICD-10) Myocardial infarction (03/08/17) [facility] sent to [facility]. I21.9 - Acute myocardial infarction, unspecified (ICD-10) Surgical History History of cholecystectomy Z90.49 - Acquired absence of other specified parts of digestive tract (ICD- 10) History of partial surgical removal of colon Z90.49 - Acquired absence of other specified parts of digestive tract (ICD- 10) History of surgery Right wrist Z98.890 - Other specified postprocedural states (ICD-10) History of surgery on integumentary structure Benign cysts pelvic area, Dr. Young Z98.890 - Other specified postprocedural states (ICD-10) Status post hysterectomy Z90.710 - Acquired absence of both cervix and uterus (ICD-10) Cataract extraction and insertion of intraocular lens Family History Mother GI (gastrointestinal bleed) Grandfather/Grandmother Lung cancer FATHER No problems noted. Other Alzheimer disease Social History Smoking and tobacco status: Current every day smoker Tobacco: How many years used: 30 Alcohol intake: former Substance use type: does not use Household members: spouse and children Housing: house Marital status: M Lives independently: Yes Number of children: 2 service: No Current occupational status: retired History of recent travel: No Current gender identity: female Seatbelt use: always Water heater temperature set < 120 degrees: Yes Working smoke detector in home: Yes Fire extinguisher in home: No Carbon monoxide detector in home: No Allergies Allergies Allergy/AdvReac Type Severity Reaction Status Date / Time levofloxacin (From Levaquin) Allergy Mild Rash Verified 02/29/24 09:57 sulfamethoxazole AdvReac Intermediate Rash Verified 02/29/24 09:57 Current Medications Home Medications aspirin 81 mg tablet,delayed release (Aspir-) 81 mg PO DAILY 03/29/17 [History Confirmed 02/29/24 Last Taken 10/09/18 05:00] nitroglycerin 0.4 mg sublingual tablet 0.4 mg sublingual PRN PRN Chest Pain 03/29/17 [History Confirmed 02/29/24 Last Taken 01/04/18 08:00] rosuvastatin 20 mg tablet See Rx Instructions .Route .COMPLEX #90 tabs 08/21/23 [Rx Confirmed 02/29/24 Last Taken Unknown] fenofibrate 54 mg tablet See Rx Instructions .Route .COMPLEX #90 tabs 08/31/23 [Rx Confirmed 02/29/24 Last Taken Unknown] carvedilol 12.5 mg tablet 12.5 mg PO 2XD #60 tabs 11/15/23 [Rx Confirmed 02/29/24 Last Taken Unknown] pantoprazole 40 mg tablet,delayed release 40 mg PO DAILY #30 tabs 12/11/23 [Rx Confirmed 02/29/24 Last Taken Unknown] losartan 50 mg tablet 50 mg PO DAILY #90 tabs 01/24/24 [Rx Confirmed 02/29/24 Last Taken Unknown] tramadol 50 mg tablet 50 mg PO BID PRN pain #60 tabs 01/31/24 [Rx Confirmed 02/29/24 Last Taken Unknown] tizanidine 4 mg tablet 4 mg PO BEDTIME PRN for muscle spasm #30 tabs 02/06/24 [Rx Confirmed 02/29/24 Last Taken Unknown] Home Acetaminophen (Acetaminophen 325 Mg Tablet) 650 mg PO Q4H PRN PRN Reason: Mild Pain Albuterol/Ipratropium (Ipratropium/Albuterol Vial.Neb) 3 ml NEB RTQ6H [place] Aspirin (Aspirin 81 Mg Tablet.Dr) 81 mg PO DAILYWM2 [place] Benzonatate (Benzonatate 100 Mg Capsule) 100 mg PO TID PRN PRN Reason: Cough Carvedilol (Carvedilol 12.5 Mg Tablet) 12.5 mg PO 2XD [facility] Enoxaparin Sodium (Enoxaparin Sodium 40 Mg/0.4 Ml Syr) 40 mg SUBCUT DAILY [facility] Fenofibrate (Fenofibrate 54 Mg Tablet) 0 mg PO .COMPLEX [facility] Guaifenesin/Dextromethorphan (Guaifenesin/Dextromethorphan 200/20 Mg/10 Ml Cup) 10 ml PO Q6HR PRN PRN Reason: Cough Losartan Potassium (Losartan Potassium 25 Mg Tablet) 50 mg PO DAILY [facility] Ondansetron HCl (Ondansetron Hcl/Pf 4 Mg/2 Ml Sdv) 4 mg IVP Q6H PRN PRN Reason: Nausea / Vomiting Oseltamivir Phosphate (Oseltamivir Phosphate 75 Mg Capsule) 75 mg PO Q12HR [facility] Last Admin: 02/29/24 14:33 Dose: 75 mg Pantoprazole Sodium (Pantoprazole Sodium 40 Mg Tablet.Dr) 40 mg PO DAILY [place] Rosuvastatin Calcium (Rosuvastatin Calcium 10 Mg Tablet) 0 mg PO .COMPLEX [facility] Tizanidine HCl (Tizanidine Hcl 4 Mg Tablet) 4 mg PO BEDTIME PRN PRN Reason: muscle spasm Tramadol HCl (Tramadol Hcl 50 Mg Tablet) 50 mg PO BID PRN PRN Reason: MODERATE PAIN Discontinued Medications Acetaminophen (Acetaminophen 325 Mg Tablet) 650 mg PO ONCE STA Stop: 02/29/24 12:09 Last Admin: 02/29/24 12:17 Dose: 650 mg Albuterol/Ipratropium (Ipratropium/Albuterol Vial.Neb) 3 ml NEB ONCE ONE Stop: 02/29/24 10:00 Last Admin: 02/29/24 10:15 Dose: 3 ml MAGNESIUM SULFATE IN WATER (Magnesium Sulf 2 G/50 Ml Bag) 2 gm in 50 mls @ 25 mls/hr IV ONCE ONE Stop: 02/29/24 11:58 Last Admin: 02/29/24 13:55 Dose: 25 mls/hr Azithromycin 500 mg/ Sodium (Chloride) 250 mls @ 250 mls/hr IV ONCE ONE Stop: 02/29/24 10:58 Last Admin: 02/29/24 12:18 Dose: 250 mls/hr Methylprednisolone Sodium Succinate (Methylprednisolone Sod Succ/Pf 125 Mg/2 Ml Vial) 125 mg IVP ONCE ONE Stop: 02/29/24 12:31 Last Admin: 02/29/24 12:17 Dose: 125 mg Opioid Naive vs. Tolerant Does Patient Take Opioids?: No Is Patient Opioid Naive?: Yes What is Opioid Naive?: *Opioid Naive implies the patient is not already taking opioids or not chronically receiving opioids on a daily basis. *PRN dosing is not "usually" associated with tolerance. *Patients are at higher risk of over-sedation and aspiration. Is Patient Opioid Tolerant?: No What is Opioid Tolerant?: *Opioid Tolerance implies less than the expected response to an opioid. *Acquired tolerance is defined by the patient taking 60mg of oral morphine daily (or equianalgesic dose of another opioid) for 1 week or more. *Often associated with chronic pain. *May take more than usual dose to achieve desired pain control. Review of Systems Constitutional: Reports Fatigue; Denies Fever Head: Reports Normocephalic and Atraumatic Cardiovascular: Denies Chest pain, Chest Pressure or Edema Respiratory: Reports Cough and Shortness of air Gastrointestinal: Denies Nausea, Vomiting, Diarrhea, Abdominal pain or Melena Genitourinary: Denies Dysuria or Frequency Neurological: Reports Headache Physical examination Most Recent Vital Signs: Most Recent Vital Signs Temperature 98.0 F 02/29/24 09:58 Temperature Source Infrared 02/29/24 09:58 Pulse Rate 87 02/29/24 09:58 Respiratory Rate 20 02/29/24 09:58 Blood Pressure 129/89 02/29/24 09:58 O2 Sat by Pulse Oximetry 81 L 02/29/24 09:58 Oxygen Flow Rate 2 02/29/24 11:00 Height 5 ft 4 in 02/29/24 09:58 Weight 81.4 kg 02/29/24 10:00 Telemetry Heart Rate 64 06/03/22 12:44 Appearance: Positive No Apparent Distress and Alert and Oriented x3 Skin: Positive [place], Warm and Good Turgor; Negative Rashes HEENT: Positive Normocephalic and Atraumatic Neck: Positive Supple and Midline Trachea Chest/Lungs: Positive Symmetrical With Equal Breath Sounds and Wheezes; Negative Rales or Rhonci Heart: Positive RRR GI/: Positive Soft, Nontender, Bowel Sounds Normal and No Distention Neurological: Positive Cranial Nerves Intact, Alert, Oriented and Muscle Strength 5/5 in Upper and Lower Extremities Bilaterally Psychiatric: Positive Oriented x4, Appropriate Mood and Appropriate Affect Labs This Visit Labs This Visit: Labs This Visit 02/29/24 02/29/24 02/29/24 10:04 10:07 10:10 WBC 10.22 H RBC 3.35 L Hgb 10.2 L Hct 33.5 L MCV 100.0 H MCH 30.4 MCHC 30.4 L RDW Coeff of Maxi 13.8 Plt Count 295 Immature Gran % (Auto) 0.5 Neut % (Auto) 84.2 H Lymph % (Auto) 5.1 L [place] % (Auto) 8.4 Eos % (Auto) 1.2 Baso % (Auto) 0.6 Neut # (Auto) 8.6 H Lymph # (Auto) 0.5 L [place] # (Auto) 0.9 Eos # (Auto) 0.1 Baso # (Auto) 0.1 Immature Gran # (Auto) 0.1 Puncture Site Rt rad Base Excess 8.2 H O2 Saturation 86.0 L ABG pH 7.37 ABG pCO2 58.0 H ABG pO2 53.0 L* ABG HCO3 33.5 H ABG Total CO2 35.3 H Jacob Test Pos Hemoglobin 1.6 H Oxyhemoglobin 85.9 L Carboxyhemoglobin 2.0 H Total Hemoglobin 10.9 L O2 Delivery Device Room air FiO2 % 21.0 Sodium 135.0 Potassium 4.70 Chloride 98.0 Carbon Dioxide 32.0 H Anion Gap 9.70 BUN 19.0 H Creatinine 1.00 Estimated GFR (MDRD) 55.00 BUN/Creatinine Ratio 19.00 Glucose 137.0 H Calcium 8.70 Total Bilirubin 0.40 AST 43.0 H ALT 23.0 Alkaline Phosphatase 74.0 POC Venous Troponin I 0.01 Total Protein 6.80 Albumin 4.10 Globulin 2.70 Albumin/Globulin Ratio 1.51 Influ A Molecular Assay Positive by naat H Influ B Molecular Assay Negative by naat RSV Antigen Negative by naat SARS CoV-2 RNA Rapid RENAE Negative Imaging Imaging: EXAM: CHEST RADIOGRAPH TECHNIQUE: Single frontal chest radiograph. HISTORY: Shortness of breath COMPARISON: 05/30/2022 FINDINGS: No focal alveolar consolidation is identified Negative for connie pulmonary edema No significant free pleural fluid or pneumothorax is appreciated The mediastinal and hilar contours appear unremarkable IMPRESSION: No acute pulmonary infiltrate is identified. Review Statement Review Statement: I have independently reviewed and interpreted the labs/EKGs/imaging that were ordered by the ER provider. I have reviewed all outside records that are available currently in our EMR including imaging/notes/labs from previous visits. Plan Plan: 1. Acute hypoxic respiratory failure in setting of influenza A - RT consult, wean O2 when able. PO2 of 53 on abg. Robonebs. 2. Influenza A - Will start tamiflu despite being out of the window due to her comorbidities and need for hospitalization. Otherwise support care measures. 3. Hypercapnia - Noted on ABG, likely chronic due to her COPD and smoking. PH normal. 4. Hypertension - Cont home meds 5. Hyperlipidemia - Cont home meds 6. GERD - Cont home meds DVT Prophylaxis: Lovenox Time Spent: Greater than 80 minutes spent with patient, 50% of the time spent with this patient was devoted to counseling and coordination of care. [facility] minutes spent discussing advance care planning. Smoking Cessation: 3 minutes spent discussing smoking cessation. Admit to: Inpatient Discussed Plan of Care with Dr. Jonn Bliss. Medications Medication Orders: Medications Ordered Category Date Time Status Magnesium Sulfate in Water [Magnesium Sulf 2 G/50 ml Meds 02/29/24 09:59 Active Bag] 2 gm in 50 ml IV ONCE
[2024-02-29] MEDS: TYLENOL PO STA (12:17)
[2024-02-29] MEDS: SOLU-MEDROL 125 MG IVP ONE (12:17)
[2024-02-29] MEDS: ZITHROMAX 500 MG in SODIUM CHLORIDE 250 ML IV ONE (12:18)
[2024-02-29] MEDS ORDERED: ZOFRAN SDV IVP PRN (12:35)
[2024-02-29] MEDS: MAGNESIUM SULF 2 G/50 ML BAG 2 GM/50 ML PIGGYBACK IV ONE (13:55)
[2024-02-29] MEDS: TAMIFLU CAPSULE PO SCH (14:33)
[2024-02-29 15:02] LABS: TROPONIN I < 0.012 ng/ml (0.0000-0.120)
[2024-02-29 15:22] VITALS: BMI 34.0
[2024-02-29] MEDS: DUONEB NEB PRN (15:46)
[2024-02-29] MEDS: DUONEB NEB SCH (18:11)
[2024-02-29] MEDS: TYLENOL PO PRN (19:23)
[2024-02-29] MEDS: CRESTOR PO SCH (21:27)
[2024-02-29] MEDS: ULTRAM PO PRN (21:27)
[2024-02-29] MEDS: ROBITUSSIN DM SYRUP PO PRN (21:27)
[2024-02-29] MEDS: COREG PO SCH (21:30)
[2024-03-01] MEDS: PROTONIX PO SCH (05:04)
[2024-03-01] MEDS: TESSALON PERLES PO PRN (05:09)
[2024-03-01 05:54] LABS: BASOPHILS % (AUTO) 0.1 % (0.0-3.0); EOSINOPHILS # (AUTO) 0.1 K/ul (0.0-0.7); EOSINOPHILS % (AUTO) 0.8 % (0.0-7.0); HEMATOCRIT 32.7 % (37.0-47.0); HEMOGLOBIN 9.7 g/dl (12.0-16.0); IMMATURE GRANULOCYTE # (AUTO) 0.1 (0.0-1.0); IMMATURE GRANULOCYTE % (AUTO) 1.4 % (0.0-5.0); LYMPHOCYTES # (AUTO) 0.8 K/uL (0.60-3.4); LYMPHOCYTES % (AUTO) 7.6 (10.0-50.0); MEAN CORPUSCULAR HGB CONC 29.7 (31.8-35.4); MEAN CORPUSCULAR VOLUME 101.2 fl (81.0-99.0); MONOCYTES # (AUTO) 0.6 K/uL (0.4-2.0); MONOCYTES % (AUTO) 5.5 (0-10); NEUTROPHILS # (AUTO) 8.4 K/ul (2.0-6.9); NEUTROPHILS % (AUTO) 84.6 % (42.2-75.2); PLATELET COUNT 316 10^3/uL (140-440); RDW COEFFICIENT OF VARIATION 13.8 % (11.6-14.8); RED BLOOD COUNT 3.23 10^6/ul (4.20-5.40); WHITE BLOOD COUNT 9.91 K/ul (4.6-10.2)
[2024-03-01 06:06] LABS: ALANINE AMINOTRANSFERASE 21.4 U/L (0-35); ALBUMIN 4.06 g/dL (3.5-5.0); ASPARTATE AMINO TRANSFERASE 31.2 U/L (14-36); BILIRUBIN,TOTAL 0.22 mg/dL (0.2-1.3); BLOOD UREA NITROGEN 18.7 mg/dL (7-17); CALCIUM 8.32 mg/dL (8.4-10.2); CARBON DIOXIDE 33.2 mmol/L (22-30.0); CREATININE 0.94 mg/dL (0.60-1.30); POTASSIUM 4.53 mmol/L (3.5-5.1); TOTAL PROTEIN 6.91 g/dL (6.3-8.2)
[2024-03-01] MEDS: COZAAR PO SCH (08:13)
[2024-03-01] MEDS: LOVENOX SUBCUT SCH (08:14)
[2024-03-01] MEDS: TRIGLIDE PO SCH (08:14)
[2024-03-01] MEDS: ASPIRIN EC PO SCH (08:15)
[2024-03-01] MEDS: VISIPAQUE 320 MG/ML 100ML IVP ONE (10:29)
--- NOTE | 2024-03-01 11:14 | PCM.PROG ---
Date/Time Seen Date Seen by Provider: 03/01/24 Time Seen by Provider: 08:30 Provider Provider: FELICITA SAMUELS PA-C, [facility] Chief Complaint Chief Complaint: HEADACHE Subjective Subjective: Patient overall doesn't feel well. Didn't sleep good last night, only about 1-2 hours worth. Becomes hypoxic with any exertion despite 2L, but then recovers. Has a cough. Objective Appearance: Positive No Apparent Distress and Alert and Oriented x3 Chest/Lungs: Positive Clear to Auscultation Bilaterally; Negative Rales, Rhonci or Wheezes Heart: Positive RRR GI/: Positive Soft, Nontender, Bowel Sounds Normal and No Distention Neurological: Positive Cranial Nerves Intact, Alert, Oriented and Muscle Strength 5/5 in Upper and Lower Extremities Bilaterally Vital Signs Vital Signs: Vital Signs: Last 24 Hours 02/29/24 13:10 02/29/24 13:10 02/29/24 13:35 Temperature 98.4 F Temperature Source Oral Pulse Rate 83 Respiratory Rate 24 H 24 H Blood Pressure Blood Pressure Mean Blood Pressure Right Arm 123/78 Blood Pressure Location Blood Pressure Position Sitting O2 Sat by Pulse Oximetry 95 Oxygen Delivery Method Nasal Cannula Nasal Cannula Oxygen Flow Rate 2 Fraction of Inspired Oxygen (FIO2) 2 Height 5 ft 4 in Weight 89.8 kg Telemetry Type Remote Telemetry Telemetry Monitoring Started Telemetry Heart Rate 79 Telemetry SPO2 93 EKG MD Interval 0.16 EKG QRS Interval 0.07 Telemetry Strip Reading SR 02/29/24 14:00 02/29/24 18:08 02/29/24 19:00 Temperature 98.5 F Temperature Source Temporal Artery Scan Pulse Rate 88 Respiratory Rate 32 H Blood Pressure 143/76 H Blood Pressure Mean 98 Blood Pressure Right Arm Blood Pressure Location Right Arm Blood Pressure Position Sitting O2 Sat by Pulse Oximetry 93 L Oxygen Delivery Method Nasal Cannula Nasal Cannula Oxygen Flow Rate 2 2 Fraction of Inspired Oxygen (FIO2) Height Weight Telemetry Type Remote Telemetry Telemetry Monitoring Continues Telemetry Heart Rate 83 Telemetry SPO2 95 EKG MD Interval 0.19 EKG QRS Interval 0.06 Telemetry Strip Reading SR 02/29/24 19:10 02/29/24 19:59 02/29/24 20:00 Temperature 97.8 F Temperature Source Temporal Artery Scan Pulse Rate 98 Respiratory Rate 22 H 21 H Blood Pressure 146/83 H Blood Pressure Mean 104 Blood Pressure Right Arm Blood Pressure Location Right Arm Blood Pressure Position Supine O2 Sat by Pulse Oximetry 91 L 91 L Oxygen Delivery Method Nasal Cannula Nasal Cannula Nasal Cannula Oxygen Flow Rate 2 2 Fraction of Inspired Oxygen (FIO2) 2 Height Weight Telemetry Type Telemetry Monitoring Telemetry Heart Rate Telemetry SPO2 EKG MD Interval EKG QRS Interval Telemetry Strip Reading 03/01/24 00:51 03/01/24 02:00 03/01/24 05:06 Temperature 97.9 F 97 F L Temperature Source Temporal Artery Scan Temporal Artery Scan Pulse Rate 72 82 Respiratory Rate 19 19 Blood Pressure 121/63 112/58 L Blood Pressure Mean 82 76 Blood Pressure Right Arm Blood Pressure Location Right Arm Right Arm Blood Pressure Position Supine Supine O2 Sat by Pulse Oximetry 90 L 91 L Oxygen Delivery Method Room Air Nasal Cannula Oxygen Flow Rate 2 2 Fraction of Inspired Oxygen (FIO2) Height Weight Telemetry Type Remote Telemetry Telemetry Monitoring Continues Telemetry Heart Rate 73 Telemetry SPO2 92 L EKG MD Interval 0.20 EKG QRS Interval 0.09 Telemetry Strip Reading SR 03/01/24 05:42 03/01/24 07:00 03/01/24 08:10 Temperature Temperature Source Pulse Rate Respiratory Rate Blood Pressure Blood Pressure Mean Blood Pressure Right Arm Blood Pressure Location Blood Pressure Position O2 Sat by Pulse Oximetry 93 L Oxygen Delivery Method Nasal Cannula Nasal Cannula Oxygen Flow Rate 2 Fraction of Inspired Oxygen (FIO2) 2 Height Weight Telemetry Type Remote Telemetry Telemetry Monitoring Continues Telemetry Heart Rate 78 Telemetry SPO2 95 EKG MD Interval 0.15 EKG QRS Interval 0.07 Telemetry Strip Reading NSR 03/01/24 10:00 03/01/24 10:00 Temperature 97.0 F L Temperature Source Temporal Artery Scan Pulse Rate 98 Respiratory Rate 16 Blood Pressure 124/64 Blood Pressure Mean 84 Blood Pressure Right Arm Blood Pressure Location Left Arm Blood Pressure Position O2 Sat by Pulse Oximetry 87 L 91 L Oxygen Delivery Method Nasal Cannula Nasal Cannula Oxygen Flow Rate 2 2 Fraction of Inspired Oxygen (FIO2) Height Weight Telemetry Type Telemetry Monitoring Telemetry Heart Rate Telemetry SPO2 EKG MD Interval EKG QRS Interval Telemetry Strip Reading Lab Results Lab Results: Lab Results: Last 24 Hours 03/01/24 02/29/24 05:38 10:07 WBC 9.91 RBC 3.23 L Hgb 9.7 L Hct 32.7 L MCV 101.2 H MCH 30.0 MCHC 29.7 L RDW Coeff of Maxi 13.8 Plt Count 316 Immature Gran % (Auto) 1.4 Neut % (Auto) 84.6 H Lymph % (Auto) 7.6 L [place] % (Auto) 5.5 Eos % (Auto) 0.8 Baso % (Auto) 0.1 Neut # (Auto) 8.4 H Lymph # (Auto) 0.8 [place] # (Auto) 0.6 Eos # (Auto) 0.1 Baso # (Auto) 0.0 Immature Gran # (Auto) 0.1 Sodium 136.0 Potassium 4.53 Chloride 97.0 L Carbon Dioxide 33.2 H Anion Gap 10.33 BUN 18.7 H Creatinine 0.94 Estimated GFR (MDRD) 59.00 BUN/Creatinine Ratio 19.89 Glucose 137.0 H Calcium 8.32 L Total Bilirubin 0.22 AST 31.2 ALT 21.4 Alkaline Phosphatase 60.0 Troponin I < 0.012 NT-Pro-B Natriuret Pep 1030 H Total Protein 6.91 Albumin 4.06 Globulin 2.85 Albumin/Globulin Ratio 1.42 Additional Comments Additional Comments: I have independently reviewed and interpreted the labs/EKGs/imaging ordered during this hospital stay. I have reviewed outside records that are available in our EMR that pertain to medical stay including imaging/notes/labs from previous visits. Active Medications Active Medications: Medications Generic Name Dose Route Start Last Admin Trade Name Freq PRN Reason Stop Dose Admin Acetaminophen 650 mg 02/29/24 12:35 03/01/24 02:08 Acetaminophen 325 Mg Tablet PO 650 mg Q4H PRN Administration Mild Pain Albuterol/Ipratropium 3 ml 02/29/24 18:00 03/01/24 05:46 Ipratropium/Albuterol Vial.Kacey NEB 3 ml RTQ6H GENTRY Administration Albuterol/Ipratropium 3 ml 02/29/24 15:37 02/29/24 15:46 Ipratropium/Albuterol Vial.Kacey NEB 3 ml RTQ4H PRN Administration Wheezing Aspirin 81 mg 03/01/24 07:30 03/01/24 08:15 Aspirin 81 Mg Tablet. PO 81 mg DAILYWM2 GENTRY Administration Benzonatate 100 mg 02/29/24 12:35 03/01/24 05:09 Benzonatate 100 Mg Capsule PO 100 mg TID PRN Administration Cough Carvedilol 12.5 mg 02/29/24 21:00 03/01/24 08:14 Carvedilol 12.5 Mg Tablet PO 12.5 mg 2XD GENTRY Administration Enoxaparin Sodium 40 mg 03/01/24 09:00 03/01/24 08:14 Enoxaparin Sodium 40 Mg/0.4 Ml Syr SUBCUT 40 mg DAILY GENTRY Administration Fenofibrate 54 mg 03/01/24 09:00 03/01/24 08:14 Fenofibrate 54 Mg Tablet PO 54 mg DAILY GENTRY Administration Guaifenesin/Dextromethorphan 10 ml 02/29/24 12:35 03/01/24 10:17 Guaifenesin/Dextromethorphan 200/20 Mg/10 Ml Cup PO 10 ml Q6HR PRN Administration Cough Losartan Potassium 50 mg 03/01/24 09:00 03/01/24 08:13 Losartan Potassium 25 Mg Tablet PO 50 mg DAILY GENTRY Administration Ondansetron HCl 4 mg 02/29/24 12:35 Ondansetron Hcl/Pf 4 Mg/2 Ml Sdv IVP Q6H PRN Nausea / Vomiting Oseltamivir Phosphate 75 mg 02/29/24 12:40 03/01/24 08:15 Oseltamivir Phosphate 75 Mg Capsule PO 03/04/24 22:00 75 mg Q12HR GENTRY Administration Pantoprazole Sodium 40 mg 03/01/24 06:00 03/01/24 05:04 Pantoprazole Sodium 40 Mg Tablet.Dr PO 40 mg QDAC2 GENTRY Administration Rosuvastatin Calcium 20 mg 02/29/24 21:00 02/29/24 21:27 Rosuvastatin Calcium 10 Mg Tablet PO 20 mg BEDTIME GENTRY Administration Sodium Chloride 1 syr 02/29/24 21:00 03/01/24 05:04 0.9% Sodium Chloride 10 Ml Disp.Syrin IVF 1 syr Q8HR GENTRY Administration Tizanidine HCl 4 mg 02/29/24 14:35 Tizanidine Hcl 4 Mg Tablet PO BEDTIME PRN muscle spasm Tramadol HCl 50 mg 02/29/24 14:35 02/29/24 21:27 Tramadol Hcl 50 Mg Tablet PO 50 mg BID PRN Administration MODERATE PAIN Plan Plan: 1. Acute hypoxic respiratory failure in setting of influenza A - RT consult, wean O2 when able. PO2 of 53 on abg. Duonebs. Get CTA today to r/o PE. 2. Influenza A - Cont tamiflu despite being out of the window due to her comorbidities and need for hospitalization. Otherwise supportive care measures. 3. Hypercapnia - Noted on ABG, likely chronic due to her COPD and smoking. PH normal. 4. Hypertension - Cont home meds 5. Hyperlipidemia - Cont home meds 6. GERD - Cont home meds DVT Prophylaxis: Lovenox Review Statement Review Statement: I have personally discussed and reviewed the patient's visit/currently labs/imaging/decision making with Dr. Bliss, my supervising attending. Greater that 50 minutes spent with patient, 50% of the time spent with this patient was devoted to counseling and coordination of care.
--- NOTE | 2024-03-01 12:17 | CT ---
EXAM: CHEST CTA WITH CONTRAST (PULMONARY ARTERY) HISTORY: Hypoxia shortness of breath TECHNIQUE: CTA acquisition of the chest from the thoracic inlet to the upper abdomen following IV con trast administration timed to filling of the pulmonary artery. IV Contrast: 100 mL of Omnipaque 350 administered. 3D/MIP/VR images were utilized. CT Dose Reduction Techniques Employed: Yes. COMPARISON: Chest CT 06/02/[address] 08/12/2019 FINDINGS: Artifact related to patient motion limits interpretation. The examination is not of fully diagnostic quality No definite intraluminal filling defect is seen within the main pulmonary artery or its major segment al branches to suggest pulmonary embolism No noncalcified soft tissue pulmonary mass or focal pulmonary infiltrate is shown Negative for significant pleural or pericardial effusion Negative for focal aneurysm, intimal dissection, or mural disruption involving the thoracic aorta Atherosclerotic calcifications are shown throughout the visualized arterial structures, including the [place] coronary arteries Coarse calcifications are demonstrated in the aortic annulus and in the aortic leaflets Incidental note is made of normal variant vascular anatomy, with the origin of the left vertebral art marivel arising directly from the thoracic aortic arch No pathologically enlarged thoracic lymph node is identified Low attenuation is demonstrated within the liver consistent with generalized fatty infiltration of th e liver Status post cholecystectomy There is a circumscribed nodule in the right adrenal gland showing CT density measurements consistent with benign adrenal adenoma and measuring approximately 1.5 cm diameter A circumscribed nodule is demonstrated in the left adrenal gland showing CT density measurements cons istent with benign adrenal adenoma measuring 2.3 x 1.1 cm Additional circumscribed nodule is demonstrated in the left adrenal gland showing CT density measurem ents consist with indeterminate adrenal nodule and measuring approximately 2.5 x 1.9 cm cross-section There is generalized osseous demineralization. Chronic degenerative changes are shown throughout the visualized orthopedic structures Chronic compression deformities are noted in the mid and lower thoracic spine which appear unchanged compared with 06/02/2022 IMPRESSION: Study is limited by artifact related to patient motion. No definite CT evidence for pulmonary emboli sm is identified. If there is continued clinical concern, repeat examination could be attempted, whe n patient is better able to cooperate with the study Hepatic steatosis Bilateral adrenal nodules, one on the right into on the left, stable in size and configuration when c ompared with studies dating back to 08/12/2019, most likely benign All CT scans are performed using dose optimization techniques as appropriate to the performed exam an d include at least one of the following: Automated exposure control, adjustment of the mA and/or kV according t o size, and the use of iterative reconstruction technique.
[2024-03-02] MEDS: ZANAFLEX PO PRN (01:28)
[2024-03-02 05:00] LABS: BASOPHILS % (AUTO) 0.2 % (0.0-3.0); EOSINOPHILS % (AUTO) 0.2 % (0.0-7.0); HEMATOCRIT 30.8 % (37.0-47.0); HEMOGLOBIN 9.2 g/dl (12.0-16.0); IMMATURE GRANULOCYTE # (AUTO) 0.1 (0.0-1.0); IMMATURE GRANULOCYTE % (AUTO) 0.5 % (0.0-5.0); LYMPHOCYTES # (AUTO) 2.2 K/uL (0.60-3.4); LYMPHOCYTES % (AUTO) 22.5 (10.0-50.0); MEAN CORPUSCULAR HEMOGLOBIN 31.3 pg (27.0-31.0); MEAN CORPUSCULAR HGB CONC 29.9 (31.8-35.4); MEAN CORPUSCULAR VOLUME 104.8 fl (81.0-99.0); MONOCYTES # (AUTO) 0.9 K/uL (0.4-2.0); MONOCYTES % (AUTO) 9.5 (0-10); NEUTROPHILS # (AUTO) 6.5 K/ul (2.0-6.9); NEUTROPHILS % (AUTO) 67.1 % (42.2-75.2); PLATELET COUNT 298 10^3/uL (140-440); RDW COEFFICIENT OF VARIATION 14.1 % (11.6-14.8); RED BLOOD COUNT 2.94 10^6/ul (4.20-5.40); WHITE BLOOD COUNT 9.69 K/ul (4.6-10.2)
[2024-03-02 05:05] LABS: ALBUMIN 3.44 g/dL (3.5-5.0); ALKALINE PHOSPHATASE 56.5 U/L (53-141); ASPARTATE AMINO TRANSFERASE 29.8 U/L (14-36); BILIRUBIN,TOTAL 0.14 mg/dL (0.2-1.3); BLOOD UREA NITROGEN 25.7 mg/dL (7-17); CALCIUM 8.27 mg/dL (8.4-10.2); CARBON DIOXIDE 36.4 mmol/L (22-30.0); CHLORIDE 96.3 mmol/L (98-107); CREATININE 1.08 mg/dL (0.60-1.30); GLUCOSE 104.9 mg/dL (74-106); POTASSIUM 4.52 mmol/L (3.5-5.1); SODIUM 136.1 mmol/L (134.5-145); TOTAL PROTEIN 6.05 g/dL (6.3-8.2)
--- NOTE | 2024-03-02 09:10 | PCM.PROG ---
Date/Time Seen Date Seen by Provider: 03/02/24 Time Seen by Provider: 09:00 Provider Provider: FELICITA SAMUELS PA-C, [facility] Chief Complaint Chief Complaint: HEADACHE Subjective Subjective: Patient states she's maybe feeling better today. Breathing feels improved. Still feeling "puny". Not sleeping well. Still requiring oxygen. Objective Appearance: Positive No Apparent Distress and Alert and Oriented x3 Chest/Lungs: Positive Clear to Auscultation Bilaterally and Wheezes (exp, vic ); Negative Rales or Rhonci Heart: Positive RRR GI/: Positive Soft, Nontender, Bowel Sounds Normal and No Distention Neurological: Positive Cranial Nerves Intact, Alert, Oriented and Muscle Strength 5/5 in Upper and Lower Extremities Bilaterally Vital Signs Vital Signs: Vital Signs: Last 24 Hours 03/01/24 10:00 03/01/24 10:00 03/01/24 13:00 Temperature 97.0 F L Temperature Source Temporal Artery Scan Pulse Rate 98 Respiratory Rate 16 Blood Pressure 124/64 Blood Pressure Mean 84 Blood Pressure Location Left Arm Blood Pressure Position O2 Sat by Pulse Oximetry 87 L 91 L Oxygen Delivery Method Nasal Cannula Nasal Cannula Oxygen Flow Rate 2 2 Fraction of Inspired Oxygen (FIO2) Telemetry Type Remote Telemetry Telemetry Monitoring Continues Telemetry Heart Rate 73 Telemetry SPO2 96 EKG TN Interval 0.18 EKG QRS Interval 0.07 Telemetry Strip Reading NSR 03/01/24 13:38 03/01/24 13:55 03/01/24 17:31 Temperature 97.1 F L 98.5 F Temperature Source Temporal Artery Scan Temporal Artery Scan Pulse Rate 74 84 Respiratory Rate 16 24 H Blood Pressure 121/79 131/85 Blood Pressure Mean 93 100 Blood Pressure Location Left Arm Right Arm Blood Pressure Position Sitting O2 Sat by Pulse Oximetry 94 L 96 Oxygen Delivery Method Nasal Cannula Nasal Cannula Nasal Cannula Oxygen Flow Rate 2 2 2 Fraction of Inspired Oxygen (FIO2) Telemetry Type Telemetry Monitoring Telemetry Heart Rate Telemetry SPO2 EKG TN Interval EKG QRS Interval Telemetry Strip Reading 03/01/24 19:00 03/01/24 19:02 03/01/24 20:00 Temperature Temperature Source Pulse Rate Respiratory Rate Blood Pressure Blood Pressure Mean Blood Pressure Location Blood Pressure Position O2 Sat by Pulse Oximetry 93 L Oxygen Delivery Method Nasal Cannula Nasal Cannula Oxygen Flow Rate 2 Fraction of Inspired Oxygen (FIO2) 2 Telemetry Type Remote Telemetry Telemetry Monitoring Continues Telemetry Heart Rate 78 Telemetry SPO2 94 EKG TN Interval 0.16 EKG QRS Interval 0.07 Telemetry Strip Reading SR 03/01/24 20:50 03/02/24 01:00 03/02/24 05:33 Temperature 97.4 F L 98 F Temperature Source Temporal Artery Scan Temporal Artery Scan Pulse Rate 73 66 Respiratory Rate 22 H 20 Blood Pressure 106/57 L 93/43 L Blood Pressure Mean 73 59 Blood Pressure Location Right Arm Right Arm Blood Pressure Position Supine Supine O2 Sat by Pulse Oximetry 95 97 Oxygen Delivery Method Nasal Cannula Nasal Cannula Oxygen Flow Rate 2 2 Fraction of Inspired Oxygen (FIO2) Telemetry Type Remote Telemetry Telemetry Monitoring Continues Telemetry Heart Rate 70 Telemetry SPO2 95 EKG TN Interval 0.16 EKG QRS Interval 0.08 Telemetry Strip Reading NSR 03/02/24 06:00 03/02/24 07:00 03/02/24 08:00 Temperature Temperature Source Pulse Rate Respiratory Rate Blood Pressure Blood Pressure Mean Blood Pressure Location Blood Pressure Position O2 Sat by Pulse Oximetry 97 Oxygen Delivery Method Nasal Cannula Nasal Cannula Oxygen Flow Rate 2 Fraction of Inspired Oxygen (FIO2) 2 Telemetry Type Remote Telemetry Telemetry Monitoring Continues Telemetry Heart Rate 72 Telemetry SPO2 94 EKG TN Interval 0.18 EKG QRS Interval 0.06 Telemetry Strip Reading NSR Lab Results Lab Results: Lab Results: Last 24 Hours 03/02/24 04:34 WBC 9.69 RBC 2.94 L Hgb 9.2 L Hct 30.8 L MCV 104.8 H MCH 31.3 H MCHC 29.9 L RDW Coeff of Maxi 14.1 Plt Count 298 Immature Gran % (Auto) 0.5 Neut % (Auto) 67.1 Lymph % (Auto) 22.5 [place] % (Auto) 9.5 Eos % (Auto) 0.2 Baso % (Auto) 0.2 Neut # (Auto) 6.5 Lymph # (Auto) 2.2 [place] # (Auto) 0.9 Eos # (Auto) 0.0 Baso # (Auto) 0.0 Immature Gran # (Auto) 0.1 Sodium 136.1 Potassium 4.52 Chloride 96.3 L Carbon Dioxide 36.4 H Anion Gap 7.92 BUN 25.7 H Creatinine 1.08 Estimated GFR (MDRD) 50.00 BUN/Creatinine Ratio 23.79 Glucose 104.9 Calcium 8.27 L Total Bilirubin 0.14 L AST 29.8 ALT 22.0 Alkaline Phosphatase 56.5 Total Protein 6.05 L Albumin 3.44 L Globulin 2.61 Albumin/Globulin Ratio 1.31 Additional Comments Additional Comments: I have independently reviewed and interpreted the labs/EKGs/imaging ordered during this hospital stay. I have reviewed outside records that are available in our EMR that pertain to medical stay including imaging/notes/labs from previous visits. Active Medications Active Medications: Medications Generic Name Dose Route Start Last Admin Trade Name Freq PRN Reason Stop Dose Admin Acetaminophen 650 mg 02/29/24 12:35 03/01/24 18:49 Acetaminophen 325 Mg Tablet PO 650 mg Q4H PRN Administration Mild Pain Albuterol/Ipratropium 3 ml 02/29/24 18:00 03/02/24 06:01 Ipratropium/Albuterol Vial.Neb NEB 3 ml RTQ6H GENTRY Administration Albuterol/Ipratropium 3 ml 02/29/24 15:37 03/01/24 21:43 Ipratropium/Albuterol Vial.Neb NEB 3 ml RTQ4H PRN Administration Wheezing Aspirin 81 mg 03/01/24 07:30 03/02/24 08:03 Aspirin 81 Mg Tablet. PO 81 mg DAILYWM2 GENTRY Administration Benzonatate 100 mg 02/29/24 12:35 03/01/24 05:09 Benzonatate 100 Mg Capsule PO 100 mg TID PRN Administration Cough Carvedilol 12.5 mg 02/29/24 21:00 03/02/24 08:03 Carvedilol 12.5 Mg Tablet PO 12.5 mg 2XD GENTRY Administration Enoxaparin Sodium 40 mg 03/01/24 09:00 03/02/24 08:01 Enoxaparin Sodium 40 Mg/0.4 Ml Syr SUBCUT 40 mg DAILY GENTRY Administration Fenofibrate 54 mg 03/01/24 09:00 03/02/24 08:02 Fenofibrate 54 Mg Tablet PO 54 mg DAILY GENTRY Administration Guaifenesin/Dextromethorphan 10 ml 02/29/24 12:35 03/01/24 20:45 Guaifenesin/Dextromethorphan 200/20 Mg/10 Ml Cup PO 10 ml Q6HR PRN Administration Cough Losartan Potassium 50 mg 03/01/24 09:00 03/02/24 08:02 Losartan Potassium 25 Mg Tablet PO 50 mg DAILY GENTRY Administration Ondansetron HCl 4 mg 02/29/24 12:35 Ondansetron Hcl/Pf 4 Mg/2 Ml Sdv IVP Q6H PRN Nausea / Vomiting Oseltamivir Phosphate 75 mg 02/29/24 12:40 03/02/24 08:03 Oseltamivir Phosphate 75 Mg Capsule PO 03/04/24 22:00 75 mg Q12HR GENTRY Administration Pantoprazole Sodium 40 mg 03/01/24 06:00 03/02/24 05:01 Pantoprazole Sodium 40 Mg Tablet.Dr PO 40 mg QDAC2 GENTRY Administration Rosuvastatin Calcium 20 mg 02/29/24 21:00 03/01/24 20:00 Rosuvastatin Calcium 10 Mg Tablet PO 20 mg BEDTIME GENTRY Administration Sodium Chloride 1 syr 02/29/24 21:00 03/02/24 04:53 0.9% Sodium Chloride 10 Ml Disp.Syrin IVF 1 syr Q8HR GENTRY Administration Tizanidine HCl 4 mg 02/29/24 14:35 03/02/24 01:28 Tizanidine Hcl 4 Mg Tablet PO 4 mg BEDTIME PRN Administration muscle spasm Tramadol HCl 50 mg 02/29/24 14:35 03/02/24 01:28 Tramadol Hcl 50 Mg Tablet PO 50 mg BID PRN Administration MODERATE PAIN Plan Plan: 1. Acute hypoxic respiratory failure in setting of influenza A - RT consult, wean O2 when able. PO2 of 53 on abg. Duonebs. CTA showed no PE but wasn't a great study. Adding steroids today due to wheezing. 2. Influenza A - Cont tamiflu despite being out of the window due to her comorbidities and need for hospitalization. Otherwise supportive care measures. 3. Hypercapnia - Noted on ABG, likely chronic due to her COPD and smoking. PH normal. 4. Hypertension - Cont home meds 5. Hyperlipidemia - Cont home meds 6. GERD - Cont home meds DVT Prophylaxis: Lovenox Review Statement Review Statement: I have personally discussed and reviewed the patient's visit/currently labs/imaging/decision making with Dr. Bliss, my supervising attending. Greater that 50 minutes spent with patient, 50% of the time spent with this patient was devoted to counseling and coordination of care.
[2024-03-02] MEDS: SOLU-MEDROL 40 MG IVP SCH (09:21)
[2024-03-03 08:41] LABS: BASOPHILS % (AUTO) 0.1 % (0.0-3.0); EOSINOPHILS # (AUTO) 0.3 K/ul (0.0-0.7); EOSINOPHILS % (AUTO) 2.2 % (0.0-7.0); HEMOGLOBIN 9.5 g/dl (12.0-16.0); IMMATURE GRANULOCYTE # (AUTO) 0.1 (0.0-1.0); IMMATURE GRANULOCYTE % (AUTO) 0.7 % (0.0-5.0); LYMPHOCYTES # (AUTO) 0.8 K/uL (0.60-3.4); LYMPHOCYTES % (AUTO) 5.5 (10.0-50.0); MEAN CORPUSCULAR HEMOGLOBIN 30.3 pg (27.0-31.0); MEAN CORPUSCULAR HGB CONC 29.7 (31.8-35.4); MEAN CORPUSCULAR VOLUME 101.9 fl (81.0-99.0); MONOCYTES # (AUTO) 0.3 K/uL (0.4-2.0); MONOCYTES % (AUTO) 1.7 (0-10); NEUTROPHILS # (AUTO) 13.7 K/ul (2.0-6.9); NEUTROPHILS % (AUTO) 89.8 % (42.2-75.2); PLATELET COUNT 321 10^3/uL (140-440); RDW COEFFICIENT OF VARIATION 13.6 % (11.6-14.8); RED BLOOD COUNT 3.14 10^6/ul (4.20-5.40); WHITE BLOOD COUNT 15.22 K/ul (4.6-10.2)
[2024-03-03 08:55] LABS: ALANINE AMINOTRANSFERASE 22.4 U/L (0-35); ALBUMIN 3.7 g/dL (3.5-5.0); ALKALINE PHOSPHATASE 74.1 U/L (53-141); ASPARTATE AMINO TRANSFERASE 26.1 U/L (14-36); BILIRUBIN,TOTAL 0.23 mg/dL (0.2-1.3); BLOOD UREA NITROGEN 24.2 mg/dL (7-17); CALCIUM 8.36 mg/dL (8.4-10.2); CARBON DIOXIDE 31.8 mmol/L (22-30.0); CHLORIDE 94.8 mmol/L (98-107); CREATININE 0.87 mg/dL (0.60-1.30); POTASSIUM 4.45 mmol/L (3.5-5.1); SODIUM 132.3 mmol/L (134.5-145); TOTAL PROTEIN 6.4 g/dL (6.3-8.2)
--- NOTE | 2024-03-03 09:27 | PCM.PROG ---
Date/Time Seen Date Seen by Provider: 03/03/24 Time Seen by Provider: 08:30 Provider Provider: FELICITA SAMUELS [facility]-C, [facility] Chief Complaint Chief Complaint: HEADACHE Subjective Subjective: Discussed dc planning with patient this morning. She does not feel ready to go home. States she got dizzy and very fatigued with just ambulating in the room yesterday which is not her baseline. She has to help care for her and she doesn't feel well enough to do that yet. Objective Appearance: Positive No Apparent Distress and Alert and Oriented x3 Chest/Lungs: Positive Clear to Auscultation Bilaterally and Wheezes (exp, vic - improved today ); Negative Rales or Rhonci Heart: Positive RRR GI/: Positive Soft, Nontender, Bowel Sounds Normal and No Distention Neurological: Positive Cranial Nerves Intact, Alert, Oriented and Muscle Strength 5/5 in Upper and Lower Extremities Bilaterally Vital Signs Vital Signs: Vital Signs: Last 24 Hours 03/02/24 09:43 03/02/24 10:00 03/02/24 11:18 Temperature 97.5 F L Temperature Source Tympanic Pulse Rate 75 Respiratory Rate 18 Blood Pressure 106/53 L Blood Pressure Mean 70 Blood Pressure Location Right Arm Blood Pressure Position Sitting O2 Sat by Pulse Oximetry 92 L 93 L Oxygen Delivery Method Nasal Cannula Nasal Cannula Nasal Cannula Oxygen Flow Rate 2 1 Fraction of Inspired Oxygen (FIO2) Telemetry Type Telemetry Monitoring Telemetry Heart Rate EKG NH Interval EKG QRS Interval Telemetry Strip Reading 03/02/24 11:40 03/02/24 13:00 03/02/24 14:00 Temperature 97.8 F Temperature Source Tympanic Pulse Rate 77 Respiratory Rate 18 Blood Pressure 112/66 Blood Pressure Mean 81 Blood Pressure Location Left Arm Blood Pressure Position Sitting O2 Sat by Pulse Oximetry 88 L Oxygen Delivery Method Nasal Cannula Nasal Cannula Oxygen Flow Rate 1 Fraction of Inspired Oxygen (FIO2) Telemetry Type Remote Telemetry Telemetry Monitoring Continues Telemetry Heart Rate 83 EKG NH Interval 0.16 EKG QRS Interval 0.06 Telemetry Strip Reading sr 03/02/24 14:00 03/02/24 17:47 03/02/24 19:00 Temperature 97.8 F Temperature Source Tympanic Pulse Rate 94 Respiratory Rate 17 Blood Pressure 128/79 Blood Pressure Mean 95 Blood Pressure Location Left Arm Blood Pressure Position Sitting O2 Sat by Pulse Oximetry 92 L Oxygen Delivery Method Nasal Cannula Nasal Cannula Oxygen Flow Rate 2 Fraction of Inspired Oxygen (FIO2) Telemetry Type Remote Telemetry Telemetry Monitoring Continues Telemetry Heart Rate 87 EKG NH Interval 0.16 EKG QRS Interval 0.08 Telemetry Strip Reading NSR 03/02/24 19:37 03/02/24 20:00 03/02/24 20:59 Temperature 97.7 F Temperature Source Temporal Artery Scan Pulse Rate 88 Respiratory Rate 18 Blood Pressure 114/61 Blood Pressure Mean 78 Blood Pressure Location Left Arm Blood Pressure Position Supine O2 Sat by Pulse Oximetry 92 L Oxygen Delivery Method Nasal Cannula Nasal Cannula Nasal Cannula Oxygen Flow Rate 2 2 Fraction of Inspired Oxygen (FIO2) 2 Telemetry Type Telemetry Monitoring Telemetry Heart Rate EKG NH Interval EKG QRS Interval Telemetry Strip Reading 03/03/24 01:00 03/03/24 05:10 03/03/24 05:29 Temperature 97.7 F Temperature Source Temporal Artery Scan Pulse Rate 79 Respiratory Rate 18 Blood Pressure 120/52 L Blood Pressure Mean 74 Blood Pressure Location Right Arm Blood Pressure Position Supine O2 Sat by Pulse Oximetry 91 L 95 Oxygen Delivery Method Nasal Cannula Nasal Cannula Oxygen Flow Rate 2 2 Fraction of Inspired Oxygen (FIO2) Telemetry Type Remote Telemetry Telemetry Monitoring Continues Telemetry Heart Rate 94 EKG NH Interval 0.16 EKG QRS Interval 0.09 Telemetry Strip Reading NSR 03/03/24 07:00 03/03/24 08:00 03/03/24 09:12 Temperature Temperature Source Pulse Rate Respiratory Rate Blood Pressure Blood Pressure Mean Blood Pressure Location Blood Pressure Position O2 Sat by Pulse Oximetry 92 L Oxygen Delivery Method Nasal Cannula Nasal Cannula Oxygen Flow Rate 2 Fraction of Inspired Oxygen (FIO2) 2 Telemetry Type Remote Telemetry Telemetry Monitoring Continues Telemetry Heart Rate 77 EKG NH Interval 0.16 EKG QRS Interval 0.08 Telemetry Strip Reading NSR Lab Results Lab Results: Lab Results: Last 24 Hours 03/03/24 08:40 WBC 15.22 H D RBC 3.14 L Hgb 9.5 L Hct 32.0 L MCV 101.9 H MCH 30.3 MCHC 29.7 L RDW Coeff of Maxi 13.6 Plt Count 321 Immature Gran % (Auto) 0.7 Neut % (Auto) 89.8 H Lymph % (Auto) 5.5 L [place] % (Auto) 1.7 Eos % (Auto) 2.2 Baso % (Auto) 0.1 Neut # (Auto) 13.7 H Lymph # (Auto) 0.8 [place] # (Auto) 0.3 L Eos # (Auto) 0.3 Baso # (Auto) 0.0 Immature Gran # (Auto) 0.1 Sodium 132.3 L Potassium 4.45 Chloride 94.8 L Carbon Dioxide 31.8 H Anion Gap 10.15 BUN 24.2 H Creatinine 0.87 Estimated GFR (MDRD) 64.00 BUN/Creatinine Ratio 27.81 Glucose 241.0 H Calcium 8.36 L Total Bilirubin 0.23 AST 26.1 ALT 22.4 Alkaline Phosphatase 74.1 Total Protein 6.40 Albumin 3.70 Globulin 2.70 Albumin/Globulin Ratio 1.37 Additional Comments Additional Comments: I have independently reviewed and interpreted the labs/EKGs/imaging ordered during this hospital stay. I have reviewed outside records that are available in our EMR that pertain to medical stay including imaging/notes/labs from previous visits. Active Medications Active Medications: Medications Generic Name Dose Route Start Last Admin Trade Name Freq PRN Reason Stop Dose Admin Acetaminophen 650 mg 02/29/24 12:35 03/02/24 09:09 Acetaminophen 325 Mg Tablet PO 650 mg Q4H PRN Administration Mild Pain Albuterol/Ipratropium 3 ml 02/29/24 18:00 03/03/24 05:30 Ipratropium/Albuterol Vial.Kacey NEB 3 ml RTQ6H GENTRY Administration Albuterol/Ipratropium 3 ml 02/29/24 15:37 03/01/24 21:43 Ipratropium/Albuterol Vial.Kacey NEB 3 ml RTQ4H PRN Administration Wheezing Aspirin 81 mg 03/01/24 07:30 03/03/24 08:03 Aspirin 81 Mg Tablet. PO 81 mg DAILYWM2 GENTRY Administration Benzonatate 100 mg 02/29/24 12:35 03/01/24 05:09 Benzonatate 100 Mg Capsule PO 100 mg TID PRN Administration Cough Carvedilol 12.5 mg 02/29/24 21:00 03/03/24 08:04 Carvedilol 12.5 Mg Tablet PO 12.5 mg 2XD GENTRY Administration Enoxaparin Sodium 40 mg 03/01/24 09:00 03/03/24 08:03 Enoxaparin Sodium 40 Mg/0.4 Ml Syr SUBCUT 40 mg DAILY GENTRY Administration Fenofibrate 54 mg 03/01/24 09:00 03/03/24 08:03 Fenofibrate 54 Mg Tablet PO 54 mg DAILY GENTRY Administration Guaifenesin/Dextromethorphan 10 ml 02/29/24 12:35 03/01/24 20:45 Guaifenesin/Dextromethorphan 200/20 Mg/10 Ml Cup PO 10 ml Q6HR PRN Administration Cough Losartan Potassium 50 mg 03/01/24 09:00 03/03/24 08:04 Losartan Potassium 25 Mg Tablet PO 50 mg DAILY GENTRY Administration Methylprednisolone Sodium Succinate 40 mg 03/02/24 09:10 03/03/24 05:16 Methylprednisolone Sod Succ/Pf 40 Mg/Ml Vial IVP 40 mg Q8HR GENTRY Administration Ondansetron HCl 4 mg 02/29/24 12:35 Ondansetron Hcl/Pf 4 Mg/2 Ml Sdv IVP Q6H PRN Nausea / Vomiting Oseltamivir Phosphate 75 mg 02/29/24 12:40 03/03/24 08:05 Oseltamivir Phosphate 75 Mg Capsule PO 03/04/24 22:00 75 mg Q12HR GENTRY Administration Pantoprazole Sodium 40 mg 03/01/24 06:00 03/03/24 05:16 Pantoprazole Sodium 40 Mg Tablet.Dr PO 40 mg QDAC2 GENTRY Administration Rosuvastatin Calcium 20 mg 02/29/24 21:00 03/02/24 20:07 Rosuvastatin Calcium 10 Mg Tablet PO 20 mg BEDTIME GENTRY Administration Sodium Chloride 1 syr 02/29/24 21:00 03/03/24 05:16 0.9% Sodium Chloride 10 Ml Disp.Syrin IVF 1 syr Q8HR GENTRY Administration Tizanidine HCl 4 mg 02/29/24 14:35 03/02/24 23:49 Tizanidine Hcl 4 Mg Tablet PO 4 mg BEDTIME PRN Administration muscle spasm Tramadol HCl 50 mg 02/29/24 14:35 03/02/24 19:37 Tramadol Hcl 50 Mg Tablet PO 50 mg BID PRN Administration MODERATE PAIN Plan Plan: 1. Acute hypoxic respiratory failure in setting of influenza A - RT consult, wean O2 when able. PO2 of 53 on abg. Duonebs. CTA showed no PE but wasn't a great study. Cont steroids. 2. Influenza A - Cont tamiflu despite being out of the window due to her comorbidities and need for hospitalization. Otherwise supportive care measures. 3. Hypercapnia - Noted on ABG, likely chronic due to her COPD and smoking. PH normal. 4. Hypertension - Cont home meds 5. Hyperlipidemia - Cont home meds 6. GERD - Cont home meds DVT Prophylaxis: Lovenox Review Statement Review Statement: I have personally discussed and reviewed the patient's visit/currently labs/imaging/decision making with Dr. Bliss, my supervising attending. Greater that 50 minutes spent with patient, 50% of the time spent with this patient was devoted to counseling and coordination of care.
[2024-03-03] MEDS ORDERED: HUMALOG (10 ML VIAL) SUBCUT PRN (09:28)
[2024-03-03] MEDS: OCEAN NASAL SPRAY NAS PRN (10:05)
[2024-03-03] MEDS: BENADRYL PO PRN (20:01)
[2024-03-04 05:22] VITALS: BP 127/80; PULSE 66; RESP 17; TEMP 97
[2024-03-04 05:26] LABS: HEMATOCRIT 30.9 % (37.0-47.0); HEMOGLOBIN 9.4 g/dl (12.0-16.0); IMMATURE GRANULOCYTE # (AUTO) 0.1 (0.0-1.0); IMMATURE GRANULOCYTE % (AUTO) 0.5 % (0.0-5.0); LYMPHOCYTES # (AUTO) 0.9 K/uL (0.60-3.4); LYMPHOCYTES % (AUTO) 6.2 (10.0-50.0); MEAN CORPUSCULAR HEMOGLOBIN 30.7 pg (27.0-31.0); MEAN CORPUSCULAR HGB CONC 30.4 (31.8-35.4); MONOCYTES # (AUTO) 0.4 K/uL (0.4-2.0); MONOCYTES % (AUTO) 2.9 (0-10); NEUTROPHILS # (AUTO) 12.6 K/ul (2.0-6.9); NEUTROPHILS % (AUTO) 90.4 % (42.2-75.2); PLATELET COUNT 309 10^3/uL (140-440); RDW COEFFICIENT OF VARIATION 13.4 % (11.6-14.8); RED BLOOD COUNT 3.06 10^6/ul (4.20-5.40); WHITE BLOOD COUNT 13.94 K/ul (4.6-10.2)
[2024-03-04 05:48] LABS: ALBUMIN 3.61 g/dL (3.5-5.0); ALKALINE PHOSPHATASE 51.3 U/L (53-141); ASPARTATE AMINO TRANSFERASE 24.8 U/L (14-36); BILIRUBIN,TOTAL 0.29 mg/dL (0.2-1.3); BLOOD UREA NITROGEN 23.4 mg/dL (7-17); CALCIUM 8.22 mg/dL (8.4-10.2); CHLORIDE 92.4 mmol/L (98-107); CREATININE 0.94 mg/dL (0.60-1.30); GLUCOSE 131.9 mg/dL (74-106); POTASSIUM 4.6 mmol/L (3.5-5.1); SODIUM 132.7 mmol/L (134.5-145); TOTAL PROTEIN 6.25 g/dL (6.3-8.2)
--- NOTE | 2024-03-04 09:16 | DCSUM ---
Admission Date Admission Date: 02/29/24 Discharge Date Discharge Date: 03/04/24 Admission Diagnosis Admission Diagnosis: 1. Acute hypoxic respiratory failure in setting of influenza A 2. Influenza A 3. Hypercapnia Discharge Diagnosis Discharge Diagnosis: 1. Acute hypoxic respiratory failure in setting of influenza A - Requiring continuous O2 @ 2L 2. Influenza A - Improving 3. Hypercapnia - Noted on ABG, likely chronic due to her COPD and smoking. PH normal. 4. Hypertension - Chronic, stable 5. Hyperlipidemia - Chronic, stable 6. GERD - Chronis, stable Hospital Provider Hospital [facility] Primary Care Physician Primary Care Physician: THU BOWEN MD Summary of History and Physical Summary of History and Physical: 68 YOF with a past medical history of COPD, CAD, STEMI, hypertension, peripheral arterial disease, EtOH abuse, and ongoing tobacco dependency who presents to ED today with chief complaint of worsening shortness of breath of the last 4 days. Patient admits to associated headache and sore throat. She is a smoker. In the ER she was noted to have oxygen saturation of 80%, improved with 2L. She had a PO2 of 53. She tested positive for influenza. She was given a breathing treatment, solumedrol, magnesium, azithromycin and tylenol. CXR negative. She will be admitted to med surg for influenza and acute respiratory failure. Hospital Course Subjective: During stay, patient has continued to required oxygen at 2L and has been unable to be weaned. 3 step oximetry completed and showed need for continuous home oxygen. CTA completed and showed no PE. Received steroids, nebs, and tamiflu for treatment of influenza A. Patient would benefit from further nebs prn at home. Hypercapnia noted on abg initially and appears chronic due to COPD and smoking. Labs stable. VSS. Home medications continued without changes. Appearance: Pleasant, No Apparent Distress and Alert HEENT: MMM, Supple and No JVD CVS: No Murmur, No Rubs and No Gallop Abdomen: Soft, Non-Tender and No Distention Respiratory: No Dyspnea Extremities: No Edema Vital Signs: Most Recent Vital Signs Temperature 97 F L 03/04/24 05:20 Temperature Source Temporal Artery Scan 03/04/24 05:20 Temperature Source Infrared 02/29/24 09:58 Pulse Rate 66 03/04/24 05:20 Respiratory Rate 17 03/04/24 05:20 Blood Pressure 127/80 03/04/24 05:20 Blood Pressure Mean 95 03/04/24 05:20 Blood Pressure Right Arm 123/78 02/29/24 13:10 Blood Pressure Location Right Arm 03/04/24 05:20 Blood Pressure Position Supine 03/04/24 05:20 O2 Sat by Pulse Oximetry 98 03/04/24 05:29 Oxygen Delivery Method Nasal Cannula 03/04/24 08:00 Oxygen Flow Rate 2.5 03/04/24 05:29 Fraction of Inspired Oxygen (FIO2) 2 03/04/24 08:00 Height 5 ft 4 in 03/03/24 13:52 Weight 89.358 kg 03/03/24 13:52 Telemetry Type Remote Telemetry 03/04/24 07:00 Telemetry Monitoring Continues 03/04/24 07:00 Telemetry Heart Rate 65 03/04/24 07:00 Telemetry SPO2 95 03/04/24 07:00 EKG [place] Interval 0.18 03/04/24 07:00 EKG QRS Interval 0.05 L 03/04/24 07:00 Telemetry Strip Reading SR 03/04/24 07:00 Imaging: EXAM: CHEST RADIOGRAPH FINDINGS: No focal alveolar consolidation is identified Negative for connie pulmonary edema No significant free pleural fluid or pneumothorax is appreciated The mediastinal and hilar contours appear unremarkable IMPRESSION: No acute pulmonary infiltrate is identified. EXAM: CHEST CTA WITH CONTRAST (PULMONARY ARTERY) FINDINGS: Artifact related to patient motion limits interpretation. The examination is not of fully diagnostic quality No definite intraluminal filling defect is seen within the main pulmonary artery or its major segmental branches to suggest pulmonary embolism No noncalcified soft tissue pulmonary mass or focal pulmonary infiltrate is shown Negative for significant pleural or pericardial effusion Negative for focal aneurysm, intimal dissection, or mural disruption involving the thoracic aorta Atherosclerotic calcifications are shown throughout the visualized arterial structures, including the [place] coronary arteries Coarse calcifications are demonstrated in the aortic annulus and in the aortic leaflets Incidental note is made of normal variant vascular anatomy, with the origin of the left vertebral artery arising directly from the thoracic aortic arch No pathologically enlarged thoracic lymph node is identified Low attenuation is demonstrated within the liver consistent with generalized fatty infiltration of the liver Status post cholecystectomy There is a circumscribed nodule in the right adrenal gland showing CT density measurements consistent with benign adrenal adenoma and measuring approximately 1.5 cm diameter A circumscribed nodule is demonstrated in the left adrenal gland showing CT density measurements consistent with benign adrenal adenoma measuring 2.3 x 1.1 cm Additional circumscribed nodule is demonstrated in the left adrenal gland showing CT density measurements consist with indeterminate adrenal nodule and measuring approximately 2.5 x 1.9 cm cross-section There is generalized osseous demineralization. Chronic degenerative changes are shown throughout the visualized orthopedic structures Chronic compression deformities are noted in the mid and lower thoracic spine which appear unchanged compared with 06/02/2022 IMPRESSION: Study is limited by artifact related to patient motion. No definite CT evidence for pulmonary embolism is identified. If there is continued clinical concern, repeat examination could be attempted, when patient is better able to cooperate with the study Hepatic steatosis Bilateral adrenal nodules, one on the right into on the left, stable in size and configuration when compared with studies dating back to 08/12/2019, most likely benign Lab Results Last 24 Hours: 03/04/24 05:15 WBC 13.94 H RBC 3.06 L Hgb 9.4 L Hct 30.9 L MCV 101.0 H MCH 30.7 MCHC 30.4 L RDW Coeff of Maxi 13.4 Plt Count 309 Immature Gran % (Auto) 0.5 Neut % (Auto) 90.4 H Lymph % (Auto) 6.2 L [place] % (Auto) 2.9 Eos % (Auto) 0.0 Baso % (Auto) 0.0 Neut # (Auto) 12.6 H Lymph # (Auto) 0.9 [place] # (Auto) 0.4 Eos # (Auto) 0.0 Baso # (Auto) 0.0 Immature Gran # (Auto) 0.1 Sodium 132.7 L Potassium 4.60 Chloride 92.4 L Carbon Dioxide 39.0 H D Anion Gap 5.90 BUN 23.4 H Creatinine 0.94 Estimated GFR (MDRD) 59.00 BUN/Creatinine Ratio 24.89 Glucose 131.9 H D Calcium 8.22 L Total Bilirubin 0.29 AST 24.8 ALT 23.0 Alkaline Phosphatase 51.3 L Total Protein 6.25 L Albumin 3.61 Globulin 2.64 Albumin/Globulin Ratio 1.36 Discharge Instructions Discharge Planning: Discharge Planning > 40 minutes If patient is discharged with left ventricular systolic dysfunction: NA Discharged with a beta keiry? [] If no, why not? [] Discharged with an yuki/arb? [] If no, why not? [] Diagnosis: Influenza A Diet: Regular Activity: as tolerated Medications: MD1, steroids, nebs, inhaler, robitussin Discharge Medications: Medications at Discharge (Home Meds & RX) aspirin 81 mg tablet,delayed release (Aspir-) 81 mg PO DAILY 03/29/17 nitroglycerin 0.4 mg sublingual tablet 0.4 mg sublingual PRN PRN Chest Pain 03/29/17 rosuvastatin 20 mg tablet See Rx Instructions .Route .COMPLEX #90 tabs 08/21/23 fenofibrate 54 mg tablet See Rx Instructions .Route .COMPLEX #90 tabs 08/31/23 carvedilol 12.5 mg tablet 12.5 mg PO 2XD #60 tabs 11/15/23 pantoprazole 40 mg tablet,delayed release 40 mg PO DAILY #30 tabs 12/11/23 losartan 50 mg tablet 50 mg PO DAILY #90 tabs 01/24/24 tramadol 50 mg tablet 50 mg PO BID PRN pain #60 tabs 01/31/24 tizanidine 4 mg tablet 4 mg PO BEDTIME PRN for muscle spasm #30 tabs 02/06/24 Discharge Plan Discharge Discharge Orders: Discharge Patient (ONCE); Ordered 03/04/24 Ordered By: REUBEN BONE Activity Restrictions/Additional Instructions: Diagnosis: Influenza A Diet: Regular Activity: as tolerated Medications: MD1 Due to the office being closed we were unable to schedule a hospital follow up with your primary provider. Please call Dr. Bowen's office to schedule your hospital follow up appointment. Instructions: Influenza (GEN), Hypoxia (GEN) Care Plan Goals: Problem: Impaired Respiratory Status Goal: Exhibit optimal respiratory function Instructions: Activities as tolerated Apply oxygen as ordered Elevate head of bed Notify MD of increased congestion Patient Disposition: HOME WITH FAMILY CARE Prescriptions: New ipratropium-albuterol 0.5 mg-3 mg(2.5 mg base)/3 mL solution for nebulization 3 ml inhalation RTQ4H PRN (Reason: shortness of breath or wheezing) Qty: 90 0RF dextromethorphan-guaifenesin 10-100 mg/5 mL liquid 10 ml PO Q6HR PRN (Reason: cough) Qty: 800 0RF albuterol sulfate 90 mcg/actuation aerosol powdr breath activated 2 inh inhalation Q4-6H PRN (Reason: shortness of breath or wheezing) Qty: 1 0RF prednisone 5 mg tablet 5 mg PO BID Qty: 4 0RF Continued aspirin [Aspir-81] 81 MG tablet,delayed release (DR/EC) 81 mg PO DAILY [facility].4 MG tablet, sublingual 0.4 mg sublingual PRN PRN (Reason: Chest Pain) rosuvastatin 20 mg tablet See Rx Instructions .ROUTE .COMPLEX Qty: 90 1RF Dose Instruction: TAKE ONE TABLET AT BEDTIME Rx Instructions: TAKE ONE TABLET AT BEDTIME fenofibrate 54 mg tablet See Rx Instructions .ROUTE .COMPLEX Qty: 90 1RF Dose Instruction: TAKE ONE TABLET DAILY Rx Instructions: TAKE ONE TABLET DAILY carvedilol 12.5 mg tablet 12.5 mg PO 2XD Qty: 60 2RF pantoprazole 40 mg tablet,delayed release (DR/EC) 40 mg PO DAILY Qty: 30 3RF losartan 50 mg tablet 50 mg PO DAILY Qty: 90 1RF tramadol 50 mg tablet 50 mg PO BID PRN (Reason: pain) Qty: 60 1RF tizanidine 4 mg tablet 4 mg PO BEDTIME PRN (Reason: for muscle spasm) Qty: 30 2RF Did you review [place] [employer] for ALL controlled substances?: No Discussed opioids are addictive and Narcan is available by prescription or from pharmacy.: No Condition: Stable
== END 2024-03-04 11:25 | disposition home or self-care (01) | DRG 193 ==
LOC: ED 09:39 → MEDSURG B 11:54
PROVIDERS: ADMIT Hospitalist; ATTEND Nurse Practitioner Family

== ENCOUNTER 2024-04-17 15:29 | Observation (INO) ==
--- NOTE | 2024-04-17 15:59 | ED.PDOC ---
General ED Provider: Dr. CLAUDINE VILLEGAS Chief Complaint: Respiratory Complaint Stated Complaint: Patient states that she has had shortness of breath for the past 2 to 3 weeks ever since she was discharged from the ER visit at that time. She states that she supposed to be wearing oxygen at home but sometimes she does not and that she is stubborn. She complains today of cough productive of greenish sputum. Time Seen by Provider: 04/17/24 15:59 Information Source: Patient Primary Care Provider: THU BLISS MD Nursing and Triage Documentation Reviewed and Agree: Yes What is Opioid Naive?: *Opioid Naive implies the patient is not already taking opioids or not chronically receiving opioids on a daily basis. *PRN dosing is not "usually" associated with tolerance. *Patients are at higher risk of over-sedation and aspiration. What is Opioid Tolerant?: *Opioid Tolerance implies less than the expected response to an opioid. *Acquired tolerance is defined by the patient taking 60mg of oral morphine daily (or equianalgesic dose of another opioid) for 1 week or more. *Often associated with chronic pain. *May take more than usual dose to achieve desired pain control. Review of Systems Review Of Systems Constitutional: Reports No symptoms Respiratory: Reports Cough and Shortness of Breath All Other Systems: Reviewed and Negative [facility] Medical History Acute pain of left shoulder (02/19/18) M25.512 - Pain in left shoulder (ICD-10) LUQ abdominal pain R10.12 - Left upper quadrant pain (ICD-10) Nausea and vomiting R11.2 - Nausea with vomiting, unspecified (ICD-10) Vomiting R11.10 - Vomiting, unspecified (ICD-10) Abdominal pain R10.9 - UNSPECIFIED ABDOMINAL PAIN (ICD-10) Diverticulitis K57.92 - DVTRCLI OF INTEST, PART UNSP, W/O PERF OR ABSCESS W/O BLEED (ICD- 10) Pneumonia J18.9 - PNEUMONIA, UNSPECIFIED ORGANISM (ICD-10) Foreign body in digestive tract T18.9XXA - FOREIGN BODY OF ALIMENTARY TRACT, PART UNSP, INIT ENCNTR (ICD-10) Foreign body in digestive tract T18.9XXA - Foreign body of alimentary tract, part unspecified, initial encounter (ICD-10) Stomach ulcer (03/29/17) K25.9 - Gastric ulcer, unspecified as acute or chronic, without hemorrhage or perforation (ICD-10) Epigastric pain (07/03/17) R10.13 - Epigastric pain (ICD-10) Pneumonia J18.9 - Pneumonia, unspecified organism (ICD-10) Compression fracture of second lumbar vertebra S32.020A - Wedge compression fracture of second lumbar vertebra, initial encounter for closed fracture (ICD-10) Myocardial infarction (03/08/17) MM sent to [facility]. I21.9 - Acute myocardial infarction, unspecified (ICD-10) Family History Mother GI (gastrointestinal bleed) Grandfather/Grandmother Lung cancer FATHER No problems noted. Other Alzheimer disease Social History Smoking and tobacco status: Current every day smoker Tobacco: How many years used: 30 Alcohol intake: former Substance use type: does not use Household members: spouse and children Housing: house Marital status: M Lives independently: Yes Number of children: 2 service: No Current occupational status: retired History of recent travel: No Current gender identity: female Seatbelt use: always Water heater temperature set < 120 degrees: Yes Working smoke detector in home: Yes Fire extinguisher in home: No Carbon monoxide detector in home: No Surgical History History of cholecystectomy Z90.49 - Acquired absence of other specified parts of digestive tract (ICD- 10) History of partial surgical removal of colon Z90.49 - Acquired absence of other specified parts of digestive tract (ICD- 10) History of surgery Right wrist Z98.890 - Other specified postprocedural states (ICD-10) History of surgery on integumentary structure Benign cysts pelvic area, Dr. Young Z98.890 - Other specified postprocedural states (ICD-10) Status post hysterectomy Z90.710 - Acquired absence of both cervix and uterus (ICD-10) Cataract extraction and insertion of intraocular lens Female Reproductive History Menstrual Hx Hysterectomy: Yes Hx Tubal Ligation: No Physical Exam Physical Exam Appearance: Reports Obese Respiratory: Reports Breath sounds diminished and Wheezes Cardiovascular: Reports RRR and Pulses normal Musculoskeletal: Reports Normal strength, ROM intact and No edema Interpretation EKG Interpretation EKG Interpretation By: ED Physician Time of EKG #1: 16:31 Rate: Normal Rhythm: Sinus Ectopy: None [place]: NL ST Segment: Normal Interpretation: Normal EKG without ischemia infarction. Radiology Interpretation Radiology Interpretation By: Radiologist Radiology Results: Negative Exam Interpreted: CXR Physician Notification Case Discussed Physician Notified: Dr. Bliss notified of patient condition and need for admission to the hospi Time of Notification: 19:28 Comments: Dr. Bliss recommends admission to the hospitalist. Physician Notified: [facility] Hospitalist Time of Notification: 20:15 (agree to hospitalize) Critical Care Note Critical Care Note Total Critical Care Time (mins): 30 Comments: Treatment if Severe COPD with Breathing treatments and Back pain with IV pain medications Course Course 04/18/24 05:16 04/18/24 05:16 Orders, Labs, Meds: Lab Review 04/17/24 04/17/24 04/17/24 16:20 18:55 19:34 WBC 10.31 H RBC 3.41 L Hgb 10.5 L Hct 35.4 L MCV 103.8 H MCH 30.8 MCHC 29.7 L RDW Coeff of Maxi 14.1 Plt Count 342 Immature Gran % (Auto) 0.6 Neut % (Auto) 64.8 Lymph % (Auto) 21.0 [place] % (Auto) 9.4 Eos % (Auto) 3.0 Baso % (Auto) 1.2 Neut # (Auto) 6.7 Lymph # (Auto) 2.2 [place] # (Auto) 1.0 Eos # (Auto) 0.3 Baso # (Auto) 0.1 Immature Gran # (Auto) 0.1 Puncture Site Rbrach Base Excess 6.0 H O2 Saturation 94.0 ABG pH 7.34 L ABG pCO2 59.0 H ABG pO2 75.0 L ABG HCO3 31.8 H ABG Total CO2 33.6 H Jacob Test N/a Hemoglobin 1.6 H Oxyhemoglobin 93.7 L Carboxyhemoglobin 1.6 H Total Hemoglobin 10.9 L O2 Delivery Device Cannula Oxygen Liter Flow 2.00 Sodium 137.9 Potassium 4.82 Chloride 97.4 L Carbon Dioxide 36.2 H Anion Gap 9.12 BUN 22.3 H Creatinine 1.32 H Estimated GFR (MDRD) 40.00 BUN/Creatinine Ratio 16.89 Glucose 122.4 H Lactic Acid 0.88 Calcium 9.04 Total Bilirubin 0.21 AST 31.0 ALT 18.3 Alkaline Phosphatase 77.0 Total Creatine Kinase 54.2 Troponin I < 0.012 NT-Pro-B Natriuret Pep 225 Total Protein 7.05 Albumin 4.22 Globulin 2.83 Albumin/Globulin Ratio 1.49 Procalcitonin 0.20 H Influ A Molecular Assay Negative by naat Influ B Molecular Assay Negative by naat SARS CoV-2 RNA Rapid RENAE Negative Orders Category Date Time Status ADMIT OBSERVATION [PLACE PATIENT OBSERVATION] .TO ADMISSION 04/17/24 20:20 Active MEDSURG (MONITORED BED) ABG DRAW REQUEST Stat CARDIO 04/17/24 18:51 Completed EKG-(ED ONLY) Stat CARDIO 04/17/24 15:59 Completed NEBULIZER TREATMENT Routine CARDIO 04/17/24 20:23 Active NEBULIZER TREATMENT Stat CARDIO 04/17/24 16:00 Completed OXYGEN Routine CARDIO 04/17/24 20:20 Active ACTIVITY .Early Mobilization for VTE Prevention CARE 04/17/24 20:20 Active INTAKE & OUTPUT Q8HR CARE 04/17/24 20:20 Active TELEMETRY MONITORING TELE CARE 04/17/24 20:21 Active VITAL SIGNS Q4HR CARE 04/17/24 20:20 Active CARDIAC DIET DIETARY 04/18/24 Breakfast Ordered ED APPLY O2 .ONCE EMERGENCY 04/17/24 15:59 Active ED IV/MEDIPORT/POWERPORT .ONCE EMERGENCY 04/17/24 15:59 Active ABG COOX Stat LAB 04/17/24 18:55 Completed BLOOD CULTURE (ED ONLY) Stat LAB 04/17/24 16:20 Received CBC W/ AUTO DIFF DAILY@0600 LAB 04/18/24 05:16 Completed CBC W/ AUTO DIFF DAILY@0600 LAB 04/19/24 06:00 Ordered CBC W/ AUTO DIFF Stat LAB 04/17/24 16:20 Completed COMPREHENSIVE METABOLIC PANEL DAILY@0600 LAB 04/18/24 05:16 Completed COMPREHENSIVE METABOLIC PANEL DAILY@0600 LAB 04/19/24 06:00 Ordered COMPREHENSIVE METABOLIC PANEL Stat LAB 04/17/24 16:20 Completed COVID [SARS COV-2 RNA RAPID RENAE] Stat LAB 04/17/24 19:34 Completed CREATINE KINASE Stat LAB 04/17/24 16:20 Completed FLU A & B MOLECULAR [FLU A/B MOLECULAR] Stat LAB 04/17/24 19:34 Completed LACTIC ACID Stat LAB 04/17/24 16:20 Completed NT-PROBNP(ED) Stat LAB 04/17/24 16:20 Completed PROCALCITONIN DAILY LAB 04/18/24 05:16 Completed PROCALCITONIN Stat LAB 04/17/24 16:20 Completed TROPONIN I Stat LAB 04/17/24 16:20 Completed 0.9 % Sodium Chloride [Saline Flush] Meds 04/17/24 15:59 Discontinued 1 syr IVF PRN PRN Acetaminophen [Tylenol] Meds 04/17/24 20:20 Active 650 mg PO Q4H PRN Albuterol Sulfate 0.083% Neb [Albuterol 0.083% Neb] Meds 04/17/24 20:23 Active 2.5 mg NEB RTQ4H PRN Azithromycin Inj [Zithromax] 500 mg Meds 04/18/24 09:00 Active 0.9 % Sodium Chloride [Sodium Chloride] 250 ml IV DAILY Ceftriaxone/D5w 1 gm Premix [Rocephin 1 gm/50 ml D5w] Meds 04/18/24 09:00 Active 1 gm in 50 ml IV DAILY Ceftriaxone/D5w 1 gm Premix [Rocephin 1 gm/50 ml D5w] Meds 04/17/24 19:22 Discontinued 1 gm in 50 ml IV ONCE Ipratropium/Albuterol Neb [Duoneb] Meds 04/17/24 15:59 Discontinued 3 ml NEB ONCE STA Ipratropium/Albuterol Neb [Duoneb] Meds 04/17/24 22:00 Active 3 ml NEB RTQ4H Methylprednisolone Sod Succ/Pf [Solu-Medrol 125 mg] Meds 04/17/24 15:59 Discontinued 125 mg IVP ONCE ONE Methylprednisolone Sod Succ/Pf [Solu-Medrol 40 mg] Meds 04/18/24 00:00 Active 40 mg IVP Q8H Morphine Sulfate [Morphine 4 mg/ml Syringe] Meds 04/17/24 18:18 Discontinued 4 mg IVP ONCE ONE CHEST, 1V AP ONLY Stat RADS 04/17/24 15:59 Completed Medications Generic Name Dose Route Start Last Admin Trade Name Freq PRN Reason Stop Dose Admin Acetaminophen 650 mg 04/17/24 20:20 04/18/24 03:17 Acetaminophen 325 Mg Tablet PO 650 mg Q4H PRN Administration Mild Pain Albuterol Sulfate 2.5 mg 04/17/24 20:23 Albuterol Sulfate 0.083% Vial.Kacey NEB RTQ4H PRN Wheezing Albuterol/Ipratropium 3 ml 04/17/24 22:00 04/18/24 06:45 Ipratropium/Albuterol Vial.Kacey NEB 3 ml RTQ4H GENTRY Administration Aspirin 81 mg 04/19/24 07:30 Aspirin 81 Mg Tablet. PO DAILYWM2 GENTRY Carvedilol 12.5 mg 04/18/24 17:00 Carvedilol 12.5 Mg Tablet PO BIDWM2 GENTRY Fenofibrate 54 mg 04/18/24 09:00 04/18/24 08:06 Fenofibrate 54 Mg Tablet PO 54 mg DAILY GENTRY Administration CEFTRIAXONE/D5W 1 GM PREMIX 1 gm in 50 mls @ 100 mls/hr 04/18/24 09:00 Rocephin 1 Gm/50 Ml D5w IV 04/21/24 08:59 DAILY GENTRY Azithromycin 500 mg/ Sodium 250 mls @ 250 mls/hr 04/18/24 09:00 04/18/24 08:11 Chloride IV 04/21/24 08:59 250 mls/hr DAILY GENTRY Administration Losartan Potassium 50 mg 04/18/24 09:00 04/18/24 08:05 Losartan Potassium 25 Mg Tablet PO 50 mg DAILY GENTRY Administration Methylprednisolone Sodium Succinate 40 mg 04/18/24 00:00 04/18/24 07:54 Methylprednisolone Sod Succ/Pf 40 Mg/Ml Vial IVP 40 mg Q8H GENTRY Administration Pantoprazole Sodium 40 mg 04/18/24 06:00 04/18/24 05:38 Pantoprazole Sodium 40 Mg Tablet. PO 40 mg QDAC2 GENTRY Administration Rosuvastatin Calcium 20 mg 04/17/24 21:55 04/17/24 22:07 Rosuvastatin Calcium 10 Mg Tablet PO 20 mg BEDTIME GENTRY Administration Sodium Chloride 1 syr 04/17/24 21:00 04/18/24 05:38 0.9% Sodium Chloride 10 Ml Disp.Syrin IVF 1 syr Q8H GENTRY Administration Tizanidine HCl 4 mg 04/17/24 21:50 04/17/24 22:08 Tizanidine Hcl 4 Mg Tablet PO 4 mg BEDTIME PRN Administration Spasms Tramadol HCl 50 mg 04/17/24 21:50 04/17/24 22:08 Tramadol Hcl 50 Mg Tablet PO 50 mg BID PRN Administration Pain Discontinued Medications Generic Name Dose Route Start Last Admin Trade Name Tjq PRN Reason Stop Dose Admin Albuterol/Ipratropium 3 ml 04/17/24 15:59 04/17/24 16:26 Ipratropium/Albuterol Vial.Neb NEB 04/17/24 16:00 3 ml ONCE STA Administration Aspirin 81 mg 04/18/24 09:00 04/18/24 08:06 Aspirin 81 Mg Tablet. PO 81 mg DAILY GENTRY Administration Carvedilol 12.5 mg 04/17/24 21:55 04/18/24 08:05 Carvedilol 12.5 Mg Tablet PO 12.5 mg 2XD GENTRY Administration CEFTRIAXONE/D5W 1 GM PREMIX 1 gm in 50 mls @ 75 mls/hr 04/17/24 19:22 04/17/24 19:31 Rocephin 1 Gm/50 Ml D5w IV 04/17/24 20:01 75 mls/hr ONCE STA Administration Methylprednisolone Sodium Succinate 125 mg 04/17/24 15:59 04/17/24 16:11 Methylprednisolone Sod Succ/Pf 125 Mg/2 Ml Vial IVP 04/17/24 16:00 125 mg ONCE ONE Administration Morphine Sulfate 4 mg 04/17/24 18:18 04/17/24 18:28 Morphine Sulfate 4 Mg/Ml Syringe IVP 04/17/24 18:19 4 mg ONCE ONE Administration Sodium Chloride 1 syr 04/17/24 15:59 04/17/24 16:12 0.9% Sodium Chloride 10 Ml Disp.Syrin IVF 1 syr PRN PRN Administration To flush IV Vital Signs: Temp Pulse Resp BP Pulse Ox O2 Flow Rate 04/17/24 16:04 2 04/17/24 15:31 97.0 F L 97 28 H 137/71 84 L Discharge Plan Discharge Patient Disposition: PLACED OBSERVATION Discharge Problem: Acute exacerbation of chronic obstructive pulmonary disease (COPD), Acute respiratory failure with hypoxia and hypercapnia Chronic back pain Qualifiers: Back pain location: low back pain Back pain laterality: unspecified Sciatica presence: unspecified whether sciatica present Qualified Code(s): M54.50 - Low back pain, unspecified Did you review [place] [employer] for ALL controlled substances?: Not Applicable ED Provider: CLAUDINE VILLEGAS Condition: Fair
[2024-04-17] MEDS: SOLU-MEDROL 125 MG IVP ONE (16:11)
--- NOTE | 2024-04-17 16:22 | DI ---
EXAM: CHEST RADIOGRAPH (1 VIEW) TECHNIQUE: Frontal Chest Radiograph. HISTORY: Cough and shortness of breath COMPARISON: 03/28/2024. FINDINGS: Lines, Tubes, Devices: None Lungs and Pleura: No focal consolidation. No pleural effusion. No pneumothorax. Cardiac silhouette: Stable. Bones: No acute abnormality. IMPRESSION: No acute radiographic abnormality. If symptoms persist, follow-up imaging is recommended.
[2024-04-17 16:26] LABS: BASOPHILS # (AUTO) 0.1 K/uL (0-0.2); BASOPHILS % (AUTO) 1.2 % (0.0-3.0); EOSINOPHILS # (AUTO) 0.3 K/ul (0.0-0.7); HEMATOCRIT 35.4 % (37.0-47.0); HEMOGLOBIN 10.5 g/dl (12.0-16.0); IMMATURE GRANULOCYTE # (AUTO) 0.1 (0.0-1.0); IMMATURE GRANULOCYTE % (AUTO) 0.6 % (0.0-5.0); LYMPHOCYTES # (AUTO) 2.2 K/uL (0.60-3.4); MEAN CORPUSCULAR HEMOGLOBIN 30.8 pg (27.0-31.0); MEAN CORPUSCULAR HGB CONC 29.7 (31.8-35.4); MEAN CORPUSCULAR VOLUME 103.8 fl (81.0-99.0); MONOCYTES % (AUTO) 9.4 (0-10); NEUTROPHILS # (AUTO) 6.7 K/ul (2.0-6.9); NEUTROPHILS % (AUTO) 64.8 % (42.2-75.2); PLATELET COUNT 342 10^3/uL (140-440); RDW COEFFICIENT OF VARIATION 14.1 % (11.6-14.8); RED BLOOD COUNT 3.41 10^6/ul (4.20-5.40); WHITE BLOOD COUNT 10.31 K/ul (4.6-10.2)
[2024-04-17] MEDS: DUONEB NEB STA (16:26)
[2024-04-17 16:38] LABS: ALANINE AMINOTRANSFERASE 18.3 U/L (0-35); ALBUMIN 4.22 g/dL (3.5-5.0); BILIRUBIN,TOTAL 0.21 mg/dL (0.2-1.3); BLOOD UREA NITROGEN 22.3 mg/dL (7-17); CALCIUM 9.04 mg/dL (8.4-10.2); CARBON DIOXIDE 36.2 mmol/L (22-30.0); CHLORIDE 97.4 mmol/L (98-107); CREATINE KINASE 54.2 U/L (30-135); CREATININE 1.32 mg/dL (0.60-1.30); GLUCOSE 122.4 mg/dL (74-106); POTASSIUM 4.82 mmol/L (3.5-5.1); SODIUM 137.9 mmol/L (134.5-145); TOTAL PROTEIN 7.05 g/dL (6.3-8.2)
[2024-04-17 16:50] LABS: TROPONIN I < 0.012 ng/ml (0.0000-0.120)
[2024-04-17] MEDS: MORPHINE 4 MG/ML SYRINGE IVP ONE (18:28)
[2024-04-17 19:16] LABS: ABG O2 HGB 93.7 % (95-100); ABG PH 7.34 (7.35-7.45); COHb 1.6 (0.5-1.5); HCO3 31.8 (21-28); MetHb 1.6 (0-1.5); TCO2 33.6 (19-24); tHb 10.9 g/dl (11.7-17.4)
[2024-04-17] MEDS: ROCEPHIN 1 GM/50 ML D5W 1 GM/50 ML BAG IV STA (19:31)
[2024-04-17 19:54] LABS: MOLECULAR FLU A NEGATIVE BY NAAT (NEGATIVE); MOLECULAR FLU B NEGATIVE BY NAAT (NEGATIVE); SARS COV-2 RNA RAPID NAAT NEGATIVE (NEGATIVE)
[2024-04-17] MEDS ORDERED: ALBUTEROL 0.083% NEB NEB PRN (20:23)
[2024-04-17 21:25] VITALS: BMI 33.1
[2024-04-17] MEDS: CRESTOR PO SCH (22:07)
[2024-04-17] MEDS: COREG PO SCH (22:07)
[2024-04-17] MEDS: ULTRAM PO PRN (22:08)
[2024-04-17] MEDS: ZANAFLEX PO PRN (22:08)
[2024-04-18] MEDS: SOLU-MEDROL 40 MG IVP SCH (00:19)
[2024-04-18] MEDS: TYLENOL PO PRN (03:17)
[2024-04-18] MEDS: PROTONIX PO SCH (05:38)
[2024-04-18 05:43] LABS: BASOPHILS % (AUTO) 0.2 % (0.0-3.0); EOSINOPHILS % (AUTO) 0.1 % (0.0-7.0); HEMOGLOBIN 9.8 g/dl (12.0-16.0); IMMATURE GRANULOCYTE # (AUTO) 0.1 (0.0-1.0); IMMATURE GRANULOCYTE % (AUTO) 0.8 % (0.0-5.0); LYMPHOCYTES # (AUTO) 0.9 K/uL (0.60-3.4); MEAN CORPUSCULAR HEMOGLOBIN 30.3 pg (27.0-31.0); MEAN CORPUSCULAR HGB CONC 29.7 (31.8-35.4); MEAN CORPUSCULAR VOLUME 102.2 fl (81.0-99.0); MONOCYTES # (AUTO) 0.1 K/uL (0.4-2.0); MONOCYTES % (AUTO) 0.9 (0-10); NEUTROPHILS # (AUTO) 12.1 K/ul (2.0-6.9); PLATELET COUNT 336 10^3/uL (140-440); RDW COEFFICIENT OF VARIATION 13.6 % (11.6-14.8); RED BLOOD COUNT 3.23 10^6/ul (4.20-5.40); WHITE BLOOD COUNT 13.31 K/ul (4.6-10.2)
[2024-04-18 06:00] LABS: ALBUMIN 3.95 g/dL (3.5-5.0); ALKALINE PHOSPHATASE 55.7 U/L (53-141); ASPARTATE AMINO TRANSFERASE 22.1 U/L (14-36); BILIRUBIN,TOTAL 0.19 mg/dL (0.2-1.3); BLOOD UREA NITROGEN 24.3 mg/dL (7-17); CALCIUM 8.71 mg/dL (8.4-10.2); CREATININE 1.12 mg/dL (0.60-1.30); GLUCOSE 160.3 mg/dL (74-106); POTASSIUM 5.06 mmol/L (3.5-5.1); TOTAL PROTEIN 6.56 g/dL (6.3-8.2)
[2024-04-18] MEDS: DUONEB NEB SCH (06:37)
[2024-04-18] MEDS: COZAAR PO SCH (08:05)
[2024-04-18] MEDS: TRIGLIDE PO SCH (08:06)
[2024-04-18] MEDS: ASPIRIN EC PO SCH (08:06)
[2024-04-18] MEDS: ZITHROMAX 500 MG in SODIUM CHLORIDE 250 ML IV SCH (08:11)
[2024-04-18] MEDS: ROCEPHIN 1 GM/50 ML D5W 1 GM/50 ML BAG IV SCH (09:22)
[2024-04-18] MEDS ORDERED: OCEAN NASAL SPRAY NAS PRN (11:35)
--- NOTE | 2024-04-18 12:25 | PCM ---
Date of Service Date Seen by Provider: 04/18/24 Time Seen by Provider: 08:45 Admit Day/Time Admission Date: 04/17/24 Reason for Admission Chief Complaint: SOB Hospital Provider Hospital Provider: REBA MEAD, [facility] [place] Care Physician Primary Care Physician: THU BLISS MD History of Present Illness History of Present Illness: 69 yo female with pmh of chronic respiratory failure with oxygen requirement of 2lpm, alcohol abuse, tobacco use, HTN, GERD, and HLD presented to the ER with shortness of breath. Patient reports she is noncompliant with her oxygen use and only wears it at night. Has had worsening shortness of breath, cough, and congestion over the last couple days. Denies any fever, chills, body aches, or other symptoms. Came to the ER without her oxygen tank and was found to be in the 80s on RA. She was placed on 2L and mildly improved. Required nebs and oxygen up to 3L. Chest xray clear. Mild leukocytosis. Viral swabs negative. Procal mildly elevated. Admitted to med/surg observation. Case Discussed With Case Discussed With: Patient's case was discussed with the ER Physicians, Dr. Vickers. [facility] Medical History Acute pain of left shoulder (02/19/18) M25.512 - Pain in left shoulder (ICD-10) LUQ abdominal pain R10.12 - Left upper quadrant pain (ICD-10) Nausea and vomiting R11.2 - Nausea with vomiting, unspecified (ICD-10) Vomiting R11.10 - Vomiting, unspecified (ICD-10) Abdominal pain R10.9 - UNSPECIFIED ABDOMINAL PAIN (ICD-10) Diverticulitis K57.92 - DVTRCLI OF INTEST, PART UNSP, W/O PERF OR ABSCESS W/O BLEED (ICD- 10) Pneumonia J18.9 - PNEUMONIA, UNSPECIFIED ORGANISM (ICD-10) Foreign body in digestive tract T18.9XXA - FOREIGN BODY OF ALIMENTARY TRACT, PART UNSP, INIT ENCNTR (ICD-10) Foreign body in digestive tract T18.9XXA - Foreign body of alimentary tract, part unspecified, initial encounter (ICD-10) Stomach ulcer (03/29/17) K25.9 - Gastric ulcer, unspecified as acute or chronic, without hemorrhage or perforation (ICD-10) Epigastric pain (07/03/17) R10.13 - Epigastric pain (ICD-10) Pneumonia J18.9 - Pneumonia, unspecified organism (ICD-10) Compression fracture of second lumbar vertebra S32.020A - Wedge compression fracture of second lumbar vertebra, initial encounter for closed fracture (ICD-10) Myocardial infarction (03/08/17) [facility] sent to [facility]. I21.9 - Acute myocardial infarction, unspecified (ICD-10) Surgical History History of cholecystectomy Z90.49 - Acquired absence of other specified parts of digestive tract (ICD- 10) History of partial surgical removal of colon Z90.49 - Acquired absence of other specified parts of digestive tract (ICD- 10) History of surgery Right wrist Z98.890 - Other specified postprocedural states (ICD-10) History of surgery on integumentary structure Benign cysts pelvic area, Dr. Young Z98.890 - Other specified postprocedural states (ICD-10) Status post hysterectomy Z90.710 - Acquired absence of both cervix and uterus (ICD-10) Cataract extraction and insertion of intraocular lens Family History Mother GI (gastrointestinal bleed) Grandfather/Grandmother Lung cancer FATHER No problems noted. Other Alzheimer disease Social History Smoking and tobacco status: Current every day smoker Tobacco: How many years used: 30 Alcohol intake: former Substance use type: does not use Household members: spouse and children Housing: house Marital status: M Lives independently: Yes Number of children: 2 service: No Current occupational status: retired History of recent travel: No Current gender identity: female Seatbelt use: always Water heater temperature set < 120 degrees: Yes Working smoke detector in home: Yes Fire extinguisher in home: No Carbon monoxide detector in home: No Allergies Allergies Allergy/AdvReac Type Severity Reaction Status Date / Time levofloxacin (From Levaquin) Allergy Mild Rash Verified 04/17/24 15:36 sulfamethoxazole AdvReac Intermediate Rash Verified 04/17/24 15:36 Current Medications Home Medications Acetaminophen (Acetaminophen 325 Mg Tablet) 650 mg PO Q4H PRN PRN Reason: Mild Pain Last Admin: 04/18/24 03:17 Dose: 650 mg Albuterol Sulfate (Albuterol Sulfate 0.083% Vial.[facility]) 2.5 mg NEB RTQ4H PRN PRN Reason: Wheezing Albuterol/Ipratropium (Ipratropium/Albuterol Vial.Neb) 3 ml NEB RTQ4H [facility] Last Admin: 04/18/24 09:30 Dose: 3 ml Aspirin (Aspirin 81 Mg Tablet.) 81 mg PO DAILYWM2 [facility] Carvedilol (Carvedilol 12.5 Mg Tablet) 12.5 mg PO BIDWM2 [facility] Fenofibrate (Fenofibrate 54 Mg Tablet) 54 mg PO DAILY [facility] Last Admin: 04/18/24 08:06 Dose: 54 mg CEFTRIAXONE/D5W 1 GM PREMIX (Rocephin 1 Gm/50 Ml D5w) 1 gm in 50 mls @ 100 mls/hr IV DAILY [facility] Stop: 04/21/24 08:59 Last Admin: 04/18/24 09:22 Dose: 100 mls/hr Azithromycin 500 mg/ Sodium (Chloride) 250 mls @ 250 mls/hr IV DAILY [facility] Stop: 04/21/24 08:59 Last Admin: 04/18/24 08:11 Dose: 250 mls/hr Losartan Potassium (Losartan Potassium 25 Mg Tablet) 50 mg PO DAILY [facility] Last Admin: 04/18/24 08:05 Dose: 50 mg Methylprednisolone Sodium Succinate (Methylprednisolone Sod Succ/Pf 40 Mg/Ml Vial) 40 mg IVP Q8H [facility] Last Admin: 04/18/24 07:54 Dose: 40 mg Pantoprazole Sodium (Pantoprazole Sodium 40 Mg Tablet.) 40 mg PO QDAC2 [facility] Last Admin: 04/18/24 05:38 Dose: 40 mg Rosuvastatin Calcium (Rosuvastatin Calcium 10 Mg Tablet) 20 mg PO BEDTIME [facility] Last Admin: 04/17/24 22:07 Dose: 20 mg Sodium Chloride (0.9% Sodium Chloride 10 Ml Disp.Syrin) 1 syr IVF Q8H [facility] Last Admin: 04/18/24 05:38 Dose: 1 syr Sodium Chloride (Sodium Chloride 40 Ml Nasal [place]) 2 spray MOHSEN PRN PRN PRN Reason: nasal dryness Tizanidine HCl (Tizanidine Hcl 4 Mg Tablet) 4 mg PO BEDTIME PRN PRN Reason: Spasms Last Admin: 04/17/24 22:08 Dose: 4 mg Tramadol HCl (Tramadol Hcl 50 Mg Tablet) 50 mg PO BID PRN PRN Reason: Pain Last Admin: 04/17/24 22:08 Dose: 50 mg aspirin 81 mg tablet,delayed release (Aspir-) 81 mg PO DAILY 03/29/17 [History Confirmed 04/17/24] nitroglycerin 0.4 mg sublingual tablet 0.4 mg sublingual PRN PRN Chest Pain 03/29/17 [History Confirmed 04/17/24] fenofibrate 54 mg tablet See Rx Instructions .Route .COMPLEX #90 tabs 08/31/23 [Rx Confirmed 04/17/24] carvedilol 12.5 mg tablet 12.5 mg PO 2XD #60 tabs 11/15/23 [Rx Confirmed 04/17/24] pantoprazole 40 mg tablet,delayed release 40 mg PO DAILY #30 tabs 12/11/23 [Rx Confirmed 04/17/24] losartan 50 mg tablet 50 mg PO DAILY #90 tabs 01/24/24 [Rx Confirmed 04/17/24] tizanidine 4 mg tablet 4 mg PO BEDTIME PRN for muscle spasm #30 tabs 02/06/24 [Rx Confirmed 04/17/24] albuterol sulfate 90 mcg/actuation breath activated powder inhaler 2 inh inhalation Q4-6H PRN shortness of breath or wheezing #1 ea 03/04/24 [Rx Confirmed 04/17/24] ipratropium 0.5 mg-albuterol 3 mg (2.5 mg base)/3 mL nebulization soln 3 ml inhalation RTQ4H PRN shortness of breath or wheezing #90 mL 03/04/24 [Rx Confirmed 04/17/24] rosuvastatin 20 mg tablet 20 mg PO BEDTIME #90 tabs 03/25/24 [Rx Confirmed 04/17/24] tramadol 50 mg tablet 50 mg PO BID PRN pain #60 tabs 04/04/24 [Rx Confirmed 04/17/24] Opioid Naive vs. Tolerant Does Patient Take Opioids?: Yes Is Patient Opioid Naive?: No What is Opioid Naive?: *Opioid Naive implies the patient is not already taking opioids or not chronically receiving opioids on a daily basis. *PRN dosing is not "usually" associated with tolerance. *Patients are at higher risk of over-sedation and aspiration. Is Patient Opioid Tolerant?: No What is Opioid Tolerant?: *Opioid Tolerance implies less than the expected response to an opioid. *Acquired tolerance is defined by the patient taking 60mg of oral morphine daily (or equianalgesic dose of another opioid) for 1 week or more. *Often associated with chronic pain. *May take more than usual dose to achieve desired pain control. Review of Systems Constitutional: Reports No symptoms Head: Reports Normocephalic Eyes: Reports No symptoms Ears: Reports No symptoms Nose: Reports Congestion Mouth: Reports No symptoms Throat: Reports No symptoms Cardiovascular: Reports No symptoms Respiratory: Reports Cough and Shortness of air Gastrointestinal: Reports No symptoms Genitourinary: Reports No Symptoms Musculoskeletal: Reports No symptoms Endocrine: Reports No symptoms Hematology: Reports No symptoms Immunology: Reports No symptoms Neurological: Reports No symptoms Psychiatric: Reports No symptoms Physical examination Most Recent Vital Signs: Most Recent Vital Signs Temperature 97.9 F 04/18/24 10:00 Temperature Source Temporal Artery Scan 04/18/24 10:00 Temperature Source Infrared 04/17/24 15:31 Pulse Rate 78 04/18/24 10:00 Respiratory Rate 20 04/18/24 10:00 Blood Pressure 120/77 04/18/24 10:00 Blood Pressure Mean 91 04/18/24 10:00 Blood Pressure Left Arm 149/93 04/17/24 20:56 Blood Pressure Location Right Arm 04/18/24 10:00 Blood Pressure Position Sitting 04/18/24 10:00 O2 Sat by Pulse Oximetry 95 04/18/24 10:00 Oxygen Delivery Method Nasal Cannula 04/18/24 12:00 Oxygen Flow Rate 2 04/18/24 10:00 Height 5 ft 5 in 04/18/24 10:21 Weight 87.6 kg 04/18/24 10:21 Telemetry Type Remote Telemetry 04/18/24 07:00 Telemetry Monitoring Continues 04/18/24 07:00 Telemetry Heart Rate 73 04/18/24 07:00 Telemetry SPO2 94 04/18/24 07:00 EKG MT Interval 0.24 H 04/18/24 07:00 EKG QRS Interval 0.07 04/18/24 07:00 Telemetry Strip Reading SR with 1st Degree AVB/PAC 04/18/24 07:00 Appearance: Positive No Apparent Distress, Alert and Oriented x3 and Ill- Appearing Skin: Positive Warm HEENT: Positive Normocephalic and PERRLA Neck: Positive Supple and Midline Trachea Chest/Lungs: Positive Symmetrical With Equal Breath Sounds and Wheezes (mild, expiratory, diminished) Heart: Positive RRR and Pulses Normal GI/: Positive Soft, Nontender, Bowel Sounds Normal and No Distention Musculoskeletal: Positive Not Examined Extremities: Positive Intact Peripheral Pulses, Stable Joints Without Laxity and Good ROM in All Joints Neurological: Positive Sensation Intact, Motor intact, Alert and Oriented Labs This Visit Labs This Visit: Labs This Visit 04/17/24 04/17/24 04/17/24 16:20 18:55 19:34 WBC 10.31 H RBC 3.41 L Hgb 10.5 L Hct 35.4 L MCV 103.8 H MCH 30.8 MCHC 29.7 L RDW Coeff of Maxi 14.1 Plt Count 342 Immature Gran % (Auto) 0.6 Neut % (Auto) 64.8 Lymph % (Auto) 21.0 [place] % (Auto) 9.4 Eos % (Auto) 3.0 Baso % (Auto) 1.2 Neut # (Auto) 6.7 Lymph # (Auto) 2.2 [place] # (Auto) 1.0 Eos # (Auto) 0.3 Baso # (Auto) 0.1 Immature Gran # (Auto) 0.1 Puncture Site Rbrach Base Excess 6.0 H O2 Saturation 94.0 ABG pH 7.34 L ABG pCO2 59.0 H ABG pO2 75.0 L ABG HCO3 31.8 H ABG Total CO2 33.6 H Jacob Test N/a Hemoglobin 1.6 H Oxyhemoglobin 93.7 L Carboxyhemoglobin 1.6 H Total Hemoglobin 10.9 L O2 Delivery Device Cannula Oxygen Liter Flow 2.00 Sodium 137.9 Potassium 4.82 Chloride 97.4 L Carbon Dioxide 36.2 H Anion Gap 9.12 BUN 22.3 H Creatinine 1.32 H Estimated GFR (MDRD) 40.00 BUN/Creatinine Ratio 16.89 Glucose 122.4 H Lactic Acid 0.88 Calcium 9.04 Total Bilirubin 0.21 AST 31.0 ALT 18.3 Alkaline Phosphatase 77.0 Total Creatine Kinase 54.2 Troponin I < 0.012 NT-Pro-B Natriuret Pep 225 Total Protein 7.05 Albumin 4.22 Globulin 2.83 Albumin/Globulin Ratio 1.49 Procalcitonin 0.20 H Influ A Molecular Assay Negative by naat Influ B Molecular Assay Negative by naat SARS CoV-2 RNA Rapid RENAE Negative 04/18/24 05:16 WBC 13.31 H RBC 3.23 L Hgb 9.8 L Hct 33.0 L MCV 102.2 H MCH 30.3 MCHC 29.7 L RDW Coeff of Maxi 13.6 Plt Count 336 Immature Gran % (Auto) 0.8 Neut % (Auto) 91.0 H Lymph % (Auto) 7.[address] % (Auto) 0.9 Eos % (Auto) 0.1 Baso % (Auto) 0.2 Neut # (Auto) 12.1 H Lymph # (Auto) 0.9 [place] # (Auto) 0.1 L Eos # (Auto) 0.0 Baso # (Auto) 0.0 Immature Gran # (Auto) 0.1 Puncture Site Base Excess O2 Saturation ABG pH ABG pCO2 ABG pO2 ABG HCO3 ABG Total CO2 Jacob Test Hemoglobin Oxyhemoglobin Carboxyhemoglobin Total Hemoglobin O2 Delivery Device Oxygen Liter Flow Sodium 131.0 L Potassium 5.06 Chloride 95.0 L Carbon Dioxide 32.0 H Anion Gap 9.06 BUN 24.3 H Creatinine 1.12 Estimated GFR (MDRD) 48.00 BUN/Creatinine Ratio 21.69 Glucose 160.3 H Lactic Acid Calcium 8.71 Total Bilirubin 0.19 L AST 22.1 ALT 17.0 Alkaline Phosphatase 55.7 Total Creatine Kinase Troponin I NT-Pro-B Natriuret Pep Total Protein 6.56 Albumin 3.95 Globulin 2.61 Albumin/Globulin Ratio 1.51 Procalcitonin 0.15 H Influ A Molecular Assay Influ B Molecular Assay SARS CoV-2 RNA Rapid RENAE Imaging Imaging: EXAM: CHEST RADIOGRAPH (1 VIEW) FINDINGS: Lines, Tubes, Devices: None Lungs and Pleura: No focal consolidation. No pleural effusion. No pneumothorax. Cardiac silhouette: Stable. Bones: No acute abnormality. IMPRESSION: No acute radiographic abnormality. If symptoms persist, follow-up imaging is recommended. Review Statement Review Statement: I have independently reviewed and interpreted the labs/EKGs/imaging that were ordered by the ER provider. I have reviewed all outside records that are available currently in our EMR including imaging/notes/labs from previous visits. Plan Plan: 1. Acute on Chronic Respiratory Failure d/t COPD exacerbation and noncompliance with continuous oxygen use - wean to home oxygen requirements, nebs, steroids 2. COPD Exacerbation - rocephin, azith, steroids, nebs 3. HTN - chronic, continue home medications 4. GERD - chronic, continue home medications 5. Chronic back pain - continue home medications DVT Prophylaxis: Ambulation Time Spent: Greater than 80 minutes spent with patient, 50% of the time spent with this patient was devoted to counseling and coordination of care. [facility]in minutes spent discussing advance care planning. Smoking Cessation: 3-10 minutes spent discussing smoking cessation. Disposition: Admit to: Med/Surg Observation DNR Discussed Plan of Care with Dr. Mirta Bliss. Medications Medication Orders: Medications Ordered Category Date Time Status 0.9 % Sodium Chloride [Saline Flush] Meds 04/17/24 21:00 Active 1 syr IVF Q8H Acetaminophen [Tylenol] Meds 04/17/24 20:20 Active 650 mg PO Q4H PRN Albuterol Sulfate 0.083% Neb [Albuterol 0.083% Neb] Meds 04/17/24 20:23 Active 2.5 mg NEB RTQ4H PRN Aspirin [Aspirin EC] Meds 04/19/24 07:30 Active 81 mg PO DAILYWM2 Azithromycin Inj [Zithromax] 500 mg Meds 04/18/24 09:00 Active 0.9 % Sodium Chloride [Sodium Chloride] 250 ml IV DAILY Carvedilol [Coreg] Meds 04/18/24 17:00 Active 12.5 mg PO BIDWM2 Ceftriaxone/D5w 1 gm Premix [Rocephin 1 gm/50 ml D5w] Meds 04/18/24 09:00 Active 1 gm in 50 ml IV DAILY Fenofibrate [Triglide] Meds 04/18/24 09:00 Active 54 mg PO DAILY Ipratropium/Albuterol Neb [Duoneb] Meds 04/17/24 22:00 Active 3 ml NEB RTQ4H Losartan Potassium [Cozaar] Meds 04/18/24 09:00 Active 50 mg PO DAILY Methylprednisolone Sod Succ/Pf [Solu-Medrol 40 mg] Meds 04/18/24 00:00 Active 40 mg IVP Q8H Pantoprazole Sodium [Protonix] Meds 04/18/24 06:00 Active 40 mg PO QDAC2 Rosuvastatin Calcium [Crestor] Meds 04/17/24 21:55 Active 20 mg PO BEDTIME Sodium Chloride [[place] Nasal [place]] Meds 04/18/24 11:37 Active 2 spray MOHSEN PRN PRN Tizanidine HCl [Zanaflex] Meds 04/17/24 21:50 Active 4 mg PO BEDTIME PRN Tramadol HCl [Ultram] Meds 04/17/24 21:50 Active 50 mg PO BID PRN
[2024-04-18] MEDS: OCEAN NASAL SPRAY NAS PRN (13:33)
[2024-04-18] MEDS: COREG PO SCH (16:09)
[2024-04-19 05:41] LABS: BASOPHILS % (AUTO) 0.1 % (0.0-3.0); HEMATOCRIT 30.7 % (37.0-47.0); HEMOGLOBIN 9.3 g/dl (12.0-16.0); IMMATURE GRANULOCYTE # (AUTO) 0.2 (0.0-1.0); IMMATURE GRANULOCYTE % (AUTO) 0.9 % (0.0-5.0); LYMPHOCYTES # (AUTO) 0.8 K/uL (0.60-3.4); LYMPHOCYTES % (AUTO) 4.5 (10.0-50.0); MEAN CORPUSCULAR HEMOGLOBIN 30.4 pg (27.0-31.0); MEAN CORPUSCULAR HGB CONC 30.3 (31.8-35.4); MEAN CORPUSCULAR VOLUME 100.3 fl (81.0-99.0); MONOCYTES # (AUTO) 0.5 K/uL (0.4-2.0); MONOCYTES % (AUTO) 2.5 (0-10); NEUTROPHILS # (AUTO) 16.8 K/ul (2.0-6.9); PLATELET COUNT 296 10^3/uL (140-440); RDW COEFFICIENT OF VARIATION 13.6 % (11.6-14.8); RED BLOOD COUNT 3.06 10^6/ul (4.20-5.40); WHITE BLOOD COUNT 18.22 K/ul (4.6-10.2)
[2024-04-19 05:56] LABS: ALBUMIN 3.79 g/dL (3.5-5.0); ALKALINE PHOSPHATASE 63.1 U/L (53-141); ASPARTATE AMINO TRANSFERASE 21.7 U/L (14-36); BILIRUBIN,TOTAL 0.15 mg/dL (0.2-1.3); BLOOD UREA NITROGEN 27.3 mg/dL (7-17); CALCIUM 8.74 mg/dL (8.4-10.2); CARBON DIOXIDE 32.7 mmol/L (22-30.0); CHLORIDE 96.1 mmol/L (98-107); CREATININE 1.1 mg/dL (0.60-1.30); GLUCOSE 168.3 mg/dL (74-106); POTASSIUM 4.8 mmol/L (3.5-5.1); SODIUM 132.2 mmol/L (134.5-145); TOTAL PROTEIN 6.25 g/dL (6.3-8.2)
[2024-04-19] MEDS: ASPIRIN EC PO SCH (07:44)
--- NOTE | 2024-04-19 09:45 | DCSUM ---
Admission Date Admission Date: 04/17/24 Discharge Date Discharge Date: 04/19/24 Admission Diagnosis Admission Diagnosis: 1. Acute on Chronic Respiratory Failure d/t COPD exacerbation and noncompliance with continuous oxygen use 2. COPD Exacerbation 3. HTN 4. GERD 5. Chronic back pain Discharge Diagnosis Discharge Diagnosis: 1. Acute on Chronic Respiratory Failure d/t COPD exacerbation and noncompliance with continuous oxygen use - Resolved 2. COPD Exacerbation - Improving 3. HTN - chronic, stable 4. GERD - chronic, stable 5. Chronic back pain - chronic, stable Hospital Provider Hospital Provider: REBA MEAD, [facility] Primary Care Physician Primary Care Physician: THU BOWEN MD Summary of History and Physical Summary of History and Physical: 69 yo female with pmh of chronic respiratory failure with oxygen requirement of 2lpm, alcohol abuse, tobacco use, HTN, GERD, and HLD presented to the ER with shortness of breath. Patient reports she is noncompliant with her oxygen use and only wears it at night. Has had worsening shortness of breath, cough, and congestion over the last couple days. Denies any fever, chills, body aches, or other symptoms. Came to the ER without her oxygen tank and was found to be in the 80s on RA. She was placed on 2L and mildly improved. Required nebs and oxygen up to 3L. Chest xray clear. Mild leukocytosis. Viral swabs negative. Procal mildly elevated. Admitted to med/surg observation. Hospital Course Subjective: During stay, patient was placed back at home oxygen requirements of 2L. Did not require additional supplementation. Patient continues to smoke and refuses to carry a portable tank with her. Patient refuses to have someone from home bring her a tank for discharge. Explained risks of hypoxia and upon discharge if she is not compliant. Verbalized understanding and said she was "hard headed" and going to do what she wanted to do and didn't need any added stress. Lung sounds clear and moving air. Requested refill for nebs. She was given rocephin, azith, nebs, and steroids during stay. No changes to home medications. Rx sent for cefpodoxime, azith, nebs, and medrol pack. Follow-up with PCP next week. Appearance: Pleasant, No Apparent Distress and Alert HEENT: MMM, Supple and No JVD CVS: No Murmur Abdomen: Soft, Non-Tender and No Distention Respiratory: No Dyspnea Extremities: No Edema Vital Signs: Most Recent Vital Signs Temperature 97.2 F L 04/19/24 05:40 Temperature Source Temporal Artery Scan 04/19/24 05:40 Temperature Source Infrared 04/17/24 15:31 Pulse Rate 73 04/19/24 05:40 Respiratory Rate 20 04/19/24 05:40 Blood Pressure 117/63 04/19/24 05:40 Blood Pressure Mean 81 04/19/24 05:40 Blood Pressure Left Arm 149/93 04/17/24 20:56 Blood Pressure Location Left Arm 04/19/24 05:40 Blood Pressure Position Supine 04/19/24 05:40 O2 Sat by Pulse Oximetry 94 L 04/19/24 05:40 Oxygen Delivery Method Nasal Cannula 04/19/24 09:00 Oxygen Flow Rate 2 04/19/24 05:40 Height 5 ft 5 in 04/18/24 10:21 Weight 87.6 kg 04/18/24 10:21 Telemetry Type Remote Telemetry 04/19/24 07:00 Telemetry Monitoring Continues 04/19/24 07:00 Telemetry Heart Rate 90 04/19/24 07:00 Telemetry SPO2 95 04/19/24 01:00 EKG AL Interval 0.16 04/19/24 07:00 EKG QRS Interval 0.06 04/19/24 07:00 Telemetry Strip Reading sr 04/19/24 07:00 Imaging: EXAM: CHEST RADIOGRAPH (1 VIEW) TECHNIQUE: Frontal Chest Radiograph. HISTORY: Cough and shortness of breath COMPARISON: 03/28/2024. FINDINGS: Lines, Tubes, Devices: None Lungs and Pleura: No focal consolidation. No pleural effusion. No pneumothorax. Cardiac silhouette: Stable. Bones: No acute abnormality. IMPRESSION: No acute radiographic abnormality. If symptoms persist, follow-up imaging is recommended. Lab Results Last 24 Hours: 04/19/24 05:31 WBC 18.22 H RBC 3.06 L Hgb 9.3 L Hct 30.7 L MCV 100.3 H MCH 30.4 MCHC 30.3 L RDW Coeff of Maxi 13.6 Plt Count 296 Immature Gran % (Auto) 0.9 Neut % (Auto) 92.0 H Lymph % (Auto) 4.5 L [place] % (Auto) 2.5 Eos % (Auto) 0.0 Baso % (Auto) 0.1 Neut # (Auto) 16.8 H Lymph # (Auto) 0.8 [place] # (Auto) 0.5 Eos # (Auto) 0.0 Baso # (Auto) 0.0 Immature Gran # (Auto) 0.2 Sodium 132.2 L Potassium 4.80 Chloride 96.1 L Carbon Dioxide 32.7 H Anion Gap 8.20 BUN 27.3 H Creatinine 1.10 Estimated GFR (MDRD) 49.00 BUN/Creatinine Ratio 24.81 Glucose 168.3 H Calcium 8.74 Total Bilirubin 0.15 L AST 21.7 ALT 16.0 Alkaline Phosphatase 63.1 Total Protein 6.25 L Albumin 3.79 Globulin 2.46 Albumin/Globulin Ratio 1.54 Discharge Instructions Discharge Planning: Discharge Planning > 40 minutes If patient is discharged with left ventricular systolic dysfunction: no Discharged with a beta keiry? [] If no, why not? [] Discharged with an yuki/arb? [] If no, why not? [] Diagnosis: COPD exacerbation, Oxygen Noncompliance Diet: Regular Activity: as tolerated Medications: [facility] 1 Start all of the pills tomorrrow AM * Cefpodoxime * Azithromycin * Medrol Pack * Duoneb Discharge Medications: Medications at Discharge (Home Meds & RX) aspirin 81 mg tablet,delayed release (Aspir-) 81 mg PO DAILY 03/29/17 nitroglycerin 0.4 mg sublingual tablet 0.4 mg sublingual PRN PRN Chest Pain 03/29/17 fenofibrate 54 mg tablet See Rx Instructions .Route .COMPLEX #90 tabs 08/31/23 carvedilol 12.5 mg tablet 12.5 mg PO 2XD #60 tabs 11/15/23 pantoprazole 40 mg tablet,delayed release 40 mg PO DAILY #30 tabs 12/11/23 losartan 50 mg tablet 50 mg PO DAILY #90 tabs 01/24/24 tizanidine 4 mg tablet 4 mg PO BEDTIME PRN for muscle spasm #30 tabs 02/06/24 albuterol sulfate 90 mcg/actuation breath activated powder inhaler 2 inh inhalation Q4-6H PRN shortness of breath or wheezing #1 ea 03/04/24 rosuvastatin 20 mg tablet 20 mg PO BEDTIME #90 tabs 03/25/24 tramadol 50 mg tablet 50 mg PO BID PRN pain #60 tabs 04/04/24 azithromycin 500 mg tablet 500 mg PO DAILY 3 days #3 tabs 04/19/24 cefpodoxime 200 mg tablet 200 mg PO BID #10 tabs 04/19/24 ipratropium 0.5 mg-albuterol 3 mg (2.5 mg base)/3 mL nebulization soln 3 ml inhalation RTQ4H PRN shortness of breath or wheezing #90 mL 04/19/24 methylprednisolone 4 mg tablets in a dose pack (Medrol (Rafael)) See Rx Instructions PO .COMPLEX #21 ea 04/19/24 Discharge Plan Discharge Discharge Orders: Discharge Patient (ONCE); Ordered 04/19/24 Ordered By: REUBEN BONE Activity Restrictions/Additional Instructions: Discharge Home Diagnosis: COPD exacerbation, Oxygen Noncompliance Diet: Regular Activity: as tolerated Medications: [facility] 1 Start all of the pills tomorrrow AM * Cefpodoxime * Azithromycin * Medrol Pack * Duoneb Continue your Home Medications as indicated below Follow up appointment with Dr. Bowen on 04/24/24 at @40 Instructions: Azithromycin (By mouth), Cefpodoxime Proxetil (By mouth), Methylprednisolone (By mouth), Ipratropium/Albuterol (By breathing), Using Oxygen at Home (GEN), COPD (Chronic Obstructive Pulmonary Disease) (GEN) Care Plan Goals: Problem: Impaired Respiratory Status Goal: Exhibit optimal respiratory function Instructions: Activities as tolerated Apply oxygen as ordered Elevate head of bed Notify MD of increased congestion Problem: Risk for falls Goal: No falls or injury Instructions: Have no throw rugs on the floor Make sure pathway is clear of all objects Use assistance devices if applicable Patient Disposition: HOME SELF-CARE Prescriptions: New methylprednisolone [Medrol (Rafael)] 4 mg tablets,dose pack See Rx Instructions .ROUTE .COMPLEX Qty: 21 0RF Rx Instructions: orally per package directions cefpodoxime 200 mg tablet 200 mg PO BID Qty: 10 0RF Rx Instructions: must administer with a meal/food azithromycin 500 mg tablet 500 mg PO DAILY 3 Days Qty: 3 0RF Continued aspirin [Aspir-81] 81 MG tablet,delayed release (DR/EC) 81 mg PO DAILY Patient Comments: started by [facility] hospitalist nitroglycerin 0.4 MG tablet, sublingual 0.4 mg sublingual PRN PRN (Reason: Chest Pain) fenofibrate 54 mg tablet See Rx Instructions .ROUTE .COMPLEX Qty: 90 1RF Dose Instruction: TAKE ONE TABLET DAILY Rx Instructions: TAKE ONE TABLET DAILY carvedilol 12.5 mg tablet 12.5 mg PO 2XD Qty: 60 2RF pantoprazole 40 mg tablet,delayed release (DR/EC) 40 mg PO DAILY Qty: 30 3RF losartan 50 mg tablet 50 mg PO DAILY Qty: 90 1RF tizanidine 4 mg tablet 4 mg PO BEDTIME PRN (Reason: for muscle spasm) Qty: 30 2RF rosuvastatin 20 mg tablet 20 mg PO BEDTIME Qty: 90 1RF tramadol 50 mg tablet 50 mg PO BID PRN (Reason: pain) Qty: 60 1RF albuterol sulfate 90 mcg/actuation aerosol powdr breath activated 2 inh inhalation Q4-6H PRN (Reason: shortness of breath or wheezing) Qty: 1 0RF ipratropium-albuterol 0.5 mg-3 mg(2.5 mg base)/3 mL solution for nebulization 3 ml inhalation RTQ4H PRN (Reason: shortness of breath or wheezing) Qty: 90 0RF Did you review [place] [employer] for ALL controlled substances?: No Discussed opioids are addictive and Narcan is available by prescription or from pharmacy.: No Condition: Fair Referrals: THU BOWEN MD [Primary Care Provider] - 04/24/24 2:40 pm
[2024-04-19 10:14] VITALS: BP 137/75; PULSE 85; RESP 19; TEMP 97.5
== END 2024-04-19 12:05 | disposition home or self-care (01) ==
LOC: ED 15:29 → MEDSURG B 15:29
PROVIDERS: ADMIT Hospitalist; ATTEND Nurse Practitioner Family
DX: J44.1 Chronic obstructive pulmonary disease with (acute) exacerbation; K21.9 Gastro-esophageal reflux disease without esophagitis; F17.210 Nicotine dependence, cigarettes, uncomplicated; Z91.199 Patient's noncompliance with other medical treatment and regimen due to unspecified reason; F10.10 Alcohol abuse, uncomplicated; Z20.822 Contact with and (suspected) exposure to COVID-19; J96.22 Acute and chronic respiratory failure with hypercapnia; Z99.81 Dependence on supplemental oxygen; G89.29 Other chronic pain; I10 Essential (primary) hypertension; J96.21 Acute and chronic respiratory failure with hypoxia; E78.5 Hyperlipidemia, unspecified; M54.50 Low back pain, unspecified

== ENCOUNTER 2024-12-06 16:34 | Inpatient (IN) ==
[2024-12-06] MEDS: DUONEB NEB STA (17:15)
[2024-12-06] MEDS: DECADRON IVP ONE (17:27)
[2024-12-06 17:37] LABS: IMMATURE GRANULOCYTE # (AUTO) 0.1 (0.0-1.0); IMMATURE GRANULOCYTE % (AUTO) 0.6 % (0.0-5.0); RDW COEFFICIENT OF VARIATION 14.6 % (11.6-14.8)
[2024-12-06 17:52] LABS: CREATININE 0.90 mg/dL (0.60-1.30)
--- NOTE | 2024-12-06 17:55 | DI ---
EXAM: CHEST X-RAY 1 VIEW. HISTORY: COPD exacerbation. COMPARISON: October 31, 2024 chest x-ray. FINDINGS: The chest shows the cardiac silhouette is upper limits normal in size. There is no pulmonary vascular congestion. The lungs are hyperinflated with scattered linear scarring. There is no focal lung consolidation seen. There is no pleural effusion or pneumothorax. Visualized osseous structures show no acute findings. IMPRESSION: 1. No radiographically evident acute cardiopulmonary process. 2. Chronic obstructive pulmonary disease.
[2024-12-06 19:04] LABS: SARS COV-2 RNA RAPID NAAT NEGATIVE (NEGATIVE)
[2024-12-06] MEDS: MAGNESIUM SULFATE 1 GM/2 ML VIAL IVP ONE (19:06)
[2024-12-06 19:07] LABS: MOLECULAR FLU A NEGATIVE BY NAAT (NEGATIVE); MOLECULAR FLU B NEGATIVE BY NAAT (NEGATIVE)
--- NOTE | 2024-12-06 19:08 | ED.PDOC ---
General [facility] ED Provider: Dr. KRYSTAL RICKS DO Chief Complaint: Respiratory Complaint Stated Complaint: 69-year-old female presents to the ER with shortness of breath. She reports that she has had several COPD flares lately but this 1 started particular yesterday. She feels that she just cannot get a deep breath. She denies any fever, chest pain, abdominal pain, GI or symptoms. She is oxygen dependent on 2 to 3 L at home. No specific treatment prior to arrival today. Time Seen by Provider: 12/06/24 16:40 Information Source: Patient Primary Care Provider: AJAY NICOLE APRN Nursing and Triage Documentation Reviewed and Agree: Yes Opioid Naive vs. Tolerant What is Opioid Naive?: *Opioid Naive implies the patient is not already taking opioids or not chronically receiving opioids on a daily basis. *PRN dosing is not "usually" associated with tolerance. *Patients are at higher risk of over-sedation and aspiration. What is Opioid Tolerant?: *Opioid Tolerance implies less than the expected response to an opioid. *Acquired tolerance is defined by the patient taking 60mg of oral morphine daily (or equianalgesic dose of another opioid) for 1 week or more. *Often associated with chronic pain. *May take more than usual dose to achieve desired pain control. Review of Systems Review Of Systems Constitutional: Reports No symptoms All Other Systems: Reviewed and Negative [facility] Medical History Acute pain of left shoulder (02/19/18) M25.512 - Pain in left shoulder (ICD-10) LUQ abdominal pain R10.12 - Left upper quadrant pain (ICD-10) Nausea and vomiting R11.2 - Nausea with vomiting, unspecified (ICD-10) Vomiting R11.10 - Vomiting, unspecified (ICD-10) Abdominal pain R10.9 - UNSPECIFIED ABDOMINAL PAIN (ICD-10) Diverticulitis K57.92 - DVTRCLI OF INTEST, PART UNSP, W/O PERF OR ABSCESS W/O BLEED (ICD- 10) Pneumonia J18.9 - PNEUMONIA, UNSPECIFIED ORGANISM (ICD-10) Foreign body in digestive tract T18.9XXA - FOREIGN BODY OF ALIMENTARY TRACT, PART UNSP, INIT ENCNTR (ICD-10) Foreign body in digestive tract T18.9XXA - Foreign body of alimentary tract, part unspecified, initial encounter (ICD-10) Stomach ulcer (03/29/17) K25.9 - Gastric ulcer, unspecified as acute or chronic, without hemorrhage or perforation (ICD-10) Epigastric pain (07/03/17) R10.13 - Epigastric pain (ICD-10) Pneumonia J18.9 - Pneumonia, unspecified organism (ICD-10) Compression fracture of second lumbar vertebra S32.020A - Wedge compression fracture of second lumbar vertebra, initial encounter for closed fracture (ICD-10) Myocardial infarction (03/08/17) [facility] sent to [facility]. I21.9 - Acute myocardial infarction, unspecified (ICD-10) Family History Mother GI (gastrointestinal bleed) Alzheimer disease Grandfather/Grandmother Lung cancer FATHER No problems noted. MATERNAL GRANDMOTHER Alzheimer disease BROTHER Acute [place] Social History Smoking and tobacco status: Current every day smoker Tobacco type: cigars Tobacco: How many years used: 30 Alcohol intake: former Substance use type: does not use Household members: spouse and children Housing: house Marital status: M Lives independently: Yes Number of children: 2 service: No Current occupational status: retired History of recent travel: No Current gender identity: female Seatbelt use: always Water heater temperature set < 120 degrees: Yes Working smoke detector in home: Yes Fire extinguisher in home: No Carbon monoxide detector in home: No Surgical History History of cholecystectomy Z90.49 - Acquired absence of other specified parts of digestive tract (ICD- 10) History of partial surgical removal of colon Z90.49 - Acquired absence of other specified parts of digestive tract (ICD- 10) History of surgery Right wrist Z98.890 - Other specified postprocedural states (ICD-10) History of surgery on integumentary structure Benign cysts pelvic area, Dr. Young Z98.890 - Other specified postprocedural states (ICD-10) Status post hysterectomy Z90.710 - Acquired absence of both cervix and uterus (ICD-10) Cataract extraction and insertion of intraocular lens Female Reproductive History Menstrual Hx Hysterectomy: Yes Hx Tubal Ligation: No Physical Exam Physical Exam Appearance: Reports Well-appearing, No pain distress and Well-nourished Eyes: Reports CHELLE, EOMI and Conjunctiva clear ENT: Reports Nose normal and Oropharynx normal Respiratory: Reports Airway patent, Respirations nonlabored and Wheezes (Bilateral expiratory wheezes) Cardiovascular: Reports RRR and Pulses normal GI/: Reports Soft and Nontender Musculoskeletal: Reports Normal strength, ROM intact and No edema Skin: Reports Warm, Dry and Normal color Neurological: Reports Sensation intact, Motor intact, Alert and Oriented Psychiatric: Reports Affect appropriate and Mood appropriate Interpretation EKG Interpretation EKG Interpretation By: ED Physician Time of EKG #1: 17:19 Rate: Normal (69) Rhythm: Sinus Ectopy: None [place]: NL ST Segment: Normal Interpretation: Nonischemic EKG Radiology Interpretation Radiology Interpretation By: Radiologist Radiology Results: No acute changes Exam Interpreted: Portable CXR Re-Evaluation Re-Evaluation Additional Comments: 69-year-old female with history of COPD and oxygen dependence presents to the ER with shortness of breath and feeling as though she cannot get a deep breath then. She is afebrile nontoxic no acute distress but she does have bilateral expiratory wheezes throughout. She has some conversational dyspnea but no observable cough. Low suspicion for pneumonia or other acute cardiopulmonary processes to include not limited to ACS, [place], PE, pneumothorax, dissection or tamponade. Troponin and EKG negative for acute ischemia. Unable to perform BNP but she does not demonstrate any pulmonary edema or peripheral edema suggestive of CHF. Cardiac workup negative and nontoxic in appearance, given breathing treatments, steroid, magnesium. Given her symptomatic presentation and multiple episodes in addition to age and comorbidities, I have discussed with the hospital service who is gracious to accept for observation Physician Progress Note Physician Progress Note: All EKGs and plain film imaging independently reviewed and interpreted by me unless stated otherwise. CTs interpreted by radiology unless otherwise stated. All pediatric patients are accompanied by parent or legal guardian as primary historian and/or validate patient report unless otherwise stated. Course Course 12/06/24 17:26 12/06/24 17:26 Orders, Labs, Meds: Lab Review 12/06/24 17: WBC 11.03 H RBC 3.48 L Hgb 9.9 L Hct 33.5 L MCV 96.3 MCH 28.4 MCHC 29.6 L RDW Coeff of Maxi 14.6 Plt Count 308 Immature Gran % (Auto) 0.6 Neut % (Auto) 71.2 Lymph % (Auto) 16.6 [place] % (Auto) 6.2 Eos % (Auto) 4.6 Baso % (Auto) 0.8 Neut # (Auto) 7.9 H Lymph # (Auto) 1.8 [place] # (Auto) 0.7 Eos # (Auto) 0.5 Baso # (Auto) 0.1 Immature Gran # (Auto) 0.1 Sodium 139.0 Potassium 4.20 Chloride 102.0 Carbon Dioxide 38.0 H Anion Gap 3.20 BUN 12.0 Creatinine 0.90 Estimated GFR (MDRD) 62.00 BUN/Creatinine Ratio 13.33 Glucose 112.0 H Calcium 8.80 Magnesium 1.90 Total Bilirubin 0.30 AST 25.0 ALT 13.0 Alkaline Phosphatase 60.0 POC Venous Troponin I 0.01 Troponin I Pending NT-Pro-B Natriuret Pep Cancelled Total Protein 6.40 Albumin 3.60 Globulin 2.80 Albumin/Globulin Ratio 1.28 Orders Category Date Time Status ADMIT OBSERVATION [PLACE PATIENT OBSERVATION] .TO ADMISSION 12/06/24 18:39 Active MEDSURG (MONITORED BED) EKG-(ED & IP/OBS ONLY) Stat CARDIO 12/06/24 17:05 Completed NEBULIZER TREATMENT Stat CARDIO 12/06/24 17:05 Completed TELEMETRY MONITORING TELE CARE 12/06/24 18:39 Active CBC W/ AUTO DIFF Stat LAB 12/06/24 17:26 Completed CMP [COMPREHENSIVE METABOLIC PANEL] Stat LAB 12/06/24 17:26 Results COVID [SARS COV-2 RNA RAPID RENAE] Stat LAB 12/06/24 17:45 Received FLU A & B MOLECULAR [FLU A/B MOLECULAR] Stat LAB 12/06/24 17:45 Received MAGNESIUM Stat LAB 12/06/24 17:26 Results TROPONIN I Stat LAB 12/06/24 17:26 Results Dexamethasone Sod Phosphate [Decadron] Meds 12/06/24 17:04 Discontinued 10 mg IVP ONCE ONE Ipratropium/Albuterol Neb [Duoneb] Meds 12/06/24 17:04 Discontinued 6 ml NEB ONCE STA Magnesium Sulfate [Magnesium Sulfate 1 gm/2 ml Vial] Meds 12/06/24 18:38 Discontinued 1 gm IVP ONCE ONE CHEST, 1V AP ONLY Stat RADS 12/06/24 17:05 Completed Medications Discontinued Medications Generic Name Dose Route Start Last Admin Trade Name Anu PRN Reason Stop Dose Admin Albuterol/Ipratropium 6 ml 12/06/24 17:04 12/06/24 17:15 Ipratropium/Albuterol Vial.Neb NEB 12/06/24 17:05 6 ml ONCE STA Administration Dexamethasone Sodium Phosphate 10 mg 12/06/24 17:04 12/06/24 17:27 Dexamethasone Sod Phos 10 Mg/Ml Inj IVP 12/06/24 17:05 10 mg ONCE ONE Administration Magnesium Sulfate 1 gm 12/06/24 18:38 Magnesium Sulfate Vial 1 Gm/2 Ml Vial IVP 12/06/24 18:39 ONCE ONE Vital Signs: Temp Pulse Resp BP Pulse Ox 12/06/24 16:48 97 F L 73 27 H 129/70 97 Discharge Plan Discharge Patient Disposition: PLACED OBSERVATION Discharge Problem: Chronic hypoxic respiratory failure, Acute exacerbation of chronic obstructive pulmonary disease COPD (chronic obstructive pulmonary disease) Qualifiers: COPD type: unspecified COPD Qualified Code(s): J44.9 - Chronic obstructive pulmonary disease, unspecified Did you review [place] [employer] for ALL controlled substances?: Not Applicable ED Provider: KRYSTAL RICKS Condition: Stable
[2024-12-06] MEDS: ULTRAM PO PRN (21:36)
[2024-12-06] MEDS: COREG PO SCH (21:36)
[2024-12-06] MEDS: DOXYCYCLINE PO SCH (21:37)
[2024-12-06] MEDS: ZANAFLEX PO SCH (21:37)
[2024-12-06 22:07] VITALS: BMI 33.1
[2024-12-06] MEDS: DUONEB NEB PRN (23:00)
[2024-12-07] MEDS: TYLENOL PO PRN (02:12)
[2024-12-07] MEDS: SOLU-MEDROL 40 MG IVP SCH (05:07)
[2024-12-07] MEDS: SPIRIVA IH SCH (05:31)
[2024-12-07] MEDS: PROTONIX PO SCH (05:31)
[2024-12-07] MEDS: SYMBICORT 160-4.5 MCG INHALER IH SCH (05:31)
[2024-12-07 05:44] LABS: IMMATURE GRANULOCYTE # (AUTO) 0.1 (0.0-1.0); IMMATURE GRANULOCYTE % (AUTO) 0.9 % (0.0-5.0); RDW COEFFICIENT OF VARIATION 14.5 % (11.6-14.8)
[2024-12-07 05:59] LABS: CREATININE 0.84 mg/dL (0.60-1.30)
[2024-12-07] MEDS: ASPIRIN EC PO SCH (08:03)
[2024-12-07] MEDS: COZAAR PO SCH (08:04)
[2024-12-07] MEDS: FLORASTOR PO SCH (08:04)
[2024-12-07] MEDS: COREG PO SCH (08:04)
[2024-12-07] MEDS: TRIGLIDE PO SCH (08:04)
--- NOTE | 2024-12-07 09:54 | PCM ---
Date of Service Date Seen by Provider: 12/07/24 Time Seen by Provider: 09:00 Admit Day/Time Admission Date: 12/06/24 Admission Time: 18:39 Reason for Admission Chief Complaint: COPD EXACERBATION Hospital Provider Hospital Provider: [facility]ELIC[facility]UELS [facility] Primary Care Physician: AJAY NICOLE APRN History of Present Illness History of Present Illness: Patient is a 69 year old female from home with pmhx of COPD on 2L chronically, DMT2, hypertension, GERD, hyperlipidemia who presents to ER with worsening SOB and non productive cough. Pt denies fever and cp. States she's been feeling worse for past 2-3 days. States she was seen about 5 weeks ago and treated for COPD exacerbation at that time. Has nebulizers at home and has been trying to manage at home. In ER, patients labs and vitals unremarkable. CXR negative. However patient very wheezy on exam and SOB. Admitted to [facility] for COPD exacerbation. Patient feels some better today but not well enough to go home. Case Discussed With Case Discussed With: Patient's case was discussed with the ER Physicians, Dr. Delgado. [facility] Medical History Acute pain of left shoulder (02/19/18) M25.512 - Pain in left shoulder (ICD-10) LUQ abdominal pain R10.12 - Left upper quadrant pain (ICD-10) Nausea and vomiting R11.2 - Nausea with vomiting, unspecified (ICD-10) Vomiting R11.10 - Vomiting, unspecified (ICD-10) Abdominal pain R10.9 - UNSPECIFIED ABDOMINAL PAIN (ICD-10) Diverticulitis K57.92 - DVTRCLI OF INTEST, PART UNSP, W/O PERF OR ABSCESS W/O BLEED (ICD- 10) Pneumonia J18.9 - PNEUMONIA, UNSPECIFIED ORGANISM (ICD-10) Foreign body in digestive tract T18.9XXA - FOREIGN BODY OF ALIMENTARY TRACT, PART UNSP, INIT ENCNTR (ICD-10) Foreign body in digestive tract T18.9XXA - Foreign body of alimentary tract, part unspecified, initial encounter (ICD-10) Stomach ulcer (03/29/17) K25.9 - Gastric ulcer, unspecified as acute or chronic, without hemorrhage or perforation (ICD-10) Epigastric pain (07/03/17) R10.13 - Epigastric pain (ICD-10) Pneumonia J18.9 - Pneumonia, unspecified organism (ICD-10) Compression fracture of second lumbar vertebra S32.020A - Wedge compression fracture of second lumbar vertebra, initial encounter for closed fracture (ICD-10) Myocardial infarction (03/08/17) [facility] sent to [facility]. I21.9 - Acute myocardial infarction, unspecified (ICD-10) Surgical History History of cholecystectomy Z90.49 - Acquired absence of other specified parts of digestive tract (ICD- 10) History of partial surgical removal of colon Z90.49 - Acquired absence of other specified parts of digestive tract (ICD- 10) History of surgery Right wrist Z98.890 - Other specified postprocedural states (ICD-10) History of surgery on integumentary structure Benign cysts pelvic area, Dr. Young Z98.890 - Other specified postprocedural states (ICD-10) Status post hysterectomy Z90.710 - Acquired absence of both cervix and uterus (ICD-10) Cataract extraction and insertion of intraocular lens Family History Mother GI (gastrointestinal bleed) Alzheimer disease Grandfather/Grandmother Lung cancer FATHER No problems noted. MATERNAL GRANDMOTHER Alzheimer disease BROTHER Acute NC Social History Smoking and tobacco status: Current every day smoker Tobacco type: cigars Tobacco: How many years used: 30 Quit status: not considering quitting Alcohol intake: former Substance use type: does not use Household members: spouse and children Housing: house Marital status: M Lives independently: Yes Number of children: 2 service: No Current occupational status: retired History of recent travel: No Current gender identity: female Seatbelt use: always Water heater temperature set < 120 degrees: Yes Working smoke detector in home: Yes Fire extinguisher in home: No Carbon monoxide detector in home: No Allergies Allergies Allergy/AdvReac Type Severity Reaction Status Date / Time levofloxacin (From Levaquin) Allergy Mild Rash Verified 12/06/24 17:01 sulfamethoxazole AdvReac Intermediate Rash Verified 12/06/24 17:01 Current Medications Home Medications Acetaminophen (Acetaminophen 325 Mg Tablet) 650 mg PO Q4H PRN PRN Reason: Mild Pain Last Admin: 12/07/24 02:12 Dose: 650 mg Albuterol/Ipratropium (Ipratropium/Albuterol Vial.Neb) 3 ml NEB RTQ6H PRN PRN Reason: Wheezing Last Admin: 12/07/24 05:20 Dose: 3 ml Aspirin (Aspirin 81 Mg Tablet.) 81 mg PO DAILYWM2 [facility] Last Admin: 12/07/24 08:03 Dose: 81 mg Budesonide/Formoterol Fumarate (Budesonide/Formoterol Fumarate 160/4.5 Mcg Inhaler) 2 puff IH RTBID [facility] Last Admin: 12/07/24 05:31 Dose: 2 puff Carvedilol (Carvedilol 12.5 Mg Tablet) 12.5 mg PO BIDWM2 [facility] Last Admin: 12/07/24 08:04 Dose: 12.5 mg Doxycycline Hyclate (Doxycycline Hyclate 100 Mg Capsule) 100 mg PO Q12HR [facility] Stop: 12/11/24 09:01 Last Admin: 12/07/24 08:03 Dose: 100 mg Fenofibrate (Fenofibrate 54 Mg Tablet) 54 mg PO DAILY [facility] Last Admin: 12/07/24 08:04 Dose: 54 mg Losartan Potassium (Losartan Potassium 25 Mg Tablet) 50 mg PO DAILY [facility] Last Admin: 12/07/24 08:04 Dose: 50 mg Methylprednisolone Sodium Succinate (Methylprednisolone Sod Succ/Pf 40 Mg/Ml Vial) 40 mg IVP Q8HR [facility] Last Admin: 12/07/24 05:07 Dose: 40 mg Ondansetron HCl (Ondansetron Hcl/Pf 4 Mg/2 Ml Sdv) 4 mg IVP Q6H PRN PRN Reason: Nausea / Vomiting Last Admin: 12/07/24 10:17 Dose: 4 mg Pantoprazole Sodium (Pantoprazole Sodium 40 Mg Tablet.) 40 mg PO QDAC2 [facility] Last Admin: 12/07/24 05:31 Dose: 40 mg Rosuvastatin Calcium (Rosuvastatin Calcium 10 Mg Tablet) 20 mg PO BEDTIME [facility] Saccharomyces Boulardii (Saccharomyces Boulardii 250 Mg Capsule) 250 mg PO BID [facility] Last Admin: 12/07/24 08:04 Dose: 250 mg Sodium Chloride (0.9% Sodium Chloride 10 Ml Disp.Syrin) 1 syr IVF Q8HR [facility] Last Admin: 12/07/24 05:08 Dose: 1 syr Tiotropium [place] (Tiotropium [place] 18 Mcg Cap.W.Dev) 1 cap IH RTDAILY [facility] Last Admin: 12/07/24 05:31 Dose: 1 cap Tizanidine HCl (Tizanidine Hcl 4 Mg Tablet) 4 mg PO BEDTIME [facility] Last Admin: 12/06/24 21:37 Dose: 4 mg Tramadol HCl (Tramadol Hcl 50 Mg Tablet) 50 mg PO BID PRN PRN Reason: MODERATE PAIN Last Admin: 12/07/24 06:18 Dose: 50 mg aspirin 81 mg tablet,delayed release (Aspir-) 81 mg PO DAILY 03/29/17 [History Confirmed 12/06/24] nitroglycerin 0.4 mg sublingual tablet 0.4 mg sublingual PRN PRN Chest Pain 03/29/17 [History Confirmed 12/06/24] albuterol sulfate 90 mcg/actuation breath activated powder inhaler 2 inh inhalation Q4-6H PRN shortness of breath or wheezing #1 ea 03/04/24 [Rx Confirmed 12/06/24] ipratropium 0.5 mg-albuterol 3 mg (2.5 mg base)/3 mL nebulization soln 3 ml inhalation Q4H PRN shortness of breath or wheezing #180 mL 05/16/24 [Rx Confirmed 12/06/24] nebulizer and compressor #1 ea 05/28/24 [Rx Confirmed 12/06/24] fenofibrate 54 mg tablet 54 mg PO DAILY #90 tabs 06/12/24 [Rx Confirmed 12/06/24] losartan 50 mg tablet 50 mg PO DAILY #90 tabs 07/31/24 [Rx Confirmed 12/06/24] pantoprazole 40 mg tablet,delayed release 40 mg PO DAILY #30 tabs 08/12/24 [Rx Confirmed 12/06/24] budesonide 160 mcg-glycopyr 9 mcg-formot 4.8 mcg/actuation HFA inhaler (Breztri [email or web address]) 2 inh inhalation QAM AND QPM #10.7 grams 08/26/24 [Rx Confirmed 12/06/24] rosuvastatin 20 mg tablet 20 mg PO BEDTIME #90 tabs 10/07/24 [Rx Confirmed 12/06/24] carvedilol 12.5 mg tablet 12.5 mg PO 2XD #60 tabs 10/14/24 [Rx Confirmed 12/06/24] tizanidine 4 mg capsule 4 mg PO QHS 10/31/24 [History Confirmed 12/06/24] Saccharomyces boulardii 250 mg capsule (Florastor) 250 mg PO BID #6 caps 11/01/24 [Rx Confirmed 12/06/24] metformin 500 mg tablet 500 mg PO QDAY #30 tabs 11/05/24 [Rx Confirmed 12/06/24] albuterol sulfate 2.5 mg/3 mL (0.083 %) solution for nebulization 2.5 mg (3 mL) inhalation Q4-6H PRN shortness of breath or wheezing #90 mL 11/18/24 [Rx Confirmed 12/06/24] tramadol 50 mg tablet 50 mg PO BID PRN pain #60 tabs 11/27/24 [Rx Confirmed 12/06/24] Opioid Naive vs. Tolerant Does Patient Take Opioids?: No Is Patient Opioid Naive?: Yes What is Opioid Naive?: *Opioid Naive implies the patient is not already taking opioids or not chronically receiving opioids on a daily basis. *PRN dosing is not "usually" associated with tolerance. *Patients are at higher risk of over-sedation and aspiration. Is Patient Opioid Tolerant?: No What is Opioid Tolerant?: *Opioid Tolerance implies less than the expected response to an opioid. *Acquired tolerance is defined by the patient taking 60mg of oral morphine daily (or equianalgesic dose of another opioid) for 1 week or more. *Often associated with chronic pain. *May take more than usual dose to achieve desired pain control. Review of Systems Constitutional: Reports Fatigue and Weakness; Denies Fever Head: Reports Normocephalic and Atraumatic Cardiovascular: Denies Chest pain or Edema Respiratory: Reports Cough, Shortness of air and Wheeze Gastrointestinal: Denies Nausea, Vomiting, Diarrhea, Abdominal pain or Melena Genitourinary: Denies Dysuria or Frequency Neurological: Denies Headache, Dizziness or Syncope Physical examination Most Recent Vital Signs: Most Recent Vital Signs Temperature 96.9 F L 12/07/24 05:29 Temperature Source Temporal Artery Scan 12/07/24 05:29 Temperature Source Temporal Artery Scan 12/06/24 16:48 Pulse Rate 79 12/07/24 05:29 Respiratory Rate 18 12/07/24 05:29 Blood Pressure 119/72 12/07/24 05:29 Blood Pressure Mean 87 12/07/24 05:29 Blood Pressure Left Arm 125/64 12/06/24 20:52 Blood Pressure Location Right Arm 12/07/24 05:29 Blood Pressure Position Supine 12/07/24 05:29 O2 Sat by Pulse Oximetry 95 12/07/24 05:29 Oxygen Delivery Method Nasal Cannula 12/07/24 05:43 Oxygen Flow Rate 2 12/07/24 05:29 Height 5 ft 4 in 12/06/24 20:52 Weight 87.6 kg 12/06/24 20:52 Telemetry Type Remote Telemetry 12/07/24 01:00 Telemetry Monitoring Continues 12/07/24 01:00 Telemetry Heart Rate 70 12/07/24 01:00 Telemetry SPO2 92 L 11/01/24 13:00 EKG [place] Interval 0.18 12/07/24 01:00 EKG QRS Interval 0.07 12/07/24 01:00 Telemetry Strip Reading SR 12/07/24 01:00 Appearance: Positive No Apparent Distress, Alert and Oriented x3 and Other (+chronically ill, on 2L ) Skin: Positive [place], Warm and Good Turgor HEENT: Positive Normocephalic and Atraumatic Neck: Positive Supple and Midline Trachea Chest/Lungs: Positive Symmetrical With Equal Breath Sounds and Wheezes (very mild, improved ); Negative Rales or Rhonci GI/: Positive Soft, Nontender and Bowel Sounds Normal Extremities: Negative Edema Neurological: Positive Cranial Nerves Intact, Alert, Oriented and Other (+generalized weakness ) Psychiatric: Positive Oriented x4, Appropriate Mood and Appropriate Affect Labs This Visit Labs This Visit: Labs This Visit 12/06/24 12/06/24 12/07/24 17:26 17:45 05:25 WBC 11.03 H 12.49 H RBC 3.48 L 3.41 L Hgb 9.9 L 9.6 L Hct 33.5 L 32.6 L MCV 96.3 95.6 MCH 28.4 28.2 MCHC 29.6 L 29.4 L RDW Coeff of Maxi 14.6 14.5 Plt Count 308 297 Immature Gran % (Auto) 0.6 0.9 Neut % (Auto) 71.2 90.2 H Lymph % (Auto) 16.6 7.0 L [place] % (Auto) 6.2 1.7 Eos % (Auto) 4.6 0.0 Baso % (Auto) 0.8 0.2 Neut # (Auto) 7.9 H 11.3 H Lymph # (Auto) 1.8 0.9 [place] # (Auto) 0.7 0.2 L Eos # (Auto) 0.5 0.0 Baso # (Auto) 0.1 0.0 Immature Gran # (Auto) 0.1 0.1 Sodium 139.0 134.8 Potassium 4.20 4.38 Chloride 102.0 100.7 Carbon Dioxide 38.0 H 33.6 H Anion Gap 3.20 4.88 BUN 12.0 15.8 Creatinine 0.90 0.84 Estimated GFR (MDRD) 62.00 67.00 BUN/Creatinine Ratio 13.33 18.80 Glucose 112.0 H 158.4 H Calcium 8.80 8.63 Magnesium 1.90 Total Bilirubin 0.30 0.36 AST 25.0 23.6 ALT 13.0 14.0 Alkaline Phosphatase 60.0 65.0 POC Venous Troponin I 0.01 Troponin I < 0.012 NT-Pro-B Natriuret Pep Cancelled Total Protein 6.40 6.15 L Albumin 3.60 3.68 Globulin 2.80 2.47 Albumin/Globulin Ratio 1.28 1.48 Influ A Molecular Assay Negative by naat Influ B Molecular Assay Negative by naat SARS CoV-2 RNA Rapid RENAE Negative Imaging Imaging: EXAM: CHEST X-RAY 1 VIEW. HISTORY: COPD exacerbation. COMPARISON: October 31, 2024 chest x-ray. FINDINGS: The chest shows the cardiac silhouette is upper limits normal in size. There is no pulmonary vascular congestion. The lungs are hyperinflated with scattered linear scarring. There is no focal lung consolidation seen. There is no pleural effusion or pneumothorax. Visualized osseous structures show no acute findings. IMPRESSION: 1. No radiographically evident acute cardiopulmonary process. 2. Chronic obstructive pulmonary disease. Review Statement Review Statement: I have independently reviewed and interpreted the labs/EKGs/imaging that were ordered by the ER provider. I have reviewed all outside records that are available currently in our EMR including imaging/notes/labs from previous visits. Plan Plan: 1. Acute COPD exacerbation - Abx/steroids/duonebs/O2 2. Chronic respiratory failure - at baseline 3. Hypertension - Cont home meds 4. Hyperlipidemia - Cont home meds 5. GERD - Cont home meds 6. DMT2 - A1c typically controlled, hold metformin, diabetic diet DVT Prophylaxis: Ambulation Time Spent: Greater than 80 minutes spent with patient, 50% of the time spent with this patient was devoted to counseling and coordination of care. [facility]in minutes spent discussing advance care planning. Admit to: Make inpatient today, will require >2 midnights Discussed Plan of Care with Dr. Jonn Bliss. Medications Medication Orders: Medications Ordered Category Date Time Status 0.9 % Sodium Chloride [Saline Flush] Meds 12/07/24 05:00 Active 1 syr IVF Q8HR Acetaminophen [Tylenol] Meds 12/06/24 20:00 Active 650 mg PO Q4H PRN Aspirin [Aspirin EC] Meds 12/07/24 07:30 Active 81 mg PO DAILYWM2 Budesonide/Formoterol Fumarate [Symbicort 160-4.5 Mcg Meds 12/07/24 06:00 Active Inhaler] 2 puff IH RTBID Carvedilol [Coreg] Meds 12/07/24 07:30 Active 12.5 mg PO BIDWM2 Doxycycline Hyclate [Doxycycline] Meds 12/06/24 21:00 Active 100 mg PO Q12HR Fenofibrate [Triglide] Meds 12/07/24 09:00 Active 54 mg PO DAILY Ipratropium/Albuterol Neb [Duoneb] Meds 12/06/24 20:02 Active 3 ml NEB RTQ6H PRN Losartan Potassium [Cozaar] Meds 12/07/24 09:00 Active 50 mg PO DAILY Methylprednisolone Sod Succ/Pf [Solu-Medrol 40 mg] Meds 12/07/24 05:00 Active 40 mg IVP Q8HR Ondansetron HCl/Pf [Zofran Sdv] Meds 12/06/24 20:00 Active 4 mg IVP Q6H PRN Pantoprazole Sodium [Protonix] Meds 12/07/24 06:00 Active 40 mg PO QDAC2 Rosuvastatin Calcium [Crestor] Meds 12/07/24 21:00 Active 20 mg PO BEDTIME Saccharomyces Boulardii [Florastor] Meds 12/07/24 09:00 Active 250 mg PO BID Tiotropium [place] [Spiriva] Meds 12/07/24 06:00 Active 1 cap IH RTDAILY Tizanidine HCl [Zanaflex] Meds 12/06/24 22:00 Active 4 mg PO BEDTIME Tramadol HCl [Ultram] Meds 12/06/24 21:05 Active 50 mg PO BID PRN MODPAIN MODERATE PAIN
[2024-12-07] MEDS: ZOFRAN SDV IVP PRN (10:17)
[2024-12-07] MEDS: OCEAN NASAL SPRAY NAS PRN (12:27)
[2024-12-07] MEDS: CRESTOR PO SCH (21:06)
[2024-12-07 21:39] VITALS: RESP 18
[2024-12-08 05:24] LABS: IMMATURE GRANULOCYTE # (AUTO) 0.2 (0.0-1.0); IMMATURE GRANULOCYTE % (AUTO) 0.9 % (0.0-5.0); RDW COEFFICIENT OF VARIATION 14.6 % (11.6-14.8)
[2024-12-08 05:35] VITALS: PULSE 59
[2024-12-08 05:42] LABS: CREATININE 0.98 mg/dL (0.60-1.30)
--- NOTE | 2024-12-08 09:17 | DCSUM ---
Admission Date Admission Date: 12/06/24 Discharge Date Discharge Date: 12/08/24 Admission Diagnosis Admission Diagnosis: 1. Acute COPD exacerbation Discharge Diagnosis Discharge Diagnosis: 1. Acute COPD exacerbation 2. Chronic respiratory failure 3. Hypertension 4. Hyperlipidemia 5. GERD 6. DMT2 Hospital Provider Hospital Provider: FELIC[facility]UELS [facility]C, [facility] Primary Care Physician: AJAY NICOLE APRN Summary of History and Physical Summary of History and Physical: Patient is a 69 year old female from home with pmhx of COPD on 2L chronically, DMT2, hypertension, GERD, hyperlipidemia who presents to ER with worsening SOB and non productive cough. Pt denies fever and cp. States she's been feeling worse for past 2-3 days. States she was seen about 5 weeks ago and treated for COPD exacerbation at that time. Has nebulizers at home and has been trying to manage at home. In ER, patients labs and vitals unremarkable. CXR negative. However patient very wheezy on exam and SOB. Admitted to [facility] for COPD exacerbation. Patient feels some better today but not well enough to go home. Hospital Course Subjective: Patient treated with steroids, doxy, and duonebs. She has remained near baseline O2 requirements. Wheezing resolved. She's been ambulatory without difficulty. She is feeling better. She does have steroid induced leukocytosis today. Pt will call for pcp f/u apt tomorrow. She states she has a nebulizer with medication at home. Will discharge on doxy and prednisone. Pt agrees to plan of care. Appearance: Pleasant, No Apparent Distress and Alert HEENT: MMM CVS: Other (RRR) Abdomen: Soft, Non-Tender and No Distention Respiratory: Other (wheezing resolved, speaks full sentences, airway intact, ambulatory ) Extremities: No Edema Vital Signs: Most Recent Vital Signs Temperature 97.5 F L 12/08/24 05:34 Temperature Source Temporal Artery Scan 12/08/24 05:34 Temperature Source Temporal Artery Scan 12/06/24 16:48 Pulse Rate 59 L 12/08/24 05:34 Respiratory Rate 18 12/08/24 05:34 Blood Pressure 116/62 12/08/24 05:34 Blood Pressure Mean 80 12/08/24 05:34 Blood Pressure Left Arm 125/64 12/06/24 20:52 Blood Pressure Location Right Arm 12/08/24 05:34 Blood Pressure Position Supine 12/08/24 05:34 O2 Sat by Pulse Oximetry 95 12/08/24 05:34 Oxygen Delivery Method Nasal Cannula 12/08/24 05:40 Oxygen Flow Rate 3 12/08/24 05:40 Height 5 ft 4 in 12/06/24 20:52 Weight 87.6 kg 12/06/24 20:52 Telemetry Type Remote Telemetry 12/08/24 01:00 Telemetry Monitoring Continues 12/08/24 01:00 Telemetry Heart Rate 74 12/08/24 01:00 Telemetry SPO2 94 12/07/24 19:00 EKG MA Interval 0.17 12/08/24 01:00 EKG QRS Interval 0.09 12/08/24 01:00 Telemetry Strip Reading SR 12/08/24 01:00 Imaging: EXAM: CHEST X-RAY 1 VIEW. HISTORY: COPD exacerbation. COMPARISON: October 31, 2024 chest x-ray. FINDINGS: The chest shows the cardiac silhouette is upper limits normal in size. There is no pulmonary vascular congestion. The lungs are hyperinflated with scattered linear scarring. There is no focal lung consolidation seen. There is no pleural effusion or pneumothorax. Visualized osseous structures show no acute findings. IMPRESSION: 1. No radiographically evident acute cardiopulmonary process. 2. Chronic obstructive pulmonary disease. Lab Results Last 24 Hours: 12/08/24 12/06/24 05:10 17:26 WBC 24.04 H D RBC 3.30 L Hgb 9.4 L Hct 31.5 L MCV 95.5 MCH 28.5 MCHC 29.8 L RDW Coeff of Maxi 14.6 Plt Count 315 Immature Gran % (Auto) 0.9 Neut % (Auto) 91.1 H Lymph % (Auto) 4.7 L [place] % (Auto) 3.2 Eos % (Auto) 0.0 Baso % (Auto) 0.1 Neut # (Auto) 21.9 H Lymph # (Auto) 1.1 [place] # (Auto) 0.8 Eos # (Auto) 0.0 Baso # (Auto) 0.0 Immature Gran # (Auto) 0.2 Sodium 133.5 L Potassium 4.89 Chloride 100.4 Carbon Dioxide 31.7 H Anion Gap 6.29 BUN 21.3 H Creatinine 0.98 Estimated GFR (MDRD) 56.00 BUN/Creatinine Ratio 21.73 Glucose 189.0 H Calcium 8.36 L Total Bilirubin 0.23 AST 18.9 ALT 14.2 Alkaline Phosphatase 67.1 Troponin I < 0.012 Total Protein 5.96 L Albumin 3.50 Globulin 2.46 Albumin/Globulin Ratio 1.42 Discharge Instructions Discharge Planning: Discharge Planning > [address] Jonn Bliss. Discharge Medications: Medications at Discharge (Home Meds & RX) aspirin 81 mg tablet,delayed release (Aspir-) 81 mg PO DAILY 03/29/17 nitroglycerin 0.4 mg sublingual tablet 0.4 mg sublingual PRN PRN Chest Pain 03/29/17 albuterol sulfate 90 mcg/actuation breath activated powder inhaler 2 inh inhalation Q4-6H PRN shortness of breath or wheezing #1 ea 03/04/24 ipratropium 0.5 mg-albuterol 3 mg (2.5 mg base)/3 mL nebulization soln 3 ml inhalation Q4H PRN shortness of breath or wheezing #180 mL 05/16/24 nebulizer and compressor #1 ea 05/28/24 fenofibrate 54 mg tablet 54 mg PO DAILY #90 tabs 06/12/24 losartan 50 mg tablet 50 mg PO DAILY #90 tabs 07/31/24 pantoprazole 40 mg tablet,delayed release 40 mg PO DAILY #30 tabs 08/12/24 budesonide 160 mcg-glycopyr 9 mcg-formot 4.8 mcg/actuation HFA inhaler (Breztri Aerosphere) 2 inh inhalation QAM AND QPM #10.7 grams 08/26/24 rosuvastatin 20 mg tablet 20 mg PO BEDTIME #90 tabs 10/07/24 carvedilol 12.5 mg tablet 12.5 mg PO 2XD #60 tabs 10/14/24 tizanidine 4 mg capsule 4 mg PO QHS 10/31/24 Saccharomyces boulardii 250 mg capsule (Florastor) 250 mg PO BID #6 caps 11/01/24 metformin 500 mg tablet 500 mg PO QDAY #30 tabs 11/05/24 albuterol sulfate 2.5 mg/3 mL (0.083 %) solution for nebulization 2.5 mg (3 mL) inhalation Q4-6H PRN shortness of breath or wheezing #90 mL 11/18/24 tramadol 50 mg tablet 50 mg PO BID PRN pain #60 tabs 11/27/24 doxycycline hyclate 100 mg capsule 100 mg PO Q12HR 5 days #10 caps 12/08/24 prednisone 20 mg tablet 20 mg PO BID 5 days #10 tabs 12/08/24 Discharge Plan Discharge Discharge Orders: Discharge Patient (ONCE); Ordered 12/08/24 Ordered By: FELICITA SAMUELS Activity Restrictions/Additional Instructions: DISCHARGE TO HOME DX: COPD EXACERBATION PHARMACY: [facility] SENT IN FOR YOU CALL PCP TOMORROW TO MAKE FOLLOW UP APPOINTMENT FOR THIS WEEK Patient Disposition: HOME SELF-CARE Prescriptions: New doxycycline hyclate 100 mg Capsule 100 mg PO Q12HR 5 Days Qty: 10 0RF prednisone 20 mg tablet 20 mg PO BID 5 Days Qty: 10 0RF Continued aspirin [Aspir-81] 81 MG tablet,delayed release (DR/EC) 81 mg PO DAILY Patient Comments: started by [facility] [place] hospitalist nitroglycerin 0.4 MG tablet, sublingual 0.4 mg sublingual PRN PRN (Reason: Chest Pain) fenofibrate 54 mg tablet 54 mg PO DAILY Qty: 90 1RF losartan 50 mg tablet 50 mg PO DAILY Qty: 90 1RF pantoprazole 40 mg tablet,delayed release (DR/EC) 40 mg PO DAILY Qty: 30 3RF Breztri Aerosphere 160-9-4.8 mcg/actuation HFA aerosol inhaler 2 inh inhalation QAM AND QPM Qty: 10.7 2RF rosuvastatin 20 mg tablet 20 mg PO BEDTIME Qty: 90 1RF carvedilol 12.5 mg tablet 12.5 mg PO 2XD Qty: 60 0RF albuterol sulfate 2.5 mg /3 mL (0.083 %) solution for nebulization 2.5 mg inhalation Q4-6H PRN (Reason: shortness of breath or wheezing) Qty: 90 0RF tramadol 50 mg tablet 50 mg PO BID PRN (Reason: pain) Qty: 60 1RF ipratropium-albuterol 0.5 mg-3 mg(2.5 mg base)/3 mL solution for nebulization 3 ml inhalation Q4H PRN (Reason: shortness of breath or wheezing) Qty: 180 5RF tizanidine 4 mg capsule 4 mg PO QHS Saccharomyces boulardii [Florastor] 250 mg Capsule 250 mg PO BID Qty: 6 0RF albuterol sulfate 90 mcg/actuation aerosol powdr breath activated 2 inh inhalation Q4-6H PRN (Reason: shortness of breath or wheezing) Qty: 1 0RF metformin 500 mg tablet 500 mg PO QDAY Qty: 30 3RF No Action (DME) nebulizer and compressor Device See Rx Instructions .ROUTE Qty: 1 0RF Rx Instructions: As directed Did you review [place] RN RESIDENTIAL for ALL controlled substances?: Not Applicable Discussed opioids are addictive and Narcan is available by prescription or from pharmacy.: No Condition: Stable
[2024-12-08] MEDS: ZOFRAN ODT PO ONE (12:15)
[2024-12-08] MEDS: ZOFRAN ODT ONE (12:16)
[2024-12-08 14:29] VITALS: BP 112/51; TEMP 96.8
== END 2024-12-08 15:00 | disposition home or self-care (01) | DRG 191 ==
LOC: ED 16:34 → MEDSURG B 16:34
PROVIDERS: ADMIT Hospitalist; ATTEND Physician Assistant

== ENCOUNTER 2025-01-18 14:36 | Observation (INO) ==
[2025-01-18] MEDS: DUONEB NEB STA (15:42)
[2025-01-18 15:43] LABS: IMMATURE GRANULOCYTE # (AUTO) 0.1 (0.0-1.0); IMMATURE GRANULOCYTE % (AUTO) 0.5 % (0.0-5.0); RDW COEFFICIENT OF VARIATION 15.2 % (11.6-14.8)
[2025-01-18 15:55] LABS: CREATININE 0.98 mg/dL (0.60-1.30); SARS COV-2 RNA RAPID NAAT NEGATIVE (NEGATIVE)
[2025-01-18 15:56] LABS: MOLECULAR FLU A NEGATIVE BY NAAT (NEGATIVE); MOLECULAR FLU B NEGATIVE BY NAAT (NEGATIVE)
--- NOTE | 2025-01-18 16:23 | ED.PDOC ---
General HPI ED Provider: Dr. KRYSTAL RICKS DO Chief Complaint: Shortness of Air Stated Complaint: 69-year-old female presents to the ER with shortness of breath. She left home to go get some food and took her portable concentrator with her. While out she became very short of breath. Upon arrival she was 81%. She is oxygen dependent at 2 L/min at home. Nursing staff reports that upon arrival, the concentrator she was using was not putting any oxygen out. Denies recent illness or fever, chest pain, abdominal pain, GI or symptoms. No other treatment prior to arrival. Time Seen by Provider: 01/18/25 14:40 Information Source: Patient Primary Care Provider: AJAY NICOLE APRN Nursing and Triage Documentation Reviewed and Agree: Yes Opioid Naive vs. Tolerant What is Opioid Naive?: *Opioid Naive implies the patient is not already taking opioids or not chronically receiving opioids on a daily basis. *PRN dosing is not "usually" associated with tolerance. *Patients are at higher risk of over-sedation and aspiration. What is Opioid Tolerant?: *Opioid Tolerance implies less than the expected response to an opioid. *Acquired tolerance is defined by the patient taking 60mg of oral morphine daily (or equianalgesic dose of another opioid) for 1 week or more. *Often associated with chronic pain. *May take more than usual dose to achieve desired pain control. Review of Systems Review Of Systems Constitutional: Reports No symptoms All Other Systems: Reviewed and Negative [facility] Medical History Acute pain of left shoulder (02/19/18) M25.512 - Pain in left shoulder (ICD-10) LUQ abdominal pain R10.12 - Left upper quadrant pain (ICD-10) Nausea and vomiting R11.2 - Nausea with vomiting, unspecified (ICD-10) Vomiting R11.10 - Vomiting, unspecified (ICD-10) Abdominal pain R10.9 - UNSPECIFIED ABDOMINAL PAIN (ICD-10) Diverticulitis K57.92 - DVTRCLI OF INTEST, PART UNSP, W/O PERF OR ABSCESS W/O BLEED (ICD- 10) Pneumonia J18.9 - PNEUMONIA, UNSPECIFIED ORGANISM (ICD-10) Foreign body in digestive tract T18.9XXA - FOREIGN BODY OF ALIMENTARY TRACT, PART UNSP, INIT ENCNTR (ICD-10) Foreign body in digestive tract T18.9XXA - Foreign body of alimentary tract, part unspecified, initial encounter (ICD-10) Stomach ulcer (03/29/17) K25.9 - Gastric ulcer, unspecified as acute or chronic, without hemorrhage or perforation (ICD-10) Epigastric pain (07/03/17) R10.13 - Epigastric pain (ICD-10) Pneumonia J18.9 - Pneumonia, unspecified organism (ICD-10) Compression fracture of second lumbar vertebra S32.020A - Wedge compression fracture of second lumbar vertebra, initial encounter for closed fracture (ICD-10) Myocardial infarction (03/08/17) [facility] sent to [facility]. I21.9 - Acute myocardial infarction, unspecified (ICD-10) Family History Mother GI (gastrointestinal bleed) Alzheimer disease Grandfather/Grandmother Lung cancer FATHER No problems noted. MATERNAL GRANDMOTHER Alzheimer disease BROTHER Acute [place] Social History Smoking and tobacco status: Current every day smoker Tobacco type: cigars Tobacco: How many years used: 30 Quit status: not considering quitting Alcohol intake: former Substance use type: does not use Household members: spouse and children Housing: house Marital status: M Lives independently: Yes Number of children: 2 service: No Current occupational status: retired History of recent travel: No Current gender identity: female Seatbelt use: always Water heater temperature set < 120 degrees: Yes Working smoke detector in home: Yes Fire extinguisher in home: No Carbon monoxide detector in home: No Surgical History History of cholecystectomy Z90.49 - Acquired absence of other specified parts of digestive tract (ICD- 10) History of partial surgical removal of colon Z90.49 - Acquired absence of other specified parts of digestive tract (ICD- 10) History of surgery Right wrist Z98.890 - Other specified postprocedural states (ICD-10) History of surgery on integumentary structure Benign cysts pelvic area, Dr. Young Z98.890 - Other specified postprocedural states (ICD-10) Status post hysterectomy Z90.710 - Acquired absence of both cervix and uterus (ICD-10) Cataract extraction and insertion of intraocular lens Female Reproductive History Menstrual Hx Hysterectomy: Yes Hx Tubal Ligation: No Physical Exam Physical Exam Appearance: Reports Well-appearing, No pain distress and Well-nourished Eyes: Reports CHELLE and EOMI ENT: Reports Oropharynx normal Respiratory: Reports Airway patent, Breath sounds clear and Respirations nonlabored Cardiovascular: Reports RRR and Pulses normal Musculoskeletal: Reports Normal strength and ROM intact Skin: Reports Warm, Dry and Normal color Neurological: Reports Sensation intact, Motor intact, Alert and Oriented Psychiatric: Reports Affect appropriate and Mood appropriate Interpretation EKG Interpretation EKG Interpretation By: ED Physician Time of EKG #1: 15:52 Rate: Normal (67) Rhythm: Sinus Ectopy: None Jackson: NL ST Segment: Normal Interpretation: Nonischemic Radiology Interpretation Radiology Interpretation By: Radiologist Radiology Results: No acute changes Exam Interpreted: Portable CXR Re-Evaluation Re-Evaluation Additional Comments: 69-year-old female with COPD and oxygen dependent on 2 L at home presents with hypoxia and dyspnea. Oxygen concentrator she has with her appears as though it is not functioning. Concern for the patient's ability and/or access to address this malfunctioning piece of medical equipment. She is otherwise afebrile and nontoxic doubt infectious etiology. Denies any chest pain. Nonischemic EKG. Doubt acute cardiopulmonary processes to include not limited to ACS, AK, PE, pneumothorax, dissection or tamponade. Laboratory workup ordered and reviewed. Negative cardiac enzymes as well as BNP. Chest x- ray clear. Vital signs remained stable, however given the patient's chronic shortness of breath and concern for malfunctioning equipment that she is reliant on, discussed with the hospital service who is gracious to accept for observation. Physician Progress Note Physician Progress Note: All EKGs and plain film imaging independently reviewed and interpreted by me unless stated otherwise. CTs interpreted by radiology unless otherwise stated. All pediatric patients are accompanied by parent or legal guardian as primary historian and/or validate patient report unless otherwise stated. Course Course 01/18/25 15:34 01/18/25 15:34 Orders, Labs, Meds: Lab Review 01/18/25 15:34 WBC 12.79 H RBC 3.46 L Hgb 9.7 L Hct 33.2 L MCV 96.0 MCH 28.0 MCHC 29.2 L RDW Coeff of Maxi 15.2 H Plt Count 311 Immature Gran % (Auto) 0.5 Neut % (Auto) 73.4 Lymph % (Auto) 15.9 [place] % (Auto) 6.1 Eos % (Auto) 3.1 Baso % (Auto) 1.0 Neut # (Auto) 9.4 H Lymph # (Auto) 2.0 [place] # (Auto) 0.8 Eos # (Auto) 0.4 Baso # (Auto) 0.1 Immature Gran # (Auto) 0.1 Sodium 135.3 Potassium 4.92 Chloride 97.4 L Carbon Dioxide 37.6 H Anion Gap 5.22 BUN 11.9 Creatinine 0.98 Estimated GFR (MDRD) 56.00 BUN/Creatinine Ratio 12.14 Glucose 103.6 Calcium 8.96 Magnesium 1.64 Total Bilirubin 0.39 AST 19.8 ALT 12.0 Alkaline Phosphatase 55.9 Troponin I < 0.012 NT-Pro-B Natriuret Pep 209 Total Protein 6.37 Albumin 3.65 Globulin 2.72 Albumin/Globulin Ratio 1.34 Influ A Molecular Assay Negative by naat Influ B Molecular Assay Negative by naat SARS CoV-2 RNA Rapid RENAE Negative Orders Category Date Time Status ADMIT OBSERVATION [PLACE PATIENT OBSERVATION] .TO ADMISSION 01/18/25 16:17 Active MEDSURG (MONITORED BED) EKG-(ED & IP/OBS ONLY) Stat CARDIO 01/18/25 15:25 Completed NEBULIZER TREATMENT Stat CARDIO 01/18/25 15:25 Completed TELEMETRY MONITORING TELE CARE 01/18/25 16:17 Active CBC W/ AUTO DIFF Stat LAB 01/18/25 15:34 Completed CMP [COMPREHENSIVE METABOLIC PANEL] Stat LAB 01/18/25 15:34 Completed COVID [SARS COV-2 RNA RAPID RENAE] Stat LAB 01/18/25 15:34 Completed ED PROBNP [NT-PROBNP(ED)] Stat LAB 01/18/25 15:34 Completed FLU A & B MOLECULAR [FLU A/B MOLECULAR] Stat LAB 01/18/25 15:34 Completed MAGNESIUM Stat LAB 01/18/25 15:34 Completed TROPONIN I Stat LAB 01/18/25 15:34 Completed Dexamethasone Sod Phosphate [Decadron] Meds 01/18/25 16:18 Discontinued 10 mg IVP ONCE ONE Ipratropium/Albuterol Neb [Duoneb] Meds 01/18/25 15:25 Discontinued 3 ml NEB ONCE STA CHEST, 1V AP ONLY Stat RADS 01/18/25 15:25 Taken Medications Discontinued Medications Generic Name Dose Route Start Last Admin Trade Name Tjq PRN Reason Stop Dose Admin Albuterol/Ipratropium 3 ml 01/18/25 15:25 01/18/25 15:42 Ipratropium/Albuterol Vial.Neb NEB 01/18/25 15:26 3 ml ONCE STA Administration Dexamethasone Sodium Phosphate 10 mg 01/18/25 16:18 01/18/25 16:30 Dexamethasone Sod Phos 10 Mg/Ml Inj IVP 01/18/25 16:19 10 mg ONCE ONE Administration Vital Signs: Temp Pulse Resp BP Pulse Ox O2 Flow Rate 01/18/25 16:58 71 18 146/79 H 97 2 01/18/25 15:30 97 F L 79 22 H 127/57 L 95 2 01/18/25 15:18 97 F L 80 20 118/69 87 L Discharge Plan Discharge Patient Disposition: PLACED OBSERVATION Discharge Problem: Chronic hypercapnic respiratory failure, Hypoxia Did you review [place] [employer] for ALL controlled substances?: Not Applicable ED Provider: KRYSTAL RICKS Condition: Stable
[2025-01-18] MEDS: DECADRON IVP ONE (16:30)
--- NOTE | 2025-01-18 17:10 | DI ---
EXAM: FRONTAL VIEW OF THE CHEST. HISTORY: Shortness of breath COMPARISON: 12/06/2024. FINDINGS: Cardiac silhouette is normal. No organized infiltrate/consolidation. Emphysematous changes. No visible effusion or pneumothorax. No acute osseous abnormality. IMPRESSION: 1. No acute findings.
[2025-01-18 17:35] VITALS: BMI 33.3
[2025-01-18] MEDS ORDERED: ZOFRAN SDV IVP PRN (18:21)
[2025-01-18] MEDS: ULTRAM PO PRN (20:00)
[2025-01-18] MEDS: ZANAFLEX PO SCH (20:00)
[2025-01-18] MEDS: CRESTOR PO SCH (20:00)
[2025-01-18] MEDS: FLORASTOR PO SCH (20:00)
[2025-01-18] MEDS: COREG PO SCH (20:00)
[2025-01-18] MEDS: SYMBICORT 160-4.5 MCG INHALER IH SCH (20:01)
[2025-01-19] MEDS: DUONEB NEB PRN (00:54)
[2025-01-19] MEDS: TYLENOL PO PRN (02:39)
[2025-01-19 02:41] VITALS: RESP 18
[2025-01-19] MEDS: PROTONIX PO SCH (05:12)
[2025-01-19] MEDS: GLUCOPHAGE PO SCH (07:21)
[2025-01-19] MEDS: ASPIRIN EC PO SCH (07:21)
[2025-01-19] MEDS: COZAAR PO SCH (10:07)
[2025-01-19] MEDS: TRIGLIDE PO SCH (10:07)
[2025-01-19] MEDS: SPIRIVA IH SCH (10:07)
--- NOTE | 2025-01-19 10:31 | PCM.SS ---
Provider Provider: FELICITA SAMUELS PA-C, [facility] Admission Date Admission Date: 01/18/25 Discharge Date Discharge Date: 01/19/25 Primary Care Physician Primary Care Physician: AJAY NICOLE APRN Chief Complaint Reason For Visit: COPD, ACUTE ON CHRONIC RESP FAILURE History of Present Illness History of Present Illness: Admitted 01/18/25 16:59, this 69 year old /WHITE/F has a PMH of COPD, STEMI, chronic back pain, and T2DM. She initially came to the ER due to being short of breath at the grocery store. She states she has had increased dyspnea for a week now and thought that it would improve but it has not. ER physician found that her portable oxygen concentrator may not be working. Chest xray showed no acute findings. Today she has had an improvement in breathing. She denies shortness of breath at rest and has minimal dyspnea on exertion, which is near her baseline. Denies wheezing. She has a dry cough that has improved. [facility] is evaluating her portable oxygen concentrator to check that it is working appropriately. Patient does not appear to be acutely exacerbated from COPD standpoint and is on her baseline O2, will discharge on regular home meds. [facility] Medical History Acute pain of left shoulder (02/19/18) M25.512 - Pain in left shoulder (ICD-10) LUQ abdominal pain R10.12 - Left upper quadrant pain (ICD-10) Nausea and vomiting R11.2 - Nausea with vomiting, unspecified (ICD-10) Vomiting R11.10 - Vomiting, unspecified (ICD-10) Abdominal pain R10.9 - UNSPECIFIED ABDOMINAL PAIN (ICD-10) Diverticulitis K57.92 - DVTRCLI OF INTEST, PART UNSP, W/O PERF OR ABSCESS W/O BLEED (ICD- 10) Pneumonia J18.9 - PNEUMONIA, UNSPECIFIED ORGANISM (ICD-10) Foreign body in digestive tract T18.9XXA - FOREIGN BODY OF ALIMENTARY TRACT, PART UNSP, INIT ENCNTR (ICD-10) Foreign body in digestive tract T18.9XXA - Foreign body of alimentary tract, part unspecified, initial encounter (ICD-10) Stomach ulcer (03/29/17) K25.9 - Gastric ulcer, unspecified as acute or chronic, without hemorrhage or perforation (ICD-10) Epigastric pain (07/03/17) R10.13 - Epigastric pain (ICD-10) Pneumonia J18.9 - Pneumonia, unspecified organism (ICD-10) Compression fracture of second lumbar vertebra S32.020A - Wedge compression fracture of second lumbar vertebra, initial encounter for closed fracture (ICD-10) Myocardial infarction (03/08/17) [facility] sent to [facility]. I21.9 - Acute myocardial infarction, unspecified (ICD-10) Surgical History History of cholecystectomy Z90.49 - Acquired absence of other specified parts of digestive tract (ICD- 10) History of partial surgical removal of colon Z90.49 - Acquired absence of other specified parts of digestive tract (ICD- 10) History of surgery Right wrist Z98.890 - Other specified postprocedural states (ICD-10) History of surgery on integumentary structure Benign cysts pelvic area, Dr. Young Z98.890 - Other specified postprocedural states (ICD-10) Status post hysterectomy Z90.710 - Acquired absence of both cervix and uterus (ICD-10) Cataract extraction and insertion of intraocular lens Family History Mother GI (gastrointestinal bleed) Alzheimer disease Grandfather/Grandmother Lung cancer FATHER No problems noted. MATERNAL GRANDMOTHER Alzheimer disease BROTHER Acute CT Social History Smoking and tobacco status: Current every day smoker Tobacco type: cigars Tobacco: How many years used: 30 Quit status: not considering quitting Alcohol intake: former Substance use type: does not use Household members: spouse and children Housing: house Marital status: M Lives independently: Yes Number of children: 2 service: No Current occupational status: retired History of recent travel: No Current gender identity: female Seatbelt use: always Water heater temperature set < 120 degrees: Yes Working smoke detector in home: Yes Fire extinguisher in home: No Carbon monoxide detector in home: No Medications Mecications: Medications at Discharge (Home Meds & RX) aspirin 81 mg tablet,delayed release (Aspir-) 81 mg PO DAILY 03/29/17 nitroglycerin 0.4 mg sublingual tablet 0.4 mg sublingual PRN PRN Chest Pain 03/29/17 albuterol sulfate 90 mcg/actuation breath activated powder inhaler 2 inh inhalation Q4-6H PRN shortness of breath or wheezing #1 ea 03/04/24 ipratropium 0.5 mg-albuterol 3 mg (2.5 mg base)/3 mL nebulization soln 3 ml i nhalation Q4H PRN shortness of breath or wheezing #180 mL 05/16/24 nebulizer and compressor #1 ea 05/28/24 losartan 50 mg tablet 50 mg PO DAILY #90 tabs 07/31/24 budesonide 160 mcg-glycopyr 9 mcg-formot 4.8 mcg/actuation HFA inhaler (Breztri Aerosphere) 2 inh inhalation QAM AND QPM #10.7 grams 08/26/24 rosuvastatin 20 mg tablet 20 mg PO BEDTIME #90 tabs 10/07/24 carvedilol 12.5 mg tablet 12.5 mg PO 2XD #60 tabs 10/14/24 Saccharomyces boulardii 250 mg capsule (Florastor) 250 mg PO BID #6 caps 11/01/24 metformin 500 mg tablet 500 mg PO QDAY #30 tabs 11/05/24 tramadol 50 mg tablet 50 mg PO BID PRN pain #60 tabs 11/27/24 albuterol sulfate 2.5 mg/3 mL (0.083 %) solution for nebulization 2.5 mg (3 mL) continuous nebulization Q4-6H PRN for wheezing #90 mL 12/25/24 fenofibrate 54 mg tablet 54 mg PO DAILY #90 tabs 01/02/25 pantoprazole 40 mg tablet,delayed release 40 mg PO DAILY #30 tabs 01/07/25 tizanidine 4 mg capsule 4 mg PO QHS #30 caps 01/07/25 Allergies Allergies Allergy/AdvReac Type Severity Reaction Status Date / Time levofloxacin (From Levaquin) Allergy Mild Rash Verified 12/06/24 17:01 sulfamethoxazole AdvReac Intermediate Rash Verified 12/06/24 17:01 Review of Systems Constitutional: Denies Fever, Fatigue, Chills or Weakness Head: Reports Normocephalic and Atraumatic Cardiovascular: Denies Chest pain, Chest Pressure or Edema Respiratory: Reports Cough and Shortness of air (at baseline) Gastrointestinal: Denies Nausea, Vomiting, Diarrhea or Constipation Genitourinary: Reports No Symptoms Neurological: Denies Headache or Dizziness Physical Examination Appearance: Positive Well-appearing, Well-nourished, No Apparent Distress and Alert and Oriented x3 Head: Positive Normocephalic and Atraumatic Neck: Positive Supple Heart: Positive RRR Respiratory: Positive Breath Sounds Clear, Bilaterally and Breath Sounds Equal; Negative Wheezes GI/: Positive Soft, Nontender and Bowel sounds normal Extremities: Negative Edema Neurological: Positive Cranial nerves intact, Recent Memory Intact, Sensation Intact and Motor Intact Psychiatric: Positive Normal Judgement, Normal Insight, Affect Appropriate and Mood Appropriate Vital Signs (Last 4 Hours) Vital Signs Last 4 Hours: Vital Signs: Last 4 Hours 01/19/25 07:00 01/19/25 08:00 01/19/25 09:00 Temperature Temperature Source Pulse Rate Blood Pressure Blood Pressure Mean Blood Pressure Location Blood Pressure Position O2 Sat by Pulse Oximetry Oxygen Delivery Method Nasal Cannula Nasal Cannula Nasal Cannula Oxygen Flow Rate 01/19/25 10:00 01/19/25 10:00 Temperature 97.5 F L Temperature Source Temporal Artery Scan Pulse Rate 70 Blood Pressure 116/37 L Blood Pressure Mean 63 Blood Pressure Location Left Arm Blood Pressure Position Supine O2 Sat by Pulse Oximetry 97 Oxygen Delivery Method Nasal Cannula Nasal Cannula Oxygen Flow Rate 2 Labs This Visit Labs This Visit: Labs This Visit 01/18/25 15:34 WBC 12.79 H RBC 3.46 L Hgb 9.7 L Hct 33.2 L MCV 96.0 MCH 28.0 MCHC 29.2 L RDW Coeff of Maxi 15.2 H Plt Count 311 Immature Gran % (Auto) 0.5 Neut % (Auto) 73.4 Lymph % (Auto) 15.9 [place] % (Auto) 6.1 Eos % (Auto) 3.1 Baso % (Auto) 1.0 Neut # (Auto) 9.4 H Lymph # (Auto) 2.0 [place] # (Auto) 0.8 Eos # (Auto) 0.4 Baso # (Auto) 0.1 Immature Gran # (Auto) 0.1 Sodium 135.3 Potassium 4.92 Chloride 97.4 L Carbon Dioxide 37.6 H Anion Gap 5.22 BUN 11.9 Creatinine 0.98 Estimated GFR (MDRD) 56.00 BUN/Creatinine Ratio 12.14 Glucose 103.6 Calcium 8.96 Magnesium 1.64 Total Bilirubin 0.39 AST 19.8 ALT 12.0 Alkaline Phosphatase 55.9 Troponin I < 0.012 NT-Pro-B Natriuret Pep 209 Total Protein 6.37 Albumin 3.65 Globulin 2.72 Albumin/Globulin Ratio 1.34 Influ A Molecular Assay Negative by naat Influ B Molecular Assay Negative by naat SARS CoV-2 RNA Rapid RENAE Negative Imaging Imaging: EXAM: FRONTAL VIEW OF THE CHEST. HISTORY: Shortness of breath COMPARISON: 12/06/2024. FINDINGS: Cardiac silhouette is normal. No organized infiltrate/consolidation. Emphysematous changes. No visible effusion or pneumothorax. No acute osseous abnormality. IMPRESSION: 1. No acute findings. Review Review Statement: I have independently reviewed and interpreted the labs/EKGs/imaging that were ordered by the ER provider. I have reviewed all outside records that are available currently in our EMR including imaging/notes/labs from previous visits. Plan Reccomendations/Plan: 1. Acute on chronic hypoxic respiratory failure due to possible DME malfunction - Is on 2 L of O2 which is her baseline. Evaluation of DME performed. Discharge on home meds. 2. T2DM - Continue home meds 3. CAD - Continue home meds 4. COPD, not in exacerbation - Continue home meds 5. GERD - Continue home meds 6. Chronic back pain - Continue home meds 7. Dyslipidemia - Continue home meds Today she has had an improvement in breathing. She denies shortness of breath at rest and has minimal dyspnea on exertion, which is near her baseline. Denies wheezing. She has a dry cough that has improved. [facility] portable oxygen concentrator to check that it is working appropriately. Patient does not appear to be acutely exacerbated in regards to her COPD, on her baseline O2, clinically appears well. Will discharge on regular home meds. Discharge Diagnoses 1. Acute on chronic hypoxic respiratory failure due to DME malfunction - Resolved 2. T2DM - Resolved 3. CAD - Chronic 4. COPD, not in exacerbation - Chronic 5. GERD - Chronic 6. Chronic back pain - Chronic 7. Dyslipidemia - Chronic Additional Planning: Case discussed with ED Physician, Dr. Delgado. DVT Prophylaxis: ambulatory [facility] minutes spent discussing advance care planning. Smoking Cessation: 3 minutes spent discussing smoking cessation. Admit to: Obs Discussed Plan of Care with Dr. Mirta Bliss Review With Patient Reviewed with Patient and Family: Patient and family have been counseled on condition and care plan and have no immediate questions. I have personally discussed and reviewed the patient's visit/current labs/imaging/decision making with Dr. Jonn Bliss, my supervising attending. Total number of minutes spent with patient [85] min. More than 50% of the time spent with this patient was devoted to counseling and coordination of care. Time of Admission:01/18/25 16:59 Time of Discharge: 01/19/25 0845 Discharge Plan Discharge Discharge Orders: Discharge Patient (ONCE); Ordered 01/19/25 Ordered By: FELICITA SAMUELS Activity Restrictions/Additional Instructions: DISCHARGE TO HOME DIET: HEART HEALTHY ACTIVITY: TOLERATED NO MEDICATION CHANGES Patient Disposition: HOME SELF-CARE Prescriptions: Continued aspirin [Aspir-81] 81 MG tablet,delayed release (DR/EC) 81 mg PO DAILY Patient Comments: [facility] nitroglycerin 0.4 MG tablet, sublingual 0.4 mg sublingual PRN PRN (Reason: Chest Pain) losartan 50 mg tablet 50 mg PO DAILY Qty: 90 1RF Breztri Aerosphere 160-9-4.8 mcg/actuation HFA aerosol inhaler 2 inh inhalation QAM AND QPM Qty: 10.7 2RF rosuvastatin 20 mg tablet 20 mg PO BEDTIME Qty: 90 1RF carvedilol 12.5 mg tablet 12.5 mg PO 2XD Qty: 60 0RF tramadol 50 mg tablet 50 mg PO BID PRN (Reason: pain) Qty: 60 1RF albuterol sulfate 2.5 mg /3 mL (0.083 %) solution for nebulization 2.5 mg continuous nebulization Q4-6H PRN (Reason: for wheezing) Qty: 90 0RF fenofibrate 54 mg tablet 54 mg PO DAILY Qty: 90 1RF tizanidine 4 mg capsule 4 mg PO QHS Qty: 30 0RF pantoprazole 40 mg tablet,delayed release (DR/EC) 40 mg PO DAILY Qty: 30 3RF ipratropium-albuterol 0.5 mg-3 mg(2.5 mg base)/3 mL solution for nebulization 3 ml inhalation Q4H PRN (Reason: shortness of breath or wheezing) Qty: 180 5RF Saccharomyces boulardii [Florastor] 250 mg Capsule 250 mg PO BID Qty: 6 0RF albuterol sulfate 90 mcg/actuation aerosol powdr breath activated 2 inh inhalation Q4-6H PRN (Reason: shortness of breath or wheezing) Qty: 1 0RF metformin 500 mg tablet 500 mg PO QDAY Qty: 30 3RF No Action (DME) nebulizer and compressor Device See Rx Instructions .ROUTE Qty: 1 0RF Rx Instructions: As directed Did you review [place] [employer] for [place] controlled substances?: Not Applicable Discussed opioids are addictive and Narcan is available by prescription or from pharmacy.: No Condition: Stable
[2025-01-19] MEDS ORDERED: FLUZONE HIGH IM ONE (11:06)
[2025-01-19 14:15] VITALS: BP 125/70; PULSE 76; TEMP 97.6
== END 2025-01-19 15:18 | disposition home or self-care (01) ==
LOC: MEDSURG B 14:36 → ED 14:36 → MEDSURG B 17:35
PROVIDERS: ADMIT Hospitalist; ATTEND Physician Assistant
DX: Z79.84 Long term (current) use of oral hypoglycemic drugs; M54.9 Dorsalgia, unspecified; I25.2 Old myocardial infarction; K21.9 Gastro-esophageal reflux disease without esophagitis; Z99.81 Dependence on supplemental oxygen; I25.10 Atherosclerotic heart disease of native coronary artery without angina pectoris; Z79.899 Other long term (current) drug therapy; E11.9 Type 2 diabetes mellitus without complications; F17.210 Nicotine dependence, cigarettes, uncomplicated; G89.29 Other chronic pain; J44.9 Chronic obstructive pulmonary disease, unspecified; E78.5 Hyperlipidemia, unspecified; Z51.81 Encounter for therapeutic drug level monitoring; Z20.822 Contact with and (suspected) exposure to COVID-19; J96.21 Acute and chronic respiratory failure with hypoxia